=== PATIENT | female | born 1995 | race Caucasian/White ===

== ENCOUNTER 2018-02-13 23:02 | Emergency (ER) | payer SELFPAY ==
[2018-02-13 23:03] VITALS: BP 129/78; PULSE 81; RESP 14; TEMP 36.8; O2SAT 98; BMI 26.7
--- NOTE | 2018-02-13 23:21 | US_ITS ---
STUDY: ABDOMINAL ULTRASOUND - RIGHT UPPER QUADRANT REASON FOR VISIT: Female, 22 years old. Sharp stabbing right upper quadrant pain. Nausea, vomiting, diarrhea. TECHNIQUE: Ultrasound evaluation of the right upper quadrant was performed with real-time and static cruz-scale imaging. TECHNICAL QUALITY: Adequate. COMPARISON: CTA chest May 16, 2016. FINDINGS: Liver: The liver measures 14.4 cm. There is normal echogenicity of the liver. The bile ducts are within normal limits. There is hepatic color flow. The direction of portal flow is hepatopetal. There is no demonstrated mass lesion. Gallbladder: Normal distended gallbladder. The gallbladder wall measures 2 mm. There is a negative sonographic Deng's sign. There is no pericholecystic fluid. There are no gallstones. Common Bile Duct (C.B.D.): The common bile duct measures 3 mm. Pancreas: Normal size of the head, body and tail of the pancreas. There is normal echogenicity of the pancreas. There is no demonstrated pancreatic mass or cyst. Right Kidney: Normal size of the right kidney. The right kidney measures 11.2 cm. Normal renal cortex. The right cortex measures 2.2 cm. There is no demonstrated renal mass or cyst. There is no right hydronephrosis. US/Gallbladder IMPRESSION: Normal right upper quadrant ultrasound examination. Electronically Signed: Danilo Puga MD at 1:11 EDT , Service support ,
[2018-02-13 23:42] LABS: Absolute Lymphocyte Count 2.49 X10^3/ul (0.83-4.51); Absolute Neutrophil Count 6.6 X10^3/uL (2.0-7.7); Basophil# 0.01 X10^3/uL; Basophil% 0.1 % (0-1); Hematocrit 38.7 % (37-47); Hemoglobin 13.3 g/dl (12.0-15.0); Lymphocyte # 2.49 X10^3/ul (4.0); Lymphocyte % 25.8 % (19-41); Mean Corp Hgb Conc 34.4 g/gl (32-36); Mean Corpuscular Hgb 30.7 pg (27.0-32.0); Mean Corpuscular Volume 89.4 fL (81-99); Mean Platelet Vol. 10.4 fl (6.2-12.0); Monocyte# 0.42 X10^3/uL; Monocyte% 4.4 % (0-10); Neutrophil # 6.62 X10^3/uL (2.7-7.7); Neutrophil % 68.6 % (47-70); Platelet Count 212 K/mm3 (150-450); RBC Distribution Width CV 12.2 % (11.6-14.6); RBC Distribution Width SD 39.5 fl (35.1-43.9); Red Blood Count 4.33 M/mm3 (4.2-5.4); White Blood Count 9.7 K/mm3 (4.4-11.0)
[2018-02-13 23:44] LABS: POSITIVE COUNT NO; POSITIVE DIFFERENTIAL NO; POSITIVE MORPHOLOGY NO
[2018-02-13 23:55] LABS: ALB/GLOB Ratio 1.2 RATIO (0.9-2.4); AST(SGOT) 17 U/L (15-37); Alanine Aminotransfer ALT/SGPT 18 U/L (13-56); Albumin, Serum 3.9 g/dL (3.2-5.0); Alkaline Phosphatase 88 U/L (45-117); Anion Gap 10 (5-15); BUN 13 mg/dL (7-18); BUN/Creat Ratio 19.8 RATIO (10-20); Calcium,Total 8.7 mg/dL (8.5-10.1); Chloride 109 mmol/L (98-107); Creatinine, Serum 0.66 mg/dL (0.55-1.02); EST Glomerular Filtration Rate 120 mL/min (>60); Est Glom Filt Rate - Afr Amer 146 mL/min (>60); Estimated Creatinine Clearance 121.33 ml/min; Globulin 3.2 g/dL (2.2-4.2); Glucose 90 mg/dL (74-106); Lipase 64 U/L (73-393); Potassium 3.8 mmol/L (3.5-5.1); Protein, Total 7.1 g/dL (6.4-8.2); Sodium Level 142 mmol/L (136-145)
[2018-02-14 01:12] LABS: Internal QC Validated? YES +Cl - CLEAR BKGD; Pregnancy, Urine Negative Negative
--- NOTE | 2018-02-14 01:43 | ED.VISSUMM ---
- ER Visit Summary Date of Service: 02/14/18 Chief Complaint: Abdominal pain History of Present Illness: The patient is a 22 F presenting for evaluation secondary to abdominal pain. Patient states that over the course last 5 days she has been having some feelings of sweats. She states that this is a feeling of basically a subjective fever and denies any presence of chills. Patient reports that over the course last 5 hours however she had a gradual onset of continuous right upper quadrant abdominal pain that she describes as sharp. Seems to be alleviated by lying down. She states it has been associated with nausea and vomiting, she denies any diarrhea, she denies any worsening with eating food. She denies any urinary signs or symptoms. Review of systems otherwise negative. Physical Examination: Vital signs are within normal limits, patient is afebrile. General: Patient is well-nourished well-developed and in no acute distress. Head: Normocephalic, atraumatic Eyes: Pupils equal round and reactive bilaterally, extra occular motion intact bialterally ENT: Moist mucous membranes Neck: Supple, no lymphadenopathy, no JVD, no meningismus CVS: Heart regular rate and rhythm, no murmurs, rubs or gallops, radial pulses 2+ bilaterally Resp: Respirations nondistressed, lung sounds clear bilaterally Abdomen: Soft, right upper quadrant tenderness palpation with a positive Deng sign negative guarding or rebound no evidence of palpable abdominal masses, nondistended, no palpable masses, normal bowel sounds Back: Nontender Extremities: Nontender, atraumatic, active full range of motion, no peripheral edema Skin: warm, no rashes, no petechia Neuro: Alert and oriented x 4, CN 2-12 intact, no lateralizing neurological defecits Psyc: Normal affect Test Results: Right upper quadrant ultrasound negative per radiology. CBC, chemistry, liver panel, lipase, and hCG all found to be negative. Emergency Department Course and Treatment: Patient presented for evaluation secondary to abdominal pain. She did localize this in her right upper quadrant, there is at least some concern for the possibility of acute cholecystitis a workup was obtained. Patient declined analgesia or nausea medication in the emergency department. Patient's workup was negative as noted above a repeat abdominal exam at 143 showed the patient to have benign nonsurgical abdomen. I believe that she safely can be discharged. Patient potentially has an element of biliary colic, she will be given a referral to general surgery for further outpatient workup. She was given signs and symptoms which to return to the emergency department. Disposition: Discharge Impression: 1. Right upper quadrant abdominal pain This note was generated with Zazzy dictation software. It may contain incorrect words, spelling, and punctuation that were not noted in review of the chart prior to signing ED Disposition - Plan for ED Patient: Disposition: Home or Assisted Living Chief Complaint: Abd Pain Diagnosis: Right upper quadrant abdominal pain Instructions: ED Abdominal Pain Unkn Cause Prescriptions: Naproxen [Naprosyn] 500 mg PO BID PRN #20 tab Referrals: Jack Vieira MD [STAFF PHYSICIAN] -
--- NOTE | 2018-02-14 01:47 | ED.DCSUM_ITS ---
- ER Visit Summary Date of Service: 02/14/18 Chief Complaint: Abdominal pain History of Present Illness: The patient is a 22 F presenting for evaluation secondary to abdominal pain. Patient states that over the course last 5 days she has been having some feelings of sweats. She states that this is a feeling of basically a subjective fever and denies any presence of chills. Patient reports that over the course last 5 hours however she had a gradual onset of continuous right upper quadrant abdominal pain that she describes as sharp. Seems to be alleviated by lying down. She states it has been associated with nausea and vomiting, she denies any diarrhea, she denies any worsening with eating food. She denies any urinary signs or symptoms. Review of systems otherwise negative. Physical Examination: Vital signs are within normal limits, patient is afebrile. General: Patient is well-nourished well-developed and in no acute distress. Head: Normocephalic, atraumatic Eyes: Pupils equal round and reactive bilaterally, extra occular motion intact bialterally ENT: Moist mucous membranes Neck: Supple, no lymphadenopathy, no JVD, no meningismus CVS: Heart regular rate and rhythm, no murmurs, rubs or gallops, radial pulses 2 + bilaterally Resp: Respirations nondistressed, lung sounds clear bilaterally Abdomen: Soft, right upper quadrant tenderness palpation with a positive Deng sign negative guarding or rebound no evidence of palpable abdominal masses, nondistended, no palpable masses, normal bowel sounds Back: Nontender Extremities: Nontender, atraumatic, active full range of motion, no peripheral edema Skin: warm, no rashes, no petechia Neuro: Alert and oriented x 4, CN 2-12 intact, no lateralizing neurological defecits Psyc: Normal affect Test Results: Right upper quadrant ultrasound negative per radiology. CBC, chemistry, liver panel, lipase, and hCG all found to be negative. Emergency Department Course and Treatment: Patient presented for evaluation secondary to abdominal pain. She did localize this in her right upper quadrant , there is at least some concern for the possibility of acute cholecystitis a workup was obtained. Patient declined analgesia or nausea medication in the emergency department. Patient's workup was negative as noted above a repeat abdominal exam at 143 showed the patient to have benign nonsurgical abdomen. I believe that she safely can be discharged. Patient potentially has an element of biliary colic, she will be given a referral to general surgery for further outpatient workup. She was given signs and symptoms which to return to the emergency department. Disposition: Discharge Impression: 1. Right upper quadrant abdominal pain This note was generated with [employer] dictation software. It may contain incorrect words, spelling, and punctuation that were not noted in review of the chart prior to signing ED Disposition - Plan for ED Patient: Disposition: Home or Assisted Living Chief Complaint: Abd Pain Diagnosis: Right upper quadrant abdominal pain Instructions: ED Abdominal Pain Unkn Cause Prescriptions: Naproxen [Naprosyn] 500 mg PO BID PRN #20 tab Referrals: Jack Vieira MD [STAFF PHYSICIAN] -
[2018-02-14 01:53] VITALS: BP 118/54; PULSE 65; RESP 17
--- NOTE | 2018-02-14 01:54 | ED.RN ---
IV DC'ED, CATHETER INTACT, SMALL GAUZE DRESSING PLACED. DISCHARGE INSTRUCTIONS GIVEN TO AND REVIEWED WITH PATIENT, PATIENT DENIES QUESTIONS OR CONCERNS AND VOICES UNDERSTANDING OF DISCHARGE INSTRUCTIONS. PT AMBULATES OUT OF ROOM WITHOUT DIFFICULTY.
== END 2018-02-14 01:54 | disposition home or self-care (01) ==
PROVIDERS: Emergency Provider Emergency Medicine; Family Provider Student in an Organized Health Care Education/Training Program; PCP Student in an Organized Health Care Education/Training Program
DX: R10.11 Right upper quadrant pain (principal); R61 Generalized hyperhidrosis; R11.2 Nausea with vomiting, unspecified; J45.909 Unspecified asthma, uncomplicated; Z72.0 Tobacco use
CPT/HCPCS: 76705; 80053; 81025; 83690; 85025; 99283; A4216

== ENCOUNTER 2019-04-15 13:21 | Emergency (ER) | payer SELFPAY ==
[2019-04-15 13:23] VITALS: BP 137/70; PULSE 86; RESP 18; TEMP 36.3; O2SAT 96; BMI 30.4
--- NOTE | 2019-04-15 13:35 | CT_ITS ---
STUDY: CT ABDOMEN AND PELVIS WITHOUT CONTRAST REASON FOR EXAM: Female, 23 years old. Pain on the left side RADIATION DOSAGE (If Supplied By Facility): CTDIvol = ( 9.61 ) mGy, DLP = ( 506.64 ) mGycm TECHNIQUE: Transaxial images were obtained from the dome of the diaphragm to the symphysis pubis without oral contrast, and without intravenous contrast. Sagittal and coronal images were reconstructed. Individualized dose optimization techniques were used for this CT. COMPARISON: None. FINDINGS: The visualized lung bases are unremarkable. The visualized portions of the heart are within normal limits. Normal liver. Normal gallbladder and extrahepatic biliary system. Normal spleen. Normal pancreas. Normal bilateral adrenal glands. Normal right kidney. Normal left kidney. Normal visualized stomach. Normal small intestine. Normal colon. The appendix is visualized and appears normal. Normal abdominal aorta. Normal inferior vena cava. Normal retroperitoneum. Normal urinary bladder. IUD in place within the uterus. There is a small umbilical hernia containing fat. Normal osseous structures. CT/Abdomen/Pelvis without Cont IMPRESSION: Appendix is normal. IUD in place. No evidence of bowel obstruction or perienteric inflammation. No evidence of free fluid in the peritoneal space. Electronically Signed: John Paul Brooks MD at 14:55 EDT Tel [phone], Service support ,
--- NOTE | 2019-04-15 13:37 | ED.VISSUMM ---
- ER Visit Summary Date of Service: 04/15/19 Chief Complaint: [Abdominal pain] History of Present Illness: The patient is a 23 F [presents to the emergency department complaint of abdominal pain that started this morning. Patient states pain is located in her lower abdomen and radiates straight through to her back. Patient rates her pain as an 8 out of 10 describes it as sharp and stabbing. Patient states that her last menstrual period she thinks was about a week ago when she bled for about 2 days and had severe pain associated with it as well. Patient does have an IUD that she had placed about 2-1/2 years ago. Patient denies any fever. She denies any nausea or vomiting associated with it. Patient denies any diarrhea. Patient denies any blood in her stool or black tarry stool. Patient states she has had similar pains in the past but has not sought medical attention for it. Patient denies any dysuria, hematuria, urgency, or frequency.] Physical Examination: [HEENT-PERRLA, EOMI. Cranial nerves II through XII grossly intact. TMs clear. Mucous membranes moist. No adenopathy. Cardiovascular-regular rate and rhythm without murmur or ectopy Lungs-clear to auscultation, chest wall stable without crepitus or subcu emphysema Abdomen-normoactive bowel sounds, soft area patient has diffuse tenderness over the suprapubic region as well as the left lower quadrant with some guarding. There is no rebound, rigidity, cranial signs. Extremities-intact ?4, normal range of motion, normal pulses, atraumatic] Test Results: [CBC with differential obtained was normal. Chemistries unremarkable. Urinalysis was normal. hCG was negative. CT scan of the M pelvis without contrast showed a normal appendix and an IUD to be in place. Nothing else significant on exam.] Emergency Department Course and Treatment: [She was medicated with her feeding as well as Zofran and Toradol. She had good pain relief with that. Discussed with patient possibly obtaining pelvic ultrasound to evaluate further although my suspicion for torsion is very low as patient had similar pain multiple times in the past that she is had multiple visits to her [facility] for same. Patient has never been diagnosed with endometriosis or so but she states that it runs in her family.] Treatment Plan: [Patient will be advised to follow-up with her [employer] [facility] within next 3 to 5 days. Patient will be given a prescription for [place] for pain. Advised to return if worsening pain, fever, vomiting, or conditions worsen anyway.] Disposition: [Discharged home in stable condition] Impression: [Abdominal pain-etiology uncertain] This note was generated with ipadio dictation software. It may contain incorrect words, spelling, and punctuation that were not noted in review of the chart prior to signing ED Disposition - Plan for ED Patient: Referrals: Juan Diego Gaines DO [Primary Care Provider] -
[2019-04-15] MEDS: 0.9% Normal Saline 1,000 ML 125 ML IV (14:01)
[2019-04-15] MEDS: Ondansetron 4 MG/2 ML Vial IV (14:01)
[2019-04-15] MEDS: Ketorolac 30 MG/ML Syringe 15 MG IV (14:01)
[2019-04-15] MEDS: Morphine 4 MG/ML Syringe IV (14:01)
[2019-04-15 14:13] LABS: Internal QC Validated? YES +Cl - CLEAR BKGD; Pregnancy, Serum, hCG Quali. NEGATIVE Negative
[2019-04-15 14:14] LABS: Absolute Lymphocyte Count 2.16 X10^3/uL (0.83-4.51); Absolute Neutrophil Count 4.9 X10^3/uL (2.0-7.7); Basophil# 0.03 X10^3/uL; Basophil% 0.4 % (0-1); Eosinophil# 0.28 X10^3/uL; Eosinophils% 3.5 % (0-5); Hematocrit 40.6 % (37-47); Hemoglobin 13.4 g/dL (12.0-15.0); Lymphocyte # 2.16 X10^3/ul (4.0); Mean Corpuscular Hgb 29.7 pg (27.0-32.0); Mean Platelet Vol. 9.8 fl (6.2-12.0); Monocyte# 0.57 X10^3/uL; Monocyte% 7.1 % (0-10); NRBC Flagged by Analyzer 0 % (0-5); Neutrophil # 4.94 X10^3/uL (2.7-7.7); Neutrophil % 61.7 % (47-70); Platelet Count 220 K/mm3 (150-450); RBC Distribution Width CV 12.1 % (11.6-14.6); RBC Distribution Width SD 39.8 fl (35.1-43.9); Red Blood Count 4.51 M/mm3 (4.2-5.4)
[2019-04-15 14:25] LABS: Anion Gap 3 (5-15); BUN 14 mg/dL (7-18); BUN/Creat Ratio 20.4 RATIO (10-20); Calcium,Total 8.4 mg/dL (8.5-10.1); Chloride 111 mmol/L (98-107); Creatinine, Serum 0.69 mg/dL (0.55-1.02); EST Glomerular Filtration Rate 113 mL/min (>60); Est Glom Filt Rate - Afr Amer 137 mL/min (>60); Estimated Creatinine Clearance 115.08 ml/min; Glucose 93 mg/dL (74-106); Potassium 3.9 mmol/L (3.5-5.1); Sodium Level 140 mmol/L (136-145)
[2019-04-15 14:31] LABS: Bacteria 0 SEEN /hpf (None Seen); Mucous, Urine 0 SEEN /hpf (<or=2+); Red Blood Cells-Urine 0 SEEN /hpf (0-5); Squamous Epithelial Cells - UA 0 SEEN /hpf (5-10); White Blood Cells 0 SEEN /hpf (0-5)
[2019-04-15 14:42] LABS: Color, Urine Yellow (Yellow); Glucose, Dipstick Normal (Normal); Ketone-Dipstick Negative (Negative); Leukocyte Esterase-Dipstick Negative /ul (Negative); Nitrite-Dipstick Negative (Negative); Occult Blood-Urine Negative /ul (Negative); Protein-Dipstick Negative (Negative); Specific Gravity, Urine 1.015 (1.002-1.030); Urine Bilirubin Dipstick Negative (Negative); Urine Clarity Clear (Clear); Urine Urobilinogen 1 mg/dl (Normal); Urine pH 6.5 (5.0 - 8.0)
--- NOTE | 2019-04-15 15:16 | DCINST.ED_ITS ---
ED Disposition - Plan for ED Patient: Instructions: ABDOMINAL PAIN, Unknown Cause, (Female) Prescriptions: Naproxen [Naprosyn] 500 mg PO BID PRN #20 tab Prescription Printed Hydrocodone Bitart/Apap 5-325 [[place] 5MG-325MG] 1 tab PO Q4H PRN PRN 2 Days #10 tab PRN Reason: Pain Prescription Printed Referrals: Juan Diego Gaines DO [Primary Care Provider] - Dayan Reed MD [STAFF PHYSICIAN] - 3-5 Days
[2019-04-15 15:39] VITALS: BP 128/74; PULSE 82; RESP 16; O2SAT 98
== END 2019-04-15 15:41 | disposition home or self-care (01) ==
LOC: ED 13:42
PROVIDERS: Emergency Provider Emergency Medicine; Family Provider Student in an Organized Health Care Education/Training Program; PCP Student in an Organized Health Care Education/Training Program
DX: R10.32 Left lower quadrant pain (principal); Z97.5 Presence of (intrauterine) contraceptive device; Z72.0 Tobacco use
CPT/HCPCS: 74176; 80048; 81001; 84703; 85025; 96361; 96374; 96375; 99284; J7030; J2405

== ENCOUNTER 2021-04-08 07:34 | Emergency (ER) | payer MEDICAID, SELFPAY ==
[2021-04-08 07:35] VITALS: BP 136/81; PULSE 81; RESP 16; TEMP 36.7; O2SAT 100; BMI 32.3
--- NOTE | 2021-04-08 08:48 | CT_ITS ---
STUDY: CT BRAIN WITHOUT CONTRAST REASON FOR EXAM: Female, 25 years old. Head injury RADIATION DOSAGE (If Supplied By Facility): CTDIvol = ( 44.99 ) mGy, DLP = ( 762.36 ) mGycm TECHNIQUE: Transaxial CT imaging of the brain was performed without administration of intravenous contrast material. Individualized dose optimization techniques were used for this CT. COMPARISON: No relevant priors. FINDINGS: Normal soft tissue structures. Normal calvarium. Normal size ventricles and extra-axial spaces for the patient''s age. Normal white matter tracts of the cerebral hemispheres. Normal basal ganglia and thalami. Normal brainstem. Normal cerebellum. There is no intracranial hemorrhage. There are no findings of an acute ischemic infarction. Normal visualized paranasal sinuses. CT/Brain/Head without Contrast IMPRESSION: Normal unenhanced CT scan of the brain. Electronically Signed: Gibran Gonzalez MD at 9:23 EDT , Service support ,
--- NOTE | 2021-04-08 10:10 | EX.ED.VIS.HA ---
HPI History of Present Illness Chief Complaint: Headache Informant: patient Onset/Context/Timing Onset: Yesterday Timing: Continuous Location: Left frontal area Worsened by: Movement Relieved by: Nothing Associated Symptoms/Injury Associated Symptoms: Positive for Visual Changes and Photophobia; Negative for Fever, Nausea, Vomiting, Sore Throat, Sinus Pressure, Numbness, Tingling, Preceding Aura, Blurred Vision and Visual Loss Injury - [place]: Positive for Direct Trauma Narrative Narrative: Patient with headache that began yesterday. Patient states that a window fell on to her head. Patient states it hit her in the left frontal area. Patient states she has been having sharp headaches since that time. Patient states it is worse with any movement of her head. Patient states she also has been seeing spots in her vision. Patient admits to some mild photophobia. Patient denies any nausea or vomiting. Patient denies any loss of consciousness. Patient denies any paresthesias or weakness. [facility] Medical History (Updated 04/08/21 @ 10:[address] Terrance Haas DO) Asthma Sciatica Home Medications albuterol sulfate 1 puff INHALATION Q4H PRN PRN 04/15/19 [History Last Taken Unknown] loratadine 10 mg PO DAILY PRN 04/15/19 [History Last Taken Unknown] naproxen 500 mg PO BID PRN #20 tab 04/15/19 [Rx Last Taken Unknown] Allergy/AdvReac Type Severity Reaction Status Date / Time benzonatate Allergy Hives Verified 04/08/21 07:36 [From David Levine] red (food color) Allergy Hives Verified 04/15/19 13:22 no surgical history Social History Smoking Status: Current every day smoker tobacco type: cigarettes ROS ROS ED Constitutional Constitutional ED: Denies chills or fever(s) Eyes Eyes: Reports change in vision; Denies blurry vision ENT ENT ED: Denies rhinorrhea or sore throat Cardiovascular Cardiovascular: Denies chest pain or palpitations Respiratory/Chest Respiratory/Chest: Reports cough; Denies dyspnea Gastrointestinal Gastrointestinal: Denies nausea or vomiting Genitourinary Genitourinary ED: Denies dysuria or hematuria Musculoskeletal Musculoskeletal: Reports neck pain; Denies back pain Integumentary Denies abscess or rash Neurologic Neurologic: Reports headache(s); Denies weakness Allergic/Immunologic Allergic/Immunologic ED: Denies mouth swelling or urticaria EXAM Physical Exam Const Vital Signs: 04/08/21 07:35 Temperature 98.0 F Temperature Source Temporal Pulse Rate 81 Respiratory Rate 16 Blood Pressure 136/81 H Blood Pressure Mean 99 Pulse Ox 100 Oxygen Delivery Method Room Air Positive well nourished, well developed and obese General Appearance ED: well developed Nutritional Appearance: obese HEENT Reports moist mucous membranes HEENT Narrative: There is some mild tenderness over the left frontal area. There is no edema or ecchymosis. There is no bony crepitance or step-off. tenderness Eyes PERRL and EOMs intact bilaterally Neck supple and no JVD Resp normal respiratory effort and clear to auscultation bilaterally Cardio regular rate, regular rhythm and no murmurs GI normal to inspection, nondistended, normoactive bowel sounds Extremity normal to inspection General Extremety ED: Negative for edema or tenderness General Extremity: Negative for edema Neuro oriented x3, CN's II-XII intact bilaterally and no sensory deficits noted Sensorium / Orientation: awake and alert Motor Exam: strength 5/5 throughout Psych mental status grossly normal Skin no rashes or lesions noted MDM MDM MDM Narrative Medical decision making narrative: CT scan of the brain was obtained. There is no acute intracranial abnormality. Patient was advised of her findings. Patient was instructed to rest in a dark quiet room. Patient was instructed to drink plenty of fluids. Patient was instructed to take Tylenol or ibuprofen as needed for pain. Patient was instructed to follow-up with her primary care physician in 5 to 7 days. Patient understood and was agreeable with the plan. All questions were answered. Radiography Diagnostic Testing: Radiology Impression Brain CT 04/08/21 08:48 IMPRESSION: Normal unenhanced CT scan of the brain. Electronically Signed: Gibran Gonzalez MD at 9:23 EDT , Service support , Discharge Plan Triage Chief Complaint: Headache ED Provider: Terrance Haas Dx/Rx/DC Orders Clinical Impression: Closed head injury Instructions: ED Head Injury (Adult) Prescriptions: No Action albuterol sulfate 1 INHALER inhaler 1 puff inhalation Q4H PRN PRN (Reason: Wheezing) RF: 0 loratadine 10 MG capsule 10 mg PO DAILY PRN (Reason: Allergies) RF: 0 naproxen 500 MG tablet 500 mg PO BID PRN Qty: 20 RF: 0 Primary Care Provider: Juan Diego Gaines Referrals: Juan Diego Gaines DO [Primary Care Provider] - 5-7 Days Disposition Disposition: Home, Self Care
[2021-04-08 10:33] VITALS: PULSE 81; RESP 16; O2SAT 98
== END 2021-04-08 10:35 | disposition home or self-care (01) ==
PROVIDERS: Emergency Provider Emergency Medicine; PCP Student in an Organized Health Care Education/Training Program
DX: S09.90XA Unspecified injury of head, initial encounter (principal); M54.2 Cervicalgia; W20.8XXA Other cause of strike by thrown, projected or falling object, initial encounter; Y93.9 Activity, unspecified; Y92.9 Unspecified place or not applicable; Y99.9 Unspecified external cause status; J45.909 Unspecified asthma, uncomplicated; E66.9 Obesity, unspecified; F17.210 Nicotine dependence, cigarettes, uncomplicated; Z79.899 Other long term (current) drug therapy
CPT/HCPCS: 70450; 99282

== ENCOUNTER 2021-05-12 23:07 | Emergency (ER) | payer MEDICAID, SELFPAY ==
--- NOTE | 2021-05-12 00:30 | RAD_ITS ---
STUDY: X-RAY CHEST REASON FOR EXAM: Female, 25 years old. cough, sob, neg covid TECHNIQUE: Frontal and lateral views of the chest. COMPARISON: None. FINDINGS: The lungs are clear and expanded. There is no demonstrated pleural abnormality. Normal size heart. Normal mediastinum and amy. Normal visualized pulmonary arteries. Normal visualized aortic arch and descending thoracic aorta. Normal visualized thoracic spine. Normal visualized ribs, clavicles, and shoulders. There is no demonstrated abnormality of the visualized soft tissue structures of the upper abdomen. RAD/Chest PA and Lateral IMPRESSION: Normal x-ray examination of the chest. Electronically Signed: Anthony Loyd MD at 0:54 EDT Tel , Service support ,
[2021-05-12 23:08] VITALS: BP 144/86; PULSE 106; RESP 16; TEMP 36.6; O2SAT 94; BMI 32.5
[2021-05-12] MEDS: predniSONE 20 MG Tablet 40 MG PO (23:38)
[2021-05-12 23:51] VITALS: PULSE 105; RESP 16; O2SAT 98
[2021-05-12] MEDS: Albuterol 2.5 MG/3 ML VIAL.NEB. INHALATION (23:51)
[2021-05-12] MEDS: Ipratropium/Albuterol Sulfate 3 ML AMPUL.NEB INHALATION (23:51)
--- NOTE | 2021-05-13 00:03 | ED.VIS.DYS ---
HPI History of Present Illness Chief Complaint: Cough Informant: patient Onset/Context/Timing Onset: Days (2-3) Context: gradual Timing: Continuous Quality: Positive for Wheezing Current Severity: Moderate Maximum Severity: Moderate Worsened by: Exertion and Coughing Relieved by: Nothing (Tried albuterol at home) Associated Symptoms cough Chest Pain: Positive for Tightness Narrative Narrative: Patient has had upper respiratory tract infection along with her boyfriend, they both started getting sick on the same day about 6 days ago, they both had tested for Covid and both turned out negative. She states that her test had a 24-48-hour turnaround, so I suspect it was the PCR. She presents because he is starting to improve however she is having chest tightness and increase in her asthma symptoms and is feeling more miserable. She has hoarseness without stridor, headache, myalgias. No fevers. [facility] Medical History Asthma Herniated disc Sciatica Home Medications albuterol sulfate 1 puff INHALATION Q4H PRN PRN 04/15/19 [History Last Taken Unknown] loratadine 10 mg PO DAILY PRN 04/15/19 [History Last Taken Unknown] Controll 1 tab PO.IVFORM DAILY 05/12/21 [History Last Taken Unknown] albuterol sulfate 2.5 mg INHALATION Q4H PRN #25 vial 05/13/21 [Rx Last Taken Unknown] prednisone 40 mg PO DAILY #10 tablet 05/13/21 [Rx Last Taken Unknown] Allergy/AdvReac Type Severity Reaction Status Date / Time benzonatate Allergy Hives Verified 05/12/21 23:08 [From David Levine] red (food color) Allergy Hives Verified 05/12/21 23:08 Social History Smoking Status: Current every day smoker tobacco type: cigarettes ROS ROS ED Constitutional Constitutional ED: Reports body ache(s), headache(s) and malaise; Denies chills or fever(s) Eyes Eyes: Denies change in vision or diplopia ENT ENT ED: Reports hoarseness; Denies loss taste/smell, rhinorrhea or sore throat Cardiovascular Cardiovascular: Denies chest pain or palpitations Respiratory/Chest Respiratory/Chest: Reports cough, dyspnea and dyspnea on exertion Gastrointestinal Gastrointestinal: Reports diarrhea; Denies abdominal pain, nausea or vomiting Genitourinary Genitourinary ED: Denies dysuria or hematuria Musculoskeletal Musculoskeletal: Denies back pain or neck pain Integumentary Denies abscess or rash Neurologic Neurologic: Reports headache(s); Denies paresthesias or weakness Psychiatric Psychiatric: Denies anxiety or suicidal thoughts EXAM Physical Exam Const Vital Signs: 05/12/21 23:08 05/12/21 23:51 Temperature 97.8 F Temperature Source Temporal Pulse Rate 106 H 105 H Respiratory Rate 16 16 Respiratory Effort Normal Short of Breath Respiratory Pattern Normal Blood Pressure 144/86 H Blood Pressure Mean 105 Pulse Ox 94 98 Oxygen Delivery Method Room Air Room Air Positive well nourished and well developed Constitutional Narrative: well-appearing, no distress. very hoarse of voice w/o stridor or resp distress. General Appearance ED: well developed and NAD HEENT Reports moist mucous membranes normocephalic and atraumatic Eyes PERRL and EOMs intact bilaterally Neck full ROM, no lymphadenopathy, supple, no JVD and thyroid normal Resp normal respiratory effort Resp Narrative: Mild end expiratory wheezes throughout all you, equal breath sounds bilaterally. Cardio regular rate, regular rhythm and no murmurs Rate: tachycardic GI non-tender and non-distended Auscultation: normoactive bowel sounds Palpation: soft Back/Spine no CVA tenderness General Back: other FROM Extremity normal to inspection and no calf tenderness General Extremety ED: Negative for edema, pulses abnormal or tenderness General Extremity: Negative for edema or pulses abnormal Neuro oriented x3, CN's II-XII intact bilaterally and no sensory deficits noted Sensorium / Orientation: awake and alert Motor Exam: strength 5/5 throughout Skin no rashes or lesions noted and no wounds MDM MDM MDM Narrative Medical decision making narrative: 2 view chest x-ray was obtained and on my interpretation is negative for infiltrate. She was given a duo nebulizer along with another albuterol aerosol treatment, and started on prednisone. She felt much better after this, the tightness let up significantly and she was satting better, 98% on room air. 2 view x-ray monitor rotation looks good. She will be prescribed prednisone and a refill for her albuterol nebulizer as well. Supportive care advised for what is likely a non-Covid viral illness. Radiography Chest X-Ray - ED: 2 View, Read by ED Physician, No Acute Disease and No Infiltrates Discharge Plan Triage Chief Complaint: Cough ED Provider: Viral Panda Dx/Rx/DC Orders Clinical Impression: Upper respiratory tract infection, Acute asthma exacerbation Instructions: Asthma Prescriptions: New prednisone 20 MG tablet 40 mg PO DAILY Qty: 10 RF: 0 albuterol sulfate 2.5 MG/3 ML solution for nebulization 2.5 mg inhalation Q4H PRN Qty: 25 RF: 0 No Action albuterol sulfate 1 INHALER inhaler 1 puff inhalation Q4H PRN PRN (Reason: Wheezing) RF: 0 loratadine 10 MG capsule 10 mg PO DAILY PRN (Reason: Allergies) RF: 0 Controll 1 tab PO.IVFORM DAILY RF: 0 Primary Care Provider: Juan Diego Gaines Referrals: Juan Diego Gaines DO [Primary Care Provider] - 1 Week if not improving Disposition Disposition: Home, Self Care
--- NOTE | 2021-05-13 00:13 | CPS ---
x1 Albuterol given to pt. in ED as well
[2021-05-13 01:02] VITALS: BP 112/60; PULSE 100; RESP 18; O2SAT 98
== END 2021-05-13 01:05 | disposition home or self-care (01) ==
PROVIDERS: Emergency Provider Emergency Medicine; PCP Student in an Organized Health Care Education/Training Program
DX: J06.9 Acute upper respiratory infection, unspecified (principal); J45.901 Unspecified asthma with (acute) exacerbation; Z79.3 Long term (current) use of hormonal contraceptives; Z79.899 Other long term (current) drug therapy; F17.210 Nicotine dependence, cigarettes, uncomplicated
CPT/HCPCS: 71046; 94640; 99251; 99283; G0463

== ENCOUNTER 2021-06-10 21:36 | Emergency (ER) | payer MEDICAID, SELFPAY ==
[2021-06-10 21:36] VITALS: BP 149/87; PULSE 109; RESP 18; TEMP 36.4; O2SAT 97; BMI 32.1
--- NOTE | 2021-06-10 22:08 | EDS_ITS ---
HPI History of Present Illness Chief Complaint: Back Informant: patient Narrative Narrative: 25-year-old female presenting to the emergency department with back pain. Patient states that she has a long history of back pain. She sees a chiropractor 3 times a week. She states she used to get back injections but could not afford them anymore. She states that she has herniated disc and had a MRI at [facility] many years ago. She states that she had a back adjustment yesterday by her chiropractor. This morning she woke up with low back pain and had numbness of the left leg. She stayed in bed around 3:00 when someone came over and helped her up. That numbness is since resolved. She went to a parenting class with her soon-to-be ex- where she started having vaginal bleeding. She states that she had a Mirena placed about 3 weeks ago. She states that she felt very hot and sweaty that she might pass out especially when the pain got worse. She states that she feels that this is most likely muscular spasm but wanted to be evaluated because ibuprofen is no longer helping her. [facility] Medical History Asthma Herniated disc Sciatica Home Medications albuterol sulfate 1 puff INHALATION Q4H PRN PRN 04/15/19 [History Last Taken Unknown] loratadine 10 mg PO DAILY PRN 04/15/19 [History Last Taken Unknown] Controll 1 tab PO.IVFORM DAILY 05/12/21 [History Last Taken Unknown] albuterol sulfate 2.5 mg INHALATION Q4H PRN #25 vial 05/13/21 [Rx Last Taken Unknown] prednisone 40 mg PO DAILY #10 tablet 05/13/21 [Rx Last Taken Unknown] diazepam 5 mg PO Q8 PRN #15 tab 06/10/21 [Rx Last Taken Unknown] hydrocodone-acetaminophen 1 tab PO Q6H PRN PRN 3 Days #12 tablet 06/10/21 [Rx Last Taken Unknown] ketorolac 10 mg PO Q8H PRN #15 tab 06/10/21 [Rx Last Taken Unknown] prednisone 60 mg PO DAILY #15 tablet 06/10/21 [Rx Last Taken Unknown] Allergy/AdvReac Type Severity Reaction Status Date / Time benzonatate Allergy Hives Verified 09/15/21 23:08 [From David Levine] red (food color) Allergy Hives Verified 05/12/21 23:08 Social History (Updated 06/10/21 @ 22:[address] Cisco Deleon, DO) Smoking Status: Current every day smoker tobacco type: cigarettes substance use type: does not use ROS ROS ED Constitutional Constitutional ED: Denies chills or weight loss Eyes Eyes: Denies change in vision or diplopia ENT ENT ED: Denies ear pain, rhinorrhea or sore throat Cardiovascular Cardiovascular: Denies chest pain, orthopnea, palpitations or racing heartbeat Respiratory/Chest Respiratory/Chest: Denies cough, dyspnea or orthopnea Gastrointestinal Gastrointestinal: Denies abdominal pain, diarrhea, nausea or vomiting Genitourinary Genitourinary ED: Denies dysuria, hematuria or urinary frequency Musculoskeletal Musculoskeletal: Reports back pain; Denies arthralgias or myalgias Integumentary Denies abscess or rash Neurologic Neurologic: Reports paresthesias; Denies headache(s) or weakness Psychiatric Psychiatric: Denies anxiety, depression, suicidal ideation or suicidal thoughts Endocrine Endocrinology: Denies polydipsia, polyphagia or polyuria Allergic/Immunologic Allergic/Immunologic ED: Denies mouth swelling, tongue swelling or urticaria EXAM Physical Exam Const Vital Signs: 06/10/21 21:36 Temperature 97.6 F L Temperature Source Temporal Pulse Rate 109 H Respiratory Rate 18 Blood Pressure 149/87 H Blood Pressure Mean 107 Pulse Ox 97 Oxygen Delivery Method Room Air Positive well nourished, well developed and obese General Appearance ED: well developed Nutritional Appearance: obese HEENT Reports normocephalic, head/scalp atraumatic and moist mucous membranes Eyes PERRL and EOMs intact bilaterally Neck no lymphadenopathy, supple and no JVD Resp normal respiratory effort and clear to auscultation bilaterally Cardio regular rate, regular rhythm and no murmurs GI normal to inspection, nondistended, normoactive bowel sounds and non-tender Palpation: soft Back/Spine no CVA tenderness and normal ROM Back/Spine Narrative: Patient reports tenderness to palpation of the lower lumbar paraspinal musculature. There is no hyperemia. There is no tissue texture changes to suggest underlying abscess. Patient is slow to move and reports pain with any type of movement. Extremity normal to inspection General Extremety ED: Negative for edema General Extremity: Negative for edema Neuro oriented x3 and CN's II-XII intact bilaterally Neuro Narrative: There is no loss of sensation. Patellar and ankle reflexes are normal. Motor strength appears intact. Sensorium / Orientation: alert Motor Exam: strength 5/5 throughout Deep Tendon Reflexes: Rt Patellar (L4): 2+, Lt Patellar (L4): 2+, Rt Ankle (S1): 2+ and Lt Ankle (S1): 2+ Deep Tendon Reflexes Back: Rt Patellar (L4): 2+, Lt Patellar (L4): 2+, Rt Ankle (S1): 2+ and Lt Ankle (S1): 2+ Psych mental status grossly normal Mood & Affect: Negative for depressed or tearful Skin no rashes or lesions noted and no wounds MDM MDM MDM Narrative Medical decision making narrative: I do not suspect that a Mirena placement should cause any type of distal leg symptoms. Think this is musculoskeletal in nature. Patient will be given a dose of Toradol and Valium here. I can prescribe some anti-inflammatories prednisone and muscle relaxants and a few narcotic pain medications. I did recommend early follow-up with her primary care doctor Discharge Plan Triage Chief Complaint: Back ED Provider: Cisco Deleon Dx/Rx/DC Orders Clinical Impression: Acute bilateral low back pain, Left sided sciatica Instructions: ED Sciatica Prescriptions: New hydrocodone-acetaminophen [hydrocodone-acetaminophen] 1 TABLET tablet 1 tab PO Q6H PRN PRN (Reason: Pain) 3 Days Qty: 12 RF: 0 diazepam [diazepam] 5 MG tablet 5 mg PO Q8 PRN (Reason: Muscle Spasm) Qty: 15 RF: 0 prednisone 20 MG tablet 60 mg PO DAILY Qty: 15 RF: 0 ketorolac 10 mg tablet 10 mg PO Q8H PRN (Reason: pain) Qty: 15 RF: 0 No Action albuterol sulfate 1 INHALER inhaler 1 puff inhalation Q4H PRN PRN (Reason: Wheezing) RF: 0 loratadine 10 MG capsule 10 mg PO DAILY PRN (Reason: Allergies) RF: 0 Controll 1 tab PO.IVFORM DAILY RF: 0 prednisone 20 MG tablet 40 mg PO DAILY Qty: 10 RF: 0 albuterol sulfate 2.5 MG/3 ML solution for nebulization 2.5 mg inhalation Q4H PRN Qty: 25 RF: 0 Primary Care Provider: Juan Diego Gaines: Juan Diego Gaines, [Primary Care Provider] - As soon as possible Disposition Disposition: Home, Self Care
[2021-06-10] MEDS: Ketorolac 60 MG/2 ML Vial IM (22:23)
[2021-06-10] MEDS: diazePAM 5 MG Tablet PO (22:23)
[2021-06-10 22:49] VITALS: RESP 18
== END 2021-06-10 22:52 | disposition home or self-care (01) ==
PROVIDERS: Emergency Provider Emergency Medicine; PCP Student in an Organized Health Care Education/Training Program
DX: M54.42 Lumbago with sciatica, left side (principal); J45.909 Unspecified asthma, uncomplicated; E66.9 Obesity, unspecified; F17.210 Nicotine dependence, cigarettes, uncomplicated; Z79.899 Other long term (current) drug therapy; Z97.5 Presence of (intrauterine) contraceptive device
CPT/HCPCS: 96372; 99282

== ENCOUNTER 2021-11-29 21:06 | Emergency (ER) | payer OTHER, MEDICAID, SELFPAY ==
[2021-11-29 21:06] VITALS: BP 140/84; PULSE 92; RESP 16; TEMP 36.3; O2SAT 100; BMI 30.4
--- NOTE | 2021-11-29 21:48 | CT_ITS ---
EXAM: CT ABDOMEN AND PELVIS WITHOUT IV CONTRAST - CT Abdomen And Pelvis W/O Contrast Injection HISTORY: flank pain TECHNIQUE: Routine protocol CT abdomen and pelvis. IV Contrast: None.. Oral contrast: None. RADIATION DOSAGE (If Supplied By Facility): CTDIvol = ( 12.01 ) mGy, DLP = ( 621.03 ) mGycm Individualized dose optimization techniques were used for this CT. COMPARISON: CT abdomen pelvis 04/15/2019. LIMITATIONS: None. FINDINGS: LOWER CHEST: Included lung bases are clear. LIVER: Grossly unremarkable. GALLBLADDER AND BILIARY TREE: Grossly unremarkable. PANCREAS: Grossly unremarkable. SPLEEN: Grossly unremarkable. ADRENAL GLANDS: Grossly unremarkable. KIDNEYS AND URETERS: No calculi demonstrated. No hydronephrosis. PERITONEUM: No free air. No free fluid. BOWEL: No bowel obstruction. Several prominent lymph nodes in the mesentery right mid abdomen, not significantly changed compared to the prior study. APPENDIX: Visualized and unremarkable. No evidence of acute appendicitis. VESSELS: Abdominal aorta is normal caliber. A few prominent retroperitoneal lymph nodes. REPRODUCTIVE ORGANS: Approximately 2.5 cm cyst or follicle in the left ovary. The intrauterine device that was present on the prior study is not identified on the current study. URINARY BLADDER: Grossly unremarkable. ABDOMINAL WALL: Unremarkable. BONES: No acute abnormalities. IMPRESSION: No acute findings. Small 2.5 cm left ovarian cyst or follicle uncertain clinical significance. Electronically Signed: Anastasiia Field MD at 22:55 EDT , CT/Abdomen/Pelvis without Cont
--- NOTE | 2021-11-29 21:49 | EDS_ITS ---
HPI History of Present Illness Chief Complaint: Abd Pain Informant: patient Onset/Context/Timing Onset: Today Current Severity: Moderate Maximum Severity: Moderate Narrative Narrative: Patient presents secondary left lower quadrant pain with left lower back pain. She had some nausea today as well as pain. She ate some sushi yesterday at a new place and thought maybe her pain and nausea was secondary to food poisoning. She really is not vomiting or diarrhea. She reports having cloudy urine yesterday and earlier today. She denies hematuria. No known history of kidney stones. No dysuria. [facility] Medical History Asthma Herniated disc Migraine Sciatica Vertigo Home Medications albuterol sulfate 1 puff INHALATION Q4H PRN PRN 04/15/19 [History Last Taken Unknown] loratadine 10 mg PO DAILY PRN 04/15/19 [History Last Taken Unknown] Controll 1 tab PO.IVFORM DAILY 05/12/21 [History Last Taken Unknown] albuterol sulfate 2.5 mg INHALATION Q4H PRN #25 vial 05/13/21 [Rx Last Taken Unknown] prednisone 40 mg PO DAILY #10 tablet 05/13/21 [Rx Last Taken Unknown] diazepam 5 mg PO Q8 PRN #15 tab 06/10/21 [Rx Last Taken Unknown] hydrocodone-acetaminophen 1 tab PO Q6H PRN PRN 3 Days #12 tablet 06/10/21 [Rx Last Taken Unknown] ketorolac 10 mg PO Q8H PRN #15 tab 06/10/21 [Rx Last Taken Unknown] prednisone 60 mg PO DAILY #15 tablet 06/10/21 [Rx Last Taken Unknown] ketorolac 10 mg PO Q6H PRN 3 Days #10 tab 11/29/21 [Rx Last Taken Unknown] Allergy/AdvReac Type Severity Reaction Status Date / Time benzonatate Allergy Hives Verified 11/29/21 21:08 [From David Levine] red (food color) Allergy Hives Verified 11/29/21 21:08 Social History Smoking Status: Current every day smoker tobacco type: cigarettes substance use type: does not use ROS ROS ED Constitutional Constitutional ED: Denies chills or fever(s) Eyes Eyes: Denies change in vision ENT ENT ED: Denies sore throat Cardiovascular Cardiovascular: Denies chest pain Respiratory/Chest Respiratory/Chest: Denies cough or dyspnea Gastrointestinal Gastrointestinal: Reports abdominal pain and nausea; Denies diarrhea or vomiting Genitourinary Genitourinary ED: Denies dysuria or hematuria Musculoskeletal Musculoskeletal: Denies back pain or neck pain Integumentary Denies rash Neurologic Neurologic: Denies headache(s) or weakness Allergic/Immunologic Allergic/Immunologic ED: Denies urticaria EXAM Physical Exam Const Vital Signs: 11/29/21 21:06 Temperature 97.4 F L Temperature Source Temporal Pulse Rate 92 Respiratory Rate 16 Blood Pressure 140/84 H Blood Pressure Mean 102 Pulse Ox 100 Oxygen Delivery Method Room Air Positive well nourished and well developed General Appearance ED: well developed HEENT Reports moist mucous membranes Eyes PERRL and EOMs intact bilaterally Neck supple Chest Wall inspection of chest normal and palpation of chest normal Resp normal respiratory effort and clear to auscultation bilaterally Cardio regular rate and regular rhythm GI normal to inspection, nondistended, normoactive bowel sounds and non-tender Palpation: soft Back/Spine Back/Spine Narrative: Mild left CVA tenderness. Extremity normal to inspection Neuro oriented x3 Sensorium / Orientation: alert Psych mental status grossly normal Skin no rashes or lesions noted MDM MDM MDM Narrative Medical decision making narrative: Patient given Toradol and IV fluids. Lab work, urinalysis, CT flank obtained. Lab Data Attestation: I reviewed the patient's lab results. Labs: Laboratory Results - last 24 hr 11/29/21 11/29/21 11/29/21 21:20 21:35 21:35 WBC 10.4 RBC 4.85 Hgb 14.6 Hct 44.6 MCV 92.0 MCH 30.1 MCHC 32.7 RDW Std Deviation 41.7 RDW Coeff of Manuela 12.4 Plt Count 241 MPV 10.5 Immature Gran % (Auto) 0.400 Neut % (Auto) 61.6 Lymph % (Auto) 30.4 Lynn % (Auto) 4.7 Eos % (Auto) 2.7 Baso % (Auto) 0.2 Absolute Neuts (auto) 6.4 Absolute Lymphs (auto) 3.17 Nucleated RBC % 0 Sodium 139 Potassium 3.5 Chloride 107 Carbon Dioxide 28.0 Anion Gap 4 L BUN 16 Creatinine 0.75 Estim Creat Clear Calc 103.18 Est GFR (MDRD) Af Amer 122 Est GFR (MDRD) Non-Af 101 BUN/Creatinine Ratio 21.4 H Glucose 94 Calcium 8.7 Urine Color Yellow Urine Clarity Sl. Cloudy Urine pH 6.5 Ur Specific [place] 1.010 Urine Protein Negative Urine Glucose (UA) Normal Urine Ketones Negative Urine Occult Blood Negative Urine Nitrite Negative Urine Bilirubin Negative Urine Urobilinogen Normal Ur Leukocyte Esterase 100 H Urine RBC 0-5 SEEN Urine WBC 5-10 SEEN Ur Squamous Epith Cells 0-5 SEEN Amorphous Sediment 1+ URATE Urine Bacteria 0 SEEN Urine Mucus 0 SEEN Urine Test Negative Radiography Diagnostic Testing: Clinical Impression(s) from Imaging Studies Abdomen/Pelvis CT 11/29/21 21:48 IMPRESSION: No acute findings. Small 2.5 cm left ovarian cyst or follicle uncertain clinical significance. Treatment and Re-Evaluation Narrative: Lab work is unremarkable. Urinalysis reveals no acute infection. CT scan reveals a small 2.5 cm left ovarian cyst. No evidence of kidney stone. Test results discussed with the patient. She is more comfortable after Toradol. She will be written for Toradol tabs at home. She was advised not to take ibuprofen in addition to this. She will follow-up with her [employer]. Discharge Plan Triage Chief Complaint: Abd Pain ED Provider: Xiomy Peterson Dx/Rx/DC Orders Clinical Impression: Ovarian cyst Instructions: ED Ovarian Cyst Prescriptions: New ketorolac 10 mg tablet 10 mg PO Q6H PRN (Reason: pain) 3 Days Qty: 10 RF: 0 No Action albuterol sulfate 1 INHALER inhaler 1 puff inhalation Q4H PRN PRN (Reason: Wheezing) RF: 0 loratadine 10 MG capsule 10 mg PO DAILY PRN (Reason: Allergies) RF: 0 Controll 1 tab PO.IVFORM DAILY RF: 0 prednisone 20 MG tablet 40 mg PO DAILY Qty: 10 RF: 0 albuterol sulfate 2.5 MG/3 ML solution for nebulization 2.5 mg inhalation Q4H PRN Qty: 25 RF: 0 hydrocodone-acetaminophen [hydrocodone-acetaminophen] 1 TABLET tablet 1 tab PO Q6H PRN PRN (Reason: Pain) 3 Days Qty: 12 RF: 0 diazepam [diazepam] 5 MG tablet 5 mg PO Q8 PRN (Reason: Muscle Spasm) Qty: 15 RF: 0 prednisone 20 MG tablet 60 mg PO DAILY Qty: 15 RF: 0 ketorolac 10 mg tablet 10 mg PO Q8H PRN (Reason: pain) Qty: 15 RF: 0 Primary Care Provider: Juan Diego Gaines Referrals: Juan Diego Gaines DO [Primary Care Provider] - Gissel Alba DO [STAFF PHYSICIAN] - 1-2 Weeks Disposition Disposition: Home, Self Care
[2021-11-29] MEDS: 0.9% Normal Saline 1,000 ML 150 ML IV (21:57)
[2021-11-29] MEDS: Ketorolac 30 MG/ML Syringe IV (21:57)
[2021-11-29 22:08] LABS: Bacteria 0 SEEN /hpf (None Seen); Mucous, Urine 0 SEEN /hpf (<or=2+)
[2021-11-29 22:09] LABS: Absolute Lymphocyte Count 3.17 X10^3/uL (0.83-4.51); Absolute Neutrophil Count 6.4 X10^3/uL (2.0-7.7); Basophil# 0.02 X10^3/uL; Basophil% 0.2 % (0-1); Eosinophil# 0.28 X10^3/uL; Eosinophils% 2.7 % (0-5); Hematocrit 44.6 % (37-47); Hemoglobin 14.6 g/dL (12.0-15.0); Lymphocyte # 3.17 X10^3/ul (0.83-4.51); Lymphocyte % 30.4 % (19-41); Mean Corp Hgb Conc 32.7 g/dL (32-36); Mean Corpuscular Hgb 30.1 pg (27.0-32.0); Mean Platelet Vol. 10.5 fl (6.2-12.0); Monocyte# 0.49 X10^3/uL; Monocyte% 4.7 % (0-10); NRBC Flagged by Analyzer 0 % (0-5); Neutrophil # 6.44 X10^3/uL (2.7-7.7); Neutrophil % 61.6 % (47-70); Platelet Count 241 K/mm3 (150-450); RBC Distribution Width CV 12.4 % (11.6-14.6); RBC Distribution Width SD 41.7 fl (35.1-43.9); Red Blood Count 4.85 M/mm3 (4.2-5.4); White Blood Count 10.4 K/mm3 (4.4-11.0)
[2021-11-29 22:12] LABS: Color, Urine Yellow (Yellow); Glucose, Dipstick Normal (Normal); Ketone-Dipstick Negative (Negative); Leukocyte Esterase-Dipstick 100 /ul (Negative); Nitrite-Dipstick Negative (Negative); Occult Blood-Urine Negative /ul (Negative); Protein-Dipstick Negative (Negative); Urine Bilirubin Dipstick Negative (Negative); Urine Clarity Sl. Cloudy (Clear); Urine Urobilinogen Normal (Normal); Urine pH 6.5 (5.0 - 8.0)
[2021-11-29 22:15] LABS: Internal QC Validated? YES +Cl - CLEAR BKGD; Pregnancy, Urine Negative Negative
[2021-11-29 22:18] LABS: Amorphous Sediment 1+ URATE; Red Blood Cells-Urine 0-5 SEEN /hpf (0-5); Squamous Epithelial Cells - UA 0-5 SEEN /hpf (5-10); White Blood Cells 5-10 SEEN /hpf (0-5)
[2021-11-29 22:31] LABS: Anion Gap 4 (5-15); BUN 16 mg/dL (7-18); BUN/Creat Ratio 21.4 RATIO (10-20); Calcium,Total 8.7 mg/dL (8.5-10.1); Chloride 107 mmol/L (98-107); Creatinine, Serum 0.75 mg/dL (0.55-1.02); EST Glomerular Filtration Rate 101 mL/min (>60); Est Glom Filt Rate - Afr Amer 122 mL/min (>60); Estimated Creatinine Clearance 103.18 ml/min; Glucose 94 mg/dL (74-106); Potassium 3.5 mmol/L (3.5-5.1); Sodium Level 139 mmol/L (136-145)
[2021-11-29 23:31] VITALS: BP 123/65; PULSE 78; RESP 16; O2SAT 97
== END 2021-11-29 23:31 | disposition home or self-care (01) ==
PROVIDERS: Emergency Provider Emergency Medicine; PCP Student in an Organized Health Care Education/Training Program; Visit Provider Emergency Medicine
DX: N83.202 Unspecified ovarian cyst, left side (principal); R11.0 Nausea; J45.909 Unspecified asthma, uncomplicated; F17.210 Nicotine dependence, cigarettes, uncomplicated; Z79.3 Long term (current) use of hormonal contraceptives; Z79.899 Other long term (current) drug therapy
CPT/HCPCS: 74176; 80048; 81001; 81025; 85025; 96361; 96374; 99283; J7030; A4216

== ENCOUNTER 2022-08-26 15:00 | Emergency (ER) | payer MEDICAID, SELFPAY ==
[2022-08-26 15:02] VITALS: BP 120/74; PULSE 83; RESP 22; TEMP 36.1; O2SAT 100; BMI 29.1
[2022-08-26 16:18] VITALS: O2SAT 98
--- NOTE | 2022-08-26 16:40 | EKG12_ITS ---
Test Reason : Blood Pressure : / mmHG Vent. Rate : 073 BPM Atrial Rate : 073 BPM P-R Int : 136 ms QRS Dur : 076 ms QT Int : 380 ms P-R-T Axes : 077 069 041 degrees QTc Int : 418 ms Normal sinus rhythm with sinus arrhythmia Normal ECG Confirmed by JUANITA GUTIÉRREZ, BEAU ([id number]), online editor LEONILA NGUYEN ([id number]) on 08/30/2022 11:15:22 AM Referred By: MARCO A Confirmed By:BEAU GRANT MD
--- NOTE | 2022-08-26 16:41 | ED.VIS.DYS ---
HPI History of Present Illness Chief Complaint: Shortness of Breath Informant: patient Narrative Narrative: Patient presents still having dyspnea tightness and wheezing. She states she started with some coughing and wheezing on Monday. She does have a history of asthma. She has a nebulizer at home and has meds. She also has Flovent and albuterol both of which she uses on a as needed basis. She is on control. She was seen at a another local hospital on Monday morning. It sounds like they did blood work x-rays and gave her IV antibiotics, IV steroids send her home on azithromycin and steroids. I looked at her steroid prescription and it is 20 mg a day. She had follow-up at [facility] today and since she was still having wheezing and symptoms they sent her in here. She has no history of DVT or PE. No recent travel surgery or immobilization. No family history. No leg pain or swelling. [facility] Medical History Asthma Herniated disc Migraine Sciatica Vertigo Home Medications albuterol sulfate 90 mcg/actuation aerosol inhaler 1 puff inhalation Q4H PRN PRN Wheezing 04/15/19 [History Last Taken Unknown] loratadine 10 mg capsule 10 mg PO DAILY PRN Allergies 04/15/19 [History Last Taken Unknown] Controll 1 tab PO.IVFORM DAILY 05/12/21 [History Last Taken Unknown] albuterol sulfate 2.5 mg/3 mL (0.083 %) solution for nebulization 2.5 mg (3 mL) inhalation Q4H PRN #25 vials 05/13/21 [Rx Last Taken Unknown] prednisone 20 mg tablet 40 mg PO DAILY #10 TABLETS 05/13/21 [Rx Last Taken Unknown] diazepam 5 mg tablet 5 mg PO Q8 PRN Muscle Spasm #15 tabs 06/10/21 [Rx Last Taken Unknown] hydrocodone-acetaminophen 5-325mg 5mg-325mg 1 tab PO Q6H PRN PRN Pain 3 days #12 TABLETS 06/10/21 [Rx Last Taken Unknown] ketorolac 10 mg tablet 10 mg PO Q8H PRN pain #15 tabs 06/10/21 [Rx Last Taken Unknown] prednisone 20 mg tablet 60 mg PO DAILY #15 TABLETS 06/10/21 [Rx Last Taken Unknown] ketorolac 10 mg tablet 10 mg PO Q6H PRN pain 3 days #10 tabs 11/29/21 [Rx Last Taken Unknown] ipratropium bromide 0.02 % solution for inhalation 2.5 ml inhalation Q6H PRN shortness of breath or wheezing #62.5 mL 08/26/22 [Rx Last Taken Unknown] prednisone 20 mg tablet 60 mg PO DAILY #15 tabs 08/26/22 [Rx Last Taken Unknown] Allergy/AdvReac Type Severity Reaction Status Date / Time benzonatate Allergy Hives Verified 11/29/21 21:08 [From David Levine] red (food color) Allergy Hives Verified 11/29/21 21:08 Social History Smoking Status: Current every day smoker tobacco type: cigarettes substance use type: does not use ROS ROS ED Constitutional Constitutional ED: Denies chills or fever(s) ENT ENT ED: Reports rhinorrhea; Denies sore throat Cardiovascular Cardiovascular: Denies chest pain, palpitations or racing heartbeat Respiratory/Chest Respiratory/Chest: Reports cough and dyspnea Gastrointestinal Gastrointestinal: Denies nausea or vomiting Musculoskeletal Musculoskeletal: Denies arthralgias or myalgias Integumentary Denies rash Neurologic Neurologic: Denies headache(s) Endocrine Endocrinology: Denies polydipsia or polyuria Hematologic/Lymphatic Hematologic/Lymphatic: Denies easy bleeding or easy bruising Allergic/Immunologic Allergic/Immunologic ED: Denies urticaria EXAM Physical Exam Const Vital Signs: 08/26/22 15:02 08/26/22 16:18 08/26/22 17:47 Temperature 97.0 F L Temperature Source Temporal Pulse Rate 83 75 Respiratory Rate 22 H 20 H Respiratory Effort Short of Breath Blood Pressure 120/74 130/67 H Blood Pressure Mean 89 88 Pulse Ox 100 100 Oxygen Delivery Method Room Air Room Air Room Air 08/26/22 19:10 Temperature 98.0 F Temperature Source Temporal Pulse Rate 77 Respiratory Rate 20 H Respiratory Effort Blood Pressure 128/69 H Blood Pressure Mean 88 Pulse Ox 96 Oxygen Delivery Method Room Air Positive well nourished HEENT Reports moist mucous membranes Eyes General Eye ED: Yes scleral icterus Neck no lymphadenopathy and no JVD Neck Narrative: No stridor heard. Chest Wall Chest Narrative: No subcu air Resp Resp Narrative: Breathing does show extremely tight expiratory wheezes throughout. I do not hear rhonchi or rales. No pain with a deep breath. She has somewhat poor air motion. Auscultation: wheezes and diminished lung sounds; Negative for rales or rhonchi Cardio regular rate and regular rhythm Rate: Negative for tachycardic GI non-tender and non-distended Palpation: soft Back/Spine no CVA tenderness Extremity normal to inspection Neuro oriented x3 Sensorium / Orientation: alert Psych mental status grossly normal Skin no wounds MDM MDM MDM Narrative Medical decision making narrative: 2 view chest x-ray does not show any acute process. CBC is normal. Electrolytes show no marked abnormalities. COVID and influenza are negative. Patient is rechecked. She does sound better. She has wheezes still but she is moving much more air. We walked her. Her lowest saturation was about 93 or 4% she actually did reasonably well. I discussed options with the patient. At this time we would still like to try her as outpatient therapy. We will bump up the dose of steroids as she is only been taking 20 mg a day. I will write for [email or web address] for her nebulizer so she has that to use at home because she feels that it worked a lot better. If she is having worsening dyspnea wheezing or further problems she should return. If she has concerns she should certainly call 911. Lab Data Attestation: I reviewed the patient's lab results. Labs: Laboratory Results - last 24 hr 08/26/22 08/26/22 16:55 16:55 WBC 8.0 RBC 4.65 Hgb 14.0 Hct 42.5 MCV 91.4 MCH 30.1 MCHC 32.9 RDW Std Deviation 41.1 RDW Coeff of Manuela 12.3 Plt Count 211 MPV 10.0 Immature Gran % (Auto) 0.200 Neut % (Auto) 41.3 L Lymph % (Auto) 50.3 H Sumter % (Auto) 5.9 Eos % (Auto) 2.1 Baso % (Auto) 0.2 Absolute Neuts (auto) 3.3 Absolute Lymphs (auto) 4.03 Nucleated RBC % 0 Sodium 139 Potassium 3.8 Chloride 108 H Carbon Dioxide 28.0 Anion Gap 3 L BUN 15 Creatinine 0.62 Estim Creat Clear Calc 124.82 Est GFR (MDRD) Af Amer 149 Est GFR (MDRD) Non-Af 123 BUN/Creatinine Ratio 24.0 H Glucose 93 Calcium 8.7 Radiography Diagnostic Testing: Clinical Impression(s) from Imaging Studies Chest X-Ray 08/26/22 18:00 IMPRESSION: No acute cardiopulmonary disease or major interval change. Electronically Signed: Tom Velásquez DO at 18:15 EST Reading Location ID and State: [address] [place] [address] Tel [phone], Service support , Chest x-ray looked at by me and read by radiology does not show any acute process. EKG Initial EKG: Comments: EKG done for dyspnea and tightness read by me shows normal sinus rhythm with overall rate of 73. There is some mild sinus arrhythmia but no ventricular ectopy. Mild baseline variation but no ST elevation or depression. LA interval, QRS duration and QTc are normal. Discharge Plan Triage Chief Complaint: Shortness of Breath ED Provider: Kei Minaya Dx/Rx/DC Orders Clinical Impression: Acute asthma exacerbation Instructions: ED Asthma, Acute (Adult) Prescriptions: New prednisone 20 mg tablet 60 mg PO DAILY Qty: 15 0RF ipratropium bromide 0.02 % solution 2.5 ml inhalation Q6H PRN (Reason: shortness of breath or wheezing) Qty: 62.5 1RF No Action albuterol sulfate 1 INHALER inhaler 1 puff inhalation Q4H PRN PRN (Reason: Wheezing) loratadine 10 MG capsule 10 mg PO DAILY PRN (Reason: Allergies) Controll 1 tab PO.IVFORM DAILY prednisone 20 MG tablet 40 mg PO DAILY Qty: 10 0RF albuterol sulfate 2.5 MG/3 ML solution for nebulization 2.5 mg inhalation Q4H PRN Qty: 25 0RF Rx Instructions: Use q4 hours and PRN for wheezing hydrocodone-acetaminophen [hydrocodone-acetaminophen] 1 TABLET tablet 1 tab PO Q6H PRN PRN (Reason: Pain) 3 Days Qty: 12 0RF diazepam [diazepam] 5 MG tablet 5 mg PO Q8 PRN (Reason: Muscle Spasm) Qty: 15 0RF prednisone 20 MG tablet 60 mg PO DAILY Qty: 15 0RF ketorolac 10 mg tablet 10 mg PO Q8H PRN (Reason: pain) Qty: 15 0RF ketorolac 10 mg tablet 10 mg PO Q6H PRN (Reason: pain) 3 Days Qty: 10 0RF Primary Care Provider: Juan Diego Gaines Referrals: Juan Diego Gaines, [Primary Care Provider] - 1-2 Days if not improving Disposition Disposition: Home, Self Care
[2022-08-26] MEDS: MethylPREDNISolone 125 MG/2 ML Vial IV (17:00)
[2022-08-26 17:16] LABS: Absolute Lymphocyte Count 4.03 X10^3/uL (0.83-4.51); Absolute Neutrophil Count 3.3 X10^3/uL (2.0-7.7); Basophil# 0.02 X10^3/uL; Basophil% 0.2 % (0-1); Eosinophil# 0.17 X10^3/uL; Eosinophils% 2.1 % (0-5); Hematocrit 42.5 % (37-47); Lymphocyte # 4.03 X10^3/ul (0.83-4.51); Lymphocyte % 50.3 % (19-41); Mean Corp Hgb Conc 32.9 g/dL (32-36); Mean Corpuscular Hgb 30.1 pg (27.0-32.0); Mean Corpuscular Volume 91.4 fL (81-99); Monocyte# 0.47 X10^3/uL; Monocyte% 5.9 % (0-10); NRBC Flagged by Analyzer 0 % (0-5); Neutrophil % 41.3 % (47-70); Platelet Count 211 K/mm3 (150-450); RBC Distribution Width CV 12.3 % (11.6-14.6); RBC Distribution Width SD 41.1 fl (35.1-43.9); Red Blood Count 4.65 M/mm3 (4.2-5.4)
[2022-08-26] MEDS: Albuterol 2.5 MG/3 ML VIAL.NEB. INHALATION (17:19)
[2022-08-26] MEDS: Ipratropium/Albuterol Sulfate 3 ML AMPUL.NEB INHALATION ×2 (17:19→19:38)
[2022-08-26 17:28] LABS: Anion Gap 3 (5-15); BUN 15 mg/dL (7-18); Calcium,Total 8.7 mg/dL (8.5-10.1); Chloride 108 mmol/L (98-107); Creatinine, Serum 0.62 mg/dL (0.55-1.02); EST Glomerular Filtration Rate 123 mL/min (>60); Est Glom Filt Rate - Afr Amer 149 mL/min (>60); Estimated Creatinine Clearance 124.82 ml/min; Glucose 93 mg/dL (74-106); Potassium 3.8 mmol/L (3.5-5.1); Sodium Level 139 mmol/L (136-145)
[2022-08-26 17:47] VITALS: BP 130/67; PULSE 75; RESP 20; O2SAT 100
--- NOTE | 2022-08-26 18:00 | RAD_ITS ---
STUDY: X-RAY CHEST REASON FOR EXAM: Female, 26 years old. Cough and shortness of breath. TECHNIQUE: PA and lateral views of the chest. COMPARISON: May 13, 2021. FINDINGS: The lungs are clear and expanded. There is no demonstrated pleural abnormality. Normal size heart. Normal mediastinum and amy. Normal visualized pulmonary arteries. Normal visualized aortic arch and descending thoracic aorta. Normal visualized thoracic spine. Normal visualized ribs, clavicles, and shoulders. There is no demonstrated abnormality of the visualized soft tissue structures of the upper abdomen. RAD/Chest PA and Lateral IMPRESSION: No acute cardiopulmonary disease or major interval change. Electronically Signed: Tom Velásquez DO at 18:15 EST ,
[2022-08-26 18:46] VITALS: O2SAT 98
[2022-08-26] MEDS: predniSONE 20 MG Tablet 40 MG PO (19:09)
[2022-08-26 19:10] VITALS: BP 128/69; PULSE 77; RESP 20; TEMP 36.7; O2SAT 96
[2022-08-26 19:43] VITALS: PULSE 86; RESP 16
--- NOTE | 2022-08-27 10:14 | ED.RN ---
PHARMACY CALLED AND WAS UNABLE TO FILL IPRATROPIUM AND PER DR ROONEY CHANGED IT TO [facility]
== END 2022-08-26 19:57 | disposition home or self-care (01) ==
PROVIDERS: Emergency Provider Emergency Medicine; PCP Student in an Organized Health Care Education/Training Program; Visit Provider Emergency Medicine
DX: J45.901 Unspecified asthma with (acute) exacerbation (principal); F17.210 Nicotine dependence, cigarettes, uncomplicated; R06.02 Shortness of breath; Z20.822 Contact with and (suspected) exposure to COVID-19
CPT/HCPCS: 71046; 80048; 85025; 87428; 93005; 94640; 96374; 99285; A4216

== ENCOUNTER 2022-10-05 07:25 | Emergency (ER) | payer MEDICAID, SELFPAY ==
[2022-10-05 07:26] VITALS: BP 144/75; PULSE 96; RESP 17; TEMP 36.1; O2SAT 100; BMI 30.5
--- NOTE | 2022-10-05 07:44 | US_ITS ---
STUDY: FIRST TRIMESTER OBSTETRICAL ULTRASOUND REASON FOR EXAM: Female, 26 years old Pelvic pain -- LOW ABD PAIN RADIATING TO THE BACK, N/V, CHILLS, FEVER X 2 DAYS -- 9 WEEKS LMP: 08/03/2022. TECHNIQUE: Transvaginal TECHNICAL QUALITY: Adequate. PRIOR ULTRASOUND: None. FINDINGS: There is visualization of a single gestational sac in a normal intrauterine position. The mean sac diameter (MSD) measures 4.5 mm x 4.7 mm, indicating an estimated gestational age (EGA) of 9 weeks, 4 days. The gestational sac shape is within normal limits. There is a visualized yolk sac. The yolk sac measures 4.8 mm. The placenta is non-visualized. There is visualization of a live embryo. The crown-rump length (CRL) measures 2.3 cm, indicating an estimated gestational age (EGA) of 8 weeks, 5 days. There is demonstrated cardiac activity with a heart rate of 166 bpm. The estimated gestation age (EGA) by LMP is 9 weeks, 0 days. The estimated date of delivery (ANKIT) by LMP is 05/10/2023. The estimated gestation age (EGA) by US is 9 weeks, 1 days. The estimated date of delivery (ANKIT) by US is 05/09/2023. The uterus measures 12.2 cm x 7.3 cm x 6.2 cm. There is no demonstrated uterine fibroid. The cervix is closed. The right ovary measures 4 cm x 3.5 cm x 2.2 cm. A dominant follicle is seen measuring 1.7 cm x 1.8 cm x 1.4 cm. There is no visualized right adnexal mass or complex lesion. The left ovary measures 3.2 cm x 2.4 cm x 1.6 cm. There is no left ovarian cyst. There is no visualized left adnexal mass or complex lesion. There is no fluid in the cul de sac. US/Transvaginal w/Preg US IMPRESSION: Single live intrauterine gestation with a mean gestational age of 9 weeks and 1 day. Dominant follicle in the right ovary. Electronically Signed: Gibran Gonzalez MD at 10:01 EST ,
[2022-10-05 08:08] LABS: Absolute Neutrophil Count 6.5 X10^3/uL (2.0-7.7); Basophil# 0.02 X10^3/uL; Basophil% 0.2 % (0-1); Eosinophil# 0.18 X10^3/uL; Hematocrit 38.6 % (37-47); Lymphocyte % 18.9 % (19-41); Mean Corp Hgb Conc 33.7 g/dL (32-36); Mean Corpuscular Hgb 30.2 pg (27.0-32.0); Mean Corpuscular Volume 89.6 fL (81-99); Monocyte# 0.61 X10^3/uL; Monocyte% 6.8 % (0-10); NRBC Flagged by Analyzer 0 % (0-5); Neutrophil # 6.46 X10^3/uL (2.7-7.7); Neutrophil % 71.7 % (47-70); Platelet Count 212 K/mm3 (150-450); RBC Distribution Width CV 12.5 % (11.6-14.6); RBC Distribution Width SD 41.4 fl (35.1-43.9); Red Blood Count 4.31 M/mm3 (4.2-5.4)
[2022-10-05] MEDS: 0.9% Normal Saline 1,000 ML 1000 ML IV (08:22)
[2022-10-05] MEDS: Ondansetron 4 MG/2 ML Vial IV (08:22)
[2022-10-05 08:23] LABS: Anion Gap 6 (5-15); BUN 13 mg/dL (7-18); BUN/Creat Ratio 24.7 RATIO (10-20); Calcium,Total 8.6 mg/dL (8.5-10.1); Chloride 108 mmol/L (98-107); Creatinine, Serum 0.53 mg/dL (0.55-1.02); EST Glomerular Filtration Rate 149 mL/min (>60); Est Glom Filt Rate - Afr Amer 181 mL/min (>60); Estimated Creatinine Clearance 146.01 ml/min; Glucose 94 mg/dL (74-106); Potassium 3.7 mmol/L (3.5-5.1); Sodium Level 138 mmol/L (136-145)
[2022-10-05 08:56] LABS: Bacteria 0 SEEN /hpf (None Seen); Mucous, Urine 0 SEEN /hpf (<or=2+); Red Blood Cells-Urine 0 SEEN /hpf (0-5); White Blood Cells 0 SEEN /hpf (0-5)
[2022-10-05 09:01] LABS: Color, Urine Yellow (Yellow); Glucose, Dipstick Normal (Normal); Ketone-Dipstick Negative (Negative); Leukocyte Esterase-Dipstick 25 /ul (Negative); Nitrite-Dipstick Negative (Negative); Occult Blood-Urine Negative /ul (Negative); Protein-Dipstick Negative (Negative); Specific Gravity, Urine 1.015 (1.002-1.030); Urine Bilirubin Dipstick Negative (Negative); Urine Clarity Clear (Clear); Urine Urobilinogen Normal (Normal)
[2022-10-05 09:06] LABS: Squamous Epithelial Cells - UA 0-5 SEEN /hpf (5-10)
--- NOTE | 2022-10-05 09:19 | EX.ED.DYSGE1 ---
HPI History of Present Illness Chief Complaint: Abd Pain Informant: patient Onset/Context/Timing Onset: Today Context: Sudden Onset Timing: Continuous Quality: Cramping, stabbing, sharp Location: Lower abdomen and lower back Worsened by: Movement Relieved by: Nothing Narrative Narrative: Patient presents with abdominal pain, nausea, vomiting, and loose stools that began today. Patient states she went to the emergency department in [place] and was given a dose of Zofran. Patient states that no other testing was done. Patient states she called her [employer]OR [employer]S who told her to come to the emergency department for further evaluation. Patient describes her pain as cramping, stabbing, and sharp. Patient states is mainly over her lower abdomen and radiates into her low back. Patient states it is worse with movement. Patient states nothing makes it any better. Patient admits to some nausea and vomiting. Patient states she has had some loose stools but denies any watery diarrhea. Patient also admits to body aches and muscle aches. Patient also admits to a mild headache. [facility] Medical History Asthma Herniated disc Migraine Sciatica Vertigo Home Medications albuterol sulfate 90 mcg/actuation aerosol inhaler 1 puff inhalation Q4H PRN PRN Wheezing 04/15/19 [History Last Taken Unknown] loratadine 10 mg capsule 10 mg PO DAILY PRN Allergies 04/15/19 [History Last Taken Unknown] Controll 1 tab PO.IVFORM DAILY 05/12/21 [History Last Taken Unknown] albuterol sulfate 2.5 mg/3 mL (0.083 %) solution for nebulization 2.5 mg (3 mL) inhalation Q4H PRN #25 vials 05/13/21 [Rx Last Taken Unknown] prednisone 20 mg tablet 40 mg PO DAILY #10 TABLETS 05/13/21 [Rx Last Taken Unknown] diazepam 5 mg tablet 5 mg PO Q8 PRN Muscle Spasm #15 tabs 06/10/21 [Rx Last Taken Unknown] hydrocodone-acetaminophen 5-325mg 5mg-325mg 1 tab PO Q6H PRN PRN Pain 3 days #12 TABLETS 06/10/21 [Rx Last Taken Unknown] ketorolac 10 mg tablet 10 mg PO Q8H PRN pain #15 tabs 06/10/21 [Rx Last Taken Unknown] prednisone 20 mg tablet 60 mg PO DAILY #15 TABLETS 06/10/21 [Rx Last Taken Unknown] ketorolac 10 mg tablet 10 mg PO Q6H PRN pain 3 days #10 tabs 11/29/21 [Rx Last Taken Unknown] ipratropium bromide 0.02 % solution for inhalation 2.5 ml inhalation Q6H PRN shortness of breath or wheezing #62.5 mL 08/26/22 [Rx Last Taken Unknown] prednisone 20 mg tablet 60 mg PO DAILY #15 tabs 08/26/22 [Rx Last Taken Unknown] ondansetron 4 mg disintegrating tablet 4 mg PO Q8H PRN PRN Nausea #10 tabs 10/05/22 [Rx Last Taken Unknown] Allergy/AdvReac Type Severity Reaction Status Date / Time benzonatate Allergy Hives Verified 10/05/22 07:25 [From Tessalalfonso Levine] cefdinir [From Omnicef] Allergy Hives Verified 10/05/22 07:26 red (food color) Allergy Hives Verified 10/05/22 07:25 Social History Smoking Status: Current every day smoker tobacco type: cigarettes substance use type: does not use ROS ROS ED Constitutional Constitutional ED: Reports chills, fever(s) and subjective Eyes Eyes: Denies blurry vision or change in vision ENT ENT ED: Denies rhinorrhea or sore throat Cardiovascular Cardiovascular: Denies chest pain or palpitations Respiratory/Chest Respiratory/Chest: Reports cough and dyspnea Gastrointestinal Gastrointestinal: Reports diarrhea, nausea and vomiting Genitourinary Genitourinary ED: Reports urinary frequency; Denies dysuria or hematuria Musculoskeletal Musculoskeletal: Reports back pain and myalgias; Denies neck pain Integumentary Denies abscess or rash Neurologic Neurologic: Reports headache(s); Denies weakness Allergic/Immunologic Allergic/Immunologic ED: Denies mouth swelling or urticaria EXAM Physical Exam Const Vital Signs: 10/05/22 07:26 Temperature 97.0 F L Temperature Source Temporal Pulse Rate 96 Respiratory Rate 17 Blood Pressure 144/75 H Blood Pressure Mean 98 Pulse Ox 100 Oxygen Delivery Method Room Air Positive well nourished and well developed General Appearance ED: well developed HEENT Reports moist mucous membranes Neck supple and no JVD Resp normal respiratory effort and clear to auscultation bilaterally Cardio regular rate, regular rhythm and no murmurs GI normal to inspection, nondistended, normoactive bowel sounds and non-tender Palpation: soft Extremity normal to inspection General Extremety ED: Negative for edema or tenderness General Extremity: Negative for edema Neuro oriented x3, CN's II-XII intact bilaterally and no sensory deficits noted Sensorium / Orientation: alert Motor Exam: strength 5/5 throughout Psych mental status grossly normal Skin no rashes or lesions noted MDM MDM MDM Narrative Medical decision making narrative: Differential diagnosis includes ectopic , ruptured ectopic , ureterolithiasis, urinary tract infection, gastroenteritis, infection, and ovarian torsion. CBC will be obtained to assess for leukocytosis and anemia. Basic metabolic profile will be obtained to assess for electrolyte abnormality and renal function. Quantitative hCG will be obtained to assess for status. Pelvic ultrasound will be obtained to assess for ectopic , ruptured ectopic , ovarian cyst, and ovarian torsion. Urinalysis will be obtained to assess for urinary tract infection and hematuria. Blood type and Rh will be obtained to assess for type and Rh status. COVID-19 and influenza swabs will be obtained to assess for COVID-19 and influenza infection. Lab Data Attestation: I reviewed the patient's lab results. Lab results narrative: CBC was reviewed and was within normal limits. Basic metabolic profile was reviewed and was within normal limits. Quantitative hCG was reviewed and was 102,242. Urinalysis was reviewed and does not show any evidence of urinary tract infection or hematuria. Blood type and screen was a positive. COVID-19 rapid antigen was reviewed and was negative. Influenza A and influenza B antigens were reviewed and were negative. Labs: Laboratory Results - last 24 hr 10/05/22 10/05/22 10/05/22 08:00 08:00 08:00 WBC 9.0 RBC 4.31 Hgb 13.0 Hct 38.6 MCV 89.6 MCH 30.2 MCHC 33.7 RDW Std Deviation 41.4 RDW Coeff of Manuela 12.5 Plt Count 212 MPV 10.0 Immature Gran % (Auto) 0.400 Neut % (Auto) 71.7 H Lymph % (Auto) 18.9 L Moffat % (Auto) 6.8 Eos % (Auto) 2.0 Baso % (Auto) 0.2 Absolute Neuts (auto) 6.5 Absolute Lymphs (auto) 1.70 Nucleated RBC % 0 Sodium 138 Potassium 3.7 Chloride 108 H Carbon Dioxide 24.0 Anion Gap 6 BUN 13 Creatinine 0.53 L Estim Creat Clear Calc 146.01 Est GFR (MDRD) Af Amer 181 Est GFR (MDRD) Non-Af 149 BUN/Creatinine Ratio 24.7 H Glucose 94 Calcium 8.6 HCG, Quant 433659 H Urine Color Urine Clarity Urine pH Ur Specific Dickson Urine Protein Urine Glucose (UA) Urine Ketones Urine Occult Blood Urine Nitrite Urine Bilirubin Urine Urobilinogen Ur Leukocyte Esterase Urine RBC Urine WBC Ur Squamous Epith Cells Urine Bacteria Urine Mucus Blood Type 10/05/22 10/05/22 08:00 08:45 WBC RBC Hgb Hct MCV MCH MCHC RDW Std Deviation RDW Coeff of Manuela Plt Count MPV Immature Gran % (Auto) Neut % (Auto) Lymph % (Auto) Moffat % (Auto) Eos % (Auto) Baso % (Auto) Absolute Neuts (auto) Absolute Lymphs (auto) Nucleated RBC % Sodium Potassium Chloride Carbon Dioxide Anion Gap BUN Creatinine Estim Creat Clear Calc Est GFR (MDRD) Af Amer Est GFR (MDRD) Non-Af BUN/Creatinine Ratio Glucose Calcium HCG, Quant Urine Color Yellow Urine Clarity Clear Urine pH 8.0 Ur Specific Dickson 1.015 Urine Protein Negative Urine Glucose (UA) Normal Urine Ketones Negative Urine Occult Blood Negative Urine Nitrite Negative Urine Bilirubin Negative Urine Urobilinogen Normal Ur Leukocyte Esterase 25 H Urine RBC 0 SEEN Urine WBC 0 SEEN Ur Squamous Epith Cells 0-5 SEEN Urine Bacteria 0 SEEN Urine Mucus 0 SEEN Blood Type A POSITIVE Radiography Diagnostic Testing: Clinical Impression(s) from Imaging Studies Obstetrics Ultrasound 10/05/22 07:44 IMPRESSION: Single live intrauterine gestation with a mean gestational age of 9 weeks and 1 day. Dominant follicle in the right ovary. Electronically Signed: Gibran Gonzalez MD at 10:01 EST , Pelvic ultrasound was reviewed independently by myself. There is a single live intrauterine gestation with a gestational age of 9-week 1 day. heart rate was 166. Radiologist also interpreted the ultrasound and noticed a dominant follicle in the right ovary. There is no evidence of ovarian torsion. Treatment and Re-Evaluation Narrative: Patient was given IV fluids and Zofran. Patient is feeling better on reevaluation. Patient was instructed to drink plenty of fluids. Patient was given a prescription for Zofran to take as needed for nausea. Patient was instructed to follow-up with her [employer] in 5 to 7 days. Patient understood and was agreeable with the plan. All questions were answered. Discharge Plan Triage Chief Complaint: Abd Pain ED Provider: Terrance Haas Dx/Rx/DC Orders Clinical Impression: Nausea and vomiting, Instructions: ED Vomiting (Adult), ED Established ... Prescriptions: New ondansetron [ondansetron] 4 mg tablet,disintegrating 4 mg PO Q8H PRN PRN (Reason: Nausea) Qty: 10 0RF No Action albuterol sulfate 1 INHALER inhaler 1 puff inhalation Q4H PRN PRN (Reason: Wheezing) loratadine 10 MG capsule 10 mg PO DAILY PRN (Reason: Allergies) Controll 1 tab PO.IVFORM DAILY prednisone 20 MG tablet 40 mg PO DAILY Qty: 10 0RF albuterol sulfate 2.5 MG/3 ML solution for nebulization 2.5 mg inhalation Q4H PRN Qty: 25 0RF Rx Instructions: Use q4 hours and PRN for wheezing hydrocodone-acetaminophen [hydrocodone-acetaminophen] 1 TABLET tablet 1 tab PO Q6H PRN PRN (Reason: Pain) 3 Days Qty: 12 0RF diazepam [diazepam] 5 MG tablet 5 mg PO Q8 PRN (Reason: Muscle Spasm) Qty: 15 0RF prednisone 20 MG tablet 60 mg PO DAILY Qty: 15 0RF ketorolac 10 mg tablet 10 mg PO Q8H PRN (Reason: pain) Qty: 15 0RF ketorolac 10 mg tablet 10 mg PO Q6H PRN (Reason: pain) 3 Days Qty: 10 0RF prednisone 20 mg tablet 60 mg PO DAILY Qty: 15 0RF ipratropium bromide 0.02 % solution 2.5 ml inhalation Q6H PRN (Reason: shortness of breath or wheezing) Qty: 62.5 1RF Stand Alone Forms: ED Work / School Excuse Primary Care Provider: Juan Diego Gaines Referrals: Juan Diego Gaines DO [Primary Care Provider] - 3-5 Days Dayan Reed MD [Med Staff - Active Staff] - 5-7 Days Disposition Disposition: Home, Self Care
[2022-10-05 10:55] VITALS: BP 109/52; PULSE 83; O2SAT 100
== END 2022-10-05 11:00 | disposition home or self-care (01) ==
PROVIDERS: Emergency Provider Emergency Medicine; PCP Student in an Organized Health Care Education/Training Program; Visit Provider Emergency Medicine
DX: O21.9 Vomiting of pregnancy, unspecified (principal); O26.891 Other specified pregnancy related conditions, first trimester; R51.9 Headache, unspecified; R10.9 Unspecified abdominal pain; M79.10 Myalgia, unspecified site; M54.50 Low back pain, unspecified; O99.331 Smoking (tobacco) complicating pregnancy, first trimester; F17.210 Nicotine dependence, cigarettes, uncomplicated; Z20.822 Contact with and (suspected) exposure to COVID-19; Z3A.09 9 weeks gestation of pregnancy
CPT/HCPCS: 76817; 80048; 81001; 84702; 85025; 86900; 86901; 87428; 96361; 96374; 99283; J7030; J2405

== ENCOUNTER 2023-01-24 20:45 | Outpatient (CLI) | payer MEDICAID, SELFPAY ==
[2023-01-24] VITALS (7 sets, daily range): BP systolic 112; BP diastolic 56; PULSE 100–107; TEMP 36.2; O2SAT 98; BMI 35.3
[2023-01-24 21:56] LABS: Bacteria 0 SEEN /hpf (None Seen); Mucous, Urine 0 SEEN /hpf (<or=2+); Red Blood Cells-Urine 0 SEEN /hpf (0-5)
[2023-01-24 22:04] LABS: Color, Urine Yellow (Yellow); Glucose, Dipstick Normal (Normal); Ketone-Dipstick 5 mg/dl (Negative); Leukocyte Esterase-Dipstick 25 /ul (Negative); Nitrite-Dipstick Negative (Negative); Occult Blood-Urine Negative /ul (Negative); Protein-Dipstick Negative (Negative); Specific Gravity, Urine 1.025 (1.002-1.030); Urine Bilirubin Dipstick Negative (Negative); Urine Clarity Clear (Clear); Urine Urobilinogen 1 mg/dl (Normal)
[2023-01-24 22:14] LABS: Calcium Oxalate Crystals Ur 2+ /hpf (<or=2+); Squamous Epithelial Cells - UA 0-5 SEEN /hpf (5-10); White Blood Cells 0-5 SEEN /hpf (0-5)
[2023-01-24 22:23] LABS: ROM Internal Control Test YES-OK TO RESULT pt. (Internal QC); ROM Patient Test Negative (Negative); Record Kit Lot#, ROM+ K1374
[2023-01-24] MEDS: cycloBENZAPRine HCl 5 MG TABLET PO (22:38)
--- NOTE | 2023-01-28 11:00 | OB.TRI.NOTE ---
HPI - General General Date of Admission: 01/24/23 Date of Service: 01/24/23 Chief Complaint: pelvic pain PFSH PFSH Medical History Asthma Herniated disc Migraine Sciatica Vertigo Home Medications albuterol sulfate 90 mcg/actuation aerosol inhaler 1 puff inhalation Q4H PRN PRN Wheezing 04/15/19 [History Last Taken Unknown] loratadine 10 mg capsule 10 mg PO DAILY PRN Allergies 04/15/19 [History Last Taken Unknown] Controll 1 tab PO.IVFORM DAILY 05/12/21 [History Last Taken Unknown] albuterol sulfate 2.5 mg/3 mL (0.083 %) solution for nebulization 2.5 mg (3 mL) inhalation Q4H PRN #25 vials 05/13/21 [Rx Last Taken Unknown] prednisone 20 mg tablet 40 mg PO DAILY #10 TABLETS 05/13/21 [Rx Last Taken Unknown] diazepam 5 mg tablet 5 mg PO Q8 PRN Muscle Spasm #15 tabs 06/10/21 [Rx Last Taken Unknown] hydrocodone-acetaminophen 5-325mg 5mg-325mg 1 tab PO Q6H PRN PRN Pain 3 days #12 TABLETS 06/10/21 [Rx Last Taken Unknown] ketorolac 10 mg tablet 10 mg PO Q8H PRN pain #15 tabs 06/10/21 [Rx Last Taken Unknown] prednisone 20 mg tablet 60 mg PO DAILY #15 TABLETS 06/10/21 [Rx Last Taken Unknown] ketorolac 10 mg tablet 10 mg PO Q6H PRN pain 3 days #10 tabs 11/29/21 [Rx Last Taken Unknown] ipratropium bromide 0.02 % solution for inhalation 2.5 ml inhalation Q6H PRN shortness of breath or wheezing #62.5 mL 08/26/22 [Rx Last Taken Unknown] prednisone 20 mg tablet 60 mg PO DAILY #15 tabs 08/26/22 [Rx Last Taken Unknown] ondansetron 4 mg disintegrating tablet 4 mg PO Q8H PRN PRN Nausea #10 tabs 10/05/22 [Rx Last Taken Unknown] Allergy/AdvReac Type Severity Reaction Status Date / Time benzonatate Allergy Hives Verified 10/05/22 07:25 [From David Parham cefdinir [From Omnicef] Allergy Hives Verified 10/05/22 07:26 red (food color) Allergy Hives Verified 10/05/22 07:25 Social History Smoking Status: Current every day smoker tobacco type: cigarettes substance use type: does not use History Elective abortions Hx Para 0 Spontaneous abortions Hx # Term Pregnancies Ectopic pregnancies Hx # Pregnancies Multiple births # of living children NST FHR Rate Baby A Baseline: 140 Variability:: Moderate Accelerations:: 10 x 10 Decelerations:: None NST Reactive:: Appropriate for gestational age and Non-Reactive FHR Category:: Category I Uterine Activity:: quiet Assessment & Plan (1) 24 weeks gestation of : PLAN: 27-year-old 2 para 1 at 24-6/7 weeks complaining of pelvic pain and pelvic pressure. Nonstress test is appropriate for gestational age. No evidence of labor. She was discharged home after she was given a dose of Flexeril to follow-up in the office within a week or as needed.
== END 2023-01-24 22:50 | disposition home or self-care (01) ==
LOC: WPOUT 20:49 → WP 20:50
PROVIDERS: PCP Student in an Organized Health Care Education/Training Program; Referring Provider Advanced Practice Midwife; Visit Provider Advanced Practice Midwife
DX: R10.2 Pelvic and perineal pain (principal); Z33.1 Pregnant state, incidental
CPT/HCPCS: 59025; 81001; 84112; 87077; 87086; 87088; 99221; G0378

== ENCOUNTER 2023-02-27 23:33 | Outpatient (CLI) | payer MEDICAID, SELFPAY ==
[2023-02-27 23:53] VITALS: PULSE 99; O2SAT 98
[2023-02-27 23:57] VITALS: BP 130/59; PULSE 96
[2023-02-27 23:58] VITALS: TEMP 36.8
[2023-02-28] VITALS (58 sets, daily range): BP systolic 118–135; BP diastolic 56–60; PULSE 81–105; RESP 15; TEMP 36.4–36.8; O2SAT 93–100; BMI 36.1
[2023-02-28] MEDS: Lactated Ringers 500 ML 999 ML IV (01:45)
[2023-02-28 02:00] LABS: Absolute Lymphocyte Count 1.97 X10^3/uL (0.83-4.51); Basophil# 0.03 X10^3/uL; Basophil% 0.2 % (0-1); Eosinophil# 0.29 X10^3/uL; Eosinophils% 2.4 % (0-5); Hematocrit 34.1 % (37-47); Hemoglobin 11.1 g/dL (12.0-15.0); Lymphocyte # 1.97 X10^3/ul (0.83-4.51); Lymphocyte % 16.2 % (19-41); Mean Corp Hgb Conc 32.6 g/dL (32-36); Mean Corpuscular Volume 92.2 fL (81-99); Mean Platelet Vol. 10.6 fl (6.2-12.0); Monocyte# 0.78 X10^3/uL; Monocyte% 6.4 % (0-10); NRBC Flagged by Analyzer 0 % (0-5); Neutrophil # 8.99 X10^3/uL (2.7-7.7); Neutrophil % 73.9 % (47-70); Platelet Count 167 K/mm3 (150-450); RBC Distribution Width CV 12.8 % (11.6-14.6); White Blood Count 12.2 K/mm3 (4.4-11.0)
[2023-02-28] MEDS: Betamethasone/Betamethasone 30 MG/5 ML Vial 12 MG IM (02:00)
[2023-02-28 02:10] LABS: Prothrombin Time (Protime)PT. 13.3 SECONDS (11.7-14.9)
[2023-02-28 02:11] LABS: Partial Thromboplast Time 30.8 Seconds (24.1-36.2)
[2023-02-28] MEDS: LACTATED RINGERS 500 ML 999 ML IV (02:16)
[2023-02-28 02:19] LABS: Fibrinogen 473 mg/dl (203-444)
[2023-02-28 03:14] LABS: Absolute Lymphocyte Count 1.88 X10^3/uL (0.83-4.51); Absolute Neutrophil Count 8.8 X10^3/uL (2.0-7.7); Basophil# 0.02 X10^3/uL; Basophil% 0.2 % (0-1); Eosinophil# 0.24 X10^3/uL; Hematocrit 33.2 % (37-47); Hemoglobin 11.2 g/dL (12.0-15.0); Lymphocyte # 1.88 X10^3/ul (0.83-4.51); Lymphocyte % 15.9 % (19-41); Mean Corp Hgb Conc 33.7 g/dL (32-36); Mean Corpuscular Hgb 30.3 pg (27.0-32.0); Mean Corpuscular Volume 89.7 fL (81-99); Mean Platelet Vol. 10.2 fl (6.2-12.0); Monocyte# 0.74 X10^3/uL; Monocyte% 6.3 % (0-10); NRBC Flagged by Analyzer 0 % (0-5); Neutrophil # 8.84 X10^3/uL (2.7-7.7); Neutrophil % 74.8 % (47-70); Platelet Count 167 K/mm3 (150-450); RBC Distribution Width CV 12.9 % (11.6-14.6); RBC Distribution Width SD 42.2 fl (35.1-43.9); White Blood Count 11.8 K/mm3 (4.4-11.0)
--- NOTE | 2023-02-28 03:23 | PCM.PN.BLA ---
Progress Note 29 week multigravida w/ prolonged decel. BPP done, MVP 4.9 cm. Many gross FM and tone movements. No breathing noted. BPP 6/10 currently. FHTs were category one for some time. Then times of minimal variability. Appears there may have been another prolonged decel before BPP. Will continue to monitor. Repeat labs ordered. No evidence clinically at this time of PTL or abruption, uncertain of etiology of decelerations.
[2023-02-28 03:24] LABS: Prothrombin Time (Protime)PT. 12.8 SECONDS (11.7-14.9)
[2023-02-28 03:25] LABS: Fibrinogen 455 mg/dl (203-444); Partial Thromboplast Time 29.8 Seconds (24.1-36.2)
[2023-02-28 03:34] LABS: Group B Strep DNA By PCR POSITIVE (Negative); Probe Check PASS
--- NOTE | 2023-02-28 04:22 | PCM.HP.OB ---
HPI - General General Date of Admission: 02/28/23 Date of Service: 02/28/23 Chief Complaint: pain and spotting HPI Narrative PUMA BRICE, is a 27 F who presents at 29w6d with back pain, cramping, and spotting. She reports a fall down stairs around 2-3 am on 02/27/23. She denies hitting her abdomen. She fell onto her buttock. She had no symptoms after the fall and felt good FM so she did not initially call. Later in the evening she noticed spotting, mucous discharge, low back pain, menstrual like cramps, and infrequent ctx's. [facility] Medical History Asthma Herniated disc Migraine Sciatica Vertigo Home Medications albuterol sulfate 90 mcg/actuation aerosol inhaler 1 puff inhalation Q4H PRN PRN Wheezing 04/15/19 [History Last Taken Unknown] loratadine 10 mg capsule 10 mg PO DAILY PRN Allergies 04/15/19 [History Last Taken Unknown] Controll 1 tab PO.IVFORM DAILY 05/12/21 [History Last Taken Unknown] albuterol sulfate 2.5 mg/3 mL (0.083 %) solution for nebulization 2.5 mg (3 mL) inhalation Q4H PRN #25 vials 05/13/21 [Rx Last Taken Unknown] prednisone 20 mg tablet 40 mg (2 x 20 mg) PO DAILY #10 TABLETS 05/13/21 [Rx Last Taken Unknown] diazepam 5 mg tablet 5 mg PO Q8 PRN Muscle Spasm #15 tabs 06/10/21 [Rx Last Taken Unknown] hydrocodone-acetaminophen 5-325mg 5mg-325mg 1 tab PO Q6H PRN PRN Pain 3 days #12 TABLETS 06/10/21 [Rx Last Taken Unknown] ketorolac 10 mg tablet 10 mg PO Q8H PRN pain #15 tabs 06/10/21 [Rx Last Taken Unknown] prednisone 20 mg tablet 60 mg (3 x 20 mg) PO DAILY #15 TABLETS 06/10/21 [Rx Last Taken Unknown] ketorolac 10 mg tablet 10 mg PO Q6H PRN pain 3 days #10 tabs 11/29/21 [Rx Last Taken Unknown] ipratropium bromide 0.02 % solution for inhalation 2.5 ml inhalation Q6H PRN shortness of breath or wheezing #62.5 mL 08/26/22 [Rx Last Taken Unknown] prednisone 20 mg tablet 60 mg (3 x 20 mg) PO DAILY #15 tabs 08/26/22 [Rx Last Taken Unknown] ondansetron 4 mg disintegrating tablet 4 mg PO Q8H PRN PRN Nausea #10 tabs 10/05/22 [Rx Last Taken Unknown] fluticasone propionate 44 mcg/actuation HFA aerosol inhaler (Flovent HFA) 2 inh inhalation BID 02/28/23 [History Last Taken Unknown] vit no.95-ferrous fumarate 28 mg-folic acid 800 mcg tablet () 1 tab PO DAILY 02/28/23 [History Last Taken Unknown] Allergy/AdvReac Type Severity Reaction Status Date / Time benzonatate Allergy Hives Verified 02/28/23 00:02 [From Tessalon Perles] [email or web address] [From Omnicef] Allergy Hives Verified 02/28/23 00:02 red (food color) Allergy Hives Verified 02/28/23 00:02 Social History Smoking Status: Former smoker substance use type: does not use History Elective abortions Hx Para 1 Spontaneous abortions Hx # Term Pregnancies Ectopic pregnancies Hx # Pregnancies Multiple births # of living children NST FHR Rate Baby A Baseline: 145 Variability:: Minimal and Moderate Accelerations:: None Decelerations:: Prolonged (infrequent) Vital Signs Vital Signs Vital Signs: 02/27/23 23:53 02/27/23 23:53 02/27/23 23:57 Temperature Temperature Source Pulse Rate 99 Respiratory Rate Blood Pressure 130/59 H Blood Pressure Mean BP Systolic 130 BP Diastolic 59 Blood Pressure Source Blood Pressure Position Blood Pressure Location Pulse Ox 98 Oxygen Delivery Method 02/27/23 23:57 02/27/23 23:58 02/27/23 23:58 Temperature 98.3 F Temperature Source Temporal Pulse Rate 96 Respiratory Rate Blood Pressure Blood Pressure Mean BP Systolic BP Diastolic Blood Pressure Source Blood Pressure Position Blood Pressure Location Pulse Ox Oxygen Delivery Method 02/28/23 00:07 02/28/23 00:07 02/28/23 00:12 Temperature Temperature Source Pulse Rate 97 101 H Respiratory Rate Blood Pressure Blood Pressure Mean BP Systolic BP Diastolic Blood Pressure Source Blood Pressure Position Blood Pressure Location Pulse Ox 98 Oxygen Delivery Method 02/28/23 00:12 02/28/23 00:17 02/28/23 00:17 Temperature Temperature Source Pulse Rate 98 Respiratory Rate Blood Pressure Blood Pressure Mean BP Systolic BP Diastolic Blood Pressure Source Blood Pressure Position Blood Pressure Location Pulse Ox 98 98 Oxygen Delivery Method 02/28/23 00:22 02/28/23 00:22 02/28/23 00:27 Temperature Temperature Source Pulse Rate 100 96 Respiratory Rate Blood Pressure Blood Pressure Mean BP Systolic BP Diastolic Blood Pressure Source Blood Pressure Position Blood Pressure Location Pulse Ox 99 Oxygen Delivery Method 02/28/23 00:27 02/28/23 00:32 02/28/23 00:32 Temperature Temperature Source Pulse Rate 96 Respiratory Rate Blood Pressure Blood Pressure Mean BP Systolic BP Diastolic Blood Pressure Source Blood Pressure Position Blood Pressure Location Pulse Ox 98 98 Oxygen Delivery Method 02/28/23 00:37 02/28/23 00:37 02/28/23 00:42 Temperature Temperature Source Pulse Rate 96 94 Respiratory Rate Blood Pressure Blood Pressure Mean BP Systolic BP Diastolic Blood Pressure Source Blood Pressure Position Blood Pressure Location Pulse Ox 98 Oxygen Delivery Method 02/28/23 00:42 02/28/23 00:47 02/28/23 00:47 Temperature Temperature Source Pulse Rate 96 Respiratory Rate Blood Pressure Blood Pressure Mean BP Systolic BP Diastolic Blood Pressure Source Blood Pressure Position Blood Pressure Location Pulse Ox 97 97 Oxygen Delivery Method 02/28/23 01:23 02/28/23 01:23 02/28/23 01:28 Temperature Temperature Source Pulse Rate 89 87 Respiratory Rate Blood Pressure Blood Pressure Mean BP Systolic BP Diastolic Blood Pressure Source Blood Pressure Position Blood Pressure Location Pulse Ox 97 Oxygen Delivery Method 02/28/23 01:28 02/28/23 01:33 02/28/23 01:33 Temperature Temperature Source Pulse Rate 91 Respiratory Rate Blood Pressure Blood Pressure Mean BP Systolic BP Diastolic Blood Pressure Source Blood Pressure Position Blood Pressure Location Pulse Ox 98 98 Oxygen Delivery Method 02/28/23 01:38 02/28/23 01:38 02/28/23 01:43 Temperature Temperature Source Pulse Rate 92 91 Respiratory Rate Blood Pressure Blood Pressure Mean BP Systolic BP Diastolic Blood Pressure Source Blood Pressure Position Blood Pressure Location Pulse Ox 99 Oxygen Delivery Method 02/28/23 01:43 02/28/23 01:48 02/28/23 01:48 Temperature Temperature Source Pulse Rate 91 Respiratory Rate Blood Pressure Blood Pressure Mean BP Systolic BP Diastolic Blood Pressure Source Blood Pressure Position Blood Pressure Location Pulse Ox 99 100 Oxygen Delivery Method 02/28/23 01:53 02/28/23 01:53 02/28/23 01:58 Temperature Temperature Source Pulse Rate 91 88 Respiratory Rate Blood Pressure Blood Pressure Mean BP Systolic BP Diastolic Blood Pressure Source Blood Pressure Position Blood Pressure Location Pulse Ox 100 Oxygen Delivery Method 02/28/23 01:58 02/28/23 02:03 02/28/23 02:03 Temperature Temperature Source Pulse Rate 104 H Respiratory Rate Blood Pressure Blood Pressure Mean BP Systolic BP Diastolic Blood Pressure Source Blood Pressure Position Blood Pressure Location Pulse Ox 100 98 Oxygen Delivery Method 02/28/23 02:08 02/28/23 02:08 02/28/23 02:13 Temperature Temperature Source Pulse Rate 96 92 Respiratory Rate Blood Pressure Blood Pressure Mean BP Systolic BP Diastolic Blood Pressure Source Blood Pressure Position Blood Pressure Location Pulse Ox 100 Oxygen Delivery Method 02/28/23 02:13 02/28/23 02:18 02/28/23 02:18 Temperature Temperature Source Pulse Rate 97 Respiratory Rate Blood Pressure Blood Pressure Mean BP Systolic BP Diastolic Blood Pressure Source Blood Pressure Position Blood Pressure Location Pulse Ox 100 100 Oxygen Delivery Method 02/28/23 02:23 02/28/23 02:23 02/28/23 02:28 Temperature Temperature Source Pulse Rate 81 94 Respiratory Rate Blood Pressure Blood Pressure Mean BP Systolic BP Diastolic Blood Pressure Source Blood Pressure Position Blood Pressure Location Pulse Ox 100 Oxygen Delivery Method 02/28/23 02:28 02/28/23 02:33 02/28/23 02:33 Temperature Temperature Source Pulse Rate 92 Respiratory Rate Blood Pressure Blood Pressure Mean BP Systolic BP Diastolic Blood Pressure Source Blood Pressure Position Blood Pressure Location Pulse Ox 100 100 Oxygen Delivery Method 02/28/23 02:38 02/28/23 02:38 02/28/23 02:43 Temperature Temperature Source Pulse Rate 82 91 Respiratory Rate Blood Pressure Blood Pressure Mean BP Systolic BP Diastolic Blood Pressure Source Blood Pressure Position Blood Pressure Location Pulse Ox 100 Oxygen Delivery Method 02/28/23 02:43 02/28/23 02:51 02/28/23 02:51 Temperature Temperature Source Pulse Rate 95 Respiratory Rate Blood Pressure 124/56 H Blood Pressure Mean BP Systolic 124 BP Diastolic 56 Blood Pressure Source Blood Pressure Position Blood Pressure Location Pulse Ox 100 Oxygen Delivery Method 02/28/23 02:52 02/28/23 02:52 02/28/23 02:57 Temperature Temperature Source Pulse Rate 93 105 H Respiratory Rate Blood Pressure Blood Pressure Mean BP Systolic BP Diastolic Blood Pressure Source Blood Pressure Position Blood Pressure Location Pulse Ox 98 Oxygen Delivery Method 02/28/23 02:57 02/28/23 03:02 02/28/23 03:02 Temperature Temperature Source Pulse Rate 92 Respiratory Rate Blood Pressure Blood Pressure Mean BP Systolic BP Diastolic Blood Pressure Source Blood Pressure Position Blood Pressure Location Pulse Ox 100 100 Oxygen Delivery Method 02/28/23 03:07 02/28/23 03:07 02/28/23 03:12 Temperature Temperature Source Pulse Rate 87 88 Respiratory Rate Blood Pressure Blood Pressure Mean BP Systolic BP Diastolic Blood Pressure Source Blood Pressure Position Blood Pressure Location Pulse Ox 100 Oxygen Delivery Method 02/28/23 03:12 02/28/23 03:17 02/28/23 03:17 Temperature Temperature Source Pulse Rate 95 Respiratory Rate Blood Pressure Blood Pressure Mean BP Systolic BP Diastolic Blood Pressure Source Blood Pressure Position Blood Pressure Location Pulse Ox 100 100 Oxygen Delivery Method 02/28/23 03:00 Temperature 98.3 F Temperature Source Temporal Pulse Rate 95 Respiratory Rate 15 Blood Pressure 124/56 H Blood Pressure Mean 78 BP Systolic BP Diastolic Blood Pressure Source Monitor Blood Pressure Position Semi-Fowlers Blood Pressure Location Right Arm Pulse Ox 100 Oxygen Delivery Method Room Air Weight Weight: 217 lb Body Mass Index (BMI) 36.1 Physical Exam Const alert and no apparent distress General Appearance: comfortable GI soft to palpation, non-tender and non-distended Narrative: Cvx c/t/h, and no bleeding on exam Labs Labs Labs: Blood Type A POSITIVE Antibody Screen NEGATIVE Hct 33.2 % (37-47) L Hgb 11.2 g/dL (12.0-15.0) L Obstetrics US Group B Strep DNA POSITIVE (Negative) H Rhogam given: No Assessment & Plan (1) 29 weeks gestation of : PLAN: Patient presents with cramping, back pain and spotting. - Cervix c/t/h and no evidence of PTL at this time - The back and pelvic pain are not new and she has been seen in the office for this in the past. Abruption labs unremarkable. Suspect MSK pains in - FHT with occasional prolonged decelerations with periods of minimal variability. Current FHT reassuring for gestational age. Admit for observation. S/p fluid bolus. Diet NPO. BMZ x 1 given. GBS sent. BPP 04/[address] Reed. Will order growth and fluid US for today with repeat BPP. Continue with CEFM (2) Cramping affecting , antepartum: (3) Low back pain: (4) heart rate decelerations affecting management of mother: (5) Tobacco use: (6) History of herpes simplex infection:
--- NOTE | 2023-02-28 09:05 | PN.OBGYN_ITS ---
Subjective Subjective Patient is doing OK. Denies complaints at this time. Objective Data Objective Data Vital Signs: Vital Signs Temp Pulse Resp BP Pulse Ox O2 Del Method 98.0 F 87 15 118/56 L 97 Room Air 02/28/23 07:45 02/28/23 07:45 02/28/23 03:00 02/28/23 07:45 02/28/23 07:45 02/28/23 03:00 Oxygen Delivery Method Room Air Weight: 217 lb Body Mass Index (BMI) 36.1 Intake & Output: Intake and Output for Last 24 Hours 02/26/23 02/27/23 02/28/23 23:59 23:59 23:59 Intake Total 1000 / 1000 Balance 1000 / 1000 Lab / Micro Data 02/28/23 03:01 Labs: Laboratory Results - last 24 hr 02/28/23 01:45: WBC 12.2 H, RBC 3.70 L, Hgb 11.1 L, Hct 34.1 L, MCV 92.2, MCH 30.0, MCHC 32.6, RDW Std Deviation 43.0, RDW Coeff of Manuela 12.8, Plt Count 167, MPV 10.6, Immature Gran % (Auto) 0.900, Neut % (Auto) 73.9 H, Lymph % (Auto) 16.2 L, [place] % (Auto) 6.4, Eos % (Auto) 2.4, Baso % (Auto) 0.2, Absolute Neuts (auto) 9.0 H, Absolute Lymphs (auto) 1.97, Nucleated RBC % 0, PT 13.3, INR 1.0, APTT 30.8, Fibrinogen 473 H, Blood Type A POSITIVE, Antibody Screen NEGATIVE 02/28/23 01:50: Group B Strep DNA POSITIVE H, Specimen Comment Not Reportable 02/28/23 03:01: WBC 11.8 H, RBC 3.70 L, Hgb 11.2 L, Hct 33.2 L, MCV 89.7, MCH 30.3, MCHC 33.7, RDW Std Deviation 42.2, RDW Coeff of Manuela 12.9, Plt Count 167, MPV 10.2, Immature Gran % (Auto) 0.800, Neut % (Auto) 74.8 H, Lymph % (Auto) 15.9 L, [place] % (Auto) 6.3, Eos % (Auto) 2.0, Baso % (Auto) 0.2, Absolute Neuts (auto) 8.8 H, Absolute Lymphs (auto) 1.88, Nucleated RBC % 0, PT 12.8, INR 1.0, APTT 29.8, Fibrinogen 455 H Assessment & Plan (1) heart rate decelerations affecting management of mother: COMMENT: @29&5 PLAN: Plan Patient observed overnight for FHR decelerations. EFM is overall reassuring in between decelerations but patient persists in having intermittent prolonged dece lerations. Plan of care discussed with Sylvie Gavin ([facility]). Plan for transfer to [facility] for further evaluation. Plan discussed with patient & all questions answered.
== END 2023-02-28 10:00 | disposition short-term general hospital (02) ==
LOC: WPOUT 23:45 → WP 23:45
PROVIDERS: Obstetrics & Gynecology; PCP Student in an Organized Health Care Education/Training Program; Referring Provider Obstetrics & Gynecology; Visit Provider Obstetrics & Gynecology
DX: O36.8330 Maternal care for abnormalities of the fetal heart rate or rhythm, third trimester, not applicable or unspecified (principal); O99.891 Other specified diseases and conditions complicating pregnancy; Z3A.29 29 weeks gestation of pregnancy; J45.909 Unspecified asthma, uncomplicated; R25.2 Cramp and spasm; O99.513 Diseases of the respiratory system complicating pregnancy, third trimester; M54.50 Low back pain, unspecified; Z87.891 Personal history of nicotine dependence
CPT/HCPCS: 96360; 36415; 59025; 59050; 76815; 85025; 85384; 85610; 85730; 86850; 86900; 86901; 87653; 96372; J7120; J0702

== ENCOUNTER 2023-03-08 15:15 | Outpatient (CLI) | payer MEDICAID, SELFPAY ==
[2023-03-08 15:35] VITALS: BP 125/66; PULSE 95
[2023-03-08 15:45] VITALS: BP 125/66; PULSE 95; TEMP 36.7; O2SAT 98
[2023-03-08 15:57] VITALS: BMI 36.2
[2023-03-08 17:54] LABS: Hematocrit 33.1 % (37-47); Hemoglobin 10.5 g/dL (12.0-15.0); Mean Corp Hgb Conc 31.7 g/dL (32-36); Mean Corpuscular Volume 91.4 fL (81-99); Mean Platelet Vol. 10.4 fl (6.2-12.0); Platelet Count 175 K/mm3 (150-450); RBC Distribution Width CV 12.8 % (11.6-14.6); Red Blood Count 3.62 M/mm3 (4.2-5.4)
[2023-03-08 17:59] LABS: Prothrombin Time (Protime)PT. 13.6 SECONDS (11.7-14.9)
[2023-03-08 18:05] LABS: Fibrinogen 494 mg/dl (203-444)
[2023-03-08 19:28] VITALS: PULSE 94; O2SAT 98
[2023-03-08 19:33] VITALS: BP 128/58; PULSE 86; TEMP 36.6; O2SAT 98
[2023-03-08 20:54] VITALS: O2SAT 82
--- NOTE | 2023-03-08 21:21 | OB.TRI.NOTE ---
HPI - General HPI Narrative PUMA BRICE, is a 27 F at 31.0 weeks gestation who presents to triage with decreased movement and spotting after wiping today. She was recently discharged from [facility] last week after extended monitoring for decelerations. Maternal Data Information ANKIT Calculator Estimated Delivery Date Method Current WG Current Estimate 05/10/23 Manual 31w 0d PFSH PFSH Medical History Asthma Herniated disc Migraine Sciatica Vertigo Home Medications albuterol sulfate 90 mcg/actuation aerosol inhaler 1 puff inhalation Q4H PRN PRN Wheezing 04/15/19 [History Last Taken Unknown] loratadine 10 mg capsule 10 mg PO DAILY PRN Allergies 04/15/19 [History Last Taken Unknown] Controll 1 tab PO.IVFORM DAILY 05/12/21 [History Last Taken Unknown] albuterol sulfate 2.5 mg/3 mL (0.083 %) solution for nebulization 2.5 mg (3 mL) inhalation Q4H PRN #25 vials 05/13/21 [Rx Last Taken Unknown] prednisone 20 mg tablet 40 mg (2 x 20 mg) PO DAILY #10 TABLETS 05/13/21 [Rx Last Taken Unknown] diazepam 5 mg tablet 5 mg PO Q8 PRN Muscle Spasm #15 tabs 06/10/21 [Rx Last Taken Unknown] hydrocodone-acetaminophen 5-325mg 5mg-325mg 1 tab PO Q6H PRN PRN Pain 3 days #12 TABLETS 06/10/21 [Rx Last Taken Unknown] ketorolac 10 mg tablet 10 mg PO Q8H PRN pain #15 tabs 06/10/21 [Rx Last Taken Unknown] prednisone 20 mg tablet 60 mg (3 x 20 mg) PO DAILY #15 TABLETS 06/10/21 [Rx Last Taken Unknown] ketorolac 10 mg tablet 10 mg PO Q6H PRN pain 3 days #10 tabs 11/29/21 [Rx Last Taken Unknown] ipratropium bromide 0.02 % solution for inhalation 2.5 ml inhalation Q6H PRN shortness of breath or wheezing #62.5 mL 08/26/22 [Rx Last Taken Unknown] prednisone 20 mg tablet 60 mg (3 x 20 mg) PO DAILY #15 tabs 08/26/22 [Rx Last Taken Unknown] ondansetron 4 mg disintegrating tablet 4 mg PO Q8H PRN PRN Nausea #10 tabs 10/05/22 [Rx Last Taken Unknown] fluticasone propionate 44 mcg/actuation HFA aerosol inhaler (Flovent HFA) 2 inh inhalation BID 02/28/23 [History Last Taken Unknown] vit no.95-ferrous fumarate 28 mg-folic acid 800 mcg tablet () 1 tab PO DAILY 02/28/23 [History Last Taken Unknown] fluticasone propionate 50 mcg/actuation nasal spray,suspension (Allergy Relief (fluticasone)) 2 spray intranasal DAILY allergy symptoms 03/08/23 [History Last Taken Unknown] Allergy/AdvReac Type Severity Reaction Status Date / Time Cephalosporins Allergy Severe Hives Verified 03/08/23 15:50 NSAIDS (Non-Steroidal Allergy Intermediate Abd Verified 03/08/23 15:50 Anti-Inflamma cramps/diarrhea benzonatate Allergy Hives Verified 03/08/23 15:50 [From Tessalon Perles] [email or web address] [From Omnicef] Allergy Hives Verified 03/08/23 15:50 red (food color) Allergy Hives Verified 03/08/23 15:50 Social History Smoking Status: Former smoker substance use type: does not use History Elective abortions Hx Para 1 Spontaneous abortions Hx # Term Pregnancies Ectopic pregnancies Hx # Pregnancies Multiple births # of living children ROS Eyes Eyes: Denies blurry vision Cardiovascular Cardiovascular: Reports none; Denies chest pain at rest, chest pain with activity or dizziness Respiratory/Chest Respiratory/Chest: Denies cough or dyspnea Gastrointestinal Gastrointestinal: Reports none and other; Denies diarrhea or vomiting Genitourinary Genitourinary: Denies dysuria Musculoskeletal Musculoskeletal: Reports none Integumentary Integumentary: Reports none; Denies rash Neurologic Neurologic: Denies dizziness, headache(s) or other visual disturbances Psychiatric Psychiatric: Reports none Physical Exam Const alert and no apparent distress General Appearance: cooperative Orientation / Consciousness: awake Exam Limitations: no limitations HEENT normocephalic Eyes General Eye: normal appearance of both eyes Neck full ROM Chest inspection of chest normal Resp normal respiratory effort and normal air movement Effort and Inspection: symmetric chest movement Auscultation: clear to auscultation bilaterally Cardio regular rate GI soft to palpation, non-tender and non-distended Inspection: and other Back/Spine normal ROM Extremity full ROM, normal capillary refill and no calf tenderness Skin no rashes or lesions noted Neuro oriented x3 and CN's II-XII intact bilaterally Psych mental status grossly normal Assessment & Plan (1) 31 weeks gestation of : (2) Spotting affecting : (3) Decreased movement: PLAN: Plan Positive movement felt by patient Cat. 1 tracing with small deceleration upon arrival to unit- overall reassurring No vaginal bleeding No contraction seen or palpated Labs- normal Plan is for extended monitoring Clears only Dr. Sears involved in plan of care
[2023-03-09] VITALS (60 sets, daily range): BP systolic 100–132; BP diastolic 50–60; PULSE 69–93; TEMP 36.2–36.8; O2SAT 82–100
--- NOTE | 2023-03-09 11:35 | PCM.PN.BLA ---
Progress Note Patient denies any vaginal bleeding or leaking of fluid. Reports good movement now. Denies headache or visual changes. Prolonged monitoring reviewed. Abdomen soft, nontender, gravid Assessment and plan high risk multigravida at 31 weeks with prolonged decelerations. Recommend transfer back to tertiary care center. Dr. Sears reviewed the case with Dr. Mcgrath from . The triage note, her H&P from last visit and this note will act as her transport notes. Remainder of her care is in epic
== END 2023-03-09 12:00 | disposition short-term general hospital (02) ==
LOC: WPOUT 15:23 → WP 15:23
PROVIDERS: PCP Student in an Organized Health Care Education/Training Program; Referring Provider Advanced Practice Midwife; Visit Provider Advanced Practice Midwife
DX: O76 Abnormality in fetal heart rate and rhythm complicating labor and delivery (principal); O99.513 Diseases of the respiratory system complicating pregnancy, third trimester; O36.8130 Decreased fetal movements, third trimester, not applicable or unspecified; O26.853 Spotting complicating pregnancy, third trimester; Z3A.31 31 weeks gestation of pregnancy; J45.909 Unspecified asthma, uncomplicated
CPT/HCPCS: 36415; 59025; 59050; 85027; 85384; 85610; 85730; 86850; 86900; 86901

== ENCOUNTER 2023-07-30 18:08 | Emergency (ER) | payer MEDICAID, SELFPAY ==
[2023-07-30 18:10] VITALS: BP 129/82; PULSE 85; RESP 16; TEMP 37.3; O2SAT 99; BMI 35.6
--- NOTE | 2023-07-30 18:26 | EX.ED.DYSGE1 ---
HPI History of Present Illness Chief Complaint: Cold Sx Informant: patient Onset/Context/Timing Onset: Days (3 to 4 days) Narrative Narrative: Patient presents with cold symptoms for the past 3 to 4 days. 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 She states she had some congestion but no fever the past 3 or 4 days. Yesterday she developed hoarse voice and body aches. She has now had a temperature up to 102. PFSH [facility] Medical History Asthma Herniated disc Migraine Sciatica Vertigo Home Medications albuterol sulfate 90 mcg/actuation aerosol inhaler 1 puff inhalation Q4H PRN PRN Wheezing 04/15/19 [History Last Taken Unknown] loratadine 10 mg capsule 10 mg PO DAILY PRN Allergies 04/15/19 [History Last Taken Unknown] Controll 1 tab PO.IVFORM DAILY 05/12/21 [History Last Taken Unknown] albuterol sulfate 2.5 mg/3 mL (0.083 %) solution for nebulization 2.5 mg (3 mL) inhalation Q4H PRN #25 vials 05/13/21 [Rx Last Taken Unknown] prednisone 20 mg tablet 40 mg (2 x 20 mg) PO DAILY #10 TABLETS 05/13/21 [Rx Last Taken Unknown] diazepam 5 mg tablet 5 mg PO Q8 PRN Muscle Spasm #15 tabs 06/10/21 [Rx Last Taken Unknown] hydrocodone-acetaminophen 5-325mg 5mg-325mg 1 tab PO Q6H PRN PRN Pain 3 days #12 TABLETS 06/10/21 [Rx Last Taken Unknown] ketorolac 10 mg tablet 10 mg PO Q8H PRN pain #15 tabs 06/10/21 [Rx Last Taken Unknown] prednisone 20 mg tablet 60 mg (3 x 20 mg) PO DAILY #15 TABLETS 06/10/21 [Rx Last Taken Unknown] ketorolac 10 mg tablet 10 mg PO Q6H PRN pain 3 days #10 tabs 11/29/21 [Rx Last Taken Unknown] ipratropium bromide 0.02 % solution for inhalation 2.5 ml inhalation Q6H PRN shortness of breath or wheezing #62.5 mL 08/26/22 [Rx Last Taken Unknown] prednisone 20 mg tablet 60 mg (3 x 20 mg) PO DAILY #15 tabs 08/26/22 [Rx Last Taken Unknown] ondansetron 4 mg disintegrating tablet 4 mg PO Q8H PRN PRN Nausea #10 tabs 10/05/22 [Rx Last Taken Unknown] fluticasone propionate 44 mcg/actuation HFA aerosol inhaler (Flovent HFA) 2 inh inhalation BID 02/28/23 [History Last Taken Unknown] vit no.95-ferrous fumarate 28 mg-folic acid 800 mcg tablet () 1 tab PO DAILY 02/28/23 [History Last Taken Unknown] fluticasone propionate 50 mcg/actuation nasal spray,suspension (Allergy Relief (fluticasone)) 2 spray intranasal DAILY allergy symptoms 03/08/23 [History Last Taken Unknown] Allergy/AdvReac Type Severity Reaction Status Date / Time Cephalosporins Allergy Severe Hives Verified 03/08/23 15:50 NSAIDS (Non-Steroidal Allergy Intermediate Abd Verified 03/08/23 15:50 Anti-Inflamma cramps/diarrhea benzonatate Allergy Hives Verified 03/08/23 15:50 [From Tessalon Perles] [email or web address] [From Omnicef] Allergy Hives Verified 03/08/23 15:50 red (food color) Allergy Hives Verified 03/08/23 15:50 Social History Smoking Status: Former smoker substance use type: does not use ROS ROS ED Constitutional Constitutional ED: Reports fever(s); Denies chills Eyes Eyes: Denies change in vision or discharge from eye(s) ENT ENT ED: Reports sore throat and other Details: Congestion ; Denies discharge from eye(s) or rhinorrhea Cardiovascular Cardiovascular: Denies chest pain or palpitations Respiratory/Chest Respiratory/Chest: Reports cough and dyspnea Gastrointestinal Gastrointestinal: Denies abdominal pain, nausea or vomiting Genitourinary Genitourinary ED: Denies dysuria Musculoskeletal Musculoskeletal: Reports myalgias; Denies extremity pain Integumentary Denies Abrasions or rash Neurologic Neurologic: Reports weakness; Denies headache(s) Psychiatric Psychiatric: Denies anxiety or depression Allergic/Immunologic Allergic/Immunologic ED: Denies lip swelling or urticaria EXAM Physical Exam Const Vital Signs: 07/30/23 18:10 07/30/23 18:33 Temperature 99.2 F H Temperature Source Temporal Pulse Rate 85 Respiratory Rate 16 Respiratory Effort Short of Breath Blood Pressure 129/82 H Blood Pressure Mean 97 Pulse Ox 99 Oxygen Delivery Method Room Air Positive well nourished and well developed General Appearance ED: well developed HEENT Reports moist mucous membranes HEENT Narrative: Hoarse voice. Tolerating secretions well. 2-3+ tonsils bilaterally. Uvula midline. No exudate. Eyes EOMs intact bilaterally Chest Wall inspection of chest normal and palpation of chest normal Resp normal respiratory effort and clear to auscultation bilaterally Cardio regular rate and regular rhythm GI non-tender Palpation: soft Extremity normal to inspection Neuro oriented x3 and no sensory deficits noted Motor Exam: strength 5/5 throughout Skin no rashes or lesions noted MDM MDM MDM Narrative Medical decision making narrative: COVID/influenza test obtained. This returns negative. Test results discussed with the patient. I advised her she either has another virus that is acting similar to COVID, or her viral count is not high enough at this time to register positive test. I will write her off work today. She states she does not go back to work until Monday. She will continue supportive care at home. Discharge Plan Triage Chief Complaint: Cold Sx ED Provider: Xiomy Peterson Dx/Rx/DC Orders Clinical Impression: History of viral pharyngitis, Viral syndrome Instructions: ED Pharyngitis, Viral, ED Viral Syndrome (Adult) Prescriptions: No Action albuterol sulfate 1 INHALER inhaler 1 puff inhalation Q4H PRN PRN (Reason: Wheezing) loratadine 10 MG capsule 10 mg PO DAILY PRN (Reason: Allergies) Controll 1 tab PO.IVFORM DAILY Hold Instructions: Order Changed prednisone 20 MG tablet 40 mg PO DAILY Qty: 10 0RF Hold Instructions: Order Changed albuterol sulfate 2.5 MG/3 ML solution for nebulization 2.5 mg inhalation Q4H PRN Qty: 25 0RF Rx Instructions: Use q4 hours and PRN for wheezing hydrocodone-acetaminophen [hydrocodone-acetaminophen] 1 TABLET tablet 1 tab PO Q6H PRN PRN (Reason: Pain) 3 Days Qty: 12 0RF Hold Instructions: Order Changed diazepam [diazepam] 5 MG tablet 5 mg PO Q8 PRN (Reason: Muscle Spasm) Qty: 15 0RF Hold Instructions: Order Changed prednisone 20 MG tablet 60 mg PO DAILY Qty: 15 0RF Hold Instructions: Order Changed ketorolac 10 mg tablet 10 mg PO Q8H PRN (Reason: pain) Qty: 15 0RF Hold Instructions: Order Changed ketorolac 10 mg tablet 10 mg PO Q6H PRN (Reason: pain) 3 Days Qty: 10 0RF Hold Instructions: Order Changed prednisone 20 mg tablet 60 mg PO DAILY Qty: 15 0RF Hold Instructions: Order Changed ipratropium bromide 0.02 % solution 2.5 ml inhalation Q6H PRN (Reason: shortness of breath or wheezing) Qty: 62.5 1RF Hold Instructions: Order Changed ondansetron [ondansetron] 4 mg tablet,disintegrating 4 mg PO Q8H PRN PRN (Reason: Nausea) Qty: 10 0RF fluticasone propionate [Allergy Relief (fluticasone)] 50 mcg/actuation spray,suspension 2 spray intranasal DAILY Rx Instructions: administer into each nostril PNV cmb#95-ferrous fumarate-FA [] 28 mg iron- 800 mcg tablet 1 tab PO DAILY fluticasone propionate [Flovent HFA] 44 mcg/actuation HFA aerosol inhaler 2 inh inhalation BID Rx Instructions: administer with spacer Stand Alone Forms: ED Work / School Excuse Primary Care Provider: Juan Diego Gaines Referrals: Juan Diego Gaines DO [Primary Care Provider] - 1 Week if not improving Disposition Disposition: Home, Self Care
== END 2023-07-30 19:29 | disposition home or self-care (01) ==
PROVIDERS: Emergency Provider Emergency Medicine; PCP Student in an Organized Health Care Education/Training Program; Visit Provider Emergency Medicine
DX: B34.9 Viral infection, unspecified (principal); J45.909 Unspecified asthma, uncomplicated; Z11.52 Encounter for screening for COVID-19; R05.9 Cough, unspecified; R50.9 Fever, unspecified; Z79.899 Other long term (current) drug therapy; Z87.891 Personal history of nicotine dependence
CPT/HCPCS: 87428; 99282

== ENCOUNTER 2023-08-11 16:00 | Outpatient (RCR) | payer MEDICAID, SELFPAY ==
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
--- NOTE | 2023-12-11 17:35 | HP.PT.NRP ---
Patient Information Patient Information: PUMA BRICE was seen in my office for initial evaluation on 07/13/23. The following Plan of Care was established for this patient: POC Established Initial Frequency: 2x /Week Initial Duration: 4 Weeks Anticipated Interventions Patient/Client Instruction: Educate patient on: Condition and Plan of Care For the Purpose of:: To decrease pain, To increase ROM, To improve muscle performance and motor function, To improve ability to perform ADL's, To increase tolerance to activity/condition/position, To improve performance and independence with ADL's, To improve ability of physical actions for home/community/work/leisure, To improve health of tissue, To decrease soft tissue restriction and To increase flexibility/ROM Therapeutic Exercise to Include: Strength training, Body mechanics, Postural training, Flexibilty training and Dynamic Lumbar Stabilization For the Purpose of:: To decrease pain, To increase ROM, To improve muscle performance and motor function, To improve ability to perform ADL's, To increase tolerance to activity/condition/position, To improve ability of physical actions for home/community/work/leisure, To improve health of tissue, To decrease soft tissue restriction, To increase flexibility/ROM and To prevent re-injury TENS: Yes IF ES: Yes Cryotherapy (ice pack, ice massage): Yes Thermo therapy (hot pack): Yes Ultrasound (thermal/non thermal): Yes For the Purpose of:: To decrease pain, To increase ROM, To improve muscle performance and motor function, To improve ability to perform ADL's, To increase tolerance to activity/condition/position, To improve ability of physical actions for home/community/work/leisure, To improve health of tissue, To decrease soft tissue restriction, To increase flexibility/ROM and To improve tolerance to ADL's Last Seen Last Seen: This patient was last seen in our office . Pertinent comments regarding their Physical therapy will appear below: Patient seen for PT for low back pain and HEP At this point I will be discontinuing this patient from physical therapy. I would be happy to see this patient again in the future if found appropriate by the physician. Thank you! Jj Dubose, PT, Cert MDT, OCS Balance/Gait/Functional tests Balance/Special Test Scores Oswestry Low Back Score: 20
== END 2023-08-11 19:00 | disposition home or self-care (01) ==
LOC: PT 16:00
PROVIDERS: PCP Student in an Organized Health Care Education/Training Program; Referring Provider Anesthesiology; Visit Provider Anesthesiology
DX: M54.50 Low back pain, unspecified (principal)
CPT/HCPCS: 97014; 97110; 97162; G0283

== ENCOUNTER 2024-10-03 09:24 | Emergency (ER) | payer MEDICAID, SELFPAY ==
[2024-10-03 09:25] VITALS: BP 122/82; PULSE 84; RESP 16; TEMP 36.6; O2SAT 99; BMI 31.4
--- NOTE | 2024-10-03 11:05 | ED.VIS.BACK ---
HPI History of Present Illness Chief Complaint: Back Informant: patient Narrative Narrative: Patient is a 28-year-old female with history of chronic back pain, generative disc disease, 2 herniated disc and sciatica presenting with back pain, left hip pain after fall today. Patient states she slipped and fell on the ice this morning. She landed on her left hip as well as her left arm a little. She states that she just think she has a scrape and a deep bruise on her arm and does not think she broke anything. She is having increased pain of her lower back, left hip, pelvis and groin since the fall. She states that she has numbness of the left top of her pelvis rating down her leg. She has not urinated since was not have any associated incontinence. Denies any weakness of her legs. States she previously was seeing pain management but was referred to physical therapy. She could not complete physical therapy but not had a chance to go back to pain management. She was referred to a intervention specialist at [facility] but did not like his care and has not seen anyone. She has not taken anything for her symptoms today and does not normally take anything for pain even Tylenol or NSAIDs. She states Toradol makes her angry. She is complaining of nauseousness and is having a hard time getting comfortable she cannot really sit or lay down because of her pain. No other complaints or concerns reported at this time. [facility] Medical History Migraine Vertigo Herniated disc Sciatica Asthma Home Medications ?Medication ?Instructions ?Recorded ?Last Taken ?Type albuterol sulfate 90 mcg/actuation 1 puff inhalation Q4H PRN PRN 04/15/19 Unknown History aerosol inhaler Wheezing loratadine 10 mg capsule 10 mg PO DAILY PRN Allergies 04/15/19 Unknown History Controll 1 tab PO.IVFORM DAILY 05/12/21 Unknown History Held on 03/08/23. Instructions: Order Changed albuterol sulfate 2.5 mg/3 mL 2.5 mg (3 mL) inhalation Q4H PRN 05/13/21 Unknown Rx (0.083 %) solution for nebulization #25 vials prednisone 20 mg tablet 40 mg (2 x 20 mg) PO DAILY #10 05/13/21 Unknown Rx Held on 03/08/23. TABLETS Instructions: Order Changed diazepam 5 mg tablet 5 mg PO Q8 PRN Muscle Spasm #15 06/10/21 Unknown Rx Held on 03/08/23. tabs Instructions: Order Changed hydrocodone-acetaminophen 5-325mg 1 tab PO Q6H PRN PRN Pain 3 days 06/10/21 Unknown Rx 5mg-325mg #12 TABLETS Held on 03/08/23. Instructions: Order Changed ketorolac 10 mg tablet 10 mg PO Q8H PRN pain #15 tabs 06/10/21 Unknown Rx Held on 03/08/23. Instructions: Order Changed prednisone 20 mg tablet 60 mg (3 x 20 mg) PO DAILY #15 06/10/21 Unknown Rx Held on 03/08/23. TABLETS Instructions: Order Changed ketorolac 10 mg tablet 10 mg PO Q6H PRN pain 3 days #10 11/29/21 Unknown Rx Held on 03/08/23. tabs Instructions: Order Changed ipratropium bromide 0.02 % 2.5 ml inhalation Q6H PRN 08/26/22 Unknown Rx solution for inhalation shortness of breath or wheezing Held on 03/08/23. #62.5 mL Instructions: Order Changed prednisone 20 mg tablet 60 mg (3 x 20 mg) PO DAILY #15 tabs 08/26/22 Unknown Rx Held on 03/08/23. Instructions: Order Changed ondansetron 4 mg disintegrating 4 mg PO Q8H PRN PRN Nausea #10 tabs 10/05/22 Unknown Rx tablet fluticasone propionate 44 2 inh inhalation BID 02/28/23 Unknown History mcg/actuation HFA aerosol inhaler (Flovent HFA) vit no.95-ferrous 1 tab PO DAILY 02/28/23 Unknown History fumarate 28 mg-folic acid 800 mcg tablet () fluticasone propionate 50 2 spray intranasal DAILY allergy 03/08/23 Unknown History mcg/actuation nasal symptoms spray,suspension (Allergy Relief (fluticasone)) Allergy/AdvReac Type Severity Reaction Status Date / Time Cephalosporins Allergy Severe Hives Verified 10/03/24 09:24 NSAIDS (Non-Steroidal Allergy Intermediate Abd Verified 10/03/24 09:24 Anti-Inflamma cramps/diarrhea benzonatate (From Tessalon Allergy Hives Verified 10/03/24 09:24 Perles) cefdinir (From Omnicef) Allergy Hives Verified 10/03/24 09:24 red (food color) Allergy Hives Verified 10/03/24 09:24 Social History Smoking Status: Former smoker substance use type: does not use ROS ROS ED Constitutional Constitutional ED: Denies chills or fever(s) Gastrointestinal Gastrointestinal: Reports nausea; Denies vomiting Musculoskeletal Musculoskeletal: Reports back pain and other Details: Left hip pain Integumentary Reports Abrasions Neurologic Neurologic: Reports paresthesias LLE; Denies weakness Psychiatric Psychiatric: Denies anxiety or depression Hematologic/Lymphatic Hematologic/Lymphatic: Denies easy bleeding or easy bruising EXAM Physical Exam Const Vital Signs: 10/03/24 09:25 Temperature 97.8 F Temperature Source Oral Pulse Rate 84 Respiratory Rate 16 Blood Pressure 122/82 H Blood Pressure Mean 95 Pulse Ox 99 Oxygen Delivery Method Room Air Positive well nourished and well developed Constitutional Narrative: Uncomfortable appearing, Sitting on the side of the bed. General Appearance ED: well developed and NAD HEENT Reports moist mucous membranes HEENT Narrative: Normocephalic atraumatic Neck supple Neck Narrative: Normal range of motion of the neck Resp normal respiratory effort Cardio regular rate and regular rhythm Back/Spine Back/Spine Narrative: Lumbar tenderness diffusely but worse in the left paraspinal area. No step-off sign. She does have some midline tenderness as well but it is not out of proportion to the paraspinal tenderness. Lumbar Spine / Lower Back: ROM limited Extremity normal to inspection Extremity Narrative: No obvious deformity. Pelvis stable. Mild tenderness over the left greater trochanter. Increased pain with range of motion of the hip and leg. Of the left upper extremity no obvious bony deformity. No bony tenderness. Normal range of motion. Compartments of the forearm are soft. No joint effusions appreciated. Neuro oriented x3 Neuro Narrative: Sensation intact to light touch however patient does report paresthesias to the left leg and hip area. 4/5 strength with plantarflexion of the foot however patient is a lot of pain when she attempts this. 5/5 strength with dorsiflexion of the foot as well as the great toe. Sensorium / Orientation: alert Psych mental status grossly normal Psych Narrative: Anxious Skin Skin Narrative: Abrasion to the left mid forearm present. No active bleeding. MDM MDM MDM Narrative Medical decision making narrative: Patient evaluated after she slipped on the ice. She is a history of degenerative disc disease as well as sciatica to her back. Has had prior MRIs which she states showed 2 herniated disc. Patient was able to ambulate into the emergency room. Differential includes hip contusion, pelvic fracture, hip fracture, lumbar spinal fracture, sciatica and worsening of herniated disc. Patient will be given a dose of oral Tylenol and Zofran for symptom control. She states she does not like opioids or muscle relaxers and cannot take NSAIDs. Patient does have slight improvement with medication in the emergency room. X-ray of the hip as well as lumbar spine reviewed by myself as well as radiology does not show any acute process or degenerative changes. Patient given referral for spine. Will be treated conservatively at this time with Tylenol. She states she is Zofran at home and does not need prescription. Given a work note. Suspect this is a flareup of her sciatica/pain associate with the fall. She is able to ambulate and I do not think requires admission for debility or emergent MRI at this time. Will be cautioned on signs of cauda equina and given return precautions. Discharged home in stable condition. Radiography Diagnostic Testing: Clinical Impression(s) from Imaging Studies Hip/Pelvis X-Ray 10/03/24 11:35 IMPRESSION: Normal left hip x-rays. Reading Location: [facility] Lumbar Spine X-Ray 10/03/24 11:35 IMPRESSION: Normal lumbar spine x-rays. Reading Location: [facility] Discharge Plan Triage Chief Complaint: Back ED Provider: Mari Pringle Dx/Rx/DC Orders Clinical Impression: Fall due to ice or snow, Low back pain radiating to left leg Instructions: ED Back Pain (Acute or Chronic), ED Back Sprain/Strain, ED Sciatica Prescriptions: No Action albuterol sulfate 1 INHALER inhaler 1 puff inhalation Q4H PRN PRN (Reason: Wheezing) loratadine 10 MG capsule 10 mg PO DAILY PRN (Reason: Allergies) Controll 1 tab PO.IVFORM DAILY prednisone 20 MG tablet 40 mg PO DAILY Qty: 10 0RF albuterol sulfate 2.5 MG/3 ML solution for nebulization 2.5 mg inhalation Q4H PRN Qty: 25 0RF Rx Instructions: Use q4 hours and PRN for wheezing hydrocodone-acetaminophen [hydrocodone-acetaminophen] 1 TABLET tablet 1 tab PO Q6H PRN PRN (Reason: Pain) 3 Days Qty: 12 0RF diazepam [diazepam] 5 MG tablet 5 mg PO Q8 PRN (Reason: Muscle Spasm) Qty: 15 0RF prednisone 20 MG tablet 60 mg PO DAILY Qty: 15 0RF ketorolac 10 mg tablet 10 mg PO Q8H PRN (Reason: pain) Qty: 15 0RF ketorolac 10 mg tablet 10 mg PO Q6H PRN (Reason: pain) 3 Days Qty: 10 0RF prednisone 20 mg tablet 60 mg PO DAILY Qty: 15 0RF ipratropium bromide 0.02 % solution 2.5 ml inhalation Q6H PRN (Reason: shortness of breath or wheezing) Qty: 62.5 1RF ondansetron [ondansetron] 4 mg tablet,disintegrating 4 mg PO Q8H PRN PRN (Reason: Nausea) Qty: 10 0RF fluticasone propionate [Allergy Relief (fluticasone)] 50 mcg/actuation spray,suspension 2 spray intranasal DAILY Rx Instructions: administer into each nostril PNV cmb#95-ferrous fumarate-FA [] 28 mg iron- 800 mcg tablet 1 tab PO DAILY fluticasone propionate [Flovent HFA] 44 mcg/actuation HFA aerosol inhaler 2 inh inhalation BID Rx Instructions: administer with spacer Stand Alone Forms: ED Work / School Excuse Primary Care Provider: Juan Diego Gaines Referrals: Stan Cordova MD [Med Staff - Active Staff] - Juan Diego Gaines DO [Primary Care Provider] - Activity Restrictions/Additional Instructions: Your x-rays do not show any acute changes or fractures/injuries. If you have progression of your symptoms, progression of numbness/cannot feel when you wipe after using the restroom or develop incontinence please return to the emergency room. Otherwise continue take Tylenol for pain. You might find [id number] Lidoderm patches (4% extra strength) helpful as well. Print Language: Urdu Disposition Disposition: Home, Self Care
--- NOTE | 2024-10-03 11:35 | RAD_ITS ---
EXAM: XR Left Hip With Pelvis When Performed, 2 or 3 Views CLINICAL INDICATION: TECHNIQUE: Two or three views of the left hip with pelvis when performed. COMPARISON: No relevant prior studies available. FINDINGS: BONES/JOINTS: Unremarkable. No acute fracture. No dislocation. SOFT TISSUES: Unremarkable. RAD/HIP, UNI W/ Pelvis 2-3 Views IMPRESSION: Normal left hip x-rays. Reading [facility]
--- NOTE | 2024-10-03 11:35 | RAD_ITS ---
EXAM: XR Lumbosacral Spine, 4 or 5 Views CLINICAL INDICATION: TECHNIQUE: Frontal, lateral and bilateral oblique views of the lumbar spine. COMPARISON: No relevant prior studies available. FINDINGS: VERTEBRAE: Unremarkable. No acute fracture. Normal alignment. SACRUM/COCCYX: Unremarkable as visualized. No acute fracture. DISC SPACES: No acute findings. No significant narrowing. SOFT TISSUES: Unremarkable. RAD/L/S Spine Min 4 Views IMPRESSION: Normal lumbar spine x-rays. Reading [facility]
[2024-10-03] MEDS: Ondansetron ODT 4 MG Tablet PO (11:41)
[2024-10-03] MEDS: Acetaminophen 325 MG Tablet 650 MG PO (11:42)
[2024-10-03 13:18] VITALS: BP 132/65; PULSE 82; RESP 16; TEMP 36.6; O2SAT 99
== END 2024-10-03 13:20 | disposition home or self-care (01) ==
PROVIDERS: Emergency Provider Emergency Medicine; PCP Student in an Organized Health Care Education/Training Program; Visit Provider Emergency Medicine
DX: M54.42 Lumbago with sciatica, left side (principal); S50.12XA Contusion of left forearm, initial encounter; W00.0XXA Fall on same level due to ice and snow, initial encounter; G89.29 Other chronic pain; R11.0 Nausea; R10.2 Pelvic and perineal pain; J45.909 Unspecified asthma, uncomplicated; Z87.891 Personal history of nicotine dependence
CPT/HCPCS: 72110; 73502; 99283

== ENCOUNTER 2024-12-06 18:18 | Emergency (ER) | payer MEDICAID, SELFPAY ==
[2024-12-06 18:18] VITALS: BP 136/83; PULSE 101; RESP 16; TEMP 36.9; O2SAT 100; BMI 33.3
--- NOTE | 2024-12-06 18:38 | EX.ED.DYSGE1 ---
HPI History of Present Illness Chief Complaint: Flank Pain Detail of Chief Complaint: Urinary tract symptoms with low back pain Informant: patient Onset/Context/Timing Onset: Today Context: Sudden Onset Timing: Continuous and Intermittent Quality: Pressure, frequency, hematuria dysuria Location: Current Severity: Mild (With respect to the back pain.) Maximum Severity: Moderate (With respect to the dysuria) Worsened by: Nothing Relieved by: Nothing Associated Symptoms Associated Symptoms: no nausea or vomiting. No fever or chills. Exacerbation of sciatica Narrative Narrative: Patient is a 29-year-old female status post tubal ligation 2 to 3 years ago whose last normal menstrual period ended November 26 who presents with dysuria, frequency, urgency, suprapubic discomfort and low back pain bilaterally. She denies nausea or vomiting. She denies fever or chills. She denies flank pain. Prior similar symptoms: Yes Recent Illness/[facility]ospital[facility]: [facility] Medical History Migraine Vertigo Herniated disc Sciatica Asthma Home Medications ?Medication ?Instructions ?Recorded ?Last Taken ?Type albuterol sulfate 90 mcg/actuation 1 puff inhalation Q4H PRN PRN 04/15/19 Unknown History aerosol inhaler Wheezing loratadine 10 mg capsule 10 mg PO DAILY PRN Allergies 04/15/19 Unknown History Controll 1 tab PO.IVFORM DAILY 05/12/21 Unknown History Held on 03/08/23. Instructions: Order Changed albuterol sulfate 2.5 mg/3 mL 2.5 mg (3 mL) inhalation Q4H PRN 05/13/21 Unknown Rx (0.083 %) solution for nebulization #25 vials prednisone 20 mg tablet 40 mg (2 x 20 mg) PO DAILY #10 05/13/21 Unknown Rx Held on 03/08/23. TABLETS Instructions: Order Changed diazepam 5 mg tablet 5 mg PO Q8 PRN Muscle Spasm #15 06/10/21 Unknown Rx Held on 03/08/23. tabs Instructions: Order Changed hydrocodone-acetaminophen 5-325mg 1 tab PO Q6H PRN PRN Pain 3 days 06/10/21 Unknown Rx 5mg-325mg #12 TABLETS Held on 03/08/23. Instructions: Order Changed ketorolac 10 mg tablet 10 mg PO Q8H PRN pain #15 tabs 06/10/21 Unknown Rx Held on 03/08/23. Instructions: Order Changed prednisone 20 mg tablet 60 mg (3 x 20 mg) PO DAILY #15 06/10/21 Unknown Rx Held on 03/08/23. TABLETS Instructions: Order Changed ketorolac 10 mg tablet 10 mg PO Q6H PRN pain 3 days #10 11/29/21 Unknown Rx Held on 03/08/23. tabs Instructions: Order Changed ipratropium bromide 0.02 % 2.5 ml inhalation Q6H PRN 08/26/22 Unknown Rx solution for inhalation shortness of breath or wheezing Held on 03/08/23. #62.5 mL Instructions: Order Changed prednisone 20 mg tablet 60 mg (3 x 20 mg) PO DAILY #15 tabs 08/26/22 Unknown Rx Held on 03/08/23. Instructions: Order Changed ondansetron 4 mg disintegrating 4 mg PO Q8H PRN PRN Nausea #10 tabs 10/05/22 Unknown Rx tablet fluticasone propionate 44 2 inh inhalation BID 02/28/23 Unknown History mcg/actuation HFA aerosol inhaler (Flovent HFA) vit no.95-ferrous 1 tab PO DAILY 02/28/23 Unknown History fumarate 28 mg-folic acid 800 mcg tablet () fluticasone propionate 50 2 spray intranasal DAILY allergy 03/08/23 Unknown History mcg/actuation nasal symptoms spray,suspension (Allergy Relief (fluticasone)) Allergy/AdvReac Type Severity Reaction Status Date / Time Cephalosporins Allergy Severe Hives Verified 12/06/24 18:20 NSAIDS (Non-Steroidal Allergy Intermediate Abd Verified 12/06/24 18:20 Anti-Inflamma cramps/diarrhea benzonatate (From Tessalon Allergy Hives Verified 12/06/24 18:20 Perles) cefdinir (From Omnicef) Allergy Hives Verified 12/06/24 18:20 red (food color) Allergy Hives Verified 12/06/24 18:20 Social History (Updated 12/06/24 @ 18:[address] Da Durham MD) household members: children Smoking Status: Former smoker substance use type: does not use ROS ROS ED Constitutional Constitutional ED: Denies chills, fever(s), subjective or sweats Cardiovascular Cardiovascular: Denies chest pain or palpitations Respiratory/Chest Respiratory/Chest: Denies cough or dyspnea Gastrointestinal Gastrointestinal: Reports abdominal pain; Denies constipation, diarrhea, melena, nausea or vomiting Genitourinary Genitourinary ED: Reports dysuria, hematuria, LMP (females 10-50) Details: Comment: (Ended November 26. Patient states it was normal with respect to days of flow, amount of flow and color of blood. Furthermore, she is status post tubal ligation.) and urinary frequency Musculoskeletal Musculoskeletal: Reports back pain Integumentary Denies rash Neurologic Neurologic: Denies paresthesias or weakness Hematologic/Lymphatic Hematologic/Lymphatic: Reports systems reviewed and no addt'l complaints, except as documented EXAM Physical Exam Const Vital Signs: 12/06/24 18:18 Temperature 98.5 F Temperature Source Oral Pulse Rate 101 H Respiratory Rate 16 Blood Pressure 136/83 H Blood Pressure Mean 100 Pulse Ox 100 Oxygen Delivery Method Room Air Positive well nourished and well developed Constitutional Narrative: Patient appears ill. General Appearance ED: well developed HEENT Reports moist mucous membranes HEENT Narrative: Head is atraumatic normocephalic. Eyes PERRL and EOMs intact bilaterally General Eye ED: Negative for pale conjunctiva or scleral icterus Neck no lymphadenopathy, supple and no JVD Resp normal respiratory effort Cardio regular rate and regular rhythm GI non-distended and no masses; Negative for non-tender or hepatosplenomegaly GI Narrative: Pain to palpation suprapubic area. Palpation: soft and tender suprapubic Back/Spine no CVA tenderness Extremity normal to inspection General Extremety ED: Negative for edema or tenderness General Extremity: Negative for edema Neuro oriented x3 and CN's II-XII intact bilaterally Sensorium / Orientation: alert Psych mental status grossly normal Skin no rashes or lesions noted, no wounds and skin turgor normal Skin Narrative: Patient is face looks flushed. MDM MDM MDM Narrative Medical decision making narrative: Patient's history and physical is consistent with hemorrhagic cystitis. UA was obtained. Doubt this is a distal ureteral stone. Symptoms not consistent with .. Lab Data Labs: Laboratory Results - last 24 hr 12/06/24 18:36 Urine Color Straw Urine Clarity Clear Urine pH 6.5 Ur Specific Taylor 1.005 Urine Protein Negative Urine Glucose (UA) Normal Urine Ketones Negative Urine Occult Blood Negative Urine Nitrite Negative Urine Bilirubin Negative Urine Urobilinogen Normal Ur Leukocyte Esterase Negative Urine RBC 0 SEEN Urine WBC 0 SEEN Ur Squamous Epith Cells 0-5 SEEN Urine Bacteria 0 SEEN Urine Mucus 0 SEEN Radiography Diagnostic Testing: Clinical Impression(s) from Imaging Studies Abdomen/Pelvis CT 12/06/24 19:20 IMPRESSION: NORMAL NONCONTRAST CT OF THE ABDOMEN AND PELVIS. Reading Location: [facility] CT of the abdomen pelvis contrast reveals normal liver spleen gallbladder. Kidneys appear normal. There is no evidence of hydronephrosis hydroureter. There is no evidence of renal calculi. There is no evidence of ureteral calculi either. Awaiting formal read by radiologist, 1937 Treatment and Re-Evaluation :: Since the radiologist also interpreted the CT is negative patient be discharged to home. Discharge Plan Triage Chief Complaint: Flank Pain ED Provider: Da Durham Dx/Rx/DC Orders Clinical Impression: Abdominal pain of unknown etiology, Dysuria Instructions: ED Abdominal Pain Unkn Cause Fem, ED Dysuria, Uncertain Cause (Adult) Prescriptions: No Action albuterol sulfate 1 INHALER inhaler 1 puff inhalation Q4H PRN PRN (Reason: Wheezing) loratadine 10 MG capsule 10 mg PO DAILY PRN (Reason: Allergies) Controll 1 tab PO.IVFORM DAILY prednisone 20 MG tablet 40 mg PO DAILY Qty: 10 0RF albuterol sulfate 2.5 MG/3 ML solution for nebulization 2.5 mg inhalation Q4H PRN Qty: 25 0RF Rx Instructions: Use q4 hours and PRN for wheezing hydrocodone-acetaminophen [hydrocodone-acetaminophen] 1 TABLET tablet 1 tab PO Q6H PRN PRN (Reason: Pain) 3 Days Qty: 12 0RF diazepam [diazepam] 5 MG tablet 5 mg PO Q8 PRN (Reason: Muscle Spasm) Qty: 15 0RF prednisone 20 MG tablet 60 mg PO DAILY Qty: 15 0RF ketorolac 10 mg tablet 10 mg PO Q8H PRN (Reason: pain) Qty: 15 0RF ketorolac 10 mg tablet 10 mg PO Q6H PRN (Reason: pain) 3 Days Qty: 10 0RF prednisone 20 mg tablet 60 mg PO DAILY Qty: 15 0RF ipratropium bromide 0.02 % solution 2.5 ml inhalation Q6H PRN (Reason: shortness of breath or wheezing) Qty: 62.5 1RF ondansetron [ondansetron] 4 mg tablet,disintegrating 4 mg PO Q8H PRN PRN (Reason: Nausea) Qty: 10 0RF fluticasone propionate [Allergy Relief (fluticasone)] 50 mcg/actuation spray,suspension 2 spray intranasal DAILY Rx Instructions: administer into each nostril PNV cmb#95-ferrous fumarate-FA [] 28 mg iron- 800 mcg tablet 1 tab PO DAILY fluticasone propionate [Flovent HFA] 44 mcg/actuation HFA aerosol inhaler 2 inh inhalation BID Rx Instructions: administer with spacer Primary Care Provider: Juan Diego Gaines Referrals: Juan Diego Gaines DO [Primary Care Provider] - 3-5 Days if not improving Print Language: Greenlandic Disposition Disposition: Home, Self Care
[2024-12-06 18:47] LABS: Bacteria 0 SEEN /hpf (None Seen); Mucous, Urine 0 SEEN /hpf (<or=2+); Red Blood Cells-Urine 0 SEEN /hpf (0-5); White Blood Cells 0 SEEN /hpf (0-5)
[2024-12-06 18:50] LABS: Color, Urine Straw (Yellow); Glucose, Dipstick Normal (Normal); Ketone-Dipstick Negative (Negative); Leukocyte Esterase-Dipstick Negative /ul (Negative); Nitrite-Dipstick Negative (Negative); Occult Blood-Urine Negative /ul (Negative); Protein-Dipstick Negative (Negative); Specific Gravity, Urine 1.005 (1.002-1.030); Urine Bilirubin Dipstick Negative (Negative); Urine Clarity Clear (Clear); Urine Urobilinogen Normal (Normal); Urine pH 6.5 (5.0 - 8.0)
--- NOTE | 2024-12-06 19:20 | CT_ITS ---
PROCEDURE: ABDOMEN/PELVIS WITHOUT CONT 12/06/2024 REASON FOR EXAM: KIDNEY STONE, concern on the right. TECHNIQUE: Abdomen and pelvis CT without intravenous contrast. Noncontrast technique limits evaluation of the abdominal and pelvic viscera. Coronal and Sagittal reconstruction series were provided. One or more dose reduction techniques were used (e.g., Automated exposure control, adjustment of the mA and/or kV according to patient size, use of iterative reconstruction technique). PATIENT PREPARATION: Per protocol ORAL CONTRAST TYPE: None. COMPARISON: None. FINDINGS: Lung bases: The lung bases are clear. The heart is normal in size. Liver: The unopacified liver is normal in size. No biliary ductal dilation. Gallbladder: No radiopaque stones in the gallbladder. Spleen: Normal size. Pancreas: Unremarkable. Adrenals: No adrenal mass. Kidneys: No hydronephrosis or nephrolithiasis. Bladder: Moderately distended and unremarkable. Reproductive Organs: Normal uterine size and contour. Ovaries are unremarkable. Bowel: The bowel loops are normal caliber. No ascites or pneumoperitoneum. Normal appendix. Lymph nodes: No suspicious lymph node enlargement. Vasculature: The abdominal aorta and IVC contours are normal. Noncontrast technique limits evaluation. Bones: Degenerative changes of the spine. CT/Abdomen/Pelvis without Cont IMPRESSION: NORMAL NONCONTRAST CT OF THE ABDOMEN AND PELVIS. Reading Location: [id number]
[2024-12-06 19:38] LABS: Squamous Epithelial Cells - UA 0-5 SEEN /hpf (5-10)
[2024-12-06 20:18] VITALS: PULSE 73; RESP 16
[2024-12-06 20:39] VITALS: BP 136/83; PULSE 73; RESP 16; TEMP 36.9; O2SAT 100
== END 2024-12-06 20:43 | disposition home or self-care (01) ==
PROVIDERS: Emergency Provider Emergency Medicine; PCP Student in an Organized Health Care Education/Training Program; Visit Provider Emergency Medicine
DX: R10.9 Unspecified abdominal pain (principal); M54.50 Low back pain, unspecified; R30.0 Dysuria; J45.909 Unspecified asthma, uncomplicated; Z87.891 Personal history of nicotine dependence
CPT/HCPCS: 74176; 81001; 99282

== ENCOUNTER 2025-02-13 22:11 | Emergency (ER) | payer MEDICAID, SELFPAY ==
[2025-02-13 22:13] VITALS: BP 140/55; PULSE 90; RESP 16; TEMP 36.1; O2SAT 100
--- NOTE | 2025-02-13 22:19 | RAD_ITS ---
PROCEDURE: HAND MIN 3 VIEWS 02/13/2025 REASON FOR EXAM: LACERATION TO 2ND FINGER TECHNIQUE: HAND MIN 3 VIEWS COMPARISON: None FINDINGS: Normal visualized carpal bones. Normal first metacarpus. Normal second through fifth metacarpi. Normal phalanges. There is no demonstrated fracture. Normal carpal articulations. Normal carpometacarpal (CMC) articulation of the thumb. Normal metacarpophalangeal (MCP) joint of the thumb. Normal interphalangeal (IP) joint of the thumb. Normal second through fifth carpometacarpal (CMC) joints. Normal second through fifth metacarpophalangeal (MCP) joints. Normal proximal interphalangeal (PIP) and distal interphalangeal (DIP) joints of the second through fifth fingers. RAD/Hand Min 3 Views IMPRESSION: Normal x-ray examination of the hand. Reading Location: [facility]
--- NOTE | 2025-02-14 00:28 | EX.ED.DYSGE1 ---
HPI History of Present Illness Chief Complaint: Laceration Informant: patient and spouse/S.O. Narrative Narrative: Patient is a 29-year-old female with past medical history of migraine headache and asthma. She is right-hand dominant. She reports a few hours prior to arrival she was cutting food products with her brand-new knife set. She states she accidentally cut her left index finger. She reports that she cannot get the bleeding to stop and she had concerned that she may have hit the bone. Secondary to this she presents for evaluation. [facility] Medical History Migraine Vertigo Herniated disc Sciatica Asthma Home Medications ?Medication ?Instructions ?Recorded ?Last Taken ?Type albuterol sulfate 90 mcg/actuation 1 puff inhalation Q4H PRN PRN 04/15/19 Unknown History aerosol inhaler Wheezing loratadine 10 mg capsule 10 mg PO DAILY PRN Allergies 04/15/19 Unknown History Controll 1 tab PO.IVFORM DAILY 05/12/21 Unknown History Held on 03/08/23. Instructions: Order Changed albuterol sulfate 2.5 mg/3 mL 2.5 mg (3 mL) inhalation Q4H PRN 05/13/21 Unknown Rx (0.083 %) solution for nebulization #25 vials prednisone 20 mg tablet 40 mg (2 x 20 mg) PO DAILY #10 05/13/21 Unknown Rx Held on 03/08/23. TABLETS Instructions: Order Changed diazepam 5 mg tablet 5 mg PO Q8 PRN Muscle Spasm #15 06/10/21 Unknown Rx Held on 03/08/23. tabs Instructions: Order Changed hydrocodone-acetaminophen 5-325mg 1 tab PO Q6H PRN PRN Pain 3 days 06/10/21 Unknown Rx 5mg-325mg #12 TABLETS Held on 03/08/23. Instructions: Order Changed ketorolac 10 mg tablet 10 mg PO Q8H PRN pain #15 tabs 06/10/21 Unknown Rx Held on 03/08/23. Instructions: Order Changed prednisone 20 mg tablet 60 mg (3 x 20 mg) PO DAILY #15 06/10/21 Unknown Rx Held on 03/08/23. TABLETS Instructions: Order Changed ketorolac 10 mg tablet 10 mg PO Q6H PRN pain 3 days #10 11/29/21 Unknown Rx Held on 03/08/23. tabs Instructions: Order Changed ipratropium bromide 0.02 % 2.5 ml inhalation Q6H PRN 08/26/22 Unknown Rx solution for inhalation shortness of breath or wheezing Held on 03/08/23. #62.5 mL Instructions: Order Changed prednisone 20 mg tablet 60 mg (3 x 20 mg) PO DAILY #15 tabs 08/26/22 Unknown Rx Held on 03/08/23. Instructions: Order Changed ondansetron 4 mg disintegrating 4 mg PO Q8H PRN PRN Nausea #10 tabs 10/05/22 Unknown Rx tablet fluticasone propionate 44 2 inh inhalation BID 02/28/23 Unknown History mcg/actuation HFA aerosol inhaler (Flovent HFA) vit no.95-ferrous 1 tab PO DAILY 02/28/23 Unknown History fumarate 28 mg-folic acid 800 mcg tablet () fluticasone propionate 50 2 spray intranasal DAILY allergy 03/08/23 Unknown History mcg/actuation nasal symptoms spray,suspension (Allergy Relief (fluticasone)) Allergy/AdvReac Type Severity Reaction Status Date / Time Cephalosporins Allergy Severe Hives Verified 02/13/25 22:12 NSAIDS (Non-Steroidal Allergy Intermediate Abd Verified 02/13/25 22:12 Anti-Inflamma cramps/diarrhea benzonatate (From Tessalon Allergy Hives Verified 02/13/25 22:12 Perles) cefdinir (From Omnicef) Allergy Hives Verified 02/13/25 22:12 red (food color) Allergy Hives Verified 02/13/25 22:12 Social History household members: children Smoking Status: Former smoker substance use type: does not use ROS ROS ED Constitutional Constitutional ED: Denies chills or fever(s) ENT ENT ED: Denies sore throat Cardiovascular Cardiovascular: Denies chest pain Respiratory/Chest Respiratory/Chest: Denies cough or dyspnea Gastrointestinal Gastrointestinal: Denies abdominal pain, diarrhea, nausea or vomiting Musculoskeletal Musculoskeletal: Reports other Details: Positive left index finger pain Integumentary Reports other Details: Positive left index finger laceration Neurologic Neurologic: Denies headache(s), paresthesias or weakness Hematologic/Lymphatic Hematologic/Lymphatic: Denies easy bleeding or easy bruising EXAM Physical Exam Const Vital Signs: 02/13/25 22:13 02/14/25 00:33 Temperature 97 F L 97 F L Temperature Source Temporal Pulse Rate 90 72 Respiratory Rate 16 16 Blood Pressure 140/55 H 123/80 H Blood Pressure Mean 83 94 Pulse Ox 100 100 Oxygen Delivery Method Room Air Positive well nourished and well developed General Appearance ED: well developed HEENT HEENT Narrative: Normocephalic atraumatic Eyes PERRL and EOMs intact bilaterally General Eye ED: Negative for scleral icterus Neck supple Resp normal respiratory effort and clear to auscultation bilaterally Cardio regular rate and regular rhythm Extremity Extremity Narrative: Left upper extremity is neurovascularly intact; AIN/PIN are intact and normal. The patient has a linear 1 cm laceration that is dermal layer deep to the dorsal aspect of her left index finger near the PIP joint. There is no sign of bony abnormality/trauma. No sign of ligamentous or tendon damage. No nailbed involvement. No surrounding soft tissue changes to suggest infection. Remainder of the exam is normal. Neuro oriented x3, CN's II-XII intact bilaterally and no sensory deficits noted Sensorium / Orientation: alert Motor Exam: strength 5/5 throughout Psych mental status grossly normal Skin Skin Narrative: Laceration to the left index finger as documented above MDM MDM MDM Narrative Medical decision making narrative: Patient arrived to the ER with stable vitals and reported a simple laceration to the left index finger. By physical exam she does not have signs of ligamentous or tendon injury. Bleeding has been controlled spontaneously and there is no signs of arterial injury. With concern for potential open fracture as patient had concerned she may have hit the bone an x-ray was obtained. This revealed no sign of fracture or retained foreign body. Therefore the wound was closed with Dermabond as documented below and patient is otherwise safe for discharge. As the laceration occurred from a clean kitchen knife there is no need for tetanus update or prophylactic antibiotics Patient had the left index finger cleaned with chlorhexidine. Manual pressure was then applied to the wound edges and Dermabond placed over top. This held the wound together well with good approximation. Patient tolerated the procedure well without complication. History & Record Review Discussion w/independent historian: Patient and Significant other Radiography Diagnostic Testing: Clinical Impression(s) from Imaging Studies Hand X-Ray 02/13/25 22:19 IMPRESSION: Normal x-ray examination of the hand. Reading Location: [place] [id number] Left hand x-ray as interpreted by the emergency medicine physician reveals no acute fracture dislocation retained foreign body Discharge Plan Triage Chief Complaint: Laceration ED Provider: Jaswinder Ly Dx/Rx/DC Orders Clinical Impression: Laceration of left index finger, Asthma, History of migraine headaches Instructions: ED Laceration, Hand: All Closures Prescriptions: No Action albuterol sulfate 1 INHALER inhaler 1 puff inhalation Q4H PRN PRN (Reason: Wheezing) loratadine 10 MG capsule 10 mg PO DAILY PRN (Reason: Allergies) Controll 1 tab PO.IVFORM DAILY prednisone 20 MG tablet 40 mg PO DAILY Qty: 10 0RF albuterol sulfate 2.5 MG/3 ML solution for nebulization 2.5 mg inhalation Q4H PRN Qty: 25 0RF Rx Instructions: Use q4 hours and PRN for wheezing hydrocodone-acetaminophen [hydrocodone-acetaminophen] 1 TABLET tablet 1 tab PO Q6H PRN PRN (Reason: Pain) 3 Days Qty: 12 0RF diazepam [diazepam] 5 MG tablet 5 mg PO Q8 PRN (Reason: Muscle Spasm) Qty: 15 0RF prednisone 20 MG tablet 60 mg PO DAILY Qty: 15 0RF ketorolac 10 mg tablet 10 mg PO Q8H PRN (Reason: pain) Qty: 15 0RF ketorolac 10 mg tablet 10 mg PO Q6H PRN (Reason: pain) 3 Days Qty: 10 0RF prednisone 20 mg tablet 60 mg PO DAILY Qty: 15 0RF ipratropium bromide 0.02 % solution 2.5 ml inhalation Q6H PRN (Reason: shortness of breath or wheezing) Qty: 62.5 1RF ondansetron [ondansetron] 4 mg tablet,disintegrating 4 mg PO Q8H PRN PRN (Reason: Nausea) Qty: 10 0RF fluticasone propionate [Allergy Relief (fluticasone)] 50 mcg/actuation spray,suspension 2 spray intranasal DAILY Rx Instructions: administer into each nostril PNV cmb#95-ferrous fumarate-FA [] 28 mg iron- 800 mcg tablet 1 tab PO DAILY fluticasone propionate [Flovent HFA] 44 mcg/actuation HFA aerosol inhaler 2 inh inhalation BID Rx Instructions: administer with spacer Primary Care Provider: Juan Diego Gaines Referrals: Juan Diego Gaines DO [Primary Care Provider] - Print Language: Czech Disposition Disposition: Home, Self Care Discharge Date/Time: 02/14/25 00:36
[2025-02-14 00:33] VITALS: BP 123/80; PULSE 72; RESP 16; TEMP 36.1; O2SAT 100
--- OUTSIDE RECORDS SUMMARY | 2025-02-14 00:33 | XMS RPT_ITS | CCD ---
Author Organization [facility] Care Team Providers Care Inspector Clip [employer] Name Role Phone Juan Diego Gaines DO Primary Care Provider JUAN DIEGO GAINES DO Primary Care Physician JUAN DIEGO GAINES DO Primary Care Physician Juan Diego Gaines DO Primary Care Provider Juan Diego Gaines DO Primary Care Provider Juan Diego Gaines DO Primary Care Provider JUAN DIEGO GAINES Primary Care Unavailable ROHIT MIRZA Attending Unavailable ABDULAZIZ MIRZA Attending Unava ilable JUAN DIEGO GAINES Primary Care Unavailable QASIM VENEGAS Attending Unavailable JUAN DIEGO GAINES Primary Care Unavailable JUAN DIEGO GAINES Primary Care Unavailable SUNITHA MEZA Attending Unavailab le JUAN DIEGO GAINES Primary Care Unavailable BRYNN SOLIS Admitting Unavailable ALEXANDRA LAWRENCE Attending Unavailable JUAN DIEGO GAINES Primary Care Unavailable JUAN DIEGO GAINES Primary Care Unavailable JUAN DIEGO GAINES Primary Care Unavailable JUAN DIEGO GAIENS Primary Care Unavailable SABRINA SORENSEN Referring Unavailable MALSHE, DESMOND Referring Unavailable GAINESJUAN DIEGO MORENO Primary Care Unavailable GEORGETTEE, DESMOND Referring Unavailable JUAN DIEGO GAINES Primary Care Unavailable JUAN DIEGO GANIES Primary Care Unavailable DELISA OH Attending Unavailable AMALIA GAVIN Admitting Unavailable JUAN DIEGO GAINES Primary Care Unavailable VINOD BROCK Admitting Unavailable JASWINDER MCGRATH Attending Unavailable JUAN DIEGO GAINES Primary Care Unavailable Dr. Juan Diego Gaines Primary Care Provider [phone] Dr. Juan Diego Gaines Referring Provider [phone] JORGE Calzada Attending Provider Gaines DO, Juan Diego L Primary Care Provider SABRINA SORENSEN Referring Unavailable GAINES, JUAN DIEGO Misty Primary Care Unavailable GAINES DO, JUAN DIEGO Primary Care Unavailable NELL LIAO MD Attending Unavailable Shayan LEASE PURCHASE DRIVER.SUPERINTENDENT PRESSUREConcepcion Unavailable Anton LEASE PURCHASE DRIVER.SUPERINTENDENT PRESSURE, Lorrie Unavailable ZAFAR MCCULLOUGH Admitting Unavailable GAINES, JUAN DIEGO DO Referring Unavailable GAINES, JUAN DIEGO DO Consulting Unavailable ZAFAR MCCULLOUGH Attending Unavailable ZAFAR MCCULLOUGH Primary Care Unavailable PROVIDER, UNKNOWN Consulting Unavailable GAINES, JUAN DIEGO L Primary Care Unavailable GAINES, JUAN DIEGO L Primary Care Unavailable DAISY HALL Attending Unavailab le GAINES, JUAN DIEGO L Primary Care Unavailable AMALIA GALEANA Referring Unavailable GAINES, JUAN DIEGO L Primary Care Unavailable GAINES, JUAN DIEGO L Primary Care Unavailable SABRINA SORENSEN Referring Unavailable GAINES, JUAN DIEGO Misty Primary Care Unavailable SABRINA SORENSEN Attending Unavailable GAINES, JUAN DIEGO L Primary Care Unavailable GAINES, JUAN DIEGO L Primary Care Unavailable GAINES, JUAN DIEGO L Primary Care Unavailable GAINES, JUAN DIEGO L Primary Care Unavailable DAISY HALL Referring Unavailab le GAINES DO, JUAN DIEGO Primary Care Unavailable IAIN BRADLEY DO Attending Unavailable GAINES DO, JUAN DIEGO Primary Care Unavailable NELL LIAO MD Attending Unavailable Dr. Juan Diego Gaines DO Primary Care Provider [phone] Dr. Mari Pringle DO Attending Provider Dr. Mari Pringle DO Emergency Provider Dr. Da Durham MD Emergency Provider Da Durham Attending Unavailable Gaines, Juan Diego Primary Care Unavailable Gaines, Juan Diego Primary Care Unavailable Mari Pringle Attending Unavailable Allergies Allergy Classification Reported Allergen(s) Allergy Type Date of Onset Reaction(s) Facility (20 sources) benzonatate; Translations: [benzonatate] Drug Allergy 05-31-20 17 Rash [facility] Work Phone: (20 sources) Contrast media; Translations: [RED DYE] Drug Intolerance 12-11-19 11 [facility] Work Phone: (20 sources) cefdinir; Translations: [CEFDINIR] Drug Allergy 04-29-20 [facility] (9 sources) red (food color); Translations: [red (food color)] Allergy to substance 11-30-19 [facility] Comment on above: RED 40 DYE (20 sources) Non-steroidal anti-inflammatory agent; Translations: [NSAIDS (NON-STEROIDAL ANTI-INFLAMMATORY DRUG)] Propensity to adverse reactions to drug 09-15-19 GI Upset [facility] (20 sources) Cephalosporins (Antibiotic); Translations: [CEPHALOSPORINS] Drug Allergy 10-01-19 Unknown [facility] (4 sources) Cephalosporins (Antibiotic) Allergy to substance 03-08-20 [facility] Comment on above: and SOB (4 sources) Nonsteroidal Anti-inflammatory Compounds Allergy to substance 03-08-20 Abd cramps/diarrhe a [facility] Comment on above: blood is stool (1 source) nicole allergenic extract; Translations: [NICOLE] Drug Allergy 02-14-20 [facility] Repository (1 source) benzonatate Drug Allergy [facility] Repository (1 source) CEPHALOSPORIN Drug allergy (disorder) [facility] (1 source) benzonatate Drug Allergy 12-07-19 [facility] Rep[facility] (1 source) cefdinir Drug Allergy 12-07-19 [facility] (1 source) Cephalosporins (Antibiotic) Drug allergy (disorder) 12-07-19 [facility] Rep[facility] (1 source) NSAIDs Drug allergy (disorder) 12-07-19 [facility] Rep[facility] Medications Current Medications Medication Drug Class(es) Dates Sig (Normalized) Sig (Original) acetaminophen 325 mg / HYDROcodone bitartrate 5 mg oral tablet (20 sources) Opioid Agonist Start: 06-10-2021 take 1 tablet by mouth every six hours as needed for pain Hydrocodone-Aceta minophen 1 TABLET tablet Active 1 {tbl} PO EVERY 6 HOURS NEEDED as needed for Pain 12 June 10, 2021 On Hold: Order Changed Start: 06-10-2021 End: 09-15-2022 HYDROcodone-acetaminophen (N ORCO) 5-325 mg per tablet 06/10/2021 09/15/2022 Discontinued Start: 06-10-2021 take 1 tablet by yesenia th every six hours as needed Hydrocodone-Acetaminophen Active 1 TABLE T PO EVERY 6 HOURS NEEDED 12 June 10, 2021 Start: 04-15-2019 End: 04-17-2019 Hydrocodone-Acetaminophen 1 TABLET tablet Discontinued 1 {tbl} PO EVERY 4 HOURS NEEDED as needed for Pain 10 April 15, 2019 April 16, 2019 12:00am April 17, 2019 12:07am Start: 04-15-2019 End: 04-17-2019 take 1 tablet by mouth every four hours as needed Hydrocodone-Acetaminophen Discontinued 1 TABLET PO EVERY 4 HOURS NEEDED 10 April 15, 2019 April 17, 2019 12:07am acyclovir 400 mg oral tablet (20 sources) Herpesvirus Nucleoside Analog DNA Polymerase Inhibitor, Herpes Simplex Virus Nucleoside Analog DNA Polymerase Inhibitor, Herpes Zoster Virus Nucleoside Analog DNA Polymerase Inhibitor Start: 01-05-2023 End: 01-10-2023 take 1 tablet by mouth three times daily acyclovir (ZOVIRAX) 400 mg tablet Take 1 tablet by mouth three times daily for 5 days. 15 tablet 2 01/05/2023 01/10/2023 Active Start: 12-11-2020 End: 09-15-2022 take 1 tablet by mouth twice daily acyclovir (ZOVIRAX) 400 mg tablet Indications: Anogenital HSV infection Take 1 tablet by mouth twice daily. 180 tablet 12/11/2020 09/15/2022 Discontinued Comment on above: Take 1 tablet by yesenia twice daily. Take 1 tablet by yesenia th three times daily for 5 days. albuterol 0.83 mg/ml inhalation solution (20 sources) beta2-Adrenergic Agonist Start: take 2.5 mg by inhalation every four hours as needed for wheezing Albuterol Sulfate 2.5 MG/3 ML solution for nebulization Active 2.5 mg INHALATION EVERY 4 HOURS NEEDED May 13, 2021 12:00am Use q4 hours and PRN for wheezing Start: 10-22-2019 take 2 puff(s) by in halation every four hours as needed for wheezing albuterol HFA (VENTOLIN HFA) 90 mcg/actuation inhaler Indications: Mild intermittent asthma, uncomplicated Inhale 2 Puffs as instructed every 4 hours as needed for Wheezing/Shortness of Breath. 1 Inhaler 5 10/22/2019 Active Start: 04-15-2019 ALBUTEROL INHA LATION Albuterol Albuterol Inhaler Active 1 PUFF EVERY 4 HOURS NEEDED April 15, 2019 1:49pm 04-15-2019 [facility] ([id number]) 04/15/2019 Active Start: 04-15-2019 ALBUTEROL INHA LATION Albuterol Albuterol Inhaler Active 1 PUFF EVERY 4 HOURS NEEDED April 15, 2019 1:49pm 04-15-2019 [facility] ([id number]) 0 04/15/2019 Suspended Start: 04-15-2019 ALBUTEROL INHA LATION Albuterol Albuterol Inhaler Active 1 PUFF EVERY 4 HOURS NEEDED April 15, 2019 1:49pm 04-15-2019 [facility] ([id number]) 0 04/15/2019 Active Start: 04-15-2019 Albuterol Sulf ate 1 INHALER inhaler Active 1 NMA INHALATION EVERY 4 HOURS NEEDED as needed for Wheezing April 15, 2019 12:00am Start: 04-15-2019 take 1 puff(s) by in halation every four hours as needed Albuterol Sulfate Active 1 PUFF INHALATION EVERY 4 HOURS NEEDED April 15, 2019 12:00am Comment on above: Inhale 2 Puffs as in structed every 4 hours as needed for Wheezing/Shortness of Breath. Albuterol Albuterol Inhaler Active 1 PUFF EVERY 4 HOURS NEEDED April 15, 2019 1:49pm 04-15-2019 [facility] ([id number]) amoxicillin 80 mg/ml oral suspension (1 source) Penicillin-class Antibacterial Start: 023 End: take 6.3 mL by mouth twice daily amoxicillin (AMOXIL) 400 mg/5 mL suspension Indications: Strep throat Take 6.3 mL by mouth two times a day for 10 days. 126 mL 0 06/04/2023 06/14/2023 Active Comment on above: Take 6.3 mL by mouth two times a day for 10 days. azithromycin 250 mg oral tablet (1 source) Macrolide Antimicrobial Start: End: 11-16-2 024 take 2 tablets by mouth once daily, then take 1 tablet by mouth once daily azithromycin (ZITHROMAX) 250 mg tablet Indications: Respiratory infection Take 2 tablets by mouth once daily for 1 day, THEN 1 tablet once daily for 4 days. 6 tablet 07/08/2024 07/13/2024 Active Controll (8 sources) Start: Controll Active 1 {tbl} PO.IVFORM DAILY May 12, 2021 12:00am On Hold: Order Changed Start: 05-12-2021 take 1 tablet by yesenia th once daily Controll Active 1 TABLET PO.IVFORM DAILY May 12, 2021 12:00am Start: 05-12-2021 take 1 tablet by yesenia th once daily Controll Active 1 TABLET PO.IVFORM DAILY May 11, 2021 11:00pm clotrimazole 10 mg/ml topical cream (6 sources) Azole Antifungal Start: 05-31-2024 clotrimazole (LOTRIMIN) 1 % cream Indications: Rash Apply to affected area two times a day. Use until rash resolves and then for an additional week. 85 g 05/31/2024 Active cyclobenzaprine hydrochloride 10 mg oral tablet (8 sources) Muscle Relaxant Start: 04-29-2024 End: 05-06-2024 take 1 tablet by mouth twice daily as needed for muscle spasms cyclobenzaprine (FLEXERIL) 10 mg tablet Indications: Acute midline low back pain with left-sided sciatica Take 1 tablet by mouth two times a day as needed for muscle spasm. 60 tablet 05/06/2024 Active diazePAM 5 mg oral tablet (20 sources) Benzodiazepine Start: 06-10-2021 End: 09-15-2022 take 1 tablet by mouth every eight hours as needed for muscle spasms Diazepam 5 MG tablet Active 5 mg PO EVERY 8 HOURS as needed for Muscle Spasm June 10, 2021 10:13pm On Hold: Order Changed Comment on above: Take by mouth. dicyclomine hydrochloride 20 mg oral tablet (20 sources) Anticholinergic Start: 03-14-2022 End: 04-13-2022 take 1 tablet by mouth every six hours as needed dicyclomine (BENTYL) 20 mg tablet Take 1 tablet by mouth four times daily as needed. 28 tablet 0 03/14/2022 04/13/2022 Active Start: 12-22-2021 End: 03-22-2022 take 5 mL by mouth at bedtime dicyclomine (BENTYL) 10 mg/5 mL oral liquid Take 5 mL by mouth before meals and at bedtime. 1800 mL 0 12/22/2021 03/14/2022 Discontinued Start: 12-14-2021 End: 12-21-2021 dicyclomine 10 mg oral capsu le Dose : 10 mg = 1 cap(s), Oral, QID, # 28 cap(s), 0 Refill(s) Start Date: 12/14/21 Stop Date: 12/21/21 Status: Ordered End: 12-22-2021 take 10 mg by mouth at bedtime dicyclomine (BENTYL) 10 mg/5 mL oral liquid Take 10 mg by mouth before meals and at bedtime. 0 12/22/2021 Discontinued Comment on above: Take 10 mg by mouth before meals and at bedtime. Take 5 mL by mouth b efore meals and at bedtime. Take 1 tablet by yesenia four times daily as needed. docusate sodium 100 mg oral capsule (2 sources) Start: 04-01-20 End: 05-01-20 take 2 capsules by mouth every twelve hours as needed docusate sodium (COLACE) 100 mg capsule Take 2 capsules by mouth twice daily as needed for constipation. 30 capsule 0 04/01/2023 05/01/2023 Active Comment on above: Take 2 capsules by out twice daily as needed for constipation. doxycycline monohydrate 100 mg oral tablet (3 sources) Tetracycline-class Drug Start: 04-27-20 End: 05-02-20 take 1 tablet by mouth twice daily doxycycline monohydrate 100 mg tablet Take 1 tablet by mouth twice daily for 5 days. 10 tablet 0 04/27/2022 05/02/2022 Active Comment on above: Take 1 tablet by yesenia twice daily for 5 days. enteric contrast (will be provided with radiology test) (2 sources) Start: 01-14-20 End: 01-15-20 enteric contrast (will be provided with radiology test) For CT ABD/PEL W IVCON Routine order Administer, As Directed One Time Only, via Oral, Rectal, both Oral and Rectal, Enteric Tube, Stoma or Indwelling Catheter, Enteric Contrast as designated per enteric contrast guidelines 1 Each 0 01/13/2022 01/14/2022 Active Comment on above: For CT ABD/PEL W IVC ON Routine order Administer, As Directed One Time Only, via Oral, Rectal, both Oral and Rectal, Enteric Tube, Stoma or Indwelling Catheter, Enteric Contrast as designated per enteric contrast guidelines fluticasone propionate 0.05 mg/actuat metered dose nasal spray (20 sources) Corticosteroid Start: 03-08-20 take 50 ug nasal route once daily Fluticasone Propionate (Allergy Relief (Fluticasone)) 50 mcg/actuation spray,suspension Active 2 NMA INTRANASAL DAILY March 08, 2023 12:00am administer into each nostril Start: 03-08-2023 take 1 spray(s) nasa l route once daily Fluticasone Propionate (Allergy Relief (Fluticasone)) 50 mcg/actuation spray,suspension Active 2 SPRAY INTRANASAL DAILY March 08, 2023 12:00am administer into each nostril Start: 01-11-2023 take 2 spray(s) by m out once daily fluticasone (FLONASE) 50 mcg/actuation nasal spray Indications: Viral syndrome Use 2 Sprays in each nostril once daily. Rinse mouth after use. 1 Each 01/11/2023 Active Start: 10-22-2019 End: 02-01-2023 take 1 puff(s) by inhalation twice daily fluticasone (FLOVENT) 110 mcg/actuation inhaler Indications: Mild intermittent asthma, uncomplicated Inhale 1 Puff as instructed twice daily. 3 Inhaler 3 10/22/2019 01/02/2023 Discontinued Start: 02-27-2013 End: 09-15-2022 fluticasone (FLONASE) 50 mcg/actuation nasal spray Use 1 [place] in the nose. 0 02/27/2013 09/15/2022 Discontinued fluticasone prop ionate (FLOVENT INHALATION) Inhale as instructed. Active fluticasone prop ionate (FLOVENT INHALATION) Inhale as instructed. 0 Active fluticasone prop ionate (FLOVENT INHALATION) Inhale as instructed. 0 Suspended Comment on above: Inhale 1 Puff as ins tructed twice daily. Use 1 [place] in the n ose. Use 2 Sprays in each nostril once daily. Rinse mouth after use. Inhale as instructed . Fluticasone Propionate (Flovent Hfa) 44 mcg/actuation HFA aerosol inhaler (5 sources) Start: 02-28-2023 Fluticasone Propionate (Flovent Hfa) 44 mcg/actuation HFA aerosol inhaler Active 2 NMA INHALATION TWICE A DAY February 28, 2023 12:00am administer with spacer Start: 02-28-2023 Fluticasone Pr opionate (Flovent Hfa) 44 mcg/actuation HFA aerosol inhaler Active 2 INH INHALATION TWICE A DAY February 27, 2023 11:00pm administer with spacer Start: 02-28-2023 Fluticasone Pr opionate (Flovent Hfa) 44 mcg/actuation HFA aerosol inhaler Active 2 INH INHALATION TWICE A DAY February 28, 2023 12:00am administer with spacer ipratropium bromide 0.2 mg/ml inhalation solution (8 sources) Anticholinergic Start: 08-26-2022 take 1 mL by inhalation every six hours as needed for wheezing Ipratropium [place] 0.02 % solution Active 2.5 mL INHALATION EVERY 6 HOURS as needed for shortness of breath or wheezing 62.5 August 26, 2022 1:00am On Hold: Order Changed iv contrast (will be provided with radiology test) (2 sources) Start: 01-13-2022 End: 01-14-2022 iv contrast (will be provided with radiology test) CT ABD/PEL -Inject, intravenously, once for 1 dose.No IV access, insert saline lock prior to the beginning of sedation, infusion, injection of imaging exam. Discontinue saline lock post exam. If Pt. has a central line or IVAD, may access for administration according to line specific nursing protocol. Once exam is complete flush line and de-access according to line specific nursing protocol in the CT contrast administration guidelines link. 1 Each 0 01/13/2022 01/14/2022 Active Comment on above: CT ABD/PEL -Inject, intravenously, once for 1 dose.No IV access, insert saline lock prior to the beginning of sedation, infusion, injection of imaging exam. Discontinue saline lock post exam. If Pt. has a central line or IVAD, may access for administration according to line specific nursing protocol. Once exam is complete flush line and de-access according to line specific nursing protocol in the CT contrast administration guidelines link. loratadine 10 mg oral capsule (20 sources) Start: 04-15-2019 take 1 capsule by mouth once daily as needed Loratadine 10 MG capsule Active 10 mg PO DAILY as needed for Allergies April 15, 2019 12:00am Start: 07-04-2017 take 1 tablet by yesenia th once daily as needed loratadine (CLARITIN) 10 mg tablet Take 1 tablet by mouth once daily as needed. FOR ALLERGY SYMPTOMS 30 tablet 07/04/2017 Active Comment on above: Take 1 tablet by yesenia th once daily as needed. FOR ALLERGY SYMPTOMS nitrofurantoin, macrocrystals 25 mg / nitrofurantoin, monohydrate 75 mg oral capsule (1 source) Nitrofuran Antibacterial Start: End: take 1 capsule by mouth twice daily nitrofurantoin monohydrate and macrocrystal (MACROBID) 100 mg capsule Take 1 capsule by mouth twice daily for 5 days. 10 capsule 0 12/16/2021 12/21/2021 Active Comment on above: Take 1 capsule by mo [facility] twice daily for 5 days. omeprazole 20 mg delayed release oral capsule (20 sources) Proton Pump Inhibitor Start: End: take 1 capsule by mouth once daily omeprazole (PRILOSEC) 20 mg capsule Take 1 capsule by mouth once daily. 30 capsule 2 01/13/2022 Active Comment on above: Take 1 capsule by mo [facility] once daily. ondansetron 4 mg disintegrating oral tablet (8 sources) Serotonin-3 Receptor Antagonist Start: take 1 tablet by mouth every eight hours as needed for nausea Ondansetron 4 mg tablet,disintegrating Active 4 mg PO EVERY 8 HOURS NEEDED as needed for Nausea October 05, 2022 1:00am Start: 05-22-2022 End: 05-22-2022 ondansetron orally disintegr ating 4 mg tab(s) (ZOFRAN ODT) oseltamivir 75 mg oral capsule (1 source) Neuraminidase Inhibitor Start: 08-01-2022 End: 08-06-2022 take 1 capsule by mouth twice daily oseltamivir (TAMIFLU) 75 mg capsule Indications: Flu-like symptoms Take 1 capsule by mouth twice daily for 5 days. 10 capsule 0 08/01/2022 08/06/2022 Active Comment on above: Take 1 capsule by [facility] twice daily for 5 days. Pnv Cmb#95-Ferrous Fumarate-Fa () 28 mg iron- 800 mcg tablet (5 sources) Start: 02-28-2023 Pnv Cmb#95-Ferrous Fumarate-Fa () 28 mg iron- 800 mcg tablet Active 1 {tbl} PO DAILY February 28, 2023 12:00am Start: 02-28-2023 take 1 tablet by yesenia once daily Pnv Cmb#95-Ferrous Fumarate-Fa () 28 mg iron- 800 mcg tablet Active 1 TABLET PO DAILY February 27, 2023 11:00pm Start: 02-28-2023 take 1 tablet by yesenia once daily Pnv Cmb#95-Ferrous Fumarate-Fa () 28 mg iron- 800 mcg tablet Active 1 TABLET PO DAILY February 28, 2023 12:00am PNV no.95/ferrous fum/folic ac ( ORAL) (20 sources) PNV no.95/ferrou s fum/folic ac ( ORAL) Take by mouth. Active PNV no.95/ferrou s fum/folic ac ( ORAL) Take by mouth. 0 Suspended PNV no.95/ferrou s fum/folic ac ( ORAL) Take by mouth. 0 Active Comment on above: Take by mouth. polyethylene glycol 3350 24965 mg powder for oral solution (2 sources) Osmotic Laxative Start: 02-09-2022 End: 02-09-2022 polyethylene glycol 3350 (MIRALAX) 17 gram/dose powder Take 238 g by mouth one time only for 1 dose. Take as directed for colonoscopy procedure 238 g 0 02/09/2022 02/09/2022 Active Comment on above: Take 238 g by mouth one time only for 1 dose. Take as directed for colonoscopy procedure predniSONE 20 mg oral tablet (20 sources) Start: 04-29-2024 predniSONE 10 mg oral tablet 3, PO, BID, 6 po 1st dose then 3 po q12, # 33 tab(s), 0 Refill(s) Start Date: 04/29/24 Status: Ordered Start: 06-10-2021 take 3 tablets by [facility] once daily Prednisone 20 mg tablet Active 60 mg PO DAILY August 26, 2022 1:00am On Hold: Order Changed Start: 06-10-2021 take 60 mg by mouth once daily Prednisone Active 60 MG PO DAILY August 26, 2022 1:00am Start: 05-13-2021 End: 09-15-2022 predniSONE (DELTASONE) 20 mg tablet Take by mouth. 05/13/2021 09/15/2022 Discontinued Start: 05-13-2021 End: 07-13-2024 take 2 tablets by mouth once daily predniSONE (DELTASONE) 20 mg tablet Indications: Respiratory infection Take 2 tablets by mouth once daily for 5 days. 10 tablet 07/08/2024 07/13/2024 Active Start: 05-13-2021 take 40 mg by mouth once daily Prednisone Active 40 MG PO DAILY May 13, 2021 12:00am Comment on above: Take by mouth. promethazine hydrochloride 25 mg oral tablet (20 sources) Phenothiazine Start: 12-14-2021 End: 10-27-2022 promethazine 25 mg oral tablet Dose : 25 mg = 1 tab(s), Oral, q4h, # 20 tab(s), 0 Refill(s) Start Date: 12/14/21 Status: Ordered Comment on above: Take 25 mg by mouth every 6 hours as needed. traMADol hydrochloride 50 mg oral tablet (20 sources) Opioid Agonist Start: 12-14-2021 End: 09-15-2022 traMADol 50 mg oral tablet Dose : 50 mg = 1 tab(s), Oral, q8h, X 3 day(s), # 9 tab(s), 0 Refill(s), 12/17/21 18:13:00 EDT, Abdominal pain, 84.1 Start Date: 12/14/21 Stop Date: 12/17/21 Status: Ordered Comment on above: Take 50 mg by mouth every 8 hours as needed for pain. Completed/Discontinued Medications Medication Drug Class(es) Dates Sig (Normalized) Sig (Original) acetaminophen 500 mg oral tablet (3 sources) Start: 04-01-2023 End: 05-16-2023 take 2 tablets by mouth every six hours as needed acetaminophen (TYLENOL EXTRA STRENGTH) 500 mg tablet Take 2 tablets by mouth every 6 hours as needed for pain. 120 tablet 0 04/01/2023 05/16/2023 Discontinued Comment on above: Take 2 tablets by mo [facility] every 6 hours as needed for pain. brompheniramine maleate 0.4 mg/ml / dextromethorphan hydrobromide 2 mg/ml / pseudoephedrine hydrochloride 6 mg/ml oral solution (20 sources) alpha-Adrenergic Agonist, Uncompetitive Y-eadhmm-E-asparta te Receptor Antagonist, Sigma-1 Agonist Start: 08-02-2021 End: 09-15-2022 take 10 mL by mouth three times daily as needed Brompheniramine-Ps eudoeph-DM (BROMFED DM) 2-30-10 mg/5 mL syrup Indications: Viral syndrome Take 10 mL by mouth three times daily as needed. 240 mL 0 08/02/2021 09/15/2022 Discontinued Comment on above: Take 10 mL by mouth three times daily as needed. Ethinyl Estradiol / Levonorgestrel (20 sources) Progestin, Estrogen, Progestin-containi ng Intrauterine Device Start: 11-30-2021 End: 09-15-2022 take 1 tablet by mouth once daily Levonorgestrel-Eth inyl Estrad (AVIANE) 0.1mg - 20mcg per tablet Take 1 tablet by mouth once daily. 28 tablet 14 11/30/2021 09/15/2022 Discontinued Start: 11-30-2021 take 1 tablet by [place] once daily Levonorgestrel-Ethinyl Estrad (AVIANE) 0.1mg - 20mcg per tablet Take 1 tablet by mouth once daily. 28 tablet 14 11/30/2021 Active Comment on above: Take 1 tablet by yesenia once daily. ibuprofen 600 mg oral tablet (20 sources) Nonsteroidal Anti-inflammatory Drug Start: 08-02-20 End: 09-15-19 23 take 1 tablet by mouth every six hours as needed for pain ibuprofen (MOTRIN) 600 mg tablet Indications: Viral syndrome Take 1 tablet by mouth every 6 hours as needed for pain. 30 tablet 1 08/02/2021 09/15/2022 Discontinued Comment on above: Take 1 tablet by yesenia every 6 hours as needed for pain. 2 ml ketorolac tromethamine 30 mg/ml injection (20 sources) Nonsteroidal Anti-inflammatory Drug, Cyclooxygenase Inhibitor Start: 05-22-20 End: 05-22-20 keTORolac 60 mg injection (TORADOL) Start: 06-10-2021 End: 05-22-2022 take 1 tablet by mouth every six hours as needed for pain Ketorolac 10 mg tablet Active 10 mg PO EVERY 6 HOURS as needed for pain 05 30November 29, 2021 12:00am On Hold: Order Changed Start: 06-10-2021 take 1 tablet by yesenia th every eight hours as needed for pain Ketorolac 10 mg tablet Active 10 mg PO Q8H as needed for pain June 10, 2021 12:00am On Hold: Order Changed Comment on above: EVERY 6 HOURS L. acidophilus-L. rhamnosus 15 billion cell cap (20 sources) Start: 09-15-2021 End: 09-15-2022 take 1 capsule by mouth once daily L. acidophilus-L. rhamnosus 15 billion cell cap Indications: Acute vaginitis Take 1 capsule by mouth once daily. [facility] WOMEN. If on antibiotic, take at least 1-2 hours before or after antibiotic. KEEP REFRIGERATED 30 capsule 11 09/15/2021 09/15/2022 Discontinued Start: 09-15-2021 take 1 capsule by mo uth once daily L. acidophilus-L. rhamnosus 15 billion cell cap Indications: Acute vaginitis Take 1 capsule by mouth once daily. [facility] [employer]OMEN. If on antibiotic, take at least 1-2 hours before or after antibiotic. KEEP REFRIGERATED 30 capsule 11 09/15/2021 Active Comment on above: Take 1 capsule by mo uth once daily. [facility] WOMEN. If on antibiotic, take at least 1-2 hours before or after antibiotic. KEEP REFRIGERATED levonorgestrel 0.652462 mg/hr intrauterine system (2 sources) Progestin, Progestin-containing Intrauterine Device Start: 021 End: 028 levonorgestrel (MIRENA) 20 mcg/24 hours (7 yrs) 52 mg IUD Indications: Encounter for IUD insertion 1 Each by INTRAUTERINE route as directed. 1 Each 05/27/2021 11/30/2021 Discontinued Comment on above: 1 Each by INTRAUTERI NE route as directed. nortriptyline 10 mg oral capsule (16 sources) Tricyclic Antidepressant Start: End: take 1 capsule by mouth once daily at bedtime nortriptyline (PAMELOR) 10 mg capsule Indications: Nausea and vomiting, unspecified vomiting type Take 1 capsule by mouth daily at bedtime. 30 capsule 2 08/26/2022 10/27/2022 Discontinued (Other) Comment on above: Take 1 capsule by mo uth daily at bedtime. oxyCODONE hydrochloride 5 mg oral tablet (3 sources) Opioid Agonist Start: End: take 1 tablet by mouth every six hours as needed for pain oxyCODONE IR (ROXICODONE) 5 mg immediate release tablet Indications: Postoperative state Take 1 tablet by mouth every 6 hours as needed for pain. 8 tablet 0 04/01/2023 05/16/2023 Discontinued Comment on above: Take 1 tablet by yesenia th every 6 hours as needed for pain. simethicone 80 mg chewable tablet (3 sources) Start: End: take 1 tablet by mouth every six hours as needed simethicone, chewable (MYLICON) 80 mg chewable tablet Take 1 tablet by mouth every 6 hours as needed. 30 tablet 0 04/01/2023 05/16/2023 Discontinued Comment on above: Take 1 tablet by yesenia th every 6 hours as needed. sulfamethoxazole 800 mg / trimethoprim 160 mg oral tablet (1 source) Dihydrofolate Reductase Inhibitor Antibacterial, Sulfonamide Antimicrobial Start: End: take 1 tablet by mouth twice daily sulfamethoxazole-tri methoprim (BACTRIM DS) 800-160 mg per tablet Indications: Pelvic pain Take 1 tablet by mouth twice daily for 7 days. 14 tablet 0 04/29/2022 04/29/2022 Discontinued Comment on above: Take 1 tablet by yesenia th twice daily for 7 days. Problems Active Problems Problem Classification Problem Date Documented Da te Episodic/Chronic Abdominal pain (20 sources) Pain in pelvis; Translations: [Pelvic and perineal pain] Onset: 2 Episodic Administrative/social admission (1 source) Encounter for pre-employment examination; Translations: [Health examination of defined subpopulations] 07-13-2023 Episodic Asthma (17 sources) Exacerbation of asthma; Translations: [Unspecified asthma with (acute) exacerbation] 05-21-2021 Chronic Chronic obstructive pulmonary disease and bronchiectasis (1 source) Bronchitis; Translations: [Bronchitis, not specified as acute or chronic] Episodic Conditions associated with dizziness or vertigo (1 source) Dizziness and giddiness; Translations: [Dizziness and giddiness] Onset: 2 Episodic E Codes: Fall (1 source) Unspecified fall due to ice and snow, initial encounter; Translations: [Fall due to slipping on ice or snow] 10-11-2024 Episodic Genitourinary symptoms and ill-defined conditions (4 sources) Urinary incontinence; Translations: [Unspecified urinary incontinence] Onset: 4 05-06-2024 Chronic Genitourinary symptoms and ill-defined conditions (2 sources) Increased frequency of urination; Translations: [Frequency of micturition] 01-04-2024 Episodic Headache; including migraine (1 source) Migraine; Translations: [Migraine, unspecified, not intractable, without status migrainosus] Chronic Menstrual disorders (2 sources) Oligomenorrhea; Translations: [Oligomenorrhea, unspecified] Onset: 4 01-04-2024 Chronic Nausea and vomiting (11 sources) Nausea and vomiting; Translations: [Nausea with vomiting, unspecified] Episodic Nonspecific chest pain (1 source) Chest pain; Translations: [Chest pain, unspecified] Onset: 2 Episodic Open wounds of extremities (1 source) Avulsion of toenail; Translations: [Unspecified open wound of unspecified toe(s) with damage to nail, initial encounter] 02-26-2024 Episodic Other complications of (1 source) Pain in female pelvis; Translations: [Other specified related conditions, unspecified trimester] Episodic Other complications of (1 source) Backache; Translations: [Back pain in ] Episodic Other complications of (5 sources) Reduced movement; Translations: [Decreased movements, second trimester, not applicable or unspecified] Episodic Other complications of (5 sources) bradycardia affecting management of mother; Translations: [Maternal care for abnormalities of the heart rate or rhythm, unspecified trimester, not applicable or unspecified] 02-28-2023 Episodic Comment on above: @29&5 Other complications of (5 sources) Uterine contractions problem; Translations: [Other specified related conditions, unspecified trimester] 02-28-2023 Episodic Other complications of (2 sources) Other specified related conditions, unspecified trimester; Translations: [Other specified complications of , antepartum condition or complication] 02-28-2023 Episodic Other complications of (2 sources) heart deceleration; Translations: [Maternal care for abnormalities of the heart rate or rhythm, unspecified trimester, not applicable or unspecified] 03-07-2023 Episodic Other complications of (4 sources) Spotting per vagina in ; Translations: [Spotting complicating , unspecified trimester] 03-08-2023 Episodic Other complications of (1 source) Decreased movements, unspecified trimester, not applicable or unspecified; Translations: [Decreased movements, affecting management of mother, unspecified as to episode of care] 03-09-2023 Episodic Other complications of (1 source) Spotting complicating , unspecified trimester; Translations: [Spotting complicating , unspecified as to episode of care or not applicable] 03-09-2023 Episodic Other connective tissue disease (2 sources) Pain in right hand; Translations: [Pain in right hand] Onset: Episodic Other gastrointestinal disorders (2 sources) Altered bowel function; Translations: [Other specified symptoms and signs involving the digestive system and abdomen] Episodic Other infections; including parasitic (8 sources) H/O: viral illness; Translations: [Personal history of other infectious and parasitic diseases] 02-28-2023 Episodic Other infections; including parasitic (2 sources) Personal history of other infectious and parasitic diseases; Translations: [Personal history of other infectious and parasitic diseases] 02-28-2023 Episodic Other injuries and conditions due to external causes (1 source) Allergic reaction; Translations: [Allergy, unspecified, subsequent encounter] Episodic Other injuries and conditions due to external causes (8 sources) Closed injury of head; Translations: [Unspecified injury of head, initial encounter] 04-08-2021 Episodic Other injuries and conditions due to external causes (2 sources) Injury of left foot; Translations: [Unspecified injury of left foot, initial encounter] 02-26-2024 Episodic Other lower respiratory disease (1 source) Respiratory tract infection; Translations: [Other specified respiratory disorders] 07-08-2024 Episodic Other nutritional; endocrine; and metabolic disorders (1 source) Weight loss; Translations: [Abnormal weight loss] Episodic Other and delivery including normal (20 sources) care status; Translations: [Encounter for supervision of normal , unspecified, first trimester] Onset: 6 Resolved: 3 Episodic Other screening for suspected conditions (not mental disorders or infectious disease) (6 sources) Patient encounter status; Translations: [Encounter for screening for malignant neoplasm of cervix] Episodic Other skin disorders (1 source) Eruption; Translations: [Rash and other nonspecific skin eruption] 05-31-2024 Episodic Other upper respiratory infections (13 sources) Pharyngitis; Translations: [Acute pharyngitis, unspecified] Episodic Ovarian cyst (8 sources) Cyst of ovary; Translations: [Unspecified ovarian cyst, unspecified side] 12-07-2021 Episodic Phlebitis; thrombophlebitis and thromboembolism (2 sources) Phlebitis and thrombophlebitis of other sites; Translations: [Phlebitis and thrombophlebitis of other sites] Onset: 3 Episodic Pneumonia (except that caused by tuberculosis or sexually transmitted disease) (1 source) Bacterial pneumonia; Translations: [Unspecified bacterial pneumonia] Episodic Residual codes; unclassified (1 source) Influenza-like symptoms; Translations: [Other general symptoms and signs] Episodic Residual codes; unclassified (2 sources) Gestation period, 8 weeks; Translations: [8 weeks gestation of ] Episodic Residual codes; unclassified (1 source) Gestation period, 12 weeks; Translations: [12 weeks gestation of ] Episodic Residual codes; unclassified (1 source) Gestation period, 16 weeks; Translations: [16 weeks gestation of ] Episodic Residual codes; unclassified (2 sources) Gestation period, 20 weeks; Translations: [20 weeks gestation of ] Episodic Residual codes; unclassified (1 source) Gestation period, 25 weeks; Translations: [25 weeks gestation of ] Episodic Residual codes; unclassified (1 source) Gestation period, 27 weeks; Translations: [27 weeks gestation of ] Episodic Residual codes; unclassified (5 sources) Gestation period, 24 weeks; Translations: [24 weeks gestation of ] 01-28-2023 Episodic Residual codes; unclassified (5 sources) Gestation period, 29 weeks; Translations: [29 weeks gestation of ] 02-28-2023 Episodic Residual codes; unclassified (20 sources) Tobacco use and exposure - finding; Translations: [Tobacco use] Onset: 3 02-28-2023 Episodic Residual codes; unclassified (2 sources) 24 weeks gestation of ; Translations: [ state, incidental] 01-24-2023 Episodic Residual codes; unclassified (2 sources) 29 weeks gestation of ; Translations: [ state, incidental] 02-28-2023 Episodic Residual codes; unclassified (2 sources) Tobacco use; Translations: [Tobacco use disorder] 02-28-2023 Episodic Residual codes; unclassified (5 sources) Gestation period, 30 weeks; Translations: [30 weeks gestation of ] Onset: Episodic Residual codes; unclassified (10 sources) Gestation period, 31 weeks; Translations: [31 weeks gestation of ] Onset: 3 03-08-2023 Episodic Residual codes; unclassified (1 source) 31 weeks gestation of ; Translations: [ state, incidental] 03-09-2023 Episodic Residual codes; unclassified (1 source) Other specified postprocedural states; Translations: [Postoperative state] Onset: Episodic Residual codes; unclassified (1 source) Other specified health status; Translations: [1 minute score 8] Onset: 3 Episodic Spondylosis; intervertebral disc disorders; other back problems (20 sources) Prolapsed lumbar intervertebral disc; Translations: [Other intervertebral disc displacement, lumbar region] Onset: 3 02-28-2023 Chronic Spondylosis; intervertebral disc disorders; other back problems (20 sources) Sciatica; Translations: [Sciatica, left side] Onset: 4 06-18-2021 Episodic Substance-related disorders (16 sources) Tobacco user; Translations: [Nicotine dependence, unspecified, uncomplicated] Onset: 3 Chronic Unclassified (1 source) Low back pain, unspecified; Translations: [Low back pain, unspecified] Onset: 4 Urinary tract infections (1 source) Recurrent urinary tract infection; Translations: [Urinary tract infection, site not specified] Episodic Viral infection (20 sources) Anogenital herpesviral infection; Translations: [Anogenital herpesviral infection, unspecified] Onset: 6 08-23-2021 Chronic Viral infection (7 sources) Viral disease; Translations: [Viral infection, unspecified] Onset: 3 Episodic Viral infection (2 sources) COVID-19; Translations: [COVID-19] Onset: 3 Past or Other Problems Problem Classification Problem Date Documented Date Episodic/Chronic Bacterial infection; unspecified site (20 sources) History of methicillin resistant Staphylococcus aureus infection; Translations: [Personal history of Methicillin resistant Staphylococcus aureus infection] Onset: 06-07-2016 Resolved: 08-08-2016 02-28-2023 Episodic Contraceptive and procreative management (20 sources) Sterilization requested; Translations: [Encounter for sterilization] Onset: 02-16-2023 Resolved: 04-01-2023 02-28-2023 Episodic Hemorrhage during ; abruptio placenta; placenta previa (20 sources) Low lying placenta; Translations: [Low lying placenta NOS or without hemorrhage, unspecified trimester] Onset: 12-26-2022 Resolved: 05-16-2023 Episodic Other complications of ; puerperium affecting management of mother (13 sources) Delivery finding; Translations: [Complication of labor and delivery, unspecified] Onset: 02-28-2023 Resolved: 03-06-2023 02-28-2023 Episodic Other complications of ; puerperium affecting management of mother (1 source) Complication of labor and delivery, unspecified; Translations: [Indication for care or intervention related to labor and delivery] Onset: 02-28-2023 Episodic Other complications of (3 sources) Maternal care for abnormalities of the heart rate or rhythm, unspecified trimester, not applicable or unspecified; Translations: [Abnormality in heart rate or rhythm, unspecified as to episode of care or not applicable] Onset: 03-09-2023 02-28-2023 Episodic Other complications of (20 sources) distress affecting management of mother; Translations: [Maternal care for abnormalities of the heart rate or rhythm, unspecified trimester, not applicable or unspecified] Onset: 02-28-2023 Resolved: 03-31-2023 3 Episodic Other complications of (20 sources) Asthma in ; Translations: [Diseases of the respiratory system complicating , third trimester] Onset: 02-28-2023 Resolved: 05-16-2023 02-28-2023 Episodic Other complications of (20 sources) Traumatic injury during ; Translations: [Injury, poisoning and certain other consequences of external causes complicating , third trimester] Onset: 02-28-2023 Resolved: 03-31-2023 03-01-2023 Episodic Other complications of (2 sources) Other specified related conditions, first trimester; Translations: [Other specified related conditions, first trimester] Onset: 10-05-2022 Episodic Other complications of (11 sources) heart disorder; Translations: [Maternal care for abnormalities of the heart rate or rhythm, third trimester, not applicable or unspecified] Onset: 08-08-2023 08-08-2023 Episodic Other complications of (1 source) Abnormal findings on screening of mother; Translations: [Other abnormal findings on screening of mother] 03-24-2023 Episodic Other injuries and conditions due to external causes (1 source) Unspecified injury of left foot, initial encounter; Translations: [Foot injury, left, initial encounter] Onset: 02-26-2024 Episodic Residual codes; unclassified (20 sources) Family history of cystic fibrosis; Translations: [Family history of other endocrine, nutritional and metabolic diseases] Onset: 09-15-2022 Episodic Residual codes; unclassified (20 sources) FH: Muscular dystrophy; Translations: [Family history of epilepsy and other diseases of the nervous system] Onset: 11-19-2015 Episodic Residual codes; unclassified (20 sources) Rubella status not known ; Translations: [Other specified health status] Onset: 10-04-2022 Resolved: 05-16-2023 10-04-2022 Episodic Residual codes; unclassified (19 sources) Gestation period, 33 weeks; Translations: [33 weeks gestation of ] Onset: 02-28-2023 Resolved: 03-30-2023 03-24-2023 Episodic Screening and history of mental health and substance abuse codes (12 sources) H/O: depression; Translations: [Personal history of other mental and behavioral disorders] Onset: 11-19-2015 Resolved: 08-08-2016 08-23-2021 Episodic Unclassified (1 source) Low back pain, unspecified; Translations: [Low back pain, unspecified] Onset: 04-29-2024 Results Test Name Value Interpretation Reference Range Facility Abdomen/Pelvis without Conto n 12-06-2024 Abdomen/Pelvis without Cont [facility] [address] [place] [address] Abdomen/Pelvis without Cont MR#: [id number] Acct: [id number] Name: ADAMARIS BRICE DECEMBER Rep #: [id number] : 1995 F 29 From: Ruthy Kahn nd, MD PCP: Dr. Juan Diego Gaines, Status: REG ER Study: Abdomen/Pelvis without Cont Date of Exam: 11/26 09/21 Exam# [id number] Ordering Dr: Da Durham MD PROCEDURE: ABDOMEN/PELVIS WITHOUT CONT 12/06/2024 REASON FOR EXAM: KIDNEY STONE, concern on the right. TECHNIQUE: Abdomen and pelvis CT without intravenous contrast. Noncontrast technique limits evaluation of the abdominal and pelvic viscera. Coronal and Sagittal reconstruction series were provided. One or more dose reduction techniques were used (e.g., Automated exposure control, adjustment of the mA and/or kV according to patient size, use of iterative reconstruction technique). PATIENT PREPARATION: Per protocol ORAL CONTRAST TYPE: None. COMPARISON: None. FINDINGS: Lung bases: The lung bases are clear. The heart is normal in size. Liver: The unopacified liver is normal in size. No biliary ductal dilation. Gallbladder: No radiopaque stones in the gallbladder. Spleen: Normal size. Pancreas: Unremarkable. Adrenals: No adrenal mass. Kidneys: No hydronephrosis or nephrolithiasis. Bladder: Moderately distended and unremarkable. Reproductive Organs: Normal uterine size and contour. Ovaries are unremarkable. Bowel: The bowel loops are normal caliber. No ascites or pneumoperitoneum. Normal appendix. Lymph nodes: No suspicious lymph node enlargement. Vasculature: The abdominal aorta and IVC contours are normal. Noncontrast technique limits evaluation. Bones: Degenerative changes of the spine. CT/Abdomen/Pelvis without Cont IMPRESSION: NORMAL NONCONTRAST CT OF THE ABDOMEN AND PELVIS. Reading Location: [facility] CC: Dr. Juan Diego Gaines DO; Dr. Da Durham MD Soft Sugar Cutter: Signed Normal [facility] Bilirubin Test strip Ql (U)O rdered By: Da Durham on 12-06-2024 Bilirubin Ql (U) Negative Negative [facility] Emergency Department Summary on 12-06-2024 Emergency Department Summary [facility] Records Department [address] [place] [address] Emergency Department Summary 12/06/24 MR#: [id number] Acct: [id number] Name: ADAMARIS BRICE Rep #: [id number] : 1995 29 From: Da Durham MD PCP: Dr. Juan Diego Gaines DO Status:REG ER Location: ED HPI History of Present Illness Chief Complaint: Flank Pain Detail of Chief Complaint: Urinary tract symptoms with low back pain Informant: patient Onset/Context/Timing Onset: Today Context: Sudden Onset Timing: Continuous and Intermittent Quality: Pressure, frequency, hematuria dysuria Location: Current Severity: Mild (With respect to the back pain.) Maximum Severity: Moderate (With respect to the dysuria) Worsened by: Nothing Relieved by: Nothing Associated Symptoms Associated Symptoms: no nausea or vomiting. No fever or chills. Exacerbation of sciatica Narrative Narrative: Patient is a 29-year-old female status post tubal ligation 2 to 3 years ago whose last normal menstrual period ended November 26 who presents with dysuria, frequency, urgency, suprapubic discomfort and low back pain bilaterally. She denies nausea or vomiting. She denies fever or chills. She denies flank pain. Prior similar symptoms: Yes Recent Illness/Hospitalization: No PFSH PFSH Medical History Migraine Vertigo Herniated disc Sciatica Asthma Home Medications ???Medication ???Instructions ???Recorded ???Last Taken ???Type albuterol sulfate 90 mcg/actuation 1 puff inhalation Q4H PRN PRN Unknown History aerosol inhaler Wheezing loratadine 10 mg capsule 10 mg PO DAILY PRN Allergies 04/15 Unknown History Controll 1 tab PO.IVFORM DAILY 05/12/21 Unk nown History Held on 03/08/23. Instructions: Order Changed albuterol sulfate 2.5 mg/3 mL 2.5 mg (3 mL) inhalation Q4H PRN 0 05/13/21 Unknown Rx (0.083 %) solution for nebulization #25 vials prednisone 20 mg tablet 40 mg (2 x 20 mg) PO DAILY #10 Unknown Rx Held on 03/08/23. TABLETS Instructions: Order Changed diazepam 5 mg tablet 5 mg PO Q8 PRN Muscle Spasm #15 Unknown Rx Held on 03/08/23. tabs Instructions: Order Changed hydrocodone-acetaminophen 5-325mg 1 tab PO Q6H PRN PRN Pain 3 days 06/10/21 Unknown Rx 5mg-325mg #12 TABLETS Held on 03/08/23. Instructions: Order Changed ketorolac 10 mg tablet 10 mg PO Q8H PRN pain #15 tabs Unknown Rx Held on 03/08/23. Instructions: Order Changed prednisone 20 mg tablet 60 mg (3 x 20 mg) PO DAILY #15 Unknown Rx Held on 03/08/23. TABLETS Instructions: Order Changed ketorolac 10 mg tablet 10 mg PO Q6H PRN pain 3 days #10 0 11/29/21 Unknown Rx Held on 03/08/23. tabs Instructions: Order Changed ipratropium bromide 0.02 % 2.5 ml inhalation Q6H PRN 08/26/22 Unknown Rx solution for inhalation shortness of breath or wheezing Held on 03/08/23. #62.5 mL Instructions: Order Changed prednisone 20 mg tablet 60 mg (3 x 20 mg) PO DAILY #15 tab s 08/26/22 Unknown Rx Held on 03/08/23. Instructions: Order Changed ondansetron 4 mg disintegrating 4 mg PO Q8H PRN PRN Nausea #10 tab s 10/05/22 Unknown Rx tablet fluticasone propionate 44 2 inh inhalation BID 02/28/23 Unkn own History mcg/actuation HFA aerosol inhaler (Flovent HFA) vit no.95-ferrous 1 tab PO DAILY 02/28/23 Unknown Hi story fumarate 28 mg-folic acid 800 mcg tablet () fluticasone propionate 50 2 spray intranasal DAILY allergy 0 03/08/23 Unknown History mcg/actuation nasal symptoms spray,suspension (Allergy Relief (fluticasone)) Allergy/AdvReac Type Severity Reaction Status Date / Time Cephalosporins Allergy Severe Hives Verified 12/06/24 18:20 NSAIDS (Non-Steroidal Allergy Intermediate Abd Verified 12/06/24 18:20 Anti-Inflamma cramps/diarrhea benzonatate (From Tessalon Allergy Hives Verified 12/06/24 18:20 Perles) cefdinir (From Omnicef) Allergy Hives Verified 12/06/24 18:20 red (food color) Allergy Hives Verified 12/06/24 18:20 Social History (Updated 12/06/24 @ 18:[address] Da Durham MD) household members: children Smoking Status: Former smoker substance use type: does not use ROS ROS ED Constitutional Constitutional ED: Denies chills, fever(s), subjective or sweats Cardiovascular Cardiovascular: Denies chest pain or palpitations Respiratory/Chest Respiratory/Chest: Denies cough or dyspnea Gastrointestinal Gastrointestinal: Reports abdominal pain; Denies constipation, diarrhea, melena, nausea or vomiting Genitourinary Genitourinary ED: Reports dysuria, hematuria, LMP (females 10-50) Details: Comment: (Ended November 26. Patient states it was normal with respect to days of flow, amou (more content not included)... Normal [facility] Epithelial cells.squamous LM Ql (Urine sed)Ordered By: Da Durham on 12-06-2024 Epithelial cells.squamous LM.HPF (Urine sed) [#/Area] 0 /[HPF] 5-10 [facility] Glucose Ql (U)Ordered By: Dimitrios Durham on 12-06-2024 Urine Glucose (UA) Normal mg/dl Normal [facility] Ketones Test strip Ql (U)Ord ered By: Da Durham on 12-06-2024 Ketones Ql (U) Negative Negative [facility] Microscopic analysis of urin e for red blood cells (RBC)Ordered By: Da Durham on 12-06-2024 Urine RBC 0 SEEN /hpf 0-5 [facility] Mucus LM Ql (Urine sed)Order ed By: Da Durham on 12-06-2024 Mucus Ql (Urine sed) 0 SEEN /hpf [facility] [facility] Nitrite Test strip Ql (U)Ord ered By: Da Durham on 12-06-2024 Nitrite Ql (U) Negative Negative [facility] Protein Test strip Ql (U)Ord ered By: Da Durham on 12-06-2024 Protein Ql (U) Negative Negative [facility] Urinalysis, Completeon 12-06 EPI,SQUAMOUS 0-5 SEEN Normal 5-10 [facility] Comment on above: Order Comment: CLEAN CATCH Performed By: #### L 400.0001 #### [facility] [address] [place], [address] BACTERIA 0 SEEN Normal None Seen [facility] Comment on above: Order Comment: CLEAN CATCH Performed By: #### L [id number] #### [facility] [address] [place],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 Narrative Narrative: Patient is a 28-year-old female with history of chronic back pain, generative disc disease, 2 herniated disc and sciatica presenting with back pain, left hip pain after fall today. Patient states she slipped and fell on the ice this morning. She landed on her left hip as well as her left arm a little. She states that she just think she has a scrape and a deep bruise on her arm and does not think she broke anything. She is having increased pain of her lower back, left hip, pelvis and groin since the fall. She states that she has numbness of the left top of her pelvis rating down her leg. She has not urinated since was not have any associated incontinence. Denies any weakness of her legs. States she previously was seeing pain management but was referred to physical therapy. She could not complete physical therapy but not had a chance to go back to pain management. She was referred to a endocrinology specialist at [facility] but did not like his care and has not seen anyone. She has not taken anything for her symptoms today and does not normally take anything for pain even Tylenol or NSAIDs. She states Toradol makes her angry. She is complaining of nauseousness and is having a hard time getting comfortable she cannot really sit or lay down because of her pain. No other complaints or concerns reported at this time. [facility] Medical History Migraine Vertigo Herniated disc Sciatica Asthma Home Medications ???Medication ???Instructions ???Recorded ???Last Taken ???Type albuterol sulfate 90 mcg/actuation 1 puff inhalation Q4H PRN PRN Unknown History aerosol inhaler Wheezing loratadine 10 mg capsule 10 mg PO DAILY PRN Allergies 04/15 Unknown History Controll 1 tab PO.IVFORM DAILY 05/12/21 Unk nown History Held on 03/08/23. Instructions: Order Changed albuterol sulfate 2.5 mg/3 mL 2.5 mg (3 mL) inhalation Q4H PRN 0 05/13/21 Unknown Rx (0.083 %) solution for nebulization #25 vials prednisone 20 mg tablet 40 mg (2 x 20 mg) PO DAILY #10 Unknown Rx Held on 03/08/23. TABLETS Instructions: Order Changed diazepam 5 mg tablet 5 mg PO Q8 PRN Muscle Spasm #15 Unknown Rx Held on 03/08/23. tabs Instructions: Order Changed hydrocodone-acetaminophen 5-325mg 1 tab PO Q6H PRN PRN Pain 3 days 06/10/21 Unknown Rx 5mg-325mg #12 TABLETS Held on 03/08/23. Instructions: Order Changed ketorolac 10 mg tablet 10 mg PO Q8H PRN pain #15 tabs Unknown Rx Held on 03/08/23. Instructions: Order Changed prednisone 20 mg tablet 60 mg (3 x 20 mg) PO DAILY #15 Unknown Rx Held on 03/08/23. TABLETS Instructions: Order Changed ketorolac 10 mg tablet 10 mg PO Q6H PRN pain 3 days #10 0 11/29/21 Unknown Rx Held on 03/08/23. tabs Instructions: Order Changed ipratropium bromide 0.02 % 2.5 ml inhalation Q6H PRN 08/26/22 Unknown Rx solution for inhalation shortness of breath or wheezing Held on 03/08/23. #62.5 mL Instructions: Order Changed prednisone 20 mg tablet 60 mg (3 x 20 mg) PO DAILY #15 tab s 08/26/22 Unknown Rx Held on 03/08/23. Instructions: Order Changed ondansetron 4 mg disintegrating 4 mg PO Q8H PRN PRN Nausea #10 tab s 10/05/22 Unknown Rx tablet fluticasone propionate 44 2 inh inhalation BID 02/28/23 Unkn own History mcg/actuation HFA aerosol inhaler (Flovent HFA) vit no.95-ferrous 1 tab PO DAILY 02/28/23 Unknown Hi story fumarate 28 mg-folic acid 800 mcg tablet () fluticasone propionate 50 2 spray intranasal DAILY allergy 0 03/08/23 Unknown History mcg/actuation nasal symptoms spray,suspension (Allergy Relief (fluticasone)) Allergy/AdvReac Type Severity Reaction Status Date / Time Cephalosporins Allergy Severe Hives Verified 10/03/24 09:24 NSAIDS (Non-Steroidal Allergy Intermediate Abd Verified 10/03/24 09:24 Anti-Inflamma cramps/diarrhea benzonatate (From Tessalon Allergy Hives Verified 10/03/24 09:24 Perles) cefdinir (From Omnicef) Allergy Hives Verified 10/03/24 09:24 red (food color) Allergy Hives Verified 10/03/24 09:24 Social History Smoking Status: Former smoker substance use type: does not use ROS ROS ED Constitutional Constitutional ED: Denies chills or fever(s) Gastrointestinal Yousuf (more content not included)... Normal [facility] HIP, UNI W/ Pelvis 2-3 Views on 10-03-2024 HIP, UNI W/ Pelvis 2-3 Views [facility] Imaging Services [address] [place] [address] HIP, UNI W/ Pelvis 2-3 Views MR#: [id number] Acct: [id number] Name: ADAMARIS BRICE Rep #: [id number] : 1995 F 28 From: Qasim Borrego MD PCP: Dr. Juan Diego Gaines DO Status: REG ER Study: HIP, UNI W/ Pelvis 2-3 Views Date of Exam: 02/19 Exam# [id number] Ordering Dr: Mari Pringle DO EXAM: XR Left Hip With Pelvis When Performed, 2 or 3 Views CLINICAL INDICATION: TECHNIQUE: Two or three views of the left hip with pelvis when performed. COMPARISON: No relevant prior studies available. FINDINGS: BONES/JOINTS: Unremarkable. No acute fracture. No dislocation. SOFT TISSUES: Unremarkable. RAD/HIP, UNI W/ Pelvis 2-3 Views IMPRESSION: Normal left hip x-rays. Reading [facility] CC: Dr. Mari Pringle DO; Dr. Juan Diego Gaines DO Soft Sugar Cutter: Signed Normal [facility] L/S Spine Min 4 Viewson L/S Spine Min 4 Views [facility] Imaging Services [address] [place] [phone] ([phone]) L/S Spine Min 4 Views MR#: [id number] Acct: [id number] Name: ADAMARIS BRICE Rep #: [id number] : 1995 F 28 From: Qasim Borrego MD PCP: Dr. Juan Diego Gaines DO Status: REG ER Study: L/S Spine Min 4 Views Date of Exam: 10/03/24 Exam# [id number] Ordering Dr: Mari Pringle DO EXAM: XR Lumbosacral Spine, 4 or 5 Views CLINICAL INDICATION: TECHNIQUE: Frontal, lateral and bilateral oblique views of the lumbar spine. COMPARISON: No relevant prior studies available. FINDINGS: VERTEBRAE: Unremarkable. No acute fracture. Normal alignment. SACRUM/COCCYX: Unremarkable as visualized. No acute fracture. DISC SPACES: No acute findings. No significant narrowing. SOFT TISSUES: Unremarkable. RAD/L/S Spine Min 4 Views IMPRESSION: Normal lumbar spine x-rays. Reading Location: [facility] CC: Dr. Mari Pringle DO; Dr. Juan Diego Gaines DO Soft Sugar Cutter: Signed Normal [facility] CNOVon 09-16-2024 CNOV Office Visit (WSTR ) ADAMARIS BRICE ([id number]) 1995 F Date Time Provider Department 09/16/24 11:30 AM AGUSTIN RODRÍGUEZ [facility] During your visit today, we recorded the following information about you: Temperature Pulse Respiration Blood pressure 98.6 degrees 75/minute 20/minute 100/70 Weight 89.6 kg Agustin Rodríguez APRN.SUPERINTENDENT PRESSURE 09/16/2024 12:02 PM Signed This note was created using NoteWriter. Subjective Adamaris Brice is a 28 year old female. HPI For the last four days pt has had a headache, congestion, cough, sore throat, and runny nose. Pt's son has strep throat. Review of Systems As above Objective BP 100/70 Pulse 75 Temp 37 ?C (98.6 ?F) Resp 20 Wt 89.6 kg (197 lb 7.8 oz) LMP 05/06/2024 (Exact Date) SpO2 98% BMI 32.86 kg/m? Physical Exam Vitals and nursing note reviewed. Constitutional: General: She is not in acute distress. Appearance: Normal appearance. She is not ill-appearing. HENT: Head: Normocephalic. Right Ear: Tympanic membrane normal. Left Ear: Tympanic membrane normal. Mouth/Throat: Mouth: Mucous membranes are moist. Pharynx: No oropharyngeal exudate or posterior oropharyngeal erythema. Eyes: Conjunctiva/sclera: Conjunctivae normal. Cardiovascular: Rate and Rhythm: Normal rate and regular rhythm. Pulmonary: Effort: Pulmonary effort is normal. Breath sounds: Normal breath sounds. Musculoskeletal: General: Normal range of motion. Cervical back: Normal range of motion. Skin: General: Skin is warm and dry. Neurological: General: No focal deficit present. Mental Status: She is alert. Psychiatric: Mood and Affect: Mood normal. Behavior: Behavior normal. Assessment and Plan ASSESSMENT/PLAN: 1. Sore throat - ICD9: 462, ICD10: J02.9 - suspect viral - Rapid Strep negative in the office today - Discussed supportive care treatment with fluids, rest and analgesia. - The patient may also use OTC cough and cold meds as needed and warm salt water gargles, throat lozenges and/or OTC throat spray as needed. - Contagious dz precautions discussed - The patient should follow up in one week if symptoms persist or worsen -Discussed viral testing which patient declines - STREP A MOLECULAR (POC) Agustin Rodríguez APRN.CNP Allergies As of Date: 09/16/2024 Noted Allergy Reaction CEPHALOSPORINS 10/01/2022 16 - Unknown NSAIDS (NON-STEROIDAL ANTI-INFLAM*09/15/2022 8 - GI Upset Comments: GI Upset OMNICEF (CEFDINIR) 04/29/2022 4 - Hives RED DYE 12/10/2010 4 - Hives TESSALON (BENZONATATE) 05/31/2017 2 - Rash Date Reviewed: 09/16/2024 Reviewed by: Agustin Rodríguez APRN.SUPERINTENDENT PRESSURE - Fully Assessed Reason for Visit: Cough [28] Cmt: Runny nose, BURGOS, SERA ear pain, sore throat x 3 days Primary Visit Diagnosis:Sore throat [J02.9] Order(s):STREP A MOLECULAR (POC) [[id number]] Order #: [id number] #:[id number] Prescriptions as of 09/16/2024 - clotrimazole (LOTRIMIN) 1 % cream Apply to affected area two times a day. Use until rash resolves and then for an additional week. - cyclobenzaprine (FLEXERIL) 10 mg tablet Take 1 tablet by mouth two times a day as needed for muscle spasm. - fluticasone propionate (FLOVENT INHALATION) Inhale as instructed. - fluticasone (FLONASE) 50 mcg/actuation nasal spray Use 2 Sprays in each nostril once daily. Rinse mouth after use. - PNV no.95/ferrous fum/folic ac ( ORAL) Take by mouth. - dicyclomine (BENTYL) 10 mg capsule Take 10 mg by mouth before meals and at bedtime. - ALBUTEROL INHALATION Albuterol Albuterol Inhaler Active 1 PUFF EVERY 4 HOURS NEEDED April 15, 2019 1:49pm 04-15-2019 [facility] ([id number]) - omeprazole (PRILOSEC) 20 mg capsule Take 1 capsule by mouth once daily. - albuterol HFA (VENTOLIN HFA) 90 mcg/actuation inhaler Inhale 2 Puffs as instructed every 4 hours as needed for Wheezing/Shortness of Breath. - loratadine (CLARITIN) 10 mg tablet Take 1 tablet by mouth once daily as needed. FOR ALLERGY SYMPTOMS Problem List As Of Date 09/16/2024 Noted Resolved Herpes simplex infection of genitourinary syste*11/19/2015 , supervision of first [Z34.00] 11/19/2015 08/08/2016 FH: muscular dystrophy [Z82.0] 11/19/2015 History of depression [Z86.59] 11/19/2015 08/08/2016 Positive GBS test [B95.1] 06/07/2016 08/08/2016 Well adult exam [Z00.00] 07/09/2016 08/08/2016 FH: cystic fibrosis [Z83.49] 09/15/2022 Hx of tobacco use, presenting hazards to health*09/15/2022 Rubella immune status not known [Z78.9] 10/04/2022 05/16/2023 Low lying placenta nos or without hemorrhage, s*12/26/2022 05/16/2023 Request for sterilization [Z30.2] 02/16/2023 04/01/2023 Indication for care or intervention related to *02/28/2023 03/06/2023 Non-reassuring heart rate or rhythm affec*02/28/2023 03/31/2023 33 weeks gestation of [Z3A.33] 02/28/2023 03/30/20 (more content not included)... Normal [facility] STREP A MOLECULAR (POC)on Procedural Control Valid [facility] Strep A (POCT) Negative Negative [facility] CNOVon 07-08-2024 CNOV Office Visit (UCWSTR ) ADAMARIS BRICE ([id number]) 1995 F Date Time Provider Department 07/08/24 1:00 PM DIAMOND SORENSEN [facility] During your visit today, we recorded the following information about you: Temperature Pulse Respiration Blood pressure 97.6 degrees 106/minute 18/minute 122/82 Weight 90.6 kg Diamond Sorensen APRN.CNP 07/08/2024 1:06 PM Signed CC: Patient presents with: Chest Congestion: head congestion, cough, sob, fatigue, fever x 3 days HPI: Adamaris Brice is a 28 year old female who presents to the office with complaint of chest congestion, head congestion, cough, nonproductive, and fever for a few days. Symptoms are worsening Associated symptoms includes wheezing and dyspnea. Denies nausea, vomiting , and diarrhea. Treatments tried include nothing so far. with no relief of symptoms. Sick contacts: unknown. History of asthma, frequent episodes of bronchitis, chronic bronchitis, bronchiectasis or COPD: No Smoker: No Seasonal/environmental allergies: No The ROS is otherwise negative. The patient's pmh, medications, allergies, and past visits are reviewed. PHYSICAL EXAM: BP 122/82 Pulse 106 Temp 36.4 ?C (97.6 ?F) Resp 18 Wt 90.6 kg (199 lb 11.8 oz) LMP 05/06/2024 (Exact Date) SpO2 97% BMI 33.24 kg/m? General appearance: alert, cooperative, pleasant, in no acute distress Head: Normocephalic Eyes: EOM's intact, conjunctiva pink and moist, no icterus, sclera white, non-injected Ears: Right ear: External ear/canal- Normal, TM - clear with good landmarks. Left ear: External ear/canal- Normal, TM - clear with good landmarks Oropharynx:moist without lesions, No erythema, exudates or tonsillar hypertrophy. Heart: Negative. RRR without obvious murmur, gallop, or rubs. No ectopy. Lungs: wheezing diffusely PAST MEDICAL HISTORY Diagnosis Date Asthma Environmental allergies fracture growth plate left ankle Herpes genitalis Mental disorder Placental abruption in third trimester 03/24/2023 Ulcerative colitis (HCC) Possible Ulcerative Colitis per patient Vertigo 11/2020 PAST SURGICAL HISTORY Procedure Laterality Date SECTION HX INSERT INTRAUTERINE DEVICE 05/27/2021 LIGATE FALLOPIAN TUBE Bilateral at time of ALLERGIES Cephalosporins, Nsaids (Non-Steroidal Anti-Inflammatory Drug), Omnicef [Cefdinir], Red Dye, and Tessalon [Benzonatate] MEDICATIONS clotrimazole (LOTRIMIN) 1 % cream Apply to affected area two times a day. Use until rash resolves and then for an additional week. cyclobenzaprine (FLEXERIL) 10 mg tablet Take 1 tablet by mouth two times a day as needed for muscle spasm. fluticasone propionate (FLOVENT INHALATION) Inhale as instructed. fluticasone (FLONASE) 50 mcg/actuation nasal spray Use 2 Sprays in each nostril once daily. Rinse mouth after use. PNV no.95/ferrous fum/folic ac ( ORAL) Take by mouth. omeprazole (PRILOSEC) 20 mg capsule Take 1 capsule by mouth once daily. albuterol HFA (VENTOLIN HFA) 90 mcg/actuation inhaler Inhale 2 Puffs as instructed every 4 hours as needed for Wheezing/Shortness of Breath. loratadine (CLARITIN) 10 mg tablet Take 1 tablet by mouth once daily as needed. FOR ALLERGY SYMPTOMS azithromycin (ZITHROMAX) 250 mg tablet Take 2 tablets by mouth once daily for 1 day, THEN 1 tablet once daily for 4 days. predniSONE (DELTASONE) 20 mg tablet Take 2 tablets by mouth once daily for 5 days. dicyclomine (BENTYL) 10 mg capsule Take 10 mg by mouth before meals and at bedtime. (Patient not taking: Reported on 01/04/2024) ALBUTEROL INHALATION Albuterol Albuterol Inhaler Active 1 PUFF EVERY 4 HOURS NEEDED April 15, 2019 1:49pm 04-15-2019 [facility] ([id number]) (Patient not taking: Reported on 02/26/2024) FAMILY HISTORY Problem Relation Age of Onset Heart Mother Asthma Mother Arthritis Mother Hypertension Mother Stroke Mother Heart Father Stroke Father Seizures Father Psychiatry Father bipolar Seizures Brother Stroke Brother 12 Breast Cancer Maternal Grandmother PGGM ,MGaunt Diabetes Maternal Grandmother Colon Polyps Maternal Grandmother Diabetes Maternal Grandfather Heart Maternal Grandfather Diabetes Paternal Grandmother Diabetes Paternal Grandfather Emphysema Paternal Grandfather Heart Paternal Grandfather Colon Cancer Maternal Aunt Arthritis Maternal Uncle Social History Tobacco Use Smoking status: Former Current packs/day: 0.25 Types: Cigarettes Smokeless tobacco: Never Tobacco comments: Not currently, early on in Vaping Use Vaping status: Never Used Substance Use Topics Alcohol use: Not Currently Comment: not while Drug use: No ASSESSMENT/PLAN: 1. Respiratory infection - ICD9: 519.8, ICD10: J98.8 - AZITHROMYCIN 250 MG TABLET - PREDNISONE 20 MG TABLET Prescription instruct (more content not included)... [facility] (FAMP[facility]) BRICE,ADAMARIS Garcia ([id number]) 1995 F Date Time Provider Department 06/10/24 DAISY HALL During your visit today, we recorded the following information about you: Dione Shoemaker LPN 06/10/2024 10:15 AM Signed ----- Message from Daisy Hall MD sent at 06/10/2024 10:11 AM EDT ----- MRI of the lower back shows bulging disc at L4-5 with mild canal narrowing. She was scheduled for OV with Dr. Blanco Berger ortho spine on 06/04 to discuss treatment for known bulging disc and chronic pain. F/u with their office for recommendations. Normal study otherwise. Dione Shoemaker LPN 06/10/2024 1:14 PM Signed Patient telephoned and notified of results and recommendations. Voices understanding. Dione Shoemaker LPN Allergies As of Date: 06/10/2024 Noted Allergy Reaction CEPHALOSPORINS 10/01/2022 16 - Unknown NSAIDS (NON-STEROIDAL ANTI-INFLAM*09/15/2022 8 - GI Upset Comments: GI Upset OMNICEF (CEFDINIR) 04/29/2022 4 - Hives RED DYE 12/10/2010 4 - Hives TESSALON (BENZONATATE) 05/31/2017 2 - Rash Date Reviewed: 05/31/2024 Reviewed by: Mery Russell MA - Fully Assessed Reason for Visit: Results [95] Prescriptions as of 06/10/2024 - clotrimazole (LOTRIMIN) 1 % cream Apply to affected area two times a day. Use until rash resolves and then for an additional week. - cyclobenzaprine (FLEXERIL) 10 mg tablet Take 1 tablet by mouth two times a day as needed for muscle spasm. - fluticasone propionate (FLOVENT INHALATION) Inhale as instructed. - fluticasone (FLONASE) 50 mcg/actuation nasal spray Use 2 Sprays in each nostril once daily. Rinse mouth after use. - PNV no.95/ferrous fum/folic ac ( ORAL) Take by mouth. - dicyclomine (BENTYL) 10 mg capsule Take 10 mg by mouth before meals and at bedtime. - ALBUTEROL INHALATION Albuterol Albuterol Inhaler Active 1 PUFF EVERY 4 HOURS NEEDED April 15, 2019 1:49pm 04-15-2019 [facility] ([id number]) - omeprazole (PRILOSEC) 20 mg capsule Take 1 capsule by mouth once daily. - albuterol HFA (VENTOLIN HFA) 90 mcg/actuation inhaler Inhale 2 Puffs as instructed every 4 hours as needed for Wheezing/Shortness of Breath. - loratadine (CLARITIN) 10 mg tablet Take 1 tablet by mouth once daily as needed. FOR ALLERGY SYMPTOMS Problem List As Of Date 06/10/2024 Noted Resolved Herpes simplex infection of genitourinary syste*11/19/2015 , supervision of first [Z34.00] 11/19/2015 08/08/2016 FH: muscular dystrophy [Z82.0] 11/19/2015 History of depression [Z86.59] 11/19/2015 08/08/2016 Positive GBS test [B95.1] 06/07/2016 08/08/2016 Well adult exam [Z00.00] 07/09/2016 08/08/2016 FH: cystic fibrosis [Z83.49] 09/15/2022 Hx of tobacco use, presenting hazards to health*09/15/2022 Rubella immune status not known [Z78.9] 10/04/2022 05/16/2023 Low lying placenta nos or without hemorrhage, s*12/26/2022 05/16/2023 Request for sterilization [Z30.2] 02/16/2023 04/01/2023 Indication for care or intervention related to *02/28/2023 03/06/2023 Non-reassuring heart rate or rhythm affec*02/28/2023 03/31/2023 33 weeks gestation of [Z3A.33] 02/28/2023 03/30/2023 Asthma affecting in third trimester [*02/28/2023 05/16/2023 Lumbar herniated disc [M51.26] 02/28/2023 Hx MRSA infection [Z86.14] 02/28/2023 Traumatic injury during in third trim*02/28/2023 03/31/2023 Vaginal bleeding during [O46.90] 03/01/2023 03/27/2023 Placental abruption in third trimester [O45.93] 03/24/2023 03/31/2023 state [Z39.2] 03/30/2023 04/01/2023 Maternal care for abnormalities of the he*08/08/2023 Encounter Status:Closed by DIONE SHOEMAKER on 06/10/24 Normal [facility] MR Lumbar spine WO contrasto n 06-04-2024 IMPRESSION: Degenerative changes most severe at L4-L5 as itemized above. Anatomic Lumbar Variant: None. L4-5 is considered the level of the iliac crest and assume there are 5 lumbar-type vertebrae. Soft Sugar Cutter: PSCB Transcribe Date/Time: Jun 04 2024 3:31P Dictated by : MOISE TRUONG MD This examination was interpreted and the report reviewed and electronically signed by: MOISE TRUONG MD on Jun 04 2024 3:34PM [facility] DIVISION OF RADIOLOGY * * *Final Report* * * DATE OF EXAM: Jun 04 2024 3:24PM [facility] 0303 - MRI LUMBAR SPINE WO IVCON / PROCEDURE REASON: multiple diagnoses * * * * Physician Interpretation * * * * EXAMINATION: MRI LUMBAR SPINE WO IVCON CLINICAL HISTORY: Acute midline low back pain with left-sided sciatica Urinary incontinence, unspecified type TECHNIQUE: Routine lumbosacral spine MR protocol without gadolinium. MQ: [id number] COMPARISON: None. RESULT: Counting reference: Lumbosacral junction. For the purposes of this report, L4-5 is considered the level of the iliac crest and assume there are 5 lumbar-type vertebrae. Anatomic variant: None. Localizer images: Noncontributory. Alignment: Alignment is anatomic. Bone marrow signal/fracture: No evidence of pathologic marrow infiltration. No evidence of prior fracture. Scattered Schmorl's nodes with minimal loss of height along inferior endplate at T11. Posterior elements are intact. Conus: The conus is within normal limits of signal intensity and morphology. Paraspinal soft tissues: Paraspinal soft tissues are within normal limits. L1-L2: There is no significant neural foraminal or central canal stenosis. L2-L3: There is no significant central canal or neural foraminal stenosis. L3-L4: There is no significant central canal or neural foraminal stenosis. L4-L5: Bulging disc with a central disc protrusion results in mild canal stenosis. Neural foramen are patent. L5-S1: There is no significant central canal or neural foraminal stenosis. Sacrum and iliac wings: The visualized sacrum and iliac wings are within normal limits. DIVISION OF RADIOLOGY Provider, [facility] - 06/04/2024 * * *Final Report* * * DATE OF EXAM: Jun 04 2024 3:24PM [facility] 0303 - MRI LUMBAR SPINE WO IVCON / PROCEDURE REASON: multiple diagnoses * * * * Physician Interpretation * * * * EXAMINATION: MRI LUMBAR SPINE WO IVCON CLINICAL HISTORY: Acute midline low back pain with left-sided sciatica Urinary incontinence, unspecified type TECHNIQUE: Routine lumbosacral spine MR protocol without gadolinium. MQ: [id number] COMPARISON: None. RESULT: Counting reference: Lumbosacral junction. For the purposes of this report, L4-5 is considered the level of the iliac crest and assume there are 5 lumbar-type vertebrae. Anatomic variant: None. Localizer images: Noncontributory. Alignment: Alignment is anatomic. Bone marrow signal/fracture: No evidence of pathologic marrow infiltration. No evidence of prior fracture. Scattered Schmorl's nodes with minimal loss of height along inferior endplate at T11. Posterior elements are intact. Conus: The conus is within normal limits of signal intensity and morphology. Paraspinal soft tissues: Paraspinal soft tissues are within normal limits. L1-L2: There is no significant neural foraminal or central canal stenosis. L2-L3: There is no significant central canal or neural foraminal stenosis. L3-L4: There is no significant central canal or neural foraminal stenosis. L4-L5: Bulging disc with a central disc protrusion results in mild canal stenosis. Neural foramen are patent. L5-S1: There is no significant central canal or neural foraminal stenosis. Sacrum and iliac wings: The visualized sacrum and iliac wings are within normal limits. IMPRESSION IMPRESSION: Degenerative changes most severe at L4-L5 as itemized above. Anatomic Lumbar Variant: None. L4-5 is considered the level of the iliac crest and assume there are 5 lumbar-type vertebrae. Soft Sugar Cutter: JOSE MARIA Transcribe Date/Time: Jun 04 2024 3:31P Dictated by : MOISE TRUONG MD This examination was interpreted and the report reviewed and electronically signed by: MOISE TRUONG MD on Jun 04 2024 3:34PM EST [facility] Radiology Study observation (narrative) [facility] MR Lumbar spine WO contrastO rdered By: [facility] Provider on 06-04-2024 [facility] MRI LUMBAR SPINE WO IVCONon 06-04-2024 MRI LUMBAR SPINE WO IVCON * * *Final Report* * * DATE OF EXAM: Jun 04 2024 3:24PM [id number] - MRI LUMBAR SPINE WO IVCON / PROCEDURE REASON: multiple diagnoses * * * * Physician Interpretation * * * * EXAMINATION: MRI LUMBAR SPINE WO IVCON CLINICAL HISTORY: Acute midline low back pain with left-sided sciatica Urinary incontinence, unspecified type TECHNIQUE: Routine lumbosacral spine MR protocol without gadolinium. MQ: [id number] COMPARISON: None. RESULT: Counting reference: Lumbosacral junction. For the purposes of this report, L4-5 is considered the level of the iliac crest and assume there are 5 lumbar-type vertebrae. Anatomic variant: None. Localizer images: Noncontributory. Alignment: Alignment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 presents for problem visit. HPI: Patient reports left sided pelvic pain. It started about 1 month ago. She denies that anything makes the pain better other than Tylenol. Patient denies pain triggers. Also she reports no menses since September. She is and did have menses for a few months prior. Denies vaginitis or STD concerns. 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 History Comments: Sexual Activity: Yes; Male Contraception: No contraception data on record PAST MEDICAL HISTORY Diagnosis Date - Asthma - Environmental allergies - fracture growth plate left ankle - Herpes genitalis - Mental disorder - Placental abruption in third trimester 03/24/2023 - Ulcerative colitis (HCC) Possible Ulcerative Colitis per patient - Vertigo 11/2020 PAST SURGICAL HISTORY Procedure Laterality Date - SECTION HX - INSERT INTRAUTERINE DEVICE 05/27/2021 - LIGATE FALLOPIAN TUBE Bilateral at time of FAMILY HISTORY Problem Relation Age of Onset - Heart Mother - Asthma Mother - Arthritis Mother - Hypertension Mother - Stroke Mother - Heart Father - Stroke Father - Seizures Father - Psychiatry Father bipolar - Seizures Brother - Stroke Brother 12 - Breast Cancer Maternal Grandmother PGGM ,MGaunt - Diabetes Maternal Grandmother - Colon Polyps Maternal Grandmother - Diabetes Maternal Grandfather - Heart Maternal Grandfather - Diabetes Paternal Grandmother - Diabetes Paternal Grandfather - Emphysema Paternal Grandfather - Heart Paternal Grandfather - Colon Cancer Maternal Aunt - Arthritis Maternal Uncle Social History Tobacco Use - Smoking status: Former Packs/day: .25 Types: Cigarettes - Smokeless tobacco: Never - Tobacco comments: Not currently, early on in Vaping Use - Vaping Use: Never used Substance Use Topics - Alcohol use: Not Currently Comment: not while - Drug use: No Current Outpatient Medications Medication Sig - fluticasone propionate (FLOVENT INHALATION) Inhale as instructed. - fluticasone (FLONASE) 50 mcg/actuation nasal spray Use 2 Sprays in each nostril once daily. Rinse mouth after use. - PNV no.95/ferrous fum/folic ac ( ORAL) Take by mouth. - ALBUTEROL INHALATION Albuterol Albuterol Inhaler Active 1 PUFF EVERY 4 HOURS NEEDED April 15, 2019 1:49pm 04-15-2019 [facility] ([id number]) - albuterol HFA (VENTOLIN HFA) 90 mcg/actuation inhaler Inhale 2 Puffs as instructed every 4 hours as needed for Wheezing/Shortness of Breath. - loratadine (CLARITIN) 10 mg tablet Take 1 tablet by mouth once daily as needed. FOR ALLERGY SYMPTOMS - dicyclomine (BENTYL) 10 mg capsule Take 10 mg by mouth before meals and at bedtime. (Patient not taking: Reported on 01/04/2024) - omeprazole (PRILOSEC) 20 mg capsule Take 1 capsule by mouth once daily. No current facility-administered medications for this visit. Allergies As of Date: 01/04/2024 Allergen Noted Reaction CEPHALOSPORINS 10/01/2022 Unknown NSAIDS (NON-STEROIDAL ANTI-INFLAM*09/15/2022 GI Upset OMNICEF [CEFDINIR] 04/29/2022 Hives RED DYE 12/10/2010 Hives TESSALON [BENZONATATE] 05/31/2017 Rash Fully Assessed 01/04/2024 REVIEW OF SYSTEMS Abdomen: No bloating, early satiety, indigestion, or increased flatulence. No abdominal pain, nausea, vomiting, diarrhea, or constipation. Bladder: No dysuria, gross hematuria, urinary urgency, or incontinence; positive urinary frequency Allergies and current medication updated:Yes EXAM: BP 118/72 Wt 211 lb (95.7kg) LMP 09/29/2023 GENERAL: pleasant, female in no apparent distress PELVIC: external genitalia normal, normal Bartholin's glands, urethra, [place]'s glands, no vulvar lesions, no cervical lesions, good vaginal support, physiologic discharge present, normal appearing perineal body and perianal region BIMANUAL: exam limited by patient's tenderness on exam ASSESSMENT AND PLAN: 28yo female with pelvic pain, urinary frequency AND oligomenorrhea UA AND urine hcg negative Oligomenorrhea likely from but will check labs Pelvic US ordered Medical Decision Making: Problems: Moderate: New problem with uncertain prognosis Data: Unique test(s) ordered: 3+ Risk: Low: Low risk from testing/treatment Medical Decision Making Level: 4 - Modera (more content not included)... Normal [facility] No Panel Informationon 01-03 Interpretation and review of laboratory results Normal [facility], [address] , [place], [address] [facility] POINT OF CARE PROLACTINon 01-04-2024 Prolactin [Mass/Vol] 10.9 ng/mL 4.5 - 2 6.8 ng/mL [facility] Comment on above: Prolactin test is pe rformed using the [employer] Electrochemiluminescence Immunoassay method. Results obtained with different methods or kits cannot be used interchangeably. Prolactin SerPl-mCncon 01-03 Prolactin [Mass/Vol] 10.9 ng/mL Normal 4.5-26.8 [facility] Comment on above: Order Comment: Speci men Type: BLOOD SPECIMENOrdering Facility: [facility] Address: [address] [place] [address] Result Comment: Prol actin test is performed using the [employer] Electrochemiluminescence Immunoassay method. Results obtained with different methods or kits cannot be used interchangeably. Performed By: #### 2 842-3, 3016-3 ####[facility] [id number] [place] [address] [place] THYROID STIMULATING HORMONEo n 01-04-2024 TSH Qn 1.760 m[IU]/L [facility] Comment on above: If the patient is pr egnant, TSH reference range varies by gestational period: First Trimester (weeks 9-12): 0.180-2.990 mIU/L Second Trimester: 0.110-3.980 mIU/L Third Trimester: 0.480-4.710 mIU/L Leroy Jay et al. A Practical Approach for the Verifications and Determination of Site- and Trimester-Specific Reference Intervals for Thyroid Function tests in . Thyroid, 2019:29:3:412-420. Martínez Ohara, et al. 2017 Guidelines of the Citizen [place] Thyroid Association for the Diagnosis and Management of Thyroid Disease during and the . Thyroid, 2017:27:3:315-389. TSH SerPl-aCncon 01-04-2024 TSH Qn 1.760 m[IU]/L Normal 0.270-4.20 0 [facility] Comment on above: Order Comment: Speci men Type: BLOOD SPECIMENOrdering Facility: [facility] Address: [address] [place] [address] Result Comment: If t he patient is , TSH reference range varies by gestational period: First Trimester (weeks 9-12): 0.180-2.990 mIU/L Second Trimester: 0.110-3.980 mIU/L Third Trimester: 0.480-4.710 mIU/L Leroy Jay et al. A Practical Approach for the Verifications and Determination of Site- and Trimester-Specific Reference Intervals for Thyroid Function tests in . Thyroid, 2019:29:3:412-420. Martínez Ohara, et al. 2017 Guidelines of the Citizen [place] Thyroid Association for the Diagnosis and Management of Thyroid Disease during and the . Thyroid, 2017:27:3:315-389. Performed By: #### 2 842-3, 3016-3 ####[facility] [id number] [place] [address] [place] UA DIP, URINE (POC)on 2023 BILIRUBIN UA (POCT) Negative Negative [facility] CLARITY UA (POCT) Clear [facility] COLOR UA (POCT) Yellow [facility] GLUCOSE UA (POCT) Negative Negative mg/dL [facility] Hemoglobin Ql (U) Negative Negative [facility] Interpretation and review of laboratory results Abnormal [facility] KETONE UA (POCT) Negative Negative mg/dL [facility] LEUKOCYTES UA (POCT) Small Abnormal Negative [facility] NITRITE UA (POCT) Negative Negative [facility] PH UA (POCT) 6.5 4.5 - 8.0 [facility] Protein Ql (U) Negative Negative mg/dL [facility] SPECIFIC GRAVITY UA (POCT) 1.025 1.005 - 1.030 [facility] UROBILINOGEN UA (POCT) 0.2 Normal E.U./dL [facility] UA DIP,URINE HCG (POC)on Beta HCG ( test) Ql (U) Negative Negative [facility] Comment on above: Location:[facility], [address] , [place], [address] Dietary Director (POCT) Internal QC OK [facility] Influenza virus A and B and SARS-CoV-2 (COVID-19) Ag panel - Upper respiratory specimOrdered By: Xiomy Peterson on 07-30-2023 SARS-CoV-2 (COVID-19) RNA MERLINE+probe Ql (Resp) [facility] Qualitative QuantiFERON-TB g old in tube testOrdered By: Zack Andujar on 07-13-2023 M. tuberculosis tuberculin stim IFN-g Ql (Bld) 0.01 IU/mL . [facility] Thin prep Papanicolaou smear with manual screeningOrdered By: Zack Andujar on 07-13-2023 Thin prep Papanicolaou smear with manual screening Comment . [facility] Comment on above: QuantiFERON-TB Gold Plus is a qualitative indirect test forM tuberculosis infection (including disease) and isintended for use in conjunction with risk assessment,radiography, and other medical and diagnostic evaluations.The QuantiFERON-TB Gold Plus result is determined bysubtracting the Nil value from either TB antigen (Ag)value. The Mitogen tube serves as a control for the test. Thin prep Papanicolaou smear with manual screening 0.01 IU/mL . [facility] Thin prep Papanicolaou smear with manual screening > 10.00 IU/mL . [facility] Thin prep Papanicolaou smear with manual screening Negative Negative [facility] Comment on above: No response to M tub erculosis antigens detected.Infection with M tuberculosis is unlikely, but high riskindividuals should be considered for additional testing(ATS/IDSA/CDC Clinical Practice Guidelines, 2017). Thereference range is an Antigen minus Nil result of <0.35IU/mL.The specimen received for QuantiFERON testing was incubatedby the ordering institution. Specific procedures outlinedin our Directory of Services and in the package insert forthe QuantiFERON Gold (In Tube) test must be followed toenable for proper stimulation of cells for the productionof interferon gamma. Chemiluminescence immunoassaymethodologyPerformed at: [facility] [id number] Director: Acosta Moeller PhD, Phone: [phone] STREP A MOLECULAR (POC)on Procedural Control Valid [facility] Strep A (POCT) Positive Abnormal Negative [facility] CNDSon 04-01-2023 CNDS HNO ID: [id number] Author: Jovana Robertson DO Service: Obstetrics Author Type: Physician Type: Discharge Summary Filed: 04/01/2023 12:15 PM Note Text: DISCHARGE SUMMARY OBSTETRICS PATIENT NAME: Adamaris Brice ADMISSION DATE: 03/24/2023 DISCHARGE DATE: 04/01/2023 Attending Physician: Alexandra Lawrence MD Code Status: Not on file Treatment Team: Attending Provider: Alexandra Lawrence MD Attending: Alexandra Lawrence MD Reason for Hospitalization: Intrauterine . Principal Problem (Resolved): state (POA: Yes) Active Problems: Herpes simplex infection of genitourinary system (POA: Yes) Asthma affecting in third trimester (POA: Yes) Lumbar herniated disc (POA: Yes) Hx MRSA infection (POA: Yes) Resolved Problems: Request for sterilization (POA: Yes) Non-reassuring heart rate or rhythm affecting management of mother (POA: Yes) 33 weeks gestation of (POA: Yes) Traumatic injury during in third trimester (POA: Yes) Vaginal bleeding during (POA: Yes) Placental abruption in third trimester (POA: Yes) PROCEDURES/SURGERY DURING HOSPITALIZATION: Delivery Summary: Tona Brice [[id number]] Delivery Information: Delivery Date: 03/29/23 Delivery type: , Low Transverse Delivering Clinician: Xiomy Mcdermott MD [place]: Gender: Female Weight (grams): 2490 g One Minute : 8 Five Minute : 8 Procedures (if applicable) Recent Surgical Summary Unscheduled Procedures Date Procedure/Visit Type Providers Loc / Dept Not Scheduled SECTION Xiomy Mcdermott (Primary)[facility] OB Hospital Course: 27 year old female who is Postoperative Day #3 from delivery as noted above. Pt's peripartum course was uncomplicated. Consulting Teams During Hospitalization: None Patient Condition @ Discharge: Good Discharge Disposition: Home/Self Care Specific Concerns for Follow-up Post Discharge: Routine Care Information Provided to Patient: Activity When You Leave the Hospital Gradually increase your activity level until back to normal at approximately 6 weeks post- (Walking and stairs as tolerated) May use stairs No baths for 6 weeks to allow the cervix to close (this includes swimming pools and hot tubs) No driving for 2 weeks No driving until you stop taking narcotic medicine and you are able to respond to adverse traffic conditions: Until you are not too sore to stop or turn quickly No lifting greater than 15 pounds for six weeks No walking restrictions Shower daily, towel or blow dry incision (low heat setting) Six Weeks Pelvic Rest - This means no sex, tampons, douching or any items in your vagina Diet Instructions Resume a regular diet with emphasis on healthy and iron rich foods. Nursing moms need 500 EXTRA calories a day to support breast milk production. Wound/Surgical Site Care Check your incision for signs of infection: redness, swelling, drainage Do not apply any lotions or powders near any incision Do not cover incision with any bandage Keep your incision clean and dry Steri-strips may fall off in the shower. If they have not fallen off on their own after 7 days from surgery, they should be removed. You are being sent home with steri-strips on your incision. You may shower. Pat incision dry and keep clean. You may spot bleed for up to six week post- Discharge Medications: Medication List START taking these medications docusate sodium 100 mg capsule Commonly known as: COLACE Take 2 capsules by mouth twice daily as needed for constipation. simethicone, chewable 80 mg chewable tablet Commonly known as: MYLICON Take 1 tablet by mouth every 6 hours as needed. CONTINUE taking these medications albuterol HFA 90 mcg/actuation inhaler Commonly known as: VENTOLIN HFA Inhale 2 Puffs as instructed every 4 hours as needed for Wheezing/Shortness of Breath. ALBUTEROL INHALATION dicyclomine 10 mg capsule Commonly known as: BENTYL * FLOVENT INHALATION * fluticasone 50 mcg/actuation nasal spray Commonly known as: FLONASE Use 2 Sprays in each nostril once daily. Rinse mouth after use. loratadine 10 mg tablet Commonly known as: CLARITIN Take 1 tablet by mouth once daily as needed. FOR ALLERGY SYMPTOMS omeprazole 20 mg capsule Commonly known as: PriLOSEC Take 1 capsule by mouth once daily. ORAL * This list has 2 medication(s) that are the same as other medications prescribed for you. Read the directions carefully, and ask your doctor or other care provider to review them with you. Where to Get Your Medications These medications were sent to [facility] - [place] [address] - [address] [facility] - [phone] [id number] [address] [facility] [address] docusate sodium 100 mg capsule simethicone, chewable 80 mg celso (more content not included)... [facility] NURSING PROGon 04-01-2023 NURSING PROG HNO ID: [id number] Author: Meena Egan RN Service: Nursing Author Type: Registered Nurse Type: Nursing Progress Note Filed: 04/01/2023 6:18 PM Note Text: Patient given discharge instructions and bonding program reviewed and contract signed. Patient moved to [facility]. Discharge instructions given. Patient states will go to [facility] then leave hospital to go home to collect some belongings then return to hospital. Sign out book reviewed with patient [facility] NUTRITIONon 03-31-2023 NUTRITION HNO ID: [id number] Author: Maria A Zuniga DTR Service: Nutrition Therapy Author Type: Physical Therapy Assistant Type: Nutrition Filed: 03/31/2023 1:25 PM Note Text: NUTRITION THERAPY INTERNET MARKETING ANALYST NOTE SERVICE DATE: 03/31/2023 SERVICE TIME: 1038 Visit Type: Length of Stay Unable to see patient at the time of visit, showering. Discussed patient with Registered Nurse. RN (Registered Nurse) reports a good appetite, with nausea today in the morning. Plan of Care: Follow-Up: [facility] Reassessment Nursing Admission Assessment Malnutrition Score: 0 Nutrition Intake: Diet Orders (From admission, onward) Start Ordered 03/29/23 1430 DIET REGULAR START NOW 03/29/23 1427 Average intake over: Unable to determine Appetite: Good GI Symptoms: Nausea;Gaseous Anthropometrics: Body mass index is 36.44 kg/m?. Weight Change: Decreased Food Preferences: consumes outside foods MNT Billing: $ Routine Care : 1-15 minutes SIGNATURE: Maria A Zuniga DTR PATIENT NAME: Adamaris Brice DATE: March 31, 2023 TIME: 1:20 PM Normal [facility] ANES POSTPROC EVALon 023 ANES POSTPROC EVAL HNO ID: [id number] Author: Juan Martinez APRN.CRNA Service: Anesthesiology Author Type: Nurse Buying Agent Type: Anesthesia Postprocedure Evaluation Filed: 03/30/2023 7:08 AM Note Text: POST ANESTHESIA EVALUATION NOTE : 1995 Procedure Summary Date: 03/29/23 Room / Location: Anesthesia Start: 0840 Anesthesia Stop: 1034 Procedure: LABOR ANALGESIA Diagnosis: Scheduled Providers: Responsible Provider: Juan Martinez APRN.TRAINING ADMINISTRATOR Anesthesia Type: spinal ASA Status: 3 - Emergent Anesthesia Type: spinal Last Vitals Vitals Value Taken Time BP 118/55 03/30/23 0445 Temp 36.7 ?C (98.1 ?F) 03/30/23 0445 Pulse 70 03/30/23 0445 Resp 19 03/30/23 0445 SpO2 98 % 03/30/23 0445 Brice, Girl Adamaris Garcia [[id number]] Baby Delivery: 03/29/2023 0929 Post Anesthesia Patient Status Patient Evaluation: bedside. Anticipated Disposition: inpatient floor planned admission. Neurological Status: aware and responsive. Pulmonary Status: breathing comfortably on room air Airway Control: returned to baseline unsupported. Cardiovascular Status: stable. Pain Management: clinically adequate Postoperative Hydration: acceptable. Intraoperative Events: no significant anesthesia events Post Operative Nausea/Vomiting Status: no significant post operative nausea or vomiting Recommendation: continue current plan of care. SIGNATURE: Juan Martinez APRN.TRAINING ADMINISTRATOR PATIENT NAME: Adamaris Brice DATE: March 30, 2023 TIME: 7:08 AM CSN: [id number] Normal [facility] CBC panel Auto (Bld)on 03-30 Erythrocyte distribution width (RBC) [Ratio] 13.3 % Normal 11.5-15.0 [facility] Comment on above: Order Comment: Speci men Type: TISSUE SPECIMEN [facility] Address: [address] [place], [place] [id number] Performed By: #### S #### [facility] CLIA [id number] [address] Hematocrit (Bld) [Volume fraction] 33.6 % Low 36.0-46.0 [facility] Comment on above: Order Comment: Speci men Type: TISSUE SPECIMEN [facility] Address: [address] [place] [address] Performed By: #### S #### [facility] CLIA [id number] [address] Hemoglobin (Bld) [Mass/Vol] 10.7 g/dL Low 11.5-15.5 [facility] Comment on above: Order Comment: Speci men Type: TISSUE SPECIMEN [facility] Address: [address] [place] [address] Performed By: #### S #### [facility] CLIA [id number] [address] MCH (RBC) [Entitic mass] 28.4 pg Normal 26.0-34.0 [facility] Comment on above: Order Comment: Speci men Type: TISSUE SPECIMEN [facility] Address: [address] [place] [address] Performed By: #### S #### [facility] CLIA [id number] [address] [place] [address] OF [facility] MCHC (RBC) [Mass/Vol] 31.8 g/dL Normal 30.5-36.0 [facility] Comment on above: Order Comment: Speci men Type: TISSUE SPECIMEN [facility] Address: [address] [place] [address] Performed By: #### S #### [facility] CLIA [id number] [address] [place] [address] MCV (RBC) [Entitic vol] 89.1 fL Normal 80.0-100.0 [facility] Comment on above: Order Comment: Speci men Type: TISSUE SPECIMEN [facility] Address: [address] [place] [address] Performed By: #### S #### [facility] CLIA [id number] [address] [place] Nucleated RBC (Bld) [#/Vol] 10*3/uL Normal <0.01 [facility] Comment on above: Order Comment: Speci men Type: TISSUE SPECIMEN [facility] Address: [address] [place] [address] Performed By: #### S #### [facility] CLIA [id number] [address] [place] Platelet mean volume (Bld) [Entitic vol] 10.4 fL Normal 9.0-12.7 [facility] Comment on above: Order Comment: Speci men Type: TISSUE SPECIMEN [facility] Address: [address] [place] [address] Performed By: #### S #### [facility] CLIA [id number] [address] [place] Platelets (Bld) [#/Vol] 175 10*3/uL Normal 150-400 [facility] Comment on above: Order Comment: Speci men Type: TISSUE SPECIMEN Ordering Facility: [facility] Address: [address] [place] [address] Performed By: #### S #### [facility] CLIA [id number] [address] [place] RBC (Bld) [#/Vol] 3.77 10*6/uL Low 3.90-5.20 [facility] Comment on above: Order Comment: Speci men Type: TISSUE SPECIMEN Ordering Facility: [facility] Address: [address] [place] [address] Performed By: #### S #### [facility] CLIA [id number] [address] OF [place] WBC (Bld) [#/Vol] 13.53 10*3/uL High 3.70-11.00 [facility] Comment on above: Order Comment: Speci men Type: TISSUE SPECIMEN Ordering Facility: [facility] Address: [facility] [place] [address] Performed By: #### S #### [facility] [id number] [address] [place], [place] [id number] [place] ANES PRE-OPon 03-29-2023 ANES PRE-OP HNO ID: [id number] Author: Jai Rueda APRN.TRAINING ADMINISTRATOR Service: Anesthesiology Author Type: Nurse Buying Agent Type: Anesthesia Preprocedure Evaluation Filed: 03/29/2023 7:24 AM Note Text: OB ANESTHESIA PRE-PROCEDURE ASSESSMENT PATIENT NAME: Adamaris Brice : 1995 [facility] ANES SOLUTIONS SPECIALIST: Previous OB anesthetic: Epidural No OB anesthesia considerations No prior risk factors reported No current obstetric problems/important considerations GERD: Denies GERD Relevant Problems NEURO-PSYCH (+) Hx MRSA infection PULMONARY (+) Asthma affecting in third trimester (+) Hx MRSA infection I - PHYSICAL EVALUATION AIRWAY Patient intubated: No. Tracheostomy tube not present Mallampati: II. TM distance: >3 FB. Neck ROM: full ROM without neurological symptoms. Mouth opening: adequate. Short neck: no. Thick neck: no DENTAL Dental findings: teeth intact. Additional exam findings: no II - ANESTHESIA PLAN ASA Score: 3; emergent. Anesthetic Plan: spinal The patient is not a current smoker. NPO Status: adequate Beta Nicholas Monitoring Plan Monitoring plan: standard ASA. Post Procedure Analgesic Plan Postoperative analgesic plan: multimodal analgesia. Informed Consent Anesthetic risks, benefits, alternatives, personnel and consent discussed: yes. Patient / Responsible Alliance Party agrees to proceed: yes Patient / Surrogate agrees to blood products: Yes Potential Anesthesia issues that may suggest increased risk of complications or contraindication to planned procedure: none. EPIC CHART REVIEW: ACTIVE PROBLEM LIST Herpes Simplex Infection of Genitourinary System Fh: Muscular Dystrophy Fh: Cystic Fibrosis Hx of Tobacco Use, Presenting Hazards to Health Rubella Immune Status Not Known Low Lying Placenta NOS Or Without Hemorrhage, Second Trimester Request for Sterilization Non-Reassuring Heart Rate Or Rhythm Affecting Management of Mother 33 Weeks Gestation of Asthma Affecting in Third Trimester Lumbar Herniated Disc Hx Mrsa Infection Traumatic Injury During in Third Trimester Placental Abruption in Third Trimester PAST MEDICAL HISTORY Diagnosis Date - Asthma - Environmental allergies - fracture growth plate left ankle - Herpes genitalis - Mental disorder - Placental abruption in third trimester 03/24/2023 - Ulcerative colitis (HCC) Possible Ulcerative Colitis per patient - Vertigo 11/2020 PAST SURGICAL HISTORY Procedure Laterality Date - INSERT INTRAUTERINE DEVICE 05/27/2021 FAMILY HISTORY Problem Relation Age of Onset - Heart Mother - Asthma Mother - Arthritis Mother - Hypertension Mother - Stroke Mother - Heart Father - Stroke Father - Seizures Father - Psychiatry Father bipolar - Seizures Brother - Stroke Brother 12 - Breast Cancer Maternal Grandmother PGGM ,MGaunt - Diabetes Maternal Grandmother - Colon Polyps Maternal Grandmother - Diabetes Maternal Grandfather - Heart Maternal Grandfather - Diabetes Paternal Grandmother - Diabetes Paternal Grandfather - Emphysema Paternal Grandfather - Heart Paternal Grandfather - Colon Cancer Maternal Aunt - Arthritis Maternal Uncle Social History Tobacco Use - Smoking status: Former Packs/day: 0.25 Types: Cigarettes - Smokeless tobacco: Never - Tobacco comments: Not currently, early on in Vaping Use - Vaping Use: Never used Substance Use Topics - Alcohol use: Not Currently Comment: not while - Drug use: No fluticasone propionate (FLOVENT INHALATION), Inhale as instructed., Disp: , Rfl: , Unknown fluticasone (FLONASE) 50 mcg/actuation nasal spray, Use 2 Sprays in each nostril once daily. Rinse mouth after use., Disp: 1 Each, Rfl: 0, Unknown PNV no.95/ferrous fum/folic ac ( ORAL), Take by mouth., Disp: , Rfl: dicyclomine (BENTYL) 10 mg capsule, Take 10 mg by mouth before meals and at bedtime., Disp: , Rfl: , Unknown ALBUTEROL INHALATION, Albuterol Albuterol Inhaler Active 1 PUFF EVERY 4 HOURS NEEDED April 15, 2019 1:49pm 04-15-2019 [facility] ([id number]), Disp: , Rfl: , Unknown omeprazole (PRILOSEC) 20 mg capsule, Take 1 capsule by mouth once daily., Disp: 30 capsule, Rfl: 2 albuterol HFA (VENTOLIN HFA) 90 mcg/actuation inhaler, Inhale 2 Puffs as instructed every 4 hours as needed for Wheezing/Shortness of Breath., Disp: 1 Inhaler, Rfl: 5 loratadine (CLARITIN) 10 mg tablet, Take 1 tablet by mouth once daily as needed. FOR ALLERGY SYMPTOMS, Disp: 30 tablet, Rfl: 0, Unknown Inpatient medications reviewed in EPIC I have interviewed and examined the patient. I have reviewed the medical record and/or the pre-anesthesia evaluation, pertinent labs, and test results. This contains updated information obtained within 48 hours of Surgery/Procedure. SIGNATURE: Jai Rueda APRN.TRAINING ADMINISTRATOR PATIENT NAME: Adamaris Garcia (more content not included)... [facility] OPERATIVE NOon 03-29-2023 OPERATIVE NO HNO ID: [id number] Author: Christina Hernandez MD Service: Obstetrics Author Type: Resident Type: Operative Report Filed: 03/29/2023 11:10 AM Note Text: Attestation signed by Xiomy Mcdermott MD at 05/09/2023 11:14 AM On 03/29/23, I was present for the entire delivery procedure, directly supervised and was assisted by the resident. I agree with the resident documentation of the delivery note and have discussed its contents with the resident. OB OPERATIVE/PROCEDURE REPORT LOG ID: [id number] Surgery/Procedure Date: 03/29/2023 Incision/Procedure Start Time: 9:18 AM Incision Close/Procedure End Time: 10:32 AM Surgeon(s)/Proceduralist(s) and Pig Farmer(s): Surgeon(s) and Role: * Xiomy Mcdermott MD - Primary * Bokinskie, Christina, MD - Resident - Assisting No Additional Staff Informed Consent: Informed Consent obtained and on the chart Procedure: Section Gestational Age at Delivery: 34w0d Reason for Delivery Today: PRIMARY Reason for Delivery : Suspicious Testing Additional Clinical Indicator(s) for delivery: N/A Delivery type: , Low Transverse Intrapartum Complications: None Delivery between 24 - 34 weeks?: Yes Has the patient completed their course of steroids?: Full Course Indications for : Other (see delivery note), Persistent Category 2 Tracing Persistent Category 2 Tracing Indications: Prolonged deceleration > 2 minute but less than 10 minutes Additional Pre-Op Details (if applicable): Adamaris is a 27yo G2, now P2, s/p primary LTCS at 34wk 0d for category II tracing in the setting of chronic placental abruption following a fall. This was also complicated by asthma, HSV with Valtrex suppression, history of MRSA infection, lumbar herniated disc. Postop Diagnosis: Same as pre-op diagnosis Procedures and Anesthesia: Procedure(s) and Anesthesia Type: * SECTION - Epidural Information for the patient's : Brice, Tona Garcia [[id number]] Type: , Low Transverse Operative Findings: Weight: Sex: female One Minute : 8 Five Minute : 8 Cord Complications: None Additional Findings: Normal uterus, Normal tubes, and Normal ovaries TECHNIQUE: The patient was taken to the operating room where spinal anesthesia was administered and found to be adequate. She was placed in supine position with a left tilt. SCD's were placed. Schwarz catheter was placed under sterile conditions. She was prepped and draped in the usual sterile fashion for abdominal surgery. Pfannensteil incision was made with the scalpel. Incision was taken down to the fascia sharply, and the fascia was incised in the midline. Incision was extended laterally with the Bovie. Rectus muscles were dissected off the fascia bluntly and with the bovie and divided in the midline. Peritoneum was entered bluntly and incision was extended superiorly and inferiorly. The bladder blade was then introduced. Hysterotomy was performed in a low transverse fashion with the scalpel. The incision was extended manually in a superolateral fashion. Infant was delivered from a from a cephalic position atraumatically. Cord was clamped and cut, and infant was handed off to awaiting staff. Cord blood was collected, arterial and venous blood gases were collected from the umbilical cord. Placenta then delivered spontaneously with fundal massage and manually. The uterus was then exteriorized and cleared of clots and debris. The bladder blade was reintroduced. The uterus was closed in One Layer with a running locked stitch of 0 Monocryl. Excellent hemostasis was obtained. The patient's right fallopian tube was grasped with a jayme. A noemy clamp was used to clamp blood vessels in the mesosalpinx. Bovie cautery was used to separate fallopian tube from mesosalpinx to level of cornua. One strand of 0-Gut was used to suture ligate one section of the mesosalpinx. One strand of 0-Gut was used to suture ligate the proximal end of the fallopian tube at the level of the cornua. The left fallopian tube was removed in a similar fashion. Excellent hemostasis was noted. Uterus was returned to the abdomen. Inspection of the pelvis noted the above findings. The fascia was closed with looped 0 PDS in a running fashion. The subcutaneous tissue was irrigated and made hemostatic with bovie cautery. The subcutaneous tissue was closed with interrupted stitches of 4-0 Vicryl. The skin was closed with 4-0 Monocryl in a running fashion. A digital sweep of the vaginal canal was performed by Christina Hernandez MD and it was ascertained that no instruments or other foreign bodies are retained within the cavity. Sponge, lap, and needle counts were correct times two and the camacho (more content not included)... Normal [facility] SURGICAL PATHOLOGYon 023 CASE REPORT Normal [facility] Comment on above: Order Comment: Speci men Type: TISSUE SPECIMEN Ordering Facility: [facility] Address: [address] [place] [phone] Result Comment: Surg [facility] Pathology Report Case: [id number] Authorizing Provider: Xiomy Mcdermott MD Collected: 03/29/2023 09:56 AM Ordering Location: [place] [address] L&D Received: 03/30/2023 07:22 AM Pathologist: Rosmery Mccall MD Specimens: A) - FALLOPIAN TUBE RESECTION LEFT B) - FALLOPIAN TUBE RESECTION RIGHT Performed By: #### S #### [facility] CLIA [id number] [address] FINAL DIAGNOSIS Normal [facility] Comment on above: Order Comment: Speci men Type: TISSUE SPECIMEN Ordering Facility: [facility] Address: [address] [place] [address] Result Comment: A. L eft fallopian tube, resection: -- Fallopian tube with no significant histopathologic abnormalities. B. Right fallopian tube, resection: -- Fallopian tube with no significant histopathologic abnormalities. Performed By: #### S #### [facility] CLIA [id number] [address] [place] [address] FINAL PERFORMING LAB Normal [facility] Comment on above: Order Comment: Speci men Type: TISSUE SPECIMEN Ordering Facility: [facility] Address: [address] [place] [address] Result Comment: Diag nostic interpretation performed at [facility], [address] [place] [address] CLIA# [id number] Vmware Engineer: Terrance Lake M.D. Performed By: #### S #### [facility] CLIA [id number] [address] GROSS DESCRIPTION Normal [facility] Comment on above: Order Comment: Speci men Type: TISSUE SPECIMEN Ordering Facility: [facility] Address: [address] [place] [address] Result Comment: A. F ALLOPIAN TUBE RESECTION LEFT A. Received in formalin labeled fallopian tube resection left is a segment of fallopian tube measuring 7.5 cm in length. It has a normal villous appearing fimbriated end. The specimen is sectioned. Tissue is submitted as follows: A1 truck sales representative sections of fallopian tube A2 fimbriated end totally submitted B. FALLOPIAN TUBE RESECTION RIGHT B. Received in formalin labeled fallopian tube resection right is a segment of fallopian tube measuring 8.6 cm in length. It has a normal villous appearing fimbriated end. The specimen is sectioned. Tissue is submitted as follows: B1 truck sales representative sections of fallopian tube B2 fimbriated end totally submitted Gross examination performed at [facility], [address] [place] [address] KVB March 30, 2023 10:09 AM Performed By: #### S #### [facility] CLIA [id number] [address] [place] BIOPHYSICAL PROFILE US WHIon 03-28-2023 [facility] CBC panel Auto (Bld)on 03-27 Erythrocyte distribution width (RBC) [Ratio] 13.3 % Normal 11.5-15.0 [facility] Comment on above: Order Comment: Speci men Type: TISSUE SPECIMEN Ordering Facility: [facility] Address: [address] [place] [address] Performed By: #### S #### [facility] CLIA [id number] [address] Hematocrit (Bld) [Volume fraction] 31.7 % Low 36.0-46.0 [facility] Comment on above: Order Comment: Speci men Type: TISSUE SPECIMEN Ordering Facility: [facility] Address: [address] [place] [address] Performed By: #### S #### [facility] CLIA [id number] [address] [facility] Hemoglobin (Bld) [Mass/Vol] 10.3 g/dL Low 11.5-15.5 [facility] Comment on above: Order Comment: Speci men Type: TISSUE SPECIMEN Ordering Facility: [facility] Address: [address] [place] [address] Performed By: #### S #### [facility] CLIA [id number] [address] MCH (RBC) [Entitic mass] 28.9 pg Normal 26.0-34.0 [facility] Comment on above: Order Comment: Speci men Type: TISSUE SPECIMEN Ordering Facility: [facility] Address: [address] [place] [address] Performed By: #### S #### [facility] CLIA [id number] [address] MCHC (RBC) [Mass/Vol] 32.5 g/dL Normal 30.5-36.0 [facility] Comment on above: Order Comment: Speci men Type: TISSUE SPECIMEN Ordering Facility: [facility] Address: [address] [place] [address] Performed By: #### S #### [facility] CLIA [id number] [address] [place] MCV (RBC) [Entitic vol] 89.0 fL Normal 80.0-100.0 [facility] Comment on above: Order Comment: Speci men Type: TISSUE SPECIMEN Ordering Facility: [facility] Address: [address] [place] [address] Performed By: #### S #### [facility] CLIA [id number] [address] Nucleated RBC (Bld) [#/Vol] 10*3/uL Normal <0.01 [facility] Comment on above: Order Comment: Speci men Type: TISSUE SPECIMEN Ordering Facility: [facility] Address: [address] [place] [address] Performed By: #### S #### [facility] CLIA [id number] [address] [facility] Platelet mean volume (Bld) [Entitic vol] 9.9 fL Normal 9.0-12.7 [facility] Comment on above: Order Comment: Speci men Type: TISSUE SPECIMEN Ordering Facility: [facility] Address: [address] [place] [address] Performed By: #### S #### [facility] CLIA [id number] [address] [place] Platelets (Bld) [#/Vol] 163 10*3/uL Normal 150-400 [facility] Comment on above: Order Comment: Speci men Type: TISSUE SPECIMEN Ordering Facility: [facility] Address: [address] [place] [address] Performed By: #### S #### [facility] CLIA [id number] [address] OF [facility] RBC (Bld) [#/Vol] 3.56 10*6/uL Low 3.90-5.20 [facility] Comment on above: Order Comment: Speci men Type: TISSUE SPECIMEN Ordering Facility: [facility] Address: [address] [place] [address] Performed By: #### S #### [facility] CLIA [id number] [address] WBC (Bld) [#/Vol] 9.55 10*3/uL Normal 3.70-11.00 [facility] Comment on above: Order Comment: Speci men Type: TISSUE SPECIMEN Ordering Facility: [facility] Address: [address] [place] [address] Performed By: #### S #### [facility] CLIA [id number] [address] CONSULTon 03-27-2023 CONSULT HNO ID: [id number] Author: Jai Rois MD Service: Neonatology Author Type: Physician Type: Consults Filed: 03/27/2023 9:17 AM Note Text: NEONATOLOGY CONSULT SERVICE DATE: 03/27/2023 Admission Date: 03/24/2023 SERVICE TIME: 9:14 AM Date of : 1995 Age: [age] year old Sex: female Primary Care Physician: Juan Diego Gaines DO Consulting Service Delivery Management Consultant: Jai Rios MD Subjective Consultation for this evaluation was requested by Dr. Brock. Reason for consultation: non-reassuring status in settings of chronic placental abruption Recommendations will be communicated back to the requesting physician by way of shared medical record or letter. Objective MATERNAL HISTORY: Mother is a 26 year old female, , who is at 33w5d with an ANKIT of 05/10/2023, by Ultrasound dating method. LMP: Patient's last menstrual period was 07/20/2022. Maternal Hospital Problems: ACTIVE PROBLEM LIST Herpes Simplex Infection of Genitourinary System Fh: Muscular Dystrophy Fh: Cystic Fibrosis Hx of Tobacco Use, Presenting Hazards to Health Rubella Immune Status Not Known Low Lying Placenta NOS Or Without Hemorrhage, Second Trimester Request for Sterilization Non-Reassuring Heart Rate Or Rhythm Affecting Management of Mother 33 Weeks Gestation of Asthma Affecting in Third Trimester Lumbar Herniated Disc Hx Mrsa Infection Traumatic Injury During in Third Trimester Placental Abruption in Third Trimester Maternal Meds: No current facility-administered medications on file prior to encounter. Current Outpatient Medications on File Prior to Encounter Medication Sig fluticasone (FLONASE) 50 mcg/actuation nasal spray Use 2 Sprays in each nostril once daily. Rinse mouth after use. PNV no.95/ferrous fum/folic ac ( ORAL) Take by mouth. dicyclomine (BENTYL) 10 mg capsule Take 10 mg by mouth before meals and at bedtime. ALBUTEROL INHALATION Albuterol Albuterol Inhaler Active 1 PUFF EVERY 4 HOURS NEEDED April 15, 2019 1:49pm 04-15-2019 [facility] ([id number]) omeprazole (PRILOSEC) 20 mg capsule Take 1 capsule by mouth once daily. albuterol HFA (VENTOLIN HFA) 90 mcg/actuation inhaler Inhale 2 Puffs as instructed every 4 hours as needed for Wheezing/Shortness of Breath. loratadine (CLARITIN) 10 mg tablet Take 1 tablet by mouth once daily as needed. FOR ALLERGY SYMPTOMS Current Facility-Administered Medications Medication Dose Route Frequency albuterol HFA 90 mcg/actuation 2 Puff (PROVENTIL HFA, VENTOLIN HFA) 2 Puff INHALATION q 4 H PRN acetaminophen 1,000 mg tab(s) (TYLENOL) 1,000 mg ORAL Pre-Op PRN sodium citrate-citric acid 500-334 mg/5 mL 30 mL oral liquid (BICITRA) 30 mL ORAL Pre-Op PRN metoclopramide HCl 10 mg injection (REGLAN) 10 mg INTRAVENOUS Pre-Op PRN tranexamic acid (CYKLOKAPRON) in NaCl 0.7% 1,000 mg 100 mL 1,000 mg INTRAVENOUS Pre-Op PRN NaCl 0.9% iv flush bag 20 mL INTRAVENOUS PRN calcium carbonate 1,000 mg chewable tab(s) (TUMS) 1,000 mg ORAL BID PRN vitamin with folic acid 1 mg 1 tablet 1 tablet ORAL DAILY acetaminophen 650 mg tab(s) (TYLENOL) 650 mg ORAL q 6 H PRN clindamycin iv piggyback 900 mg in D5W 50 mL (CLEOCIN) 900 mg INTRAVENOUS Pre-Op PRN azithromycin 500 mg in D5W 250 mL Vial-Bag (ZITHROMAX) 500 mg INTRAVENOUS Pre-Op PRN gentamicin 380 mg in D5W 100 mL 380 mg INTRAVENOUS Pre-Op PRN valACYclovir 500 mg tab(s) (VALTREX) 500 mg ORAL BID diphenhydrAMINE 25 mg injection (BENADRYL) 25 mg INTRAVENOUS q 6 H PRN famotidine 20 mg injection (PEPCID) 20 mg INTRAVENOUS BID mometasone 220 mcg/ actuation (14) 1 Puff inhaler (ASMANEX) 1 Puff INHALATION BID complications: Placental abruption (chronic) The following was discussed with mother GENERAL: Neonatology presence and role at delivery: Yes Possible need for resuscitation: Yes DNR status: Discussed with patient/family No Need for admission to NICU: Yes Offered tour of NICU: No Discharge criteria: Yes Survival odds/morbidity AND mortality: Yes RESPIRATORY Risk of RDS/breathing problems: Yes Possible need for respiratory support: Yes FEN Mother?s Preference: Breast: Yes. Benefits of breast milk: Yes Bottle: No Need for supplemental nutrition and/or IVFs: Yes ACCESS Possible need for UAC/UVC/PICC: No Verbal consent obtained: [facility]. Name if [employer], if known: Unknown, please contact patient's primary care physician Possible need for transfer to outside hospital: Yes Possible need for subspecialty evaluation: No Additional discussion: N/A Impression/Recommendations Assessment: 33 5/7 week EGA with chronic abruption Plan: NICU to be present at delivery Physician [id number] total time, including discussion: 30 minutes, more than 50 % of time devoted to coordination of care and/or counseling. SIGNATURE: Jai Rios MD PATIENT NAME: Adamaris Garcia Yuniel DATE: (more content not included)... Normal [facility] Fibrinogen PPP-mCncon 2022 Fibrinogen Coag (PPP) [Mass/Vol] 382 mg/dL Normal 200-400 [facility] Comment on above: Order Comment: Speci men Type: BLOOD SPECIMEN Ordering Facility[facility] Address: [address] [place] [phone] Performed By: #### 5 [id number] #### [facility] CLIA [id number] [address] OBSTETRIC ULTRASOUND WHIon 0 03-27-2023 [facility] TYPE + SCREEN PRENATALon ABO A Normal [facility] Comment on above: Order Comment: Speci men Type: BLOOD SPECIMEN Ordering Facility: [facility] Address: [address] [place] [address] Performed By: #### T SPN #### [facility] CLIA [id number] [address] HISTORICAL AB SCR STATUS Negative Normal [facility] Comment on above: Order Comment: Speci men Type: BLOOD SPECIMEN Ordering Facility: [facility] Address: [address] [place] [address] Performed By: #### T SPN #### [facility] CLIA [id number] [address] [place] Rh Nom (Bld) Positive Normal [facility] Comment on above: Order Comment: Speci men Type: BLOOD SPECIMEN Ordering Facility[facility] Address: [address] [place] [address] Performed By: #### T SPN #### [facility] CLIA [id number] [address] TYPE AND SCREEN EXPIRATION 03/30/2023 23:59 Normal [facility] Comment on above: Order Comment: Speci men Type: BLOOD SPECIMEN Ordering Facility[facility] Address: [address] [place] [address] Performed By: #### T SPN #### [facility] CLIA [id number] [address] [place] BIOPHYSICAL PROFILE US WHIon 03-24-2023 [facility] CBC W Auto Differential pane l (Bld)on 03-24-2023 Basophils (Bld) [#/Vol] 10*3/uL Normal <0.11 [facility] Comment on above: Order Comment: Speci men Type: TISSUE SPECIMEN Ordering Facility: [facility] Address: [address] [place] [address] Performed By: #### S #### [facility] CLIA [id number] [address] Basophils/100 WBC (Bld) 0.2 % Normal [facility] Comment on above: Order Comment: Speci men Type: TISSUE SPECIMEN Ordering Facility[facility] Address: [address] [place] [address] Performed By: #### S #### [facility] CLIA [id number] [address] Differential cell count method Nom (Bld) Auto Normal [facility] Comment on above: Order Comment: Speci men Type: TISSUE SPECIMEN Ordering Facility: [facility] Address: [address] [place] [address] Performed By: #### S #### [facility] CLIA [id number] [address] [place] [address] [place] Eosinophils (Bld) [#/Vol] 0.19 10*3/uL Normal <0.46 [facility] Comment on above: Order Comment: Speci men Type: TISSUE SPECIMEN Ordering Facility: [facility] Address: [address] [place] [address] Performed By: #### S #### [facility] CLIA [id number] [address] Eosinophils/100 WBC (Bld) 1.6 % Normal [facility] Comment on above: Order Comment: Speci men Type: TISSUE SPECIMEN Ordering Facility: [facility] Address: [address] [place] [address] Performed By: #### S #### [facility] CLIA [id number] [address] [place] Erythrocyte distribution width (RBC) [Ratio] 13.1 % Normal 11.5-15.0 [facility] Comment on above: Order Comment: Speci men Type: TISSUE SPECIMEN Ordering Facility: [facility] Address: [address] [address] Performed By: #### S #### [facility] CLIA [id number] [address] Hematocrit (Bld) [Volume fraction] 35.0 % Low 36.0-46.0 [facility] Comment on above: Order Comment: Speci men Type: TISSUE SPECIMEN Ordering Facility: [facility] Address: [address] [place] [address] Performed By: #### S #### [facility] CLIA [id number] [address] Hemoglobin (Bld) [Mass/Vol] 11.6 g/dL Normal 11.5-15.5 [facility] Comment on above: Order Comment: Speci men Type: TISSUE SPECIMEN Ordering Facility: [facility] Address: [address] [place] [address] Performed By: #### S #### [facility] CLIA [id number] [address] [place] Immature granulocytes (Bld) [#/Vol] 0.13 10*3/uL High <0.10 [facility] Comment on above: Order Comment: Speci men Type: TISSUE SPECIMEN Ordering Facility: [facility] Address: [address] [place] [address] Performed By: #### S #### [facility] CLIA [id number] [address] [place] Immature granulocytes/100 WBC (Bld) 1.1 % Normal [facility] Comment on above: Order Comment: Speci men Type: TISSUE SPECIMEN Ordering Facility: [facility] Address: [address] [place] [address] Performed By: #### S #### [facility] CLIA [id number] [address] [place] Lymphocytes (Bld) [#/Vol] 1.54 10*3/uL Normal 1.00-4.00 [facility] Comment on above: Order Comment: Speci men Type: TISSUE SPECIMEN Ordering Facility: [facility] Address: [address] [place] [address] Performed By: #### S #### [facility] CLIA [id number] [address] Lymphocytes/100 WBC (Bld) 13.2 % Normal [facility] Comment on above: Order Comment: Speci men Type: TISSUE SPECIMEN Ordering Facility: [facility] Address: [address] [place] [address] Performed By: #### S #### [facility] CLIA [id number] [address] [place] [address] MCH (RBC) [Entitic mass] 29.0 pg Normal 26.0-34.0 [facility] Comment on above: Order Comment: Speci men Type: TISSUE SPECIMEN Ordering Facility: [facility] Address: [address] [place] [address] Performed By: #### S #### [facility] CLIA [id number] [address] [place] [address] STATES OF [facility] MCHC (RBC) [Mass/Vol] 33.1 g/dL Normal 30.5-36.0 [facility] Comment on above: Order Comment: Speci men Type: TISSUE SPECIMEN Ordering Facility: [facility] Address: [address] [place] [address] Performed By: #### S #### [facility] CLIA [id number] [address] [place] [address] MCV (RBC) [Entitic vol] 87.5 fL Normal 80.0-100.0 [facility] Comment on above: Order Comment: Speci men Type: TISSUE SPECIMEN Ordering Facility: [facility] Address: [address] [place] [address] Performed By: #### S #### [facility] CLIA [id number] [address] [place] [address] Monocytes (Bld) [#/Vol] 0.72 10*3/uL Normal <0.87 [facility] Comment on above: Order Comment: Speci men Type: TISSUE SPECIMEN Ordering Facility: [facility] Address: [address] [place] [address] Performed By: #### S #### [facility] CLIA [id number] [address] [place] Monocytes/100 WBC (Bld) 6.2 % Normal [facility] Comment on above: Order Comment: Speci men Type: TISSUE SPECIMEN Ordering Facility: [facility] Address: [address] [place] [address] Performed By: #### S #### [facility] CLIA [id number] [address] [place] Neutrophils (Bld) [#/Vol] 9.07 10*3/uL High 1.45-7.50 [facility] Comment on above: Order Comment: Speci men Type: TISSUE SPECIMEN Ordering Facility: [facility] Address: [address] [place] [address] Performed By: #### S #### [facility] CLIA [id number] [address] Neutrophils/100 WBC (Bld) 77.7 % Normal [facility] Comment on above: Order Comment: Speci men Type: TISSUE SPECIMEN Ordering Facility: [facility] Address: [address] [place] [address] Performed By: #### S #### [facility] CLIA [id number] [address] [place] Nucleated RBC (Bld) [#/Vol] 10*3/uL Normal <0.01 [facility] Comment on above: Order Comment: Speci men Type: TISSUE SPECIMEN Ordering Facility: [facility] Address: [address] [place] [address] Performed By: #### S #### [facility] CLIA [id number] [address] [place] Nucleated RBC/100 WBC (Bld) [Ratio] 0.0 /100 WBC Normal [facility] Comment on above: Order Comment: Speci men Type: TISSUE SPECIMEN Ordering Facility: [facility] Address: [address] [place] [address] Performed By: #### S #### [facility] CLIA [id number] [address] Platelet mean volume (Bld) [Entitic vol] 10.7 fL Normal 9.0-12.7 [facility] Comment on above: Order Comment: Speci men Type: TISSUE SPECIMEN Ordering Facility: [facility] Address: [address] [place] [address] Performed By: #### S #### [facility] CLIA [id number] [address] Platelets (Bld) [#/Vol] 194 10*3/uL Normal 150-400 [facility] Comment on above: Order Comment: Speci men Type: TISSUE SPECIMEN Ordering Facility: [facility] Address: [address] [place] [address] Performed By: #### S #### [facility] CLIA [id number] [address] RBC (Bld) [#/Vol] 4.00 10*6/uL Normal 3.90-5.20 [facility] Comment on above: Order Comment: Speci men Type: TISSUE SPECIMEN Ordering Facility: [facility] Address: [address] [place] [address] Performed By: #### S #### [facility] CLIA [id number] [address] WBC (Bld) [#/Vol] 11.67 10*3/uL High 3.70-11.00 [facility] Comment on above: Order Comment: Speci men Type: TISSUE SPECIMEN Ordering Facility: [facility] Address: [address] [place] [address] Performed By: #### S #### [facility] CLIA [id number] [address] Fibrinogen PPP-mCncon 2022 Fibrinogen Coag (PPP) [Mass/Vol] 488 mg/dL High 200-400 [facility] Comment on above: Order Comment: Speci men Type: TISSUE SPECIMEN Ordering Facility: [facility] Address: [place] [address] Performed By: #### S #### [facility] CLIA [id number] [address] HISTORY PHYSICALon HISTORY PHYSICAL HNO ID: [id number] Author: Gissel Painting MD Service: Obstetrics Author Type: Resident Type: HANDP Filed: 03/24/2023 3:58 PM Note Text: Attestation signed by Brynn Solis MD at 03/24/2023 6:52 PM MFM Attending Note I have reviewed the progress note obtained and documented by the resident and I personally participated in the schroeder components. I have discussed the case and management of the patient's care. I agree with the resident's findings and plan of care as documented below. Briefly,this is a 27y.o. @ 33w2d whose has been complicated by what is suspected to be a chronic abruption following a fall in early February who presents for admission secondary to decelerations on her NST which has been an intermittent finding since her fall. BPP was 8/10 (-2 NST) with normal fluid. She has no obstetrical complaints at this time. Plan for rescue course corticosteroids and prolonged EFM overnight to better assess status. Discussed that timing of delivery and whether or not she will be hospitalized until delivery is to be determined at this time. She verbalized understanding. Brynn Solis MD OBSTETRICS - MATERNAL MEDICINE HISTORY AND PHYSICAL SERVICE DATE: March 24, 2023 SERVICE TIME: 3:24 PM Subjective Patient's stated reason for arrival: CHIEF COMPLAINT: Non-reassuring heart rate tracing HISTORY OF THE PRESENT ILLNESS: The patient is a 27 year old female, , who is at 33w2d with an ANKIT of 05/10/2023, by Ultrasound dating method. Patient is referred here in the setting of a non-reassuring heart rate tracing. Good movement. Denies vaginal bleeding., C/O of occasional contractions., Denies leaking of fluid. She reports she was undergoing routine testing in the setting of suspected chronic placental abruption. She has previously admitted to [facility] for Cat II Tracing 02/28 - 03/06 and 03/09-03/11. This was in the setting of a ground level fall (tripping over her cat and falling down 4 stairs, hitting her bottom). Her monitoring has previously demonstrated intermittent late and spontaneous decelerations, lasting 1-4 minutes with resolution, occurring every 2-6 hours. She received multiple prior BPPs 04/04 to evaluate wellbeing in the setting of her monitoring. She was discharged with instruction for twice weekly testing for suspected chronic placental abruption, with likely etiology of decelerations of placental insufficiency in the setting of this. During her routine NST today, monitoring demonstrated a nonreactive NST, variable decelerations, and a two minute prolonged deceleration from baseline 150 to 115 bpm per report. She then underwent a BPP 04/06 today (-2 for nonreactive NST). It was recommended she present to [facility] for admission. Today, she feels well. She continues to have intermittent vaginal spotting, this has been her recent baseline. Describes intermittent, nonpainful cramping/contractions. Otherwise denies abnormal vaginal discharge, urinary symptoms, denies headache, visual changes, RUQ pain, chest pain, shortness of breath, worsening edema. Denies tobacco, alcohol, drug use. Denies h/o HIV, Hepatitis B/C, MRSA, genital herpetic lesions or prodromal symptoms. POST DELIVERY CONTRACEPTION: Discussed post-delivery contraception options. Patient received information about post-delivery contraception options. Patient desires permanent sterilization. HISTORY REVIEW PAST MEDICAL HISTORY Diagnosis Date Asthma Environmental allergies fracture growth plate left ankle Herpes genitalis Mental disorder Placental abruption in third trimester 03/24/2023 Ulcerative colitis (HCC) Possible Ulcerative Colitis per patient Vertigo 11/2020 PAST SURGICAL HISTORY Procedure Laterality Date INSERT INTRAUTERINE DEVICE 05/27/2021 FAMILY HISTORY Problem Relation Age of Onset Heart Mother Asthma Mother Arthritis Mother Hypertension Mother Stroke Mother Heart Father Stroke Father Seizures Father Psychiatry Father bipolar Seizures Brother Stroke Brother 12 Breast Cancer Maternal Grandmother PGGM ,MGaunt Diabetes Maternal Grandmother Colon Polyps Maternal Grandmother Diabetes Maternal Grandfather Heart Maternal Grandfather Diabetes Paternal Grandmother Diabetes Paternal Grandfather Emphysema Paternal Grandfather Heart Paternal Grandfather Colon Cancer Maternal Aunt Arthritis Maternal Uncle Social History Tobacco Use Smoking status: Former Packs/day: 0.25 Types: Cigarettes Smokeless tobacco: Never Tobacco comments: Not currently, early on in Vaping Use Vaping Use: Never used Substance Use Topics Alcohol use: Not Currently Comment: not while (more content not included)... Normal [facility] TYPE + SCREEN PRENATALon ABO A Normal [facility] Comment on above: Order Comment: Speci men Type: BLOOD SPECIMEN Ordering Facility: [facility] Address: [address] [place] [address] Performed By: #### T SPN #### [facility] CLIA [id number] [address] [place] [address] STATES OF [facility] HISTORICAL AB SCR STATUS Negative [facility] Comment on above: Order Comment: Speci men Type: BLOOD SPECIMEN Ordering Facility: [facility] Address: [address] [place] [address] Performed By: #### T SPN #### [facility] CLIA [id number] [address] [place] [address] [place] Rh Nom (Bld) Positive Normal [facility] Comment on above: Order Comment: Speci men Type: BLOOD SPECIMEN Ordering Facility: [facility] Address: [address] [place] [address] Performed By: #### T SPN #### [facility] CLIA [id number] [address] TYPE AND SCREEN EXPIRATION 03/27/2023 23:59 Normal [facility] Comment on above: Order Comment: Speci men Type: BLOOD SPECIMEN Ordering Facility: [facility] Address: [address] [place] [id number] Performed By: #### T SPN #### [facility] CLIA [id number] [address] [id number] [facility] URINE OB DIP B/Oon 3 Glucose Ql (U) Negative Neg mg/dL [facility] Protein.monoclonal (U) [Mass/Vol] Negative Neg mg/dL [facility] BIOPHYSICAL PROFILE US WHIon 03-14-2023 [facility] URINE OB DIP B/Oon 3 Glucose Ql (U) Negative Neg mg/dL [facility] Protein.monoclonal (U) [Mass/Vol] Negative Neg mg/dL [facility] CNDSon 03-11-2023 [facility] HNO ID: [id number] Author: Gissel Painting MD Service: Obstetrics Author Type: Resident Type: Discharge Summary Filed: 03/11/2023 11:58 AM Note Text: Attestation signed by Jaswinder Mcgrath MD at 03/11/2023 12:20 PM MFM Attending Addendum: Please see EMR for comprehensive details of management and counseling. Jaswinder Mcgrath MD DISCHARGE SUMMARY OBSTETRICS PATIENT NAME: Adamaris Brice ADMISSION DATE: 03/09/2023 DISCHARGE DATE: 03/11/2023 Attending Physician: Jaswinder Mcgrath MD Code Status: Not on file Treatment Team: Attending Provider: Jaswinder Mcgrath MD Maternal Obstetric Provider: Sabrina Sorensen Reason for Hospitalization: Intrauterine . Principal Problem: Non-reassuring heart rate or rhythm affecting management of mother (POA: Yes) Active Problems: Herpes simplex infection of genitourinary system (POA: Yes) Hx of tobacco use, presenting hazards to health (POA: Yes) Request for sterilization (POA: Yes) 31 weeks gestation of (POA: Yes) Asthma affecting in third trimester (POA: Yes) Lumbar herniated disc (POA: Yes) Hx MRSA infection (POA: Yes) Traumatic injury during in third trimester (POA: Yes) Vaginal bleeding during (POA: Yes) Resolved Problems: * No resolved hospital problems. * PROCEDURES/SURGERY DURING HOSPITALIZATION (if applicable) Hospital Course: 27 year old with a GA of 31w3d admitted for 27 year old female, , who presented at 31w1d as a transfer from [facility]. She was recently admitted to [facility] from 02/28-03/06 in the setting of a Category II tracing following a fall (tripping down three stairs over her cat, landed on bottom without direct abdominal trauma) .She was found to have a Category II tracing given intermittent spontaneous prolonged (1-6 minute decelerations), that was otherwise Category I and reactive initially. She was ruled out for arrhythmia on ultrasound. She had stable placental abruption labs with stable hemoglobin, platelet, and fibrinogen. She received a full betamethasone course for lung maturity. She had a growth ultrasound that demonstrated appropriate interval growth, EFW 29% 3 lb 3oz at 30w0d. She was continued on CEFM where her tracing was noted to have resolution of prolonged decelerations, but intermittent minimal variability. She had daily BPP 8/8 and reassuring testing on one hour of monitoring over the weekend. Her cervix remained unchanged at 0cm. She was discharged home with plans for twice weekly testing. The patient was presumed to have a stable placental abruption at that time. However, she presented to [facility] for decreased movement, vaginal spotting with wiping, and cramping on 03/08. She was noted to have a Category II tracing given decelerations and was admitted to observation overnight. She continued to have intermittent cramping but movement returned to her baseline. Given the Cat II tracing, she was transferred to [facility] on 03/09. She had 24 hours of reassuring continuous monitoring and a BPP 8/8. She was observed for an additional day. She continued to deny vaginal bleeding, abdominal pain, regular contractions, or decreased movement. She will be discharged home with plans for twice weekly testing. Return precautions were reviewed with patient. . Consulting Teams During Hospitalization: None Patient Condition @ Discharge: Good Discharge Disposition: Home/Self Care Information Provided to Patient: Diet Instructions Resume your pre-hospital diet Specific Concerns for Follow-up Post Discharge: Routine care and Presumed Placental Abruption Delivery Plan/Recommendations: 39 weeks or sooner as indicated pending /maternal status Discharge Medications: Medication List CONTINUE taking these medications albuterol HFA 90 mcg/actuation inhaler Commonly known as: VENTOLIN HFA Inhale 2 Puffs as instructed every 4 hours as needed for Wheezing/Shortness of Breath. ALBUTEROL INHALATION dicyclomine 10 mg capsule Commonly known as: BENTYL fluticasone 50 mcg/actuation nasal spray Commonly known as: FLONASE Use 2 Sprays in each nostril once daily. Rinse mouth after use. loratadine 10 mg tablet Commonly known as: CLARITIN Take 1 tablet by mouth once daily as needed. FOR ALLERGY SYMPTOMS omeprazole 20 mg capsule Commonly known as: PriLOSEC Take 1 capsule by mouth once daily. ORAL ALLERGIES Allergen Reactions Cephalosporins Unknown Nsaids (Non-Steroid* GI Upset GI Upset Omnicef [Cefdinir] Hives Red Dye Hives Tessalon [Benzonata* Rash Future Appointments: Follow Up Appointments Follow-Up Appointment Appointments for Next 60 Days Date Time Pr (more content not included)... Normal [facility] BIOPHYSICAL PROFILE US WHIon 03-10-2023 [facility] CBC W Auto Differential pane l (Bld)on 03-09-2023 Basophils (Bld) [#/Vol] 10*3/uL Normal <0.11 [facility] Comment on above: Order Comment: Speci men Type: BLOOD SPECIMEN Ordering Facility: [facility] Address: [address] [address] Performed By: #### 5 7021-8 #### [facility] CLIA [id number] [address] Basophils/100 WBC (Bld) 0.2 % Normal [facility] Comment on above: Order Comment: Speci men Type: BLOOD SPECIMEN Ordering Facility: [facility] Address: [address] [address] Performed By: #### 5 7021-8 #### [facility] CLIA [id number] [address] Differential cell count method Nom (Bld) Auto Normal [facility] Comment on above: Order Comment: Speci men Type: BLOOD SPECIMEN Ordering Facility: [facility] Address: [address] [address] Performed By: #### 5 7021-8 #### [facility] CLIA [id number] [address] [place] Eosinophils (Bld) [#/Vol] 0.07 10*3/uL Normal <0.46 [facility] Comment on above: Order Comment: Speci men Type: BLOOD SPECIMEN Ordering Facility: [facility] Address: [address] [place] [address] Performed By: #### 5 7021-8 #### [facility] CLIA [id number] [address] Eosinophils/100 WBC (Bld) 0.6 % Normal [facility] Comment on above: Order Comment: Speci men Type: BLOOD SPECIMEN Ordering Facility: [facility] Address: [address] [place] [address] Performed By: #### 5 7021-8 #### [facility] CLIA [id number] [address] [place] Erythrocyte distribution width (RBC) [Ratio] 12.9 % Normal 11.5-15.0 [facility] Comment on above: Order Comment: Speci men Type: BLOOD SPECIMEN Ordering Facility: [facility] Address: [address] [address] Performed By: #### 5 7021-8 #### [facility] CLIA [id number] [address] Hematocrit (Bld) [Volume fraction] 34.8 % Low 36.0-46.0 [facility] Comment on above: Order Comment: Speci men Type: BLOOD SPECIMEN Ordering Facility: [facility] Address: [address] [place] [address] Performed By: #### 5 7021-8 #### [facility] CLIA [id number] [address] [place] Hemoglobin (Bld) [Mass/Vol] 11.4 g/dL Low 11.5-15.5 [facility] Comment on above: Order Comment: Speci men Type: BLOOD SPECIMEN Ordering Facility: [facility] Address: [address] [place] [address] Performed By: #### 5 7021-8 #### [facility] CLIA [id number] [address] Immature granulocytes (Bld) [#/Vol] 0.11 10*3/uL High <0.10 [facility] Comment on above: Order Comment: Speci men Type: BLOOD SPECIMEN Ordering Facility: [facility] Address: [address] [place] [address] Performed By: #### 5 7021-8 #### [facility] CLIA [id number] [address] Immature granulocytes/100 WBC (Bld) 1.0 % Normal [facility] Comment on above: Order Comment: Speci men Type: BLOOD SPECIMEN Ordering Facility: [facility] Address: [address] [place] [address] Performed By: #### 5 7021-8 #### [facility] CLIA [id number] [address] Lymphocytes (Bld) [#/Vol] 1.82 10*3/uL Normal 1.00-4.00 [facility] Comment on above: Order Comment: Speci men Type: BLOOD SPECIMEN Ordering Facility: [facility] Address: [address] [address] Performed By: #### 5 7021-8 #### [facility] CLIA [id number] [address] Lymphocytes/100 WBC (Bld) 16.1 % Normal [facility] Comment on above: Order Comment: Speci men Type: BLOOD SPECIMEN Ordering Facility: [facility] Address: [address] [place] [address] Performed By: #### 5 7021-8 #### [facility] CLIA [id number] [address] MCH (RBC) [Entitic mass] 29.0 pg Normal 26.0-34.0 [facility] Comment on above: Order Comment: Speci men Type: BLOOD SPECIMEN Ordering Facility: [facility] Address: [address] [place] [address] Performed By: #### 5 7021-8 #### [facility] CLIA [id number] [address] MCHC (RBC) [Mass/Vol] 32.8 g/dL Normal 30.5-36.0 [facility] Comment on above: Order Comment: Speci men Type: BLOOD SPECIMEN Ordering Facility: [facility] Address: [address] [address] Performed By: #### 5 7021-8 #### [facility] CLIA [id number] [address] MCV (RBC) [Entitic vol] 88.5 fL Normal 80.0-100.0 [facility] Comment on above: Order Comment: Speci men Type: BLOOD SPECIMEN Ordering Facility: [facility] Address: [address] [place] [address] Performed By: #### 5 7021-8 #### [facility] CLIA [id number] [address] [place] Monocytes (Bld) [#/Vol] 0.68 10*3/uL Normal <0.87 [facility] Comment on above: Order Comment: Speci men Type: BLOOD SPECIMEN Ordering Facility: [facility] Address: [address] [place] [address] Performed By: #### 5 7021-8 #### [facility] CLIA [id number] [address] [place] Monocytes/100 WBC (Bld) 6.0 % Normal [facility] Comment on above: Order Comment: Speci men Type: BLOOD SPECIMEN Ordering Facility: [facility] Address: [address] [place] [address] Performed By: #### 5 7021-8 #### [facility] CLIA [id number] [address] [place] Neutrophils (Bld) [#/Vol] 8.59 10*3/uL High 1.45-7.50 [facility] Comment on above: Order Comment: Speci men Type: BLOOD SPECIMEN Ordering Facility: [facility] Address: [address] [place] [address] Performed By: #### 5 7021-8 #### [facility] CLIA [id number] [address] Neutrophils/100 WBC (Bld) 76.1 % Normal [facility] Comment on above: Order Comment: Speci men Type: BLOOD SPECIMEN Ordering Facility: [facility] Address: [address] [place] [address] Performed By: #### 5 7021-8 #### [facility] CLIA [id number] [address] [place] Nucleated RBC (Bld) [#/Vol] 10*3/uL Normal <0.01 [facility] Comment on above: Order Comment: Speci men Type: BLOOD SPECIMEN Ordering Facility: [facility] Address: [address] [address] Performed By: #### 5 7021-8 #### [facility] CLIA [id number] [address] Nucleated RBC/100 WBC (Bld) [Ratio] 0.0 /100 WBC Normal [facility] Comment on above: Order Comment: Speci men Type: BLOOD SPECIMEN Ordering Facility: [facility] Address: [address] [address] Performed By: #### 5 7021-8 #### [facility] CLIA [id number] [address] [place] Platelet mean volume (Bld) [Entitic vol] 10.4 fL Normal 9.0-12.7 [facility] Comment on above: Order Comment: Speci men Type: BLOOD SPECIMEN Ordering Facility: [facility] Address: [address] [place] [address] Performed By: #### 5 7021-8 #### [facility] CLIA [id number] [address] [place] Platelets (Bld) [#/Vol] 185 10*3/uL Normal 150-400 [facility] Comment on above: Order Comment: Speci men Type: BLOOD SPECIMEN Ordering Facility[facility] Address: [address] [place] [address] Performed By: #### 5 7021-8 #### [facility] CLIA [id number] [address] [place] RBC (Bld) [#/Vol] 3.93 10*6/uL Normal 3.90-5.20 [facility] Comment on above: Order Comment: Speci men Type: BLOOD SPECIMEN Ordering Facility: [facility] Address: [address] [place] [address] Performed By: #### 5 7021-8 #### [facility] CLIA [id number] [address] [place] WBC (Bld) [#/Vol] 11.29 10*3/uL High 3.70-11.00 [facility] Comment on above: Order Comment: Speci men Type: BLOOD SPECIMEN Ordering Facility: [facility] Address: [place] [address] Performed By: #### 5 7021-8 #### [facility] CLIA [id number] [address] [phone] [place] HISTORY PHYSICALon HISTORY PHYSICAL HNO ID: [id number] Author: Gissel Painting MD Service: Obstetrics Author Type: Resident Type: HANDP Filed: 03/09/2023 3:09 PM Note Text: Attestation signed by Vinod Brock DO at 03/09/2023 9:51 PM MFM Attending Note I saw and evaluated the patient. I agree with the resident's findings and plan of care as documented below. 27 y/o at 31w1d transported from [place] for further evaluation and management of decreased FM, vaginal bleeding and cat II FHT. Adamaris was previously admitted to [facility] from 02/28-03/06 s/p fall, VB, and decelerations. Reports vaginal spotting and decreased FM since yesterday and was observed overnight in [place]. Denies any recent abdominal trauma or other obsetric complaints. Reports FM since arrival to [facility]. FHT Cat I since arrival. We discussed her clinical presentation and history are concerning for placenta abruption, however given absence of active VB and Cat I FHT, expectant management is advised at this time. She received BMZ x2 02/28- 03/01. Indications for delivery were reviewed. Plan for CEFM at least overnight. Consider US tomorrow. NICU consult complete last admission. All of her questions were answered. Vinod Brock DO, MPH 03/09/2023 MATERNAL MEDICINE HISTORY AND PHYSICAL SERVICE DATE: March 09, 2023 SERVICE TIME: 1:20 PM Subjective Patient's stated reason for arrival: CHIEF COMPLAINT: Transfer from outside hospital for Monitoring HISTORY OF THE PRESENT ILLNESS: The patient is a 27 year old female, , who is at 31w1d with an ANKIT of 05/10/2023, by Ultrasound dating method. Patient is here as a transfer from [facility]. She was recently admitted to [facility] from 02/28-03/06 in the setting of a Category II tracing following a fall (tripping down three stairs over her cat, landed on bottom without direct abdominal trauma) .She was found to have a Category II tracing given intermittent spontaneous prolonged (1-6 minute decelerations), that was otherwise Category I and reactive initially. She was ruled out for arrhythmia on ultrasound. She had stable placental abruption labs with stable hemoglobin, platelet, and fibrinogen. She received a full betamethasone course for lung maturity. She had a growth ultrasound that demonstrated appropriate interval growth, EFW 29% 3 lb 3oz at 30w0d. She was continued on CEFM where her tracing was noted to have resolution of prolonged decelerations, but intermittent minimal variability. She had daily BPP /8 and reassuring testing on one hour of monitoring over the weekend. Her cervix remained unchanged at 0cm. She was discharged home with plans for twice weekly testing given presumed diagnosis of stable placental abruption. She presented to [place] for decreased movement on 03/08 (yesterday). She stated since she had been discharged, she continued to have mild vaginap spotting and some bloody show with wiping at ~6AM 03/08. She then noted decreased movements that day, prompting presentation. She was noted to have a Category II tracing given decelerations and was admitted to observation overnight. She continued to have intermittent cramping but movement returned to approximately her baseline. She otherwise denies heavy vaginal bleeding, leaking fluid, abdominal trauma. . POST DELIVERY CONTRACEPTION: Discussed post-delivery contraception options. Patient received information about post-delivery contraception options. Patient desires permanent sterilization. HISTORY REVIEW PAST MEDICAL HISTORY Diagnosis Date Asthma Environmental allergies fracture growth plate left ankle Herpes genitalis Mental disorder Ulcerative colitis (HCC) Possible Ulcerative Colitis per patient Vertigo 11/2020 PAST SURGICAL HISTORY Procedure Laterality Date INSERT INTRAUTERINE DEVICE 05/27/2021 FAMILY HISTORY Problem Relation Age of Onset Heart Mother Asthma Mother Arthritis Mother Hypertension Mother Stroke Mother Heart Father Stroke Father Seizures Father Psychiatry Father bipolar Seizures Brother Stroke Brother 12 Breast Cancer Maternal Grandmother PGGM ,MGaunt Diabetes Maternal Grandmother Colon Polyps Maternal Grandmother Diabetes Maternal Grandfather Heart Maternal Grandfather Diabetes Paternal Grandmother Diabetes Paternal Grandfather Emphysema Paternal Grandfather Heart Paternal Grandfather Colon Cancer Maternal Aunt Arthritis Maternal Uncle Social History Tobacco Use Smoking status: Former Packs/day: 0.25 Types: Cigarettes Smokeless tobacco: Never Tobacco comments: Not currently, early on in Vaping Use Vaping Use: Never used Substance Use Topics Alcohol use: Not Currently Comment: not while (more content not included)... Normal [facility] TYPE + SCREEN PRENATALon ABO A Normal [facility] Comment on above: Order Comment: Speci men Type: BLOOD SPECIMEN Ordering Facility[facility] Address: [address] [place] [address] Performed By: #### T SPN #### [facility] CLIA [id number] 1 [place] [address] [place] HISTORICAL AB SCR STATUS Negative [facility] Comment on above: Order Comment: Speci men Type: BLOOD SPECIMEN Ordering Facility: [facility] Address: [address] [place] [address] Performed By: #### T SPN #### [facility] CLIA [id number] 1 [place] [address] [place] Rh Nom (Bld) Positive Normal [facility] Comment on above: Order Comment: Speci men Type: BLOOD SPECIMEN Ordering Facility: [facility] Address: [address] [place] [address] Performed By: #### T SPN #### [facility] CLIA [id number] [address] [phone] [facility] [place] TYPE AND SCREEN EXPIRATION 03/12/2023 23:59 Normal [facility] Comment on above: Order Comment: Speci men Type: BLOOD SPECIMEN Ordering Facility: [facility] Address: [place] [address] Performed By: #### T SPN #### [facility] CLIA [id number] [address] [phone] [place] Basophil percentageOrdered B y: Shayla Partida on 03-08-2023 WBC (Bld) [#/Vol] 13.0 10*3/uL 4.4-11.0 [facility] Blood erythrocytes count (nu mber/volume)Ordered By: Shayla Partida on 03-08-2023 RBC (Bld) [#/Vol] 3.62 10*6/uL 4.2-5.4 [facility] Blood hemoglobin measurement (mass/volume)Ordered By: Shayla Partida on 03-08-2023 Hemoglobin (Bld) [Mass/Vol] 10.5 g/dL 12.0-15.0 [facility] Blood platelet mean volumeOr dered By: Shayla Partida on 03-08-2023 Platelet mean volume (Bld) [Entitic vol] 10.4 fL 6.2-12.0 [facility] Determination of erythrocyte mean corpuscular volume (MCV)Ordered By: Shayla Partida on 03-08-2023 MCV (RBC) [Entitic vol] 91.4 fL 81-99 [facility] Hematocrit Auto (Bld) [Volum e fraction]Ordered By: Shayla Partida on 03-08-2023 Hematocrit (Bld) [Volume fraction] 33.1 % 37-47 [facility] INR in Blood by Coagulation assayOrdered By: Shayla Partida on 03-08-2023 INR Coag (Bld) [Relative time] 1.0 {INR} [facility] - CoagulationOrde red By: Shayla Partida on 03-08-2023 aPTT Coag (Bld) [Time] 29.0 s 24.1-36.2 [facility] PT Coag (PPP) [Time] 13.6 s 11.7-14.9 [facility] - Hematology and Cell countsOrdered By: Shayla Partida on 03-08-2023 Erythrocyte distribution width (RBC) [Entitic vol] 42.0 fL 35.1-43.9 [facility] Erythrocyte distribution width (RBC) [Ratio] 12.8 % 11.6-14.6 [facility] MCH (RBC) [Entitic mass] 29.0 pg 27.0-32.0 [facility] MCHC Auto (RBC) [Mass/Vol]Or dered By: Shayla Partida on 03-08-2023 MCHC (RBC) [Mass/Vol] 31.7 g/dL 32-36 [facility] No Panel InformationOrdered By: Shayla Partida on 03-08-2023 Fibrinogen 494 mg/dl 203-444 [facility] Platelets bldOrdered By: Martha Partida on 03-08-2023 Platelets (Bld) [#/Vol] 175 10*3/uL 150-450 [facility] CNCOon 03-06-2023 CNCO Letter Text Normal [facility] CNDSon 03-06-2023 CNDS HNO ID: [id number] Author: Gissel Painting MD Service: Obstetrics Author Type: Resident Type: Discharge Summary Filed: 03/07/2023 6:31 AM Note Text: Attestation signed by Vinod Brock DO at 03/07/2023 9:38 PM MFM Attending Note I saw and evaluated the patient. I agree with the resident's findings and plan of care as documented below. TIME OF CARE: Discharge Management: I personally spent greater than 30 minutes involved in the discharge management of this patient. Vinod Brock DO, MPH 03/07/2023 9:37 PM DISCHARGE SUMMARY OBSTETRICS PATIENT NAME: Adamaris Brice ADMISSION DATE: 02/28/2023 DISCHARGE DATE: 03/06/2023 Attending Physician: No att. providers found Code Status: Not on file Treatment Team: Attending: Amalia Gavin MD Maternal Obstetric Provider: Sabrina Sorensen Reason for Hospitalization: Intrauterine . 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 * PROCEDURES/SURGERY DURING HOSPITALIZATION (if applicable) Hospital Course: 27 year old with a GA of 30w6d admitted for 27yo who was admitted at 29w6d (02/28/23) for a Category II tracing in the setting of a fall. She was found to have a Category II tracing given intermittent spontaneous prolonged (1-6 minute decelerations), that was otherwise Category I and reactive initially. There was initial concern for arrhythmia (eventually believed less likely given gradual onset of decelerations) versus placental abruption. She had stable placental abruption labs with stable hemoglobin, platelet, and fibrinogen. She received a full betamethasone course for lung maturity. She had a growth ultrasound that demonstrated appropriate interval growth, EFW 29% 3 lb 3oz at 30w0d. She was continued on CEFM where her tracing was noted to have resolution of prolonged decelerations, but intermittent minimal variability. She had daily BPP 04/04 and reassuring testing on one hour of monitoring over the weekend. She had one additional BPP on 03/06 that remained /. Her cervix remained unchanged at 0cm. She continued to have rare vaginal spotting with wiping and rare contractions. She was discharged home with plans for twice weekly testing given presumed diagnosis of stable placental abruption. . Consulting Teams During Hospitalization: None Patient Condition @ Discharge: Good Discharge Disposition: Home/Self Care Information Provided to Patient: Diet Instructions Resume your pre-hospital diet Specific Concerns for Follow-up Post Discharge: Routine care Delivery Plan/Recommendations: Term Vaginal Delivery Discharge Medications: Medication List CONTINUE taking these medications albuterol HFA 90 mcg/actuation inhaler Commonly known as: VENTOLIN HFA Inhale 2 Puffs as instructed every 4 hours as needed for Wheezing/Shortness of Breath. ALBUTEROL INHALATION dicyclomine 10 mg capsule Commonly known as: BENTYL fluticasone 50 mcg/actuation nasal spray Commonly known as: FLONASE Use 2 Sprays in each nostril once daily. Rinse mouth after use. loratadine 10 mg tablet Commonly known as: CLARITIN Take 1 tablet by mouth once daily as needed. FOR ALLERGY SYMPTOMS omeprazole 20 mg capsule Commonly known as: PriLOSEC Take 1 capsule by mouth once daily. ORAL ALLERGIES Allergen Reactions Cephalosporins Unknown Nsaids (Non-Steroid* GI Upset GI Upset Omnicef [Cefdinir] Hives Red Dye Hives Tessalon [Benzonata* Rash Future Appointments: Follow Up Appointments Follow-Up Appointment Appointments for Next 60 Days Date Time Provider Location Dept Phone 03/02/2023 10:30 AM [facility] [employer] [facility] [phone] 03/02/2023 11:20 AM SABRINA SORENSEN [phone] 03/28/2023 7:45 AM AMALIA BREEN [phone] With: Provider When: In: Patient/Parents to call for appointment?: Yes Plan of care discussed with: Provider, RN, Patient. SIGNATURE: Gissel Painting MD DATE: March 06, 2023 TIME: 3:17 PM Normal [facility] NURSING PROGon 03-06-2023 NURSING PROG HNO ID: [id number] Author: Jessica Vann RN Service: Nursing Author Type: Registered Nurse Type: Nursing Progress Note Filed: 03/06/2023 5:31 PM Note Text: FHR tracing broken, this RN at bedside to adjust efm. Audible hiccups louder than fhr despite this RN attempt to adjust monitor to maintain continuous tracing. Dr. Chavez aware. Will continue to monitor. Normal [facility] CBC panel Auto (Bld)on 03-04 Erythrocyte distribution width (RBC) [Ratio] 13.0 % Normal 11.5-15.0 [facility] Comment on above: Order Comment: Speci men Type: BLOOD SPECIMEN Order[facility] Facility[facility] Address: [address] [place] [address] Performed By: #### 5 8410-2 #### [facility] CLIA [id number] [address] Hematocrit (Bld) [Volume fraction] 33.9 % Low 36.0-46.0 [facility] Comment on above: Order Comment: Speci men Type: BLOOD SPECIMEN Ordering Facility[facility] Address: [address] [place] [address] Performed By: #### 5 8410-2 #### [facility] CLIA [id number] [address] [place] Hemoglobin (Bld) [Mass/Vol] 11.0 g/dL Low 11.5-15.5 [facility] Comment on above: Order Comment: Speci men Type: BLOOD SPECIMEN Ordering Facility[facility] Address: [address] [place] [address] Performed By: #### 5 8410-2 #### [facility] CLIA [id number] [address] [place] MCH (RBC) [Entitic mass] 29.3 pg Normal 26.0-34.0 [facility] Comment on above: Order Comment: Speci men Type: BLOOD SPECIMEN Order[facility] Facility[facility] Address: [address] [place] [address] Performed By: #### 5 8410-2 #### [facility] CLIA [id number] [address] MCHC (RBC) [Mass/Vol] 32.4 g/dL Normal 30.5-36.0 [facility] Comment on above: Order Comment: Speci men Type: BLOOD SPECIMEN Ordering Facility: [facility] Address: [address] [address] Performed By: #### 5 8410-2 #### [facility] CLIA [id number] [address] MCV (RBC) [Entitic vol] 90.2 fL Normal 80.0-100.0 [facility] Comment on above: Order Comment: Speci men Type: BLOOD SPECIMEN Ordering Facility: [facility] Address: [address] [place] [address] Performed By: #### 5 8410-2 #### [facility] CLIA [id number] [address] Nucleated RBC (Bld) [#/Vol] 10*3/uL Normal <0.01 [facility] Comment on above: Order Comment: Speci men Type: BLOOD SPECIMEN Order[facility] Facility[facility] Address: [address] [place] [address] Performed By: #### 5 8410-2 #### [facility] CLIA [id number] [address] Platelet mean volume (Bld) [Entitic vol] 10.3 fL Normal 9.0-12.7 [facility] Comment on above: Order Comment: Speci men Type: BLOOD SPECIMEN Order[facility] Facility[facility] Address: [address] [address] Performed By: #### 5 8410-2 #### [facility] CLIA [id number] [address] Platelets (Bld) [#/Vol] 169 10*3/uL Normal 150-400 [facility] Comment on above: Order Comment: Speci men Type: BLOOD SPECIMEN Ordering Facility: [facility] Address: [address] [place] [address] Performed By: #### 5 8410-2 #### [facility] CLIA [id number] [address] [place] RBC (Bld) [#/Vol] 3.76 10*6/uL Low 3.90-5.20 [facility] Comment on above: Order Comment: Speci men Type: BLOOD SPECIMEN Order[facility] Facility[facility] Address: [address] [place] [address] Performed By: #### 5 8410-2 #### [facility] CLIA [id number] [address] OF [facility] WBC (Bld) [#/Vol] 12.34 10*3/uL High 3.70-11.00 [facility] Comment on above: Order Comment: Speci men Type: BLOOD SPECIMEN Order[facility] Address: [address] [place] [address] Performed By: #### 5 8410-2 #### [facility] CLIA [id number] [address] Fibrinogen PPP-mCncon 2022 Fibrinogen Coag (PPP) [Mass/Vol] 427 mg/dL High 200-400 [facility] Comment on above: Order Comment: Speci men Type: BLOOD SPECIMEN Order[facility] Address: [address] [place] [address] Performed By: #### 3 255-7 #### [facility] CLIA [id number] [address] TYPE + SCREEN PRENATALon ABO A Normal [facility] Comment on above: Order Comment: Speci men Type: BLOOD SPECIMEN Order[facility] Facility[facility] Address: [address] [place] [address] Performed By: #### T SPN #### [facility] CLIA [id number] [address] HISTORICAL AB SCR STATUS Negative Normal [facility] Comment on above: Order Comment: Speci men Type: BLOOD SPECIMEN Order[facility] Facility[facility] Address: [address] [address] Performed By: #### T SPN #### [facility] CLIA [id number] [address] Rh Nom (Bld) Positive Normal [facility] Comment on above: Order Comment: Speci men Type: BLOOD SPECIMEN Order[facility] Facility[facility] Address: [address] [place] [address] Performed By: #### T SPN #### [facility] CLIA [id number] [address] TYPE AND SCREEN EXPIRATION 03/07/2023 23:59 Normal [facility] Comment on above: Order Comment: Speci men Type: BLOOD SPECIMEN Order[facility] Facility[facility] Address: [address] [place] [address] Performed By: #### T SPN #### [facility] CLIA [id number] [address] OBSTETRIC ULTRASOUND WHIon 0 03-02-2023 [facility] CBC W Auto Differential pane l (Bld)on 03-01-2023 Basophils (Bld) [#/Vol] 10*3/uL Normal <0.11 [facility] Comment on above: Order Comment: Speci men Type: TISSUE SPECIMEN Order[facility] Facility[facility] Address: [address] [place] [address] Performed By: #### S #### [facility] CLIA [id number] [address] Basophils/100 WBC (Bld) 0.1 % Normal [facility] Comment on above: Order Comment: Speci men Type: TISSUE SPECIMEN Ordering Facility[facility] Address: [address] [place] [address] Performed By: #### S #### [facility] CLIA [id number] [address] Differential cell count method Nom (Bld) Auto Normal [facility] Comment on above: Order Comment: Speci men Type: TISSUE SPECIMEN Order[facility] Address: [address] [place] [address] Performed By: #### S #### [facility] CLIA [id number] [address] [place] Eosinophils (Bld) [#/Vol] 10*3/uL Normal <0.46 [facility] Comment on above: Order Comment: Speci men Type: TISSUE SPECIMEN Order[facility] Facility[facility] Address: [address] [place] [address] Performed By: #### S #### [facility] CLIA [id number] [address] Eosinophils/100 WBC (Bld) 0.0 % Normal [facility] Comment on above: Order Comment: Speci men Type: TISSUE SPECIMEN Ordering Facility[facility] Address: [address] [place] [address] Performed By: #### S #### [facility] CLIA [id number] [address] Erythrocyte distribution width (RBC) [Ratio] 13.0 % Normal 11.5-15.0 [facility] Comment on above: Order Comment: Speci men Type: TISSUE SPECIMEN Ordering Facility[facility] Address: [address] [place] [address] Performed By: #### S #### [facility] CLIA [id number] [address] [place] Hematocrit (Bld) [Volume fraction] 34.9 % Low 36.0-46.0 [facility] Comment on above: Order Comment: Speci men Type: TISSUE SPECIMEN Ordering Facility[facility] Address: [address] [place] [address] Performed By: #### S #### [facility] CLIA [id number] [address] [place] Hemoglobin (Bld) [Mass/Vol] 11.3 g/dL Low 11.5-15.5 [facility] Comment on above: Order Comment: Speci men Type: TISSUE SPECIMEN Ordering Facility[facility] Address: [address] [place] [address] Performed By: #### S #### [facility] CLIA [id number] [address] [place] Immature granulocytes (Bld) [#/Vol] 0.14 10*3/uL High <0.10 [facility] Comment on above: Order Comment: Speci men Type: TISSUE SPECIMEN Ordering Facility[facility] Address: [address] [place] [address] Performed By: #### S #### [facility] CLIA [id number] [address] Immature granulocytes/100 WBC (Bld) 1.0 % Normal [facility] Comment on above: Order Comment: Speci men Type: TISSUE SPECIMEN Ordering Facility: [facility] Address: [address] [place] [address] Performed By: #### S #### [facility] CLIA [id number] [address] [place] Lymphocytes (Bld) [#/Vol] 0.98 10*3/uL Low 1.00-4.00 [facility] Comment on above: Order Comment: Speci men Type: TISSUE SPECIMEN Ordering Facility: [facility] Address: [address] [place] [address] Performed By: #### S #### [facility] CLIA [id number] [address] Lymphocytes/100 WBC (Bld) 7.0 % Normal [facility] Comment on above: Order Comment: Speci men Type: TISSUE SPECIMEN Ordering Facility: [facility] Address: [address] [place] [address] Performed By: #### S #### [facility] CLIA [id number] 1 [place] [address] [place] MCH (RBC) [Entitic mass] 29.0 pg Normal 26.0-34.0 [facility] Comment on above: Order Comment: Speci men Type: TISSUE SPECIMEN Ordering Facility: [facility] Address: [address] [place] [address] Performed By: #### S #### [facility] CLIA [id number] [address] MCHC (RBC) [Mass/Vol] 32.4 g/dL Normal 30.5-36.0 [facility] Comment on above: Order Comment: Speci men Type: TISSUE SPECIMEN Ordering Facility: [facility] Address: [address] [place] [address] Performed By: #### S #### [facility] CLIA [id number] [address] MCV (RBC) [Entitic vol] 89.5 fL Normal 80.0-100.0 [facility] Comment on above: Order Comment: Speci men Type: TISSUE SPECIMEN Ordering Facility: [facility] Address: [address] [place] [address] Performed By: #### S #### [facility] CLIA [id number] [address] Monocytes (Bld) [#/Vol] 0.43 10*3/uL Normal <0.87 [facility] Comment on above: Order Comment: Speci men Type: TISSUE SPECIMEN Ordering Facility: [facility] Address: [address] [place] [address] Performed By: #### S #### [facility] CLIA [id number] [address] Monocytes/100 WBC (Bld) 3.1 % Normal [facility] Comment on above: Order Comment: Speci men Type: TISSUE SPECIMEN Ordering Facility: [facility] Address: [address] [place] [address] Performed By: #### S #### [facility] CLIA [id number] [address] [place] [address] [place] Neutrophils (Bld) [#/Vol] 12.37 10*3/uL High 1.45-7.50 [facility] Comment on above: Order Comment: Speci men Type: TISSUE SPECIMEN Ordering Facility: [facility] Address: [address] [place] [address] Performed By: #### S #### [facility] CLIA [id number] [address] Neutrophils/100 WBC (Bld) 88.8 % Normal [facility] Comment on above: Order Comment: Speci men Type: TISSUE SPECIMEN Ordering Facility: [facility] Address: [address] [place] [address] Performed By: #### S #### [facility] CLIA [id number] [address] [place] Nucleated RBC (Bld) [#/Vol] 10*3/uL Normal <0.01 [facility] Comment on above: Order Comment: Speci men Type: TISSUE SPECIMEN Ordering Facility: [facility] Address: [address] [place] [address] Performed By: #### S #### [facility] CLIA [id number] [address] Nucleated RBC/100 WBC (Bld) [Ratio] 0.0 /100 WBC Normal [facility] Comment on above: Order Comment: Speci men Type: TISSUE SPECIMEN Ordering Facility: [facility] Address: [address] [place] [address] Performed By: #### S #### [facility] CLIA [id number] [address] [place] Platelet mean volume (Bld) [Entitic vol] 10.4 fL Normal 9.0-12.7 [facility] Comment on above: Order Comment: Speci men Type: TISSUE SPECIMEN Ordering Facility: [facility] Address: [address] [place] [address] Performed By: #### S #### [facility] CLIA [id number] [address] Platelets (Bld) [#/Vol] 176 10*3/uL Normal 150-400 [facility] Comment on above: Order Comment: Speci men Type: TISSUE SPECIMEN Ordering Facility: [facility] Address: [address] [place] [address] Performed By: #### S #### [facility] CLIA [id number] [address] RBC (Bld) [#/Vol] 3.90 10*6/uL Normal 3.90-5.20 [facility] Comment on above: Order Comment: Speci men Type: TISSUE SPECIMEN Ordering Facility: [facility] Address: [address] [place] [address] Performed By: #### S #### [facility] CLIA [id number] [address] WBC (Bld) [#/Vol] 13.94 10*3/uL High 3.70-11.00 [facility] Comment on above: Order Comment: Speci men Type: TISSUE SPECIMEN Ordering Facility: [facility] Address: [address] [place] [address] Performed By: #### S #### [facility] CLIA [id number] [address] CBC panel Auto (Bld)on 03-01 Erythrocyte distribution width (RBC) [Ratio] 12.9 % Normal 11.5-15.0 [facility] Comment on above: Order Comment: Speci men Type: TISSUE SPECIMEN Ordering Facility: [facility] Address: [address] [place] [address] Performed By: #### S #### [facility] CLIA [id number] [address] Hematocrit (Bld) [Volume fraction] 35.9 % Low 36.0-46.0 [facility] Comment on above: Order Comment: Speci men Type: TISSUE SPECIMEN Ordering Facility: [facility] Address: [address] [place], [place] [id number] Performed By: #### S #### [facility] CLIA [id number] [address] Hemoglobin (Bld) [Mass/Vol] 11.9 g/dL Normal 11.5-15.5 [facility] Comment on above: Order Comment: Speci men Type: TISSUE SPECIMEN Ordering Facility: [facility] Address: [address] [place] [address] Performed By: #### S #### [facility] CLIA [id number] [address] MCH (RBC) [Entitic mass] 29.5 pg Normal 26.0-34.0 [facility] Comment on above: Order Comment: Speci men Type: TISSUE SPECIMEN Ordering Facility: [facility] Address: [address] [address] Performed By: #### S #### [facility] CLIA [id number] [address] [place] [address] MCHC (RBC) [Mass/Vol] 33.1 g/dL Normal 30.5-36.0 [facility] Comment on above: Order Comment: Speci men Type: TISSUE SPECIMEN Ordering Facility: [facility] Address: [address] [place] [address] Performed By: #### S #### [facility] CLIA [id number] [address] [place] [address] MCV (RBC) [Entitic vol] 89.1 fL Normal 80.0-100.0 [facility] Comment on above: Order Comment: Speci men Type: TISSUE SPECIMEN Ordering Facility: [facility] Address: [address] [place] [address] Performed By: #### S #### [facility] CLIA [id number] [address] [place] [address] Nucleated RBC (Bld) [#/Vol] 10*3/uL Normal <0.01 [facility] Comment on above: Order Comment: Speci men Type: TISSUE SPECIMEN Ordering Facility: [facility] Address: [address] [address] Performed By: #### S #### [facility] CLIA [id number] [address] Platelet mean volume (Bld) [Entitic vol] 10.3 fL Normal 9.0-12.7 [facility] Comment on above: Order Comment: Speci men Type: TISSUE SPECIMEN Ordering Facility: [facility] Address: [address] [place] [address] Performed By: #### S #### [facility] CLIA [id number] [address] Platelets (Bld) [#/Vol] 184 10*3/uL Normal 150-400 [facility] Comment on above: Order Comment: Speci men Type: TISSUE SPECIMEN Ordering Facility: [facility] Address: [address] [place] [address] Performed By: #### S #### [facility] CLIA [id number] [address] [place] RBC (Bld) [#/Vol] 4.03 10*6/uL Normal 3.90-5.20 [facility] Comment on above: Order Comment: Speci men Type: TISSUE SPECIMEN Ordering Facility: [facility] Address: [address] [place] [address] Performed By: #### S #### [facility] CLIA [id number] [address] [place] WBC (Bld) [#/Vol] 13.33 10*3/uL High 3.70-11.00 [facility] Comment on above: Order Comment: Speci men Type: TISSUE SPECIMEN Ordering Facility: [facility] Address: [address] [place] [address] Performed By: #### S #### [facility] CLIA [id number] [address] CONSULTon 03-01-2023 CONSULT HNO ID: [id number] Author: Kacey Lara MD Service: Neonatology Author Type: Physician Type: Consults Filed: 03/01/2023 3:13 PM Note Text: NEONATOLOGY CONSULT SERVICE DATE: 03/01/2023 Admission Date: 02/28/2023 SERVICE TIME: 1445 Date of : 1995 Age: [age] year old Sex: female Primary Care Physician: Juan Diego Gaines DO Consulting Service Delivery Management Consultant: Kacey Lara MD Subjective Consultation for this evaluation was requested by Dr. Dietrich. Reason for consultation: 30wks, cat 2 tracing Recommendations will be communicated back to the requesting physician by way of shared medical record or letter. Objective MATERNAL HISTORY: Mother is a 26 year old female, , who is at 30w0d with an ANKIT of 05/10/2023, by Ultrasound dating method. LMP: Patient's last menstrual period was 07/20/2022. Maternal Hospital Problems: ACTIVE PROBLEM LIST Herpes Simplex Infection of Genitourinary System Fh: Muscular Dystrophy Fh: Cystic Fibrosis Hx of Tobacco Use, Presenting Hazards to Health Rubella Immune Status Not Known Low Lying Placenta NOS Or Without Hemorrhage, Second Trimester Request for Sterilization Indication for Care Or Intervention Related to Labor and Delivery Non-Reassuring Heart Rate Or Rhythm Affecting Management of Mother 30 Weeks Gestation of Asthma Affecting in Third Trimester Lumbar Herniated Disc Hx Mrsa Infection Traumatic Injury During in Third Trimester Vaginal Bleeding During Maternal Meds: No current facility-administered medications on file prior to encounter. Current Outpatient Medications on File Prior to Encounter Medication Sig fluticasone (FLONASE) 50 mcg/actuation nasal spray Use 2 Sprays in each nostril once daily. Rinse mouth after use. PNV no.95/ferrous fum/folic ac ( ORAL) Take by mouth. dicyclomine (BENTYL) 10 mg capsule Take 10 mg by mouth before meals and at bedtime. ALBUTEROL INHALATION Albuterol Albuterol Inhaler Active 1 PUFF EVERY 4 HOURS NEEDED April 15, 2019 1:49pm 04-15-2019 [facility] ([id number]) omeprazole (PRILOSEC) 20 mg capsule Take 1 capsule by mouth once daily. albuterol HFA (VENTOLIN HFA) 90 mcg/actuation inhaler Inhale 2 Puffs as instructed every 4 hours as needed for Wheezing/Shortness of Breath. loratadine (CLARITIN) 10 mg tablet Take 1 tablet by mouth once daily as needed. FOR ALLERGY SYMPTOMS Current Facility-Administered Medications Medication Dose Route Frequency acetaminophen 1,000 mg tab(s) (TYLENOL) 1,000 mg ORAL Pre-Op PRN sodium citrate-citric acid 500-334 mg/5 mL 30 mL oral liquid (BICITRA) 30 mL ORAL Pre-Op PRN metoclopramide HCl 10 mg injection (REGLAN) 10 mg INTRAVENOUS Pre-Op PRN tranexamic acid (CYKLOKAPRON) in NaCl 0.7% 1,000 mg 100 mL 1,000 mg INTRAVENOUS Pre-Op PRN NaCl 0.9% iv flush bag 20 mL INTRAVENOUS PRN vitamin with folic acid 1 mg 1 tablet 1 tablet ORAL DAILY azithromycin 500 mg in D5W 250 mL Vial-Bag (ZITHROMAX) 500 mg INTRAVENOUS Pre-Op PRN gentamicin 500 mg in D5W 100 mL 500 mg INTRAVENOUS Pre-Op PRN mometasone 220 mcg/ actuation (14) 1 Puff inhaler (ASMANEX) 1 Puff INHALATION BID metroNIDAZOLE iv piggyback 500 mg in NaCl (iso-osmotic) 100 mL (FLAGYL) 500 mg INTRAVENOUS Pre-Op Once complications: fall, vaginal bleeding, cat 2 tracing/decels The following was discussed with mother and father GENERAL: Neonatology presence and role at delivery: Yes Possible need for resuscitation: Yes DNR status: Discussed with patient/family Yes Need for admission to NICU: Yes Offered tour of NICU: N/A Discharge criteria: Yes, all PO intake, good weight gain, temp stability in open crib, free of apnea of prematurity events Survival odds/morbidity AND mortality: Yes RESPIRATORY Risk of RDS/breathing problems: Yes Possible need for respiratory support: Yes--reviewed supplemental oxygen, CPAP, intubation/surfactant CARDIOVASCULAR Discussed Hypotension, potential medical treatment: Yes Other (e.g. congenital heart disease): Yes NEUROLOGIC Risk of IVH/Neuro developmental delays: Yes Discussed need for evaluation by [employer] for ROP: Yes Discussed risk for hearing deficit: Yes FEN Mother?s Preference: Breast: Yes. Benefits of breast milk: Yes--mom plans to pump and provide BrM if premature delivery, she BrF with her prior child Bottle: N/A Need for supplemental nutrition and/or IVFs: Yes INFECTION Risk factors for infection- congenital and nosocomial: Yes Need to start antibiotics: Yes HEME Possible need for blood transfusion: No. Verbal consent obtained: N/A ACCESS Possible need for UAC/UVC/PICC: Yes. Verbal consent obtained: Yes MISC. Name if [employer], if known: Unknown, please contact patient's primary care physician Possible need for transfer to outside hospital: Yes Possible need for subspecialty evaluation: Yes Additio (more content not included)... Normal [facility] Fibrinogen PPP-mCncon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 35.1-43.9 [facility] Erythrocyte distribution width (RBC) [Ratio] 12.3 % 11.6-14.6 [facility] Immature granulocytes/100 WBC (Bld) 0.200 % 0.0-0.9 [facility] Comment on above: IG% - Immature Granu locytes (promyelocytes, myelocytes and metamyelocytes) > 1% indicates that a LEFT SHIFT is Present. MCH (RBC) [Entitic mass] 30.1 pg 27.0-32.0 [facility] Nucleated RBC/100 WBC (Bld) [Ratio] 0 % 0-5 [facility] MCHC Auto (RBC) [Mass/Vol]Or dered By: Dr. Minaya on 08-26-2022 MCHC (RBC) [Mass/Vol] 32.9 g/dL 32-36 [facility] No Panel InformationOrdered By: Dr. Minaya on 08-26-2022 Estimated Creatinine Clearance Calc 124.82 ml/min [facility] Estimated GFR (MDRD) Amer 149 mL/min >60 [facility] Comment on above: GFR Calc Estimated GFR (MDRD) Non-Af Amer 123 mL/min >60 [facility] Comment on above: Non- GFR Calc Platelets bldOrdered By: Dr. Minaya on 08-26-2022 Platelets (Bld) [#/Vol] 211 10*3/uL 150-450 [facility] Serum or plasma calcium lisbeth urement (mass/volume)Ordered By: Dr. Minaya on 08-26-2022 Calcium [Mass/Vol] 8.7 mg/dL 8.5-10.[address] [facility] Serum or plasma creatinine m easurement (mass/volume)Ordered By: Dr. Minaya on 08-26-2022 Creatinine [Mass/Vol] 0.62 mg/dL 0.55-1.02 [facility] Comment on above: The validity of the calculated GFR & GFRAA in patients over 70 years has not been determined. Clinical correlation is essential. Serum or plasma urea nitroge n measurement (mass/volume)Ordered By: Dr. Minaya on 08-26-2022 Urea nitrogen [Mass/Vol] 15 mg/dL 7-18 [facility] Thin prep Papanicolaou smear with manual screeningOrdered By: Dr. Minaya on 08-26-2022 Thin prep Papanicolaou smear with manual screening 3 - [facility] UA DIP, URINE (POC)on 2021 BILIRUBIN UA (POCT) Negative Negative [facility] CLARITY UA (POCT) Clear [facility] COLOR UA (POCT) Yellow [facility] GLUCOSE UA (POCT) Negative Negative mg/dL [facility] HEMOGLOBIN/BLOOD UA (POCT) Negative Negative [facility] KETONE UA (POCT) Negative Negative mg/dL [facility] LEUKOCYTES UA (POCT) Negative Negative [facility] NITRITE UA (POCT) Negative Negative [facility] PH UA (POCT) 6.0 4.5 - 8.0 [facility] Protein Ql (U) Negative Negative mg/dL [facility] SPECIFIC GRAVITY UA (POCT) 1.025 1.005 - 1.030 [facility] UROBILINOGEN UA (POCT) 0.2 E.U./dL Normal E.U./dL [facility] CT ABD/PEL W IVCONon 022 [facility] NM GASTRIC EMPTYING SOLIDon 02-14-2022 NM GASTRIC EMPTYING SOLID * * *Final Report* * * DATE OF EXAM: Feb 14 2022 12:15PM [facility] 0017 - NM GASTRIC EMPTYING SOLID / PROCEDURE REASON: * * * * Physician Interpretation * * * * RESULT: SOLID MEAL GASTRIC EMPTYING STUDY: CLINICAL HISTORY: Abdominal pain, early satiety To assess for abnormal gastric emptying of a solid meal. TECHNIQUE: 1.2 mCi Tc-99m sulfur colloid was given orally in a meal consisting of 4 oz Egg Beaters, 2 pieces toast, Jelly and 8 oz water, consumed over 5 to 10 minutes. 1-minute posterior and anterior spot images of the stomach region at times 0, 1, 2, and 4 hours RESULT: Solid study demonstrates 78% retention at 1hr, 30% retention at 2hr, and 0% retention at 4hr (normal emptying is 37-90% retention at 1hr, 30-60% retention at 2hr, and 0-10% retention at 4hr). There is no evidence of accelerated emptying of gastric contents, with 78% retention at 1hr (rapid emptying is <30% retention at 1hr). IMPRESSION: EVIDENCE OF NORMAL RATE OF GASTRIC EMPTYING OF SOLID MEAL. Transcribed Using Voice Recognition Transcribe Date/Time: Feb 14 2022 12:24P Dictated by: МАРИЯ KEATING MD This examination was interpreted and the report reviewed and electronically signed by: МАРИЯ KEATING MD on Feb 14 2022 12:25PM EST [id number] Normal [facility] COLONOSCOPY DIAGNOSTICon [facility] EGD DIAGNOSTICon 02-11-2022 [facility] MSCon 12-20-2021 [facility] REPORT Normal [facility] DATE OF SERVICE: HISTORY OF PRESENT ILLNESS: Patient is a 26-year-old female presenting to [facility] today for complaint of sore throat, swollen lymph nodes, and left ear pain, has had some congestion, and a temperature up to 102. Not really having a cough. No nausea, vomiting. PAST MEDICAL HISTORY: Asthma, headaches. ALLERGIES: RED DYE 40, TESSALON PERLES. MEDICATIONS: 1. Dicyclomine. 2. Acyclovir. 3. Albuterol. 4. Claritin. 5. Flovent. 6. control. PHYSICAL EXAMINATION: Blood pressure 125/70. Pulse 85. Respiration rate 16. Temp 99.1. Pulse oximetry 97%. General: Well appearing, non-toxic, in no apparent distress. Cardiovascular: Regular rate and rhythm, no murmurs. Respiratory: Lung sounds clear to auscultation bilaterally. No respiratory distress. HEENT: Bilateral TMs slightly bulging, clear middle ear fluid, non-injected, [facility] PATIENT NAME: ADAMARIS BRICE [address] [place] MEDICAL REC #: [id number] [place] [address] [facility]YSICIAN non-erythematous. Nasal mucosa erythema, edema, clear rhinorrhea. Posterior oropharynx postnasal drip, 2+ to 3+ tonsillar hypertrophy bilaterally, moderately erythematous, mild amount of exudate present. Bilateral anterior cervical lymphadenopathy noted. CLINICAL IMPRESSION: 1. Acute tonsillitis. 2. Lymphadenopathy. PLAN: Discussed [id number] cold and sinus medications, Tylenol, ibuprofen, increased oral hydration. Given a prescription for amoxicillin, take until complete. Agreeable with plan. No other questions or concerns. Anthony Buenrostro CNP /[id number] [facility] File#: [id number] END OF DOCUMENT / CHANGE LOG FOLLOWS [facility] PATIENT NAME: ADAMARIS BRICE Cam [address] MEDICAL REC #: [id number] [place] [address] [facility]IC[facility] Last Edited By [employer]. Signed By Anthony Buenrostro SUPERINTENDENT PRESSURE #MOYCO Anthony Buenrostro CNP #MOYCO on 12/22/2021 08:19 ET on 12/22/2021 08:19 ET Revision Number - 2 Verified/Reviewed by [id number]/22/[id number] [facility] PATIENT NAME: ADAMARIS BRICE [address] MEDICAL REC #: [id number] [place] [address] [facility]IC[facility] Normal [facility] LABORATORYOrdered By: Samina Nelson on 12-14-2021 Albumin BCP dye [Mass/Vol] 3.5 G/dL Invalid Interpretation Code 3.5 - 5.0 G/dL AO ADM SS Albumin/Globulin [Mass ratio] 1.0 {ratio} Invalid Interpretation Code 1.1 - 2.5 ratio AO ADM SS ALP [Catalytic activity/Vol] 84 U/L Invalid Interpretation Code 40 - 135 U/L AO ADM SS ALT With P-5'-P [Catalytic activity/Vol] 31 U/L Invalid Interpretation Code 14 - 59 U/L AO ADM SS Appearance (U) Clear (12/14/21 4:49 PM) Invalid Interpretation Code Clear AO Auto Urine SS AST With P-5'-P [Catalytic activity/Vol] 21 U/L Invalid Interpretation Code 10 - 40 U/L AO ADM SS Bilirubin [Mass/Vol] 0.3 mg/dL Invalid Interpretation Code 0.2 - 1.0 mg/dL AO ADM SS Bilirubin Ql (U) Negative (12/14/21 4:49 PM) Invalid Interpretation Code Negative AO Auto Urine SS Calcium [Mass/Vol] 8.8 mg/dL Invalid Interpretation Code 8.4 - 10.2 mg/dL AO ADM SS Chloride [Moles/Vol] 103 mmol/L Invalid Interpretation Code 98 - 107 mmol/L AO ADM SS CO2 [Moles/Vol] 25 mmol/L Invalid Interpretation Code 22 - 29 mmol/L AO ADM SS Color (U) Yellow (12/14/21 4:49 PM) Invalid Interpretation Code AO Auto Urine SS Creatinine [Mass/Vol] 0.61 mg/dL Invalid Interpretation Code 0.55 - 1.02 mg/dL AO ADM SS Electrolyte Balance 11.0 mEq/L Invalid Interpretation Code 4.0 - 15.0 mEq/L AO ADM SS Globulin 3.6 G/dL Invalid Interpretation Code AO ADM SS Glucose [Mass/Vol] 101 mg/dL Invalid Interpretation Code 70 - 105 mg/dL AO ADM SS Glucose Test strip (U) [Mass/Vol] Negative Invalid Interpretation Code Negativemg /dL AO Auto Urine SS HCG ( test) Ql Negative (12/14/21 4:49 PM) Invalid Interpretation Code AO Manual Urine SS Hemoglobin Auto test strip (U) [Mass/Vol] Negative (12/14/21 4:49 PM) Invalid Interpretation Code Negative AO Auto Urine SS Ketones Ql (U) Negative Invalid Interpretation Code Negativemg /dL AO Auto Urine SS Lipase [Catalytic activity/Vol] 78 U/L Invalid Interpretation Code 73 - 393 U/L AO ADM SS Potassium [Moles/Vol] 4.1 mmol/L Invalid Interpretation Code 3.5 - 5.1 mmol/L AO ADM SS test (u) int Not detected Invalid Interpretation Code AO Manual Urine SS Protein [Mass/Vol] 7.1 G/dL Invalid Interpretation Code 6.4 - 8.2 G/dL AO ADM SS Sodium [Moles/Vol] 139 mmol/L Invalid Interpretation Code 136 - 145 mmol/L AO ADM SS UA Leuk Est Trace *ABN* (12/14/21 4:49 PM) Invalid Interpretation Code Negative AO Auto Urine SS UA Nitrite Negative (12/14/21 4:49 PM) Invalid Interpretation Code Negative AO Auto Urine SS UA pH 8.5 *ABN* (12/14/21 4:49 PM) Invalid Interpretation Code 5.0 - 8.0 AO Auto Urine SS UA Protein Negative Invalid Interpretation Code Negativemg /dL AO Auto Urine SS UA Spec Grav 1.020 (12/14/21 4:49 PM) Invalid Interpretation Code 1.015-1.02 5 AO Auto Urine SS UA Specimen Type Void (12/14/21 4:49 PM) Invalid Interpretation Code AO Auto Urine SS UA Urobilinogen 0.2 E.U./dL Invalid Interpretation Code 0.2-1.0E.U ./dL AO Auto Urine SS Urea nitrogen [Mass/Vol] 13 mg/dL Invalid Interpretation Code 7 - 18 mg/dL AO ADM SS Urea nitrogen/Creatinine [Mass ratio] 21 ratio Invalid Interpretation Code 7 - 27 ratio AO ADM SS LABORATORYOrdered By: Samina Del Toro on 12-14-2021 Basophil, Absolute 0.00 103/mcL Invalid Interpretation Code 0.00 - 0.19 10^3/mcL AO Auto Heme SS Basophils/100 WBC (Bld) 0.2 % Invalid Interpretation Code 0.0 - 2.5 % AO Auto Heme SS Eosinophil, Absolute 0.20 103/mcL Invalid Interpretation Code 0.00 - 0.40 10^3/mcL AO Auto Heme SS Eosinophils/100 WBC (Bld) 2.5 % Invalid Interpretation Code 0.0 - 7.0 % AO Auto Heme SS Erythrocyte distribution width (RBC) [Ratio] 12.8 % Invalid Interpretation Code 11.5 - 14.5 % AO Auto Heme SS Hematocrit (Bld) [Volume fraction] 40.9 % Invalid Interpretation Code 37.0 - 47.0 % AO Auto Heme SS Hemoglobin (Bld) [Mass/Vol] 13.8 G/dL Invalid Interpretation Code 12.0 - 16.0 G/dL AO Auto Heme SS Lymphocyte, Absolute 2.10 103/mcL Invalid Interpretation Code 0.77 - 3.85 10^3/mcL AO Auto Heme SS Lymphocytes/100 WBC (Bld) 24.8 % Invalid Interpretation Code 10.0 - 50.0 % AO Auto Heme SS MCH (RBC) [Entitic mass] 29.5 pg Invalid Interpretation Code 27.0 - 31.2 pg AO Auto Heme SS MCHC (RBC) [Mass/Vol] 33.6 G/dL Invalid Interpretation Code 33.0 - 37.0 G/dL AO Auto Heme SS MCV (RBC) [Entitic vol] 87.8 fL Invalid Interpretation Code 80.0 - 94.0 fL AO Auto Heme SS Monocyte, Absolute 0.60 103/mcL Invalid Interpretation Code 0.15 - 1.00 10^3/mcL AO Auto Heme SS Monocytes/100 WBC (Bld) 6.8 % Invalid Interpretation Code 1.7 - 13.0 % AO Auto Heme SS Neutrophil, Absolute 5.50 103/mcL Invalid Interpretation Code 2.85 - 6.16 10^3/mcL AO Auto Heme SS Neutrophils/100 WBC (Bld) 65.7 % Invalid Interpretation Code 37.0 - 80.0 % AO Auto Heme SS Platelet mean volume (Bld) [Entitic vol] 8.4 fL Invalid Interpretation Code 7.4 - 10.4 fL AO Auto Heme SS Platelets (Bld) [#/Vol] 257 103/mcL Invalid Interpretation Code 130 - 400 10^3/mcL AO Auto Heme SS RBC (Bld) [#/Vol] 4.66 106/mcL Invalid Interpretation Code 4.20 - 5.40 10^6/mcL AO Auto Heme SS UA RBC None Seen /HPF Invalid Interpretation Code None Seen/HPF AO Auto Urine SS UA Squam Epithelial 10-15 /HPF Invalid Interpretation Code None Seen/HPF AO Auto Urine SS WBC (Bld) [#/Vol] 8.40 103/mcL Invalid Interpretation Code 4.60 - 10.80 10^3/mcL AO Auto Heme SS WBC LM.HPF (Urine sed) [#/Area] 0-5 /HPF Invalid Interpretation Code None Seen/HPF AO Auto Urine SS LABORATORYOrdered By: SYSTEM SYSTEM on 12-14-2021 GFR 145 ml/min/1.73sqm Invalid Interpretation Code AO Chemistry S GFR Non- 120 ml/min/1.73sqm Invalid Interpretation Code AO Chemistry S STREP A MOLECULAR (POC)on Procedural Control Valid [facility] Strep A (POCT) Negative Negative [facility] UA DIP, URINE (POC)on 2021 BILIRUBIN UA (POCT) Negative Negative [facility] CLARITY [facility] (POCT) [facility] COLOR UA (POCT) Yellow [facility] GLUCOSE UA (POCT) Negative Negative mg/dL [facility] HEMOGLOBIN/BLOOD UA (POCT) Negative Negative [facility] KETONE UA (POCT) Negative Negative mg/dL [facility] LEUKOCYTES UA (POCT) Negative Negative [facility] NITRITE UA (POCT) Negative Negative [facility] PH UA (POCT) 7.5 4.5 - 8.0 [facility] Protein Ql (U) Negative Negative mg/dL [facility] SPECIFIC GRAVITY UA (POCT) 1.015 1.005 - 1.030 [facility] UROBILINOGEN UA (POCT) 0.2 E.U./dL Normal E.U./dL [facility] LABORATORYOrdered By: Heather Hawk on 11-17-2021 Basophil, Absolute 0.00 103/mcL Invalid Interpretation Code 0.00 - 0.19 10^3/mcL AO Auto Heme SS Basophils/100 WBC (Bld) 0.2 % Invalid Interpretation Code 0.0 - 2.5 % AO Auto Heme SS Eosinophil, Absolute 0.20 103/mcL Invalid Interpretation Code 0.00 - 0.40 10^3/mcL AO Auto Heme SS Eosinophils/100 WBC (Bld) 2.3 % Invalid Interpretation Code 0.0 - 7.0 % AO Auto Heme SS Erythrocyte distribution width (RBC) [Ratio] 13.0 % Invalid Interpretation Code 11.5 - 14.5 % AO Auto Heme SS Hematocrit (Bld) [Volume fraction] 43.2 % Invalid Interpretation Code 37.0 - 47.0 % AO Auto Heme SS Hemoglobin (Bld) [Mass/Vol] 14.2 G/dL Invalid Interpretation Code 12.0 - 16.0 G/dL AO Auto Heme SS Lymphocyte, Absolute 2.20 103/mcL Invalid Interpretation Code 0.77 - 3.85 10^3/mcL AO Auto Heme SS Lymphocytes/100 WBC (Bld) 26.5 % Invalid Interpretation Code 10.0 - 50.0 % AO Auto Heme SS MCH (RBC) [Entitic mass] 29.2 pg Invalid Interpretation Code 27.0 - 31.2 pg AO Auto Heme SS MCHC (RBC) [Mass/Vol] 33.0 G/dL Invalid Interpretation Code 33.0 - 37.0 G/dL AO Auto Heme SS MCV (RBC) [Entitic vol] 88.5 fL Invalid Interpretation Code 80.0 - 94.0 fL AO Auto Heme SS Monocyte, Absolute 0.50 103/mcL Invalid Interpretation Code 0.15 - 1.00 10^3/mcL AO Auto Heme SS Monocytes/100 WBC (Bld) 6.1 % Invalid Interpretation Code 1.7 - 13.0 % AO Auto Heme SS Neutrophil, Absolute 5.30 103/mcL Invalid Interpretation Code 2.85 - 6.16 10^3/mcL AO Auto Heme SS Neutrophils/100 WBC (Bld) 64.9 % Invalid Interpretation Code 37.0 - 80.0 % AO Auto Heme SS Platelet mean volume (Bld) [Entitic vol] 8.5 fL Invalid Interpretation Code 7.4 - 10.4 fL AO Auto Heme SS Platelets (Bld) [#/Vol] 240 103/mcL Invalid Interpretation Code 130 - 400 10^3/mcL AO Auto Heme SS RBC (Bld) [#/Vol] 4.88 106/mcL Invalid Interpretation Code 4.20 - 5.40 10^6/mcL AO Auto Heme SS WBC (Bld) [#/Vol] 8.20 103/mcL Invalid Interpretation Code 4.60 - 10.80 10^3/mcL AO Auto Heme SS LABORATORYOrdered By: Jose Roberto Smiley on 11-17-2021 Calcium [Mass/Vol] 8.9 mg/dL Invalid Interpretation Code 8.4 - 10.2 mg/dL AO ADM SS Chloride [Moles/Vol] 106 mmol/L Invalid Interpretation Code 98 - 107 mmol/L AO ADM SS CO2 [Moles/Vol] 27 mmol/L Invalid Interpretation Code 22 - 29 mmol/L AO ADM SS Creatinine [Mass/Vol] 0.71 mg/dL Invalid Interpretation Code 0.55 - 1.02 mg/dL AO ADM SS Electrolyte Balance 10.0 mEq/L Invalid Interpretation Code 4.0 - 15.0 mEq/L AO ADM SS Fibrin D-dimer DDU (PPP) [Mass/Vol] ng/mL D-DU Invalid Interpretation Code 0 - 230 ng/mL D-DU AO Coag SS Glucose [Mass/Vol] 87 mg/dL Invalid Interpretation Code 70 - 105 mg/dL AO ADM SS Potassium [Moles/Vol] 4.2 mmol/L Invalid Interpretation Code 3.5 - 5.1 mmol/L AO ADM SS Sodium [Moles/Vol] 143 mmol/L Invalid Interpretation Code 136 - 145 mmol/L AO ADM SS Troponin I.cardiac DL <= 0.01 ng/mL [Mass/Vol] ng/L Invalid Interpretation Code 0.0 - 51.4 ng/L AO ADM SS Urea nitrogen [Mass/Vol] 16 mg/dL Invalid Interpretation Code 7 - 18 mg/dL AO ADM SS Urea nitrogen/Creatinine [Mass ratio] 23 ratio Invalid Interpretation Code 7 - 27 ratio AO ADM SS LABORATORYOrdered By: SYSTEM SYSTEM on 11-17-2021 GFR 123 ml/min/1.73sqm Invalid Interpretation Code AO Chemistry S GFR Non- 101 ml/min/1.73sqm Invalid Interpretation Code AO Chemistry S ROUTINE COVIDon 10-21-2021 SARS-CoV-2 (COVID-19) RNA MERLINE+probe Ql (Unsp spec) Negative Normal NEGATIVE [facility] Comment on above: Order Comment: Campu s: MAS Result Comment: Nega tive results do not preclude SARS-CoV-2 infection and should not be used as the sole basis for patient management decisions. Negative results must be combined with clinical observations, patient history, and epidemiological information. This test has been authorized by the FDA under the Emergency Use Authorization (EUA) for use by authorized laboratories. This test was performed by PCR. Performed By: #### L [id number] #### [facility] [address]# [phone] [facility] [place] [facility] REPORT Normal [facility] DATE OF SERVICE: HISTORY OF PRESENT ILLNESS: A 25-year-old female presents today with vomiting, headache, chills. Symptoms started all of a sudden yesterday at 2 in the morning. The patient states she feels absolutely miserable. She has not had any COVID vaccine and she has never had COVID. 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 ALLERGIES: RED DYE NUMBER 40 and TESSALON PERLES. PHYSICAL EXAMINATION: Weight 195.2, blood pressure 128/76, pulse 83, respiratory rate 20, temperature 98, pulse oximetry 100% on room air. This is a 25-year-old female. HEENT: Membranes are inflamed. Pharynx is inflamed. Neck is supple. Heart: Regular rate and rhythm. Lungs are essentially clear to auscultation in anterior posterior you bilaterally. Abdomen: Soft, positive bowel sounds, hyperactive, normal pitch, nondistended, nontender. No organomegaly. No rebound or guarding. Extremities and neurologic were grossly intact. IMPRESSION: Gastric illness. Rule out COVID-19. PLAN: The patient was placed on Zofran 8 mg 1 three times a day as needed for nausea, dispensed 9. Bentyl 20 mg 1 three times a day, dispensed 9. [facility] PATIENT NAME: ADAMARIS BRICE [address] [facility] [address] [place] MEDICAL REC #: [id number] [place] [address] [facility] PHYSICIAN Rest, fluids, finish all medicines, off work until tests are resulted. Off work until Monday, October 24, 2021. We did do a COVID test and that will be forwarded to the lab. Rosanna Quinones DO /[id number] SSI File#: [id number] END OF DOCUMENT / CHANGE LOG FOLLOWS Last Edited By Elec. Signed By Rosanna Quinones Lisa D DO #[email or web address] on 10/29/2021 08:53 ET on 10/29/2021 08:53 ET Revision Number - 2 Verified/Reviewed by 10/29/[address] [facility] PATIENT NAME: ADAMARIS BRICE [address] [place] MEDICAL REC #: [id number] [place] [address] [facility] PHYSICIAN Normal [facility] Randi XR Lumbar spine 3 Viewson IMPRESSION: Scoliotic curvature and mild degenerative change. No acute process. Soft Sugar Cutter: PSCB Transcribe Date/Time: Jun 11 2021 4:02P Dictated by : MENA SUAREZ MD This examination was interpreted and the report reviewed and electronically signed by: MENA SUAREZ MD on Jun 11 2021 4:03PM [facility] DIVISION OF RADIOLOGY * * *Final Report* * * DATE OF EXAM: Jun 11 2021 3:36PM WOX 5228 - XR LUMBAR 3V AP/LAT/L5-S1 / PROCEDURE REASON: DDD (degenerative disc disease), lumbar * * * * Physician Interpretation * * * * EXAMINATION: XR LUMBAR 3V AP/LAT/L5-S1 HISTORY: Chronic lower back pain increasing over the last 2 days without injury. Radiates down the left leg. DDD (degenerative disc disease), lumbar. TECHNIQUE: XR LUMBAR 3V AP/LAT/L5-S1 Laterality: NOT APPLICABLE Number of different views (projections): 3 M: XB_1 COMPARISON: There are no prior relevant examinations available for comparison within the [facility]. RESULT: Counting reference: Lumbosacral junction. For the purposes of this report, L5-S1 is considered the last lumbar-type disc space and L4-5 is considered the level of the iliac crest. 3 Views of the lumbosacral spine with AP, lateral and cone-down radiographs demonstrate scoliotic curvature and multilevel degenerative change with intervertebral disc space narrowing at L4-5 and L5-S1 levels. There is mild hypertrophic facet change at the lower 2 levels. There are no compression fractures and alignment is well maintained. The soft tissues are unremarkable. DIVISION OF RADIOLOGY Provider, Germaine Escalante - 06/11/2021 * * *Final Report* * * DATE OF EXAM: Jun 11 2021 3:36PM WOX 5228 - XR LUMBAR 3V AP/LAT/L5-S1 / PROCEDURE REASON: DDD (degenerative disc disease), lumbar * * * * Physician Interpretation * * * * EXAMINATION: XR LUMBAR 3V AP/LAT/L5-S1 HISTORY: Chronic lower back pain increasing over the last 2 days without injury. Radiates down the left leg. DDD (degenerative disc disease), lumbar. TECHNIQUE: XR LUMBAR 3V AP/LAT/L5-S1 Laterality: NOT APPLICABLE Number of different views (projections): 3 M: XB_1 COMPARISON: There are no prior relevant examinations available for comparison within the [facility]. RESULT: Counting reference: Lumbosacral junction. For the purposes of this report, L5-S1 is considered the last lumbar-type disc space and L4-5 is considered the level of the iliac crest. 3 Views of the lumbosacral spine with AP, lateral and cone-down radiographs demonstrate scoliotic curvature and multilevel degenerative change with intervertebral disc space narrowing at L4-5 and L5-S1 levels. There is mild hypertrophic facet change at the lower 2 levels. There are no compression fractures and alignment is well maintained. The soft tissues are unremarkable. IMPRESSION IMPRESSION: Scoliotic curvature and mild degenerative change. No acute process. Soft Sugar Cutter: PSCB Transcribe Date/Time: Jun 11 2021 4:02P Dictated by : MENA SUAREZ MD This examination was interpreted and the report reviewed and electronically signed by: MENA SUAREZ MD on Jun 11 2021 4:03PM EST [facility] Radiology Study observation (narrative) [facility] XR Lumbar spine 3 ViewsOrder ed By: [facility] Provider on 06-11-2021 [facility] Influenza virus A and B and SARS-CoV-2 (COVID-19) Ag panel - Upper respiratory specim SARS-CoV-2 (COVID-19) RNA MERLINE+probe Ql (Resp) [facility] Work Phone: Vital Signs Date Time Vital Sign Value Performing Clinician Osmanyi chacho 12-06-2024 20:39-0400 Body temperature 98.5 [degF] Dr. Juan Diego Gaines DO Work Phone: [facility] 12-06-2024 20:39-0400 Diastolic blood pressure 83 mm[Hg] Dr. Juan Diego Gaines DO Work Phone: [facility] 12-06-2024 20:39-0400 Heart rate 73 /min Dr. Juan Diego Gaines DO Work Phone: [facility] 12-06-2024 20:39-0400 Respiratory rate 16 /min Dr. Juan Diego Gaines DO Work Phone: 1(070)[phone] [place] [address] 12-06-2024 20:39-0400 SaO2% (BldA) [Mass fraction] 100 % Dr. Juan Diego Gaines DO Work Phone: [facility] 12-06-2024 20:39-0400 Systolic blood pressure 136 mm[Hg] Dr. Juan Diego Gaines DO Work Phone: [phone])[phone] [place] [address] 12-06-2024 18:18-0400 Body height 165.[address] Juan Diego Gaines DO Work Phone: [phone])[phone] [place] [address] 12-06-2024 18:18-0400 Body mass index (BMI) [Ratio] 33.3 kg/m2 Dr. Juan Diego Gaines DO Work Phone: [phone])[phone] [place] [address] 12-06-2024 18:18-0400 Body weight 90.[address] Juan Diego Gaines DO Work Phone: [facility] 11-06-2024 12:36-0400 Body mass index (BMI) [Ratio] 32.72 kg/m2 Diamond Sorensen APRN.SUPERINTENDENT PRESSURE Work Phone: [facility] 11-06-2024 12:36-0400 Body temperature 98.71 [degF] Diamond Sorensen APRN.SUPERINTENDENT PRESSURE Work Phone: [facility] 11-06-2024 12:36-0400 Body weight 89.2 kg Diamond Sorensen APRN.SUPERINTENDENT PRESSURE Work Phone: [facility] 11-06-2024 12:36-0400 Diastolic blood pressure 64 mm[Hg] Diamnod Sorensen APRN.SUPERINTENDENT PRESSURE Work Phone: [facility] 11-06-2024 12:36-0400 Heart rate 96 /min Diamond Sorensen APRN.SUPERINTENDENT PRESSURE Work Phone: [facility] 11-06-2024 12:36-0400 Respiratory rate 18 /min Diamond Sorensen APRN.SUPERINTENDENT PRESSURE Work Phone: [facility] 11-06-2024 12:36-0400 SaO2% (BldA) [Mass fraction] 97 % Diamond Sorensen APRN.SUPERINTENDENT PRESSURE Work Phone: [facility] 11-06-2024 12:36-0400 Systolic blood pressure 112 mm[Hg] Diamond Sorensen APRN.SUPERINTENDENT PRESSURE Work Phone: [facility] 10-03-2024 13:18-0500 Body temperature 97.9 [degF] Dr. Juan Diego Gaines DO Work Phone: [facility] 10-03-2024 13:18-0500 Diastolic blood pressure 65 mm[Hg] Dr. Juan Diego Ganies DO Work Phone: [facility] 10-03-2024 13:18-0500 Heart rate 82 /min Dr. Juan Diego Gaines DO Work Phone: [facility] 10-03-2024 13:18-0500 Respiratory rate 16 /min Dr. Juan Diego Gaines DO Work Phone: [facility] 10-03-2024 13:18-0500 SaO2% (BldA) [Mass fraction] 99 % Dr. Juan Diego Gaines DO Work Phone: [facility] 10-03-2024 13:18-0500 Systolic blood pressure 132 mm[Hg] Dr. Juan Diego Gaines DO Work Phone: [facility] 10-03-2024 09:25-0500 Body mass index (BMI) [Ratio] 31.4 kg/m2 Dr. Juan Diego Gaines DO Work Phone: [facility] 10-03-2024 09:25-0500 Body weight 85.[address] Juan Diego Gaines DO Work Phone: [facility] 09-16-2024 11:41-0500 Body mass index (BMI) [Ratio] 32.86 kg/m2 Agustin Moomaw LEASE PURCHASE DRIVER.SUPERINTENDENT PRESSURE Work Phone: [facility] 09-16-2024 11:41-0500 Body temperature 98.6 [degF] Agustin Moomaw LEASE PURCHASE DRIVER.SUPERINTENDENT PRESSURE Work Phone: [facility] 09-16-2024 11:41-0500 Body weight 89.58 kg Agustin Moomaw LEASE PURCHASE DRIVER.SUPERINTENDENT PRESSURE Work Phone: [facility] 09-16-2024 11:41-0500 Diastolic blood pressure 70 mm[Hg] Agustin Moomaw LEASE PURCHASE DRIVER.SUPERINTENDENT PRESSURE Work Phone: [facility] 09-16-2024 11:41-0500 Heart rate 75 /min Agustin Moomaw LEASE PURCHASE DRIVER.SUPERINTENDENT PRESSURE Work Phone: [facility] 09-16-2024 11:41-0500 Respiratory rate 20 /min Agustin Moomaw LEASE PURCHASE DRIVER.SUPERINTENDENT PRESSURE Work Phone: [facility] 09-16-2024 11:41-0500 SaO2% (BldA) [Mass fraction] 98 % Agustin Moomaw LEASE PURCHASE DRIVER.SUPERINTENDENT PRESSURE Work Phone: [facility] 09-16-2024 11:41-0500 Systolic blood pressure 100 mm[Hg] Agustin Moomaw LEASE PURCHASE DRIVER.SUPERINTENDENT PRESSURE Work Phone: [facility] 07-08-2024 12:35-0500 Body mass index (BMI) [Ratio] 33.24 kg/m2 Diamond Sorensen LEASE PURCHASE DRIVER.SUPERINTENDENT PRESSURE Work Phone: [facility] 07-08-2024 12:35-0500 Body temperature 97.59 [degF] Diamond Sorensen LEASE PURCHASE DRIVER.SUPERINTENDENT PRESSURE Work Phone: [facility] 07-08-2024 12:35-0500 Body weight 90.6 kg Diamond Sorensen LEASE PURCHASE DRIVER.SUPERINTENDENT PRESSURE Work Phone: [facility] 07-08-2024 12:35-0500 Diastolic blood pressure 82 mm[Hg] Diamond Sorensen LEASE PURCHASE DRIVER.SUPERINTENDENT PRESSURE Work Phone: [facility] 07-08-2024 12:35-0500 Heart rate 106 /min Diamond Sorensen LEASE PURCHASE DRIVER.SUPERINTENDENT PRESSURE Work Phone: [facility] 07-08-2024 12:35-0500 Respiratory rate 18 /min Diamond Sorensen LEASE PURCHASE DRIVER.SUPERINTENDENT PRESSURE Work Phone: [facility] 07-08-2024 12:35-0500 SaO2% (BldA) [Mass fraction] 97 % Diamond Sorensen LEASE PURCHASE DRIVER.SUPERINTENDENT PRESSURE Work Phone: [facility] 07-08-2024 12:35-0500 Systolic blood pressure 122 mm[Hg] Diamond Sorensen LEASE PURCHASE DRIVER.SUPERINTENDENT PRESSURE Work Phone: [facility] 05-31-2024 13:35-0400 Body mass index (BMI) [Ratio] 33.82 kg/m2 Amaris Praisler-Wood LEASE PURCHASE DRIVER.SUPERINTENDENT PRESSURE Work Phone: [facility] 05-31-2024 13:35-0400 Body temperature 98.8 [degF] Amaris Praisler-Wood LEASE PURCHASE DRIVER.SUPERINTENDENT PRESSURE Work Phone: [facility] 05-31-2024 13:35-0400 Body weight 92.2 kg Amaris Praisler-Wood LEASE PURCHASE DRIVER.SUPERINTENDENT PRESSURE Work Phone: [facility] 05-31-2024 13:35-0400 Diastolic blood pressure 63 mm[Hg] Amaris Praisler-Wood LEASE PURCHASE DRIVER.SUPERINTENDENT PRESSURE Work Phone: [facility] 05-31-2024 13:35-0400 Heart rate 100 /min Amaris Praisler-Wood LEASE PURCHASE DRIVER.SUPERINTENDENT PRESSURE Work Phone: [facility] 05-31-2024 13:35-0400 Respiratory rate 18 /min Amaris Praisler-Wood LEASE PURCHASE DRIVER.SUPERINTENDENT PRESSURE Work Phone: [facility] 05-31-2024 13:35-0400 SaO2% (BldA) [Mass fraction] 97 % Amaris Praisler-Wood LEASE PURCHASE DRIVER.SUPERINTENDENT PRESSURE Work Phone: [facility] 05-31-2024 13:35-0400 Systolic blood pressure 122 mm[Hg] Amaris Dai APRN.CNP Work Phone: [facility] 05-06-2024 12:35-0400 Diastolic blood pressure 70 mm[Hg] Daisy Hall MD Work Phone: [facility] 05-06-2024 12:35-0400 Heart rate 94 /min Daisy Hall MD Work Phone: [facility] 05-06-2024 12:35-0400 Respiratory rate 16 /min Daisy Hall MD Work Phone: [facility] 05-06-2024 12:35-0400 SaO2% (BldA) [Mass fraction] 99 % Daisy Hall MD Work Phone: [facility] 05-06-2024 12:35-0400 Systolic blood pressure 128 mm[Hg] Daisy Hall MD Work Phone: [facility] 04-29-2024 12:06-0400 Body height 165.1 cm NELL LIAO MD [facility] 04-29-2024 12:06-0400 Body temperature 97.34 [degF] NELL LIAO MD [facility] 04-29-2024 12:06-0400 Body weight 86.4 kg NELL LIAO MD [facility] 04-29-2024 12:06-0400 Diastolic Blood Pressure Non-Invasive 83 mm[Hg] NELL LIAO MD [facility] 04-29-2024 12:06-0400 Heart rate 83 /min NELL LIAO MD [facility] 04-29-2024 12:06-0400 Respiratory rate 18 /min NELL LIAO MD [facility] 04-29-2024 12:06-0400 Systolic Blood Pressure Non-Invasive 131 mm[Hg] NELL LIAO MD [facility] 02-26-2024 18:00-0400 Body mass index (BMI) [Ratio] 35 kg/m2 Amalia Athy PA-C Work Phone: [facility] 02-26-2024 18:00-0400 Body temperature 98.49 [degF] Amalia Athy PA-C Work Phone: [facility] 02-26-2024 18:00-0400 Body weight 95.4 kg Amalia Athy PA-C Work Phone: [facility] 02-26-2024 18:00-0400 Diastolic blood pressure 72 mm[Hg] Amalia Athy PA-C Work Phone: [facility] 02-26-2024 18:00-0400 Heart rate 110 /min Amalia Athy PA-C Work Phone: [facility] 02-26-2024 18:00-0400 Respiratory rate 20 /min Amalia Athy PA-C Work Phone: [facility] 02-26-2024 18:00-0400 SaO2% (BldA) [Mass fraction] 99 % Amalia Athy PA-C Work Phone: [facility] 02-26-2024 18:00-0400 Systolic blood pressure 144 mm[Hg] Amalia Athy PA-C Work Phone: [facility] 01-04-2024 15:36-0400 Body mass index (BMI) [Ratio] 35.11 kg/m2 Sabrina Sorensen MD Work Phone: [facility] 01-04-2024 15:36-0400 Body weight 95.71 kg Sabrina Sorensen MD Work Phone: [facility] 01-04-2024 15:36-0400 Diastolic blood pressure 72 mm[Hg] Sabrina Sorensen MD Work Phone: [facility] 01-04-2024 15:36-0400 Systolic blood pressure 118 mm[Hg] Sabrina Sorensen MD Work Phone: [facility] 07-30-2023 18:10-0500 Body height 165.[address] Juan Diego Gaines Work Phone: [facility] 07-30-2023 18:10-0500 Body mass index (BMI) [Ratio] 35.6 kg/m2 Dr. Juan Diego Gaines Work Phone: [facility] 07-30-2023 18:10-0500 Body temperature 99.2 [degF] Dr. Juan Diego Gaines Work Phone: [facility] 07-30-2023 18:10-0500 Body weight 97.[address] Juan Diego Gaines Work Phone: [phone] [place] [address] 07-30-2023 18:10-0500 Diastolic blood pressure 82 mm[Hg] Dr. Juan Diego Gaines Work Phone: [facility] 07-30-2023 18:10-0500 Heart rate 85 /min Dr. Juan Diego Gaines Work Phone: [facility] 07-30-2023 18:10-0500 Respiratory rate 16 /min Dr. Juan Diego Gaines Work Phone: [facility] 07-30-2023 18:10-0500 SaO2% (BldA) [Mass fraction] 99 % Dr. Juan Diego Gaines Work Phone: [facility] 07-30-2023 18:10-0500 Systolic blood pressure 129 mm[Hg] Dr. Juan Diego Gaines Work Phone: [facility] 06-04-2023 13:52-0400 Body temperature 97.9 [degF] Diamond Sorensen APRN.SUPERINTENDENT PRESSURE Work Phone: [facility] 06-04-2023 13:52-0400 Body weight 97.8 kg Diamond Sorensen APRN.SUPERINTENDENT PRESSURE Work Phone: [facility] 06-04-2023 13:52-0400 Diastolic blood pressure 62 mm[Hg] Diamond Sorensen APRN.SUPERINTENDENT PRESSURE Work Phone: [facility] 06-04-2023 13:52-0400 Heart rate 110 /min Diamond Sorensen APRN.SUPERINTENDENT PRESSURE Work Phone: [facility] 06-04-2023 13:52-0400 Respiratory rate 21 /min Diamond Sorensen APRN.SUPERINTENDENT PRESSURE Work Phone: [facility] 06-04-2023 13:52-0400 SaO2% (BldA) [Mass fraction] 98 % Diamond Sorensen APRN.SUPERINTENDENT PRESSURE Work Phone: [facility] 06-04-2023 13:52-0400 Systolic blood pressure 110 mm[Hg] Diamond Sorensen LEASE PURCHASE DRIVER.SUPERINTENDENT PRESSURE Work Phone: [facility] 05-16-2023 16:21-0400 Body weight 97.43 kg Sabrina Sorensen MD Work Phone: [facility] 05-16-2023 16:21-0400 Diastolic blood pressure 78 mm[Hg] Sabrina Sorensen MD Work Phone: [facility] 05-16-2023 16:21-0400 Systolic blood pressure 120 mm[Hg] Sabrina Sorensen MD Work Phone: [facility] 04-20-2023 14:31-0400 Body weight 94.89 kg Gissel Alba MD Work Phone: [facility] 04-20-2023 14:31-0400 Diastolic blood pressure 60 mm[Hg] Gissel Alba MD Work Phone: [facility] 04-20-2023 14:31-0400 Systolic blood pressure 106 mm[Hg] Gissel Alba MD Work Phone: [facility] 03-24-2023 09:25-0400 Body weight 100.7 kg Nst Wstr Work Phone: [facility] 03-24-2023 09:25-0400 Diastolic blood pressure 72 mm[Hg] Nst Wstr Work Phone: [facility] 03-24-2023 09:25-0400 Systolic blood pressure 111 mm[Hg] Nst Wstr Work Phone: [facility] 03-14-2023 14:30-0400 Body weight 98.88 kg Sabrina Sorensen MD Work Phone: [facility] 03-14-2023 14:30-0400 Diastolic blood pressure 58 mm[Hg] Sabrina Sorensen MD Work Phone: [facility] 03-14-2023 14:30-0400 Systolic blood pressure 112 mm[Hg] Sabrina Sorensen MD Work Phone: [facility] 03-14-2023 14:05-0400 Body height 165.1 cm Noreen Reynolds MD Work Phone: [facility] 03-14-2023 14:05-0400 Body weight 98.88 kg Noreen Reynolds MD Work Phone: [facility] 03-09-2023 12:00-0400 Diastolic blood pressure 60 mm[Hg] [facility] 03-09-2023 12:00-0400 Heart rate 87 /min [facility] 03-09-2023 12:00-0400 Systolic blood pressure 132 mm[Hg] [facility] 03-09-2023 07:26-0400 Body temperature 98.2 [degF] [facility] 03-09-2023 07:26-0400 SaO2% (BldA) [Mass fraction] 100 % [facility] 03-08-2023 15:57-0400 Body height 165.1 cm [facility] 03-08-2023 15:57-0400 Body mass index (BMI) [Ratio] 36.2 kg/m2 [facility] 03-08-2023 15:57-0400 Body weight 98.8 kg [facility] 02-28-2023 07:45-0400 Body temperature 98 [degF] [facility] 02-28-2023 07:45-0400 Diastolic blood pressure 56 mm[Hg] [facility] 02-28-2023 07:45-0400 Heart rate 87 /min [facility] 02-28-2023 07:45-0400 SaO2% (BldA) [Mass fraction] 97 % [facility] 02-28-2023 07:45-0400 Systolic blood pressure 118 mm[Hg] [facility] 02-28-2023 03:00-0400 Respiratory rate 15 /min [facility] 02-28-2023 00:05-0400 Body height 165.1 cm [facility] 02-28-2023 00:05-0400 Body mass index (BMI) [Ratio] 36.1 kg/m2 [facility] 02-28-2023 00:05-0400 Body weight 98.42 kg [facility] 02-08-2023 10:23-0400 Body weight 96.62 kg Christy Maria MD Work Phone: [facility] 02-08-2023 10:23-0400 Diastolic blood pressure 64 mm[Hg] Christy Maria MD Work Phone: [facility] 02-08-2023 10:23-0400 Systolic blood pressure 128 mm[Hg] Christy Maria MD Work Phone: [facility] 01-26-2023 11:29-0400 Body weight 95.39 kg Gissel Alba MD Work Phone: [facility] 01-26-2023 11:29-0400 Diastolic blood pressure 70 mm[Hg] Gissel Alba MD Work Phone: [facility] 01-26-2023 11:29-0400 Systolic blood pressure 128 mm[Hg] Gissel Alba MD Work Phone: [facility] 01-24-2023 21:29-0400 Heart rate 107 /min [facility] 01-24-2023 21:29-0400 SaO2% (BldA) [Mass fraction] 98 % [facility] 01-24-2023 21:15-0400 Body height 165.1 cm [facility] 01-24-2023 21:15-0400 Body mass index (BMI) [Ratio] 35.3 kg/m2 [facility] 01-24-2023 21:15-0400 Body weight 96.25 kg [facility] 01-24-2023 21:10-0400 Diastolic blood pressure 56 mm[Hg] [facility] 01-24-2023 21:10-0400 Systolic blood pressure 112 mm[Hg] [facility] 01-24-2023 21:09-0400 Body temperature 97.1 [degF] [facility] 01-02-2023 17:08-0400 Body temperature 98.29 [degF] Diamond Sorensen APRN.SUPERINTENDENT PRESSURE Work Phone: [facility] 01-02-2023 17:08-0400 Body weight 92.72 kg Diamond Sorensen APRN.SUPERINTENDENT PRESSURE Work Phone: [facility] 01-02-2023 17:08-0400 Diastolic blood pressure 54 mm[Hg] Diamond Sorensen APRN.SUPERINTENDENT PRESSURE Work Phone: [facility] 01-02-2023 17:08-0400 Heart rate 94 /min Diamond Sorensen APRN.SUPERINTENDENT PRESSURE Work Phone: [facility] 01-02-2023 17:08-0400 Respiratory rate 21 /min Diamond Sorensen APRN.SUPERINTENDENT PRESSURE Work Phone: [facility] 01-02-2023 17:08-0400 SaO2% (BldA) [Mass fraction] 100 % Diamond Sorensen APRN.SUPERINTENDENT PRESSURE Work Phone: [facility] 01-02-2023 17:08-0400 Systolic blood pressure 122 mm[Hg] Daimond Sorensen APRN.SUPERINTENDENT PRESSURE Work Phone: [facility] 12-22-2022 14:28-0400 Body weight 91.63 kg Shayla Partida APRN.CNM Work Phone: [facility] 12-22-2022 14:28-0400 Diastolic blood pressure 72 mm[Hg] Shayla Partida APRN.CNM Work Phone: [facility] 12-22-2022 14:28-0400 Systolic blood pressure 120 mm[Hg] Shayla Partida LEASE PURCHASE DRIVER.CNM Work Phone: [facility] 11-24-2022 09:07-0400 Body weight 87.73 kg Sabrina Sorensen MD Work Phone: [facility] 11-24-2022 09:07-0400 Diastolic blood pressure 54 mm[Hg] Sabrina Sorensen MD Work Phone: [facility] 11-24-2022 09:07-0400 Systolic blood pressure 104 mm[Hg] Sabrina Sorensen MD Work Phone: [facility] 10-27-2022 10:20-0500 Body weight 83.01 kg Dayan Reed MD Work Phone: [facility] 10-27-2022 10:20-0500 Diastolic blood pressure 66 mm[Hg] Dayan Reed MD Work Phone: [facility] 10-27-2022 10:20-0500 Systolic blood pressure 118 mm[Hg] Dayan Reed MD Work Phone: [facility] 10-05-2022 10:55-0500 Diastolic blood pressure 52 mm[Hg] [facility] 10-05-2022 10:55-0500 Heart rate 83 /min [facility] 10-05-2022 10:55-0500 SaO2% (BldA) [Mass fraction] 100 % [facility] 10-05-2022 10:55-0500 Systolic blood pressure 109 mm[Hg] [facility] 10-05-2022 07:26-0500 Body height 165.1 cm [facility] 10-05-2022 07:26-0500 Body mass index (BMI) [Ratio] 30.5 kg/m2 [facility] 10-05-2022 07:26-0500 Body temperature 97 [degF] [facility] 10-05-2022 07:26-0500 Body weight 83.23 kg [facility] 10-05-2022 07:26-0500 Respiratory rate 17 /min [facility] 10-01-2022 14:46-0500 Body temperature 98.6 [degF] Blanco Pendlebury LEASE PURCHASE DRIVER.SUPERINTENDENT PRESSURE Work Phone: [facility] 10-01-2022 14:46-0500 Body weight 82.1 kg [facility] LEASE PURCHASE DRIVER.SUPERINTENDENT PRESSURE Work Phone: [facility] 10-01-2022 14:46-0500 Diastolic blood pressure 84 mm[Hg] Blanco Pendlebury LEASE PURCHASE DRIVER.SUPERINTENDENT PRESSURE Work Phone: [facility] 10-01-2022 14:46-0500 Heart rate 90 /min Blanco Pendlebury LEASE PURCHASE DRIVER.SUPERINTENDENT PRESSURE Work Phone: [facility] 10-01-2022 14:46-0500 Respiratory rate 18 /min [facility] LEASE PURCHASE DRIVER.SUPERINTENDENT PRESSURE Work Phone: [facility] 10-01-2022 14:46-0500 SaO2% (BldA) [Mass fraction] 100 % Blanco [facility] LEASE PURCHASE DRIVER.SUPERINTENDENT PRESSURE Work Phone: [facility] 10-01-2022 14:46-0500 Systolic blood pressure 132 mm[Hg] [facility] LEASE PURCHASE DRIVER.SUPERINTENDENT PRESSURE Work Phone: [facility] 09-15-2022 10:35-0500 Body height 165.5 cm Sabrina Sorensen MD Work Phone: [facility] 09-15-2022 10:35-0500 Body weight 80.11 kg Sabrina Sorensen MD Work Phone: [facility] 09-15-2022 10:35-0500 Diastolic blood pressure 72 mm[Hg] Sabrina Sorensen MD Work Phone: [facility] 09-15-2022 10:35-0500 Systolic blood pressure 118 mm[Hg] Sabrina Sorensen MD Work Phone: [facility] 08-26-2022 19:43-0500 Heart rate 86 /min [facility] 08-26-2022 19:43-0500 Respiratory rate 16 /min [facility] 08-26-2022 19:10-0500 Body temperature 98 [degF] [facility] 08-26-2022 19:10-0500 Diastolic blood pressure 69 mm[Hg] [facility] 08-26-2022 19:10-0500 SaO2% (BldA) [Mass fraction] 96 % [facility] 08-26-2022 19:10-0500 Systolic blood pressure 128 mm[Hg] [facility] 08-26-2022 15:02-0500 Body height 165.1 cm [facility] Work Phone: 08-26-2022 15:02-0500 Body mass index (BMI) [Ratio] 29.1 kg/m2 [facility] 08-26-2022 15:02-0500 Body weight 79.37 kg [facility] 08-26-2022 14:16-0500 Body weight 79.38 kg Isis Bailey APRN.SUPERINTENDENT PRESSURE Work Phone: [facility] 08-26-2022 14:16-0500 Diastolic blood pressure 78 mm[Hg] Isis Bailey APRN.SUPERINTENDENT PRESSURE Work Phone: [facility] 08-26-2022 14:16-0500 Heart rate 78 /min Isis Bailey APRN.SUPERINTENDENT PRESSURE Work Phone: [facility] 08-26-2022 14:16-0500 Respiratory rate 20 /min Isis Bailey APRN.SUPERINTENDENT PRESSURE Work Phone: [facility] 08-26-2022 14:16-0500 SaO2% (BldA) [Mass fraction] 98 % Isis Bailey APRN.SUPERINTENDENT PRESSURE Work Phone: [facility] 08-26-2022 14:16-0500 Systolic blood pressure 126 mm[Hg] Isis Bailey LEASE PURCHASE DRIVER.SUPERINTENDENT PRESSURE Work Phone: [facility] 08-01-2022 12:39-0500 Body temperature 98.2 [degF] Amaris Dai LEASE PURCHASE DRIVER.SUPERINTENDENT PRESSURE Work Phone: [facility] 08-01-2022 12:39-0500 Body weight 78.47 kg Amaris Dai LEASE PURCHASE DRIVER.SUPERINTENDENT PRESSURE Work Phone: [facility] 08-01-2022 12:39-0500 Diastolic blood pressure 62 mm[Hg] Amaris Praisler-Wood LEASE PURCHASE DRIVER.SUPERINTENDENT PRESSURE Work Phone: [facility] 08-01-2022 12:39-0500 Heart rate 96 /min Amaris Praisler-Wood LEASE PURCHASE DRIVER.SUPERINTENDENT PRESSURE Work Phone: [facility] 08-01-2022 12:39-0500 Respiratory rate 16 /min Amaris Praisler-Wood LEASE PURCHASE DRIVER.SUPERINTENDENT PRESSURE Work Phone: [facility] 08-01-2022 12:39-0500 SaO2% (BldA) [Mass fraction] 98 % Amaris Praisler-Wood LEASE PURCHASE DRIVER.SUPERINTENDENT PRESSURE Work Phone: [facility] 08-01-2022 12:39-0500 Systolic blood pressure 106 mm[Hg] Amaris Praisler-Wood LEASE PURCHASE DRIVER.SUPERINTENDENT PRESSURE Work Phone: [facility] 05-22-2022 13:35-0400 Body temperature 98.6 [degF] Andrea Todd LEASE PURCHASE DRIVER.SUPERINTENDENT PRESSURE Work Phone: [facility] 05-22-2022 13:35-0400 Body weight 80.74 kg Andrea Todd LEASE PURCHASE DRIVER.SUPERINTENDENT PRESSURE Work Phone: [facility] 05-22-2022 13:35-0400 Diastolic blood pressure 82 mm[Hg] Andrea Todd LEASE PURCHASE DRIVER.SUPERINTENDENT PRESSURE Work Phone: [facility] 05-22-2022 13:35-0400 Heart rate 105 /min Andrea Todd LEASE PURCHASE DRIVER.SUPERINTENDENT PRESSURE Work Phone: [facility] 05-22-2022 13:35-0400 Respiratory rate 21 /min Andrea Todd LEASE PURCHASE DRIVER.SUPERINTENDENT PRESSURE Work Phone: [facility] 05-22-2022 13:35-0400 SaO2% (BldA) [Mass fraction] 98 % Andrea Todd LEASE PURCHASE DRIVER.SUPERINTENDENT PRESSURE Work Phone: [facility] 05-22-2022 13:35-0400 Systolic blood pressure 120 mm[Hg] Andrea Brooks LEASE PURCHASE DRIVER.SUPERINTENDENT PRESSURE Work Phone: [facility] 04-29-2022 09:26-0400 Body weight 80.74 kg Concepcion Yoder LEASE PURCHASE DRIVER.SUPERINTENDENT PRESSURE Work Phone: [facility] 04-29-2022 09:26-0400 Diastolic blood pressure 62 mm[Hg] Concepcion Brightck LEASE PURCHASE DRIVER.SUPERINTENDENT PRESSURE Work Phone: [facility] 04-29-2022 09:26-0400 Heart rate 68 /min Concepcion Kailack LEASE PURCHASE DRIVER.SUPERINTENDENT PRESSURE Work Phone: [facility] 04-29-2022 09:26-0400 Respiratory rate 14 /min Concepcion Yoder LEASE PURCHASE DRIVER.SUPERINTENDENT PRESSURE Work Phone: [facility] 04-29-2022 09:26-0400 Systolic blood pressure 118 mm[Hg] Concepcion Yoder LEASE PURCHASE DRIVER.SUPERINTENDENT PRESSURE Work Phone: [facility] 02-11-2022 15:33-0400 Diastolic blood pressure 74 mm[Hg] Ivory Quiroz MD Work Phone: [facility] 02-11-2022 15:33-0400 Heart rate 78 /min Ivory Quiroz MD Work Phone: [facility] 02-11-2022 15:33-0400 Respiratory rate 17 /min Ivory Quiroz MD Work Phone: [facility] 02-11-2022 15:33-0400 SaO2% (BldA) [Mass fraction] 99 % Ivory Quiroz MD Work Phone: [facility] 02-11-2022 15:33-0400 Systolic blood pressure 122 mm[Hg] Ivory Quiroz MD Work Phone: [facility] 02-11-2022 14:28-0400 Body height 165.1 cm Ivory Quiroz MD Work Phone: [facility] 02-11-2022 14:28-0400 Body temperature 97.9 [degF] Ivory Quiroz MD Work Phone: [facility] 02-11-2022 14:28-0400 Body weight 83.46 kg Ivory Quiroz MD Work Phone: [facility] 01-13-2022 10:06-0400 Body height 165.1 cm Christie Alvarado SUPERINTENDENT PRESSURE Work Phone: [facility] 01-13-2022 10:06-0400 Body weight 85.46 kg Christie Alvarado SUPERINTENDENT PRESSURE Work Phone: [facility] 01-13-2022 10:06-0400 Diastolic blood pressure 83 mm[Hg] Christie Alvarado SUPERINTENDENT PRESSURE Work Phone: [facility] 01-13-2022 10:06-0400 Heart rate 97 /min Christie Alvarado SUPERINTENDENT PRESSURE Work Phone: [facility] 01-13-2022 10:06-0400 Systolic blood pressure 129 mm[Hg] Christie Alvarado SUPERINTENDENT PRESSURE Work Phone: [facility] 12-15-2021 14:53-0400 Body temperature 99.39 [degF] Concepcion Zurawick LEASE PURCHASE DRIVER.SUPERINTENDENT PRESSURE Work Phone: [facility] 12-15-2021 14:53-0400 Body weight 90.17 kg Concepcion Zurcandiceck LEASE PURCHASE DRIVER.SUPERINTENDENT PRESSURE Work Phone: [facility] 12-15-2021 14:53-0400 Diastolic blood pressure 64 mm[Hg] Concepcion Zurawick LEASE PURCHASE DRIVER.SUPERINTENDENT PRESSURE Work Phone: [facility] 12-15-2021 14:53-0400 Heart rate 84 /min Concepcion Zurawick LEASE PURCHASE DRIVER.SUPERINTENDENT PRESSURE Work Phone: [facility] 12-15-2021 14:53-0400 SaO2% (BldA) [Mass fraction] 99 % Concepcion Zurawick LEASE PURCHASE DRIVER.SUPERINTENDENT PRESSURE Work Phone: [facility] 12-15-2021 14:53-0400 Systolic blood pressure 120 mm[Hg] Concepcion Zurawick LEASE PURCHASE DRIVER.SUPERINTENDENT PRESSURE Work Phone: [facility] 12-14-2021 18:27-0400 Diastolic blood pressure 78 mm[Hg] DR KEYSHA ANDREA MD [facility] 12-14-2021 18:27-0400 Heart rate 89 /min DR KEYSHA ANDREA MD [facility] 12-14-2021 18:27-0400 Respiratory rate 20 /min DR KEYSHA ANDREA MD [facility] 12-14-2021 18:27-0400 Systolic blood pressure 120 mm[Hg] DR KEYSHA ANDREA MD [facility] 12-14-2021 16:38-0400 Body height 165.[address] KEYSHA ANDREA MD [facility] 12-14-2021 16:38-0400 Body temperature 98.78 [degF] DR KEYSHA ANDREA MD [facility] 12-14-2021 16:38-0400 Body weight 84.[address] KEYSHA ANDREA MD [facility] 12-14-2021 16:38-0400 Diastolic blood pressure 80 mm[Hg] DR KEYSHA ANDREA MD [facility] 12-14-2021 16:38-0400 Heart rate 110 /min DR KEYSHA ANDREA MD [facility] 12-14-2021 16:38-0400 Respiratory rate 24 /min DR KEYSHA ANDREA MD [facility] 12-14-2021 16:38-0400 Systolic blood pressure 118 mm[Hg] DR KEYSHA ANDREA MD [facility] 12-13-2021 13:07-0400 Body temperature 98.4 [degF] Blanco Pendlebury LEASE PURCHASE DRIVER.SUPERINTENDENT PRESSURE Work Phone: [facility] 12-13-2021 13:07-0400 Body weight 88 kg [facility] LEASE PURCHASE DRIVER.SUPERINTENDENT PRESSURE Work Phone: [facility] 12-13-2021 13:07-0400 Diastolic blood pressure 68 mm[Hg] Blanco Pendlebury LEASE PURCHASE DRIVER.SUPERINTENDENT PRESSURE Work Phone: [facility] 12-13-2021 13:07-0400 Heart rate 93 /min Blanco Pendlebury LEASE PURCHASE DRIVER.SUPERINTENDENT PRESSURE Work Phone: [facility] 12-13-2021 13:07-0400 Respiratory rate 20 /min [facility] LEASE PURCHASE DRIVER.SUPERINTENDENT PRESSURE Work Phone: [facility] 12-13-2021 13:07-0400 SaO2% (BldA) [Mass fraction] 99 % Blanco Pendlebury LEASE PURCHASE DRIVER.SUPERINTENDENT PRESSURE Work Phone: [facility] 12-13-2021 13:07-0400 Systolic blood pressure 102 mm[Hg] Blanco Pendlebury LEASE PURCHASE DRIVER.SUPERINTENDENT PRESSURE Work Phone: [facility] 11-17-2021 18:59-0400 Diastolic blood pressure 64 mm[Hg] JOSE ALFREDO GARRIDO MD [facility] 11-17-2021 18:59-0400 Heart rate 69 /min JOSE ALFREDO GARRIDO MD [facility] 11-17-2021 18:59-0400 Respiratory rate 16 /min JOSE ALFREDO GARRIDO MD [facility] 11-17-2021 18:59-0400 Systolic blood pressure 120 mm[Hg] JOSE ALFREDO GARRIDO MD [facility] 11-17-2021 16:37-0400 Body height 165.1 cm JOSE ALFREDO GARRIDO MD [facility] 11-17-2021 16:37-0400 Body temperature 98.42 [degF] JOSE ALFREDO GARRIDO MD [facility] 11-17-2021 16:37-0400 Body weight 84.1 kg JOSE ALFREDO GARRIDO MD [facility] 11-17-2021 16:37-0400 Diastolic blood pressure 79 mm[Hg] JOSE ALFREDO GARRIDO MD [facility] 11-17-2021 16:37-0400 Heart rate 104 /min JOSE ALFREDO GARRIDO MD [facility] 11-17-2021 16:37-0400 Respiratory rate 16 /min JOSE ALFREDO GARRIDO MD [facility] 11-17-2021 16:37-0400 Systolic blood pressure 111 mm[Hg] JOSE ALFREDO GARRIDO MD [facility] Encounters Encounter Date Encounter Type Care Provider Facility Start: 12-06-2024 End: 12-06-2024 Emergency department patient visit Dr. Juan Diego Gaines DO Work Phone: -Emergency Department Work Phone: Start: 11-06-2024 End: 11-06-2024 Emergency department patient visit JUAN DIEGO GAINES DO Facility:[facility] Start: 11-06-2024 End: 11-06-2024 ambulatory [facility] Facility:[facility] Start: 11-06-2024 End: 11-06-2024 Patient encounter procedure Diamond Sorensen APRN.SUPERINTENDENT PRESSURE Work Phone: [facility] Comment on above: Functional urinary i ncontinence (Primary Dx); Acute midline low back pain with bilateral sciatica Start: 11-05-2024 End: 11-05-2024 Emergency department patient visit ZAFAR [facility] Start: 10-03-2024 End: 10-03-2024 Emergency department patient visit Dr. Mari Pringle DO -Emergency Department Work Phone: Start: 09-16-2024 End: 09-16-2024 ambulatory [facility] Facility:[facility] Start: 09-16-2024 End: 09-16-2024 Patient encounter procedure Agustin Rodríguez APRN.SUPERINTENDENT PRESSURE Work Phone: [facility] Comment on above: Sore throat (Primary Dx) Start: 07-08-2024 End: 07-08-2024 ambulatory [facility] Facility:[facility] Start: 07-08-2024 End: 07-08-2024 Patient encounter procedure Diamond Sorensen APRN.SUPERINTENDENT PRESSURE Work Phone: [facility] Comment on above: Respiratory infectio n (Primary Dx) Start: 06-10-2024 End: 06-10-2024 Telephone encounter Daisy Hall MD Work Phone: [facility] Comment on above: Results Start: 06-04-2024 End: 06-04-2024 [facility] Start: 06-04-2024 End: 06-04-2024 Subsequent hospital visit by physician [facility] (I-Stat/1.5t) Work Phone: Radiology Comment on above: Acute midline low ba ck pain with left-sided sciatica [M54.42] Start: 05-31-2024 End: 05-31-2024 ambulatory [facility] Facility:[facility] Start: 05-31-2024 End: 05-31-2024 Patient encounter procedure Amaris Dai APRN.CNP Work Phone: [facility] Comment on above: Rash (Primary Dx) Start: 05-06-2024 End: 05-06-2024 ambulatory [facility] Facility:[facility] Start: 05-06-2024 End: 05-06-2024 Patient encounter procedure Daisy Hall MD Work Phone: [facility] Comment on above: Acute midline low ba ck pain with left-sided sciatica (Primary Dx); Urinary incontinence, unspecified type Start: 04-29-2024 End: 04-29-2024 Emergency department patient visit JUAN DIEGO GAINES Facility:[facility] Start: 02-26-2024 End: 02-26-2024 Subsequent hospital visit by physician [facility] Work Phone: Radiology Comment on above: Foot injury, left, i nitial encounter [S99.922A] Start: 02-26-2024 End: 02-26-[facility] Start: 02-26-2024 End: 02-26-2024 Patient encounter procedure Amalia Galeana PA-C Work Phone: [facility] Comment on above: Foot injury, left, i nitial encounter (Primary Dx); Toenail avulsion, initial encounter Start: 01-05-2024 ambulatory SABRINA SORENSEN Facility:[facility] Start: 01-05-2024 End: 01-05-2024 Subsequent hospital visit by physician [facility] Work Phone: Radiology Start: 01-04-2024 End: 01-04-2024 ambulatory JUAN DIEGO GAINES Facility:[facility] Start: 01-04-2024 End: 01-04-2024 Patient encounter procedure Sabrina Sorensen MD Work Phone: OB/Gynecology Comment on above: Pelvic pain in femal e (Primary Dx); Urinary frequency; Oligomenorrhea, unspecified type Start: 07-30-2023 End: 07-30-2023 Emergency department patient visit Dr. Juan Diego Gaines Work Phone: [facility]-Emergency Department Work Phone: Start: 07-27-2023 Telephone encounter Christy Maria MD Work Phone: OB/Gynecology Comment on above: Nipple Pain Start: 07-26-[address] Nadir Gaines Work Phone: [facility]-Physical Therapy Work Phone: Start: 07-13-[address] Juan Diego Gaines Work Phone: [facility] Start: 07-13-2023 End: 07-13-[address] Juan Diego Gaines Work Phone: [facility] Work Phone: Start: 06-04-2023 End: 06-04-2023 Patient encounter procedure Diamond Sorensen APRN.CNP Work Phone: [place] [facility] Comment on above: Sore throat (Primary Dx); Strep throat Start: 05-16-2023 End: 05-16-2023 Patient encounter procedure Sabrina Sorensen MD Work Phone: OB/Gynecology Comment on above: care and examination (Primary Dx) Start: 04-22-2023 End: 04-22-2023 Emergency department patient visit JUAN DIEGO GAINES [facility] Start: 04-21-2023 ambulatory Noemy Benites RN NURS E POWER AND RECOVERY SUPERVISOR Comment on above: IV Removal Start: 04-20-2023 End: 04-20-2023 Patient encounter procedure Gissel Alba MD Work Phone: OB/Gynecology Comment on above: state (Pr imary Dx) Start: 03-28-2023 End: 03-28-2023 ambulatory JUAN DIEGO GAINES Facility:[facility] Start: 03-28-2023 End: 03-28-2023 Patient encounter procedure Us Rm1 [employer] Mail Driver Ag Mfm Work Phone: [facility] Maternal Medicine Comment on above: Placental abruption in third trimester (Primary Dx); Maternal care for decelerations during ; Non-reassuring heart rate or rhythm affecting management of mother; 33 weeks gestation of Start: 03-27-2023 End: 03-27-2023 ambulatory JUAN DIEGO GAINES Facility:[facility] Start: 03-27-2023 End: 03-27-2023 Patient encounter procedure Us Rm3 [employer] Ag Mfm Work Phone: [facility] Maternal Medicine Comment on above: Placental abruption in third trimester (Primary Dx); 33 weeks gestation of Start: 03-24-2023 End: 04-01-2023 Evaluation and management of inpatient JUAN DIEGO GAINES Facility:[facility] Start: 03-24-2023 End: 03-24-2023 Patient encounter procedure [employer] [facility] Work Phone: OB/Gynecology Comment on above: Non-reactive NST (no n-stress test) (Primary Dx); 33 weeks gestation of Start: 03-24-2023 End: 03-24-2023 Patient encounter procedure Shayla Partida APRN.CNM Work Phone: OB/Gynecology Comment on above: 33 weeks gestation o f (Primary Dx); Non-reassuring heart rate or rhythm affecting management of mother Start: 03-14-2023 End: 03-14-2023 Patient encounter procedure Sabrina Sorensen MD Work Phone: OB/Gynecology Comment on above: 31 weeks gestation o f (Primary Dx); Encounter for supervision of other normal in third trimester; Non-reassuring heart rate or rhythm affecting management of mother Traumatic injury dur ing in third trimester (Primary Dx); Vaginal bleeding during ; 31 weeks gestation of Start: 03-10-2023 End: 03-10-2023 ambulatory JUAN DIEGO L GAINES Facility[facility] Start: 03-10-2023 End: 03-10-2023 Patient encounter procedure Us Rm3 [employer] Ag Mfm Work Phone: [facility] Maternal Medicine Comment on above: Vaginal bleeding dur ing (Primary Dx); 31 weeks gestation of Start: 03-09-2023 End: 03-11-2023 Evaluation and management of inpatient VINOD BROKC Facility:[facility] Start: 03-08-2023 End: 03-09-2023 ambulatory [facility] Work Phone: Start: 03-08-2023 End: 03-09-2023 Patient encounter procedure [facility] Work Phone: Start: 03-07-2023 Telephone encounter Sabrina lake MD Work Phone: OB/Gynecology Comment on above: Orders Start: 03-06-2023 End: 03-06-2023 ambulatory DESMOND MALSHE Facility:[facility] Start: 03-03-2023 End: 03-03-2023 ambulatory DESMOND MALSHE [facility] Start: 03-02-2023 End: 03-02-2023 ambulatory JUAN DIEGO L GAINES Facility:[facility] Start: 03-02-2023 End: 03-02-2023 Patient encounter procedure Us Rm1 [employer] Ag Mfm Work Phone: [facility] Maternal Medicine Comment on above: 30 weeks gestation o f (Primary Dx) Start: 03-01-2023 End: 03-01-2023 ambulatory JUAN DIEGO L GAINES Facility[facility] Start: 03-01-2023 End: 03-01-2023 Patient encounter procedure Us Rm1 [employer] Ag Mfm Work Phone: [facility] Maternal Medicine Comment on above: Placental abruption in third trimester (Primary Dx); 30 weeks gestation of Start: 02-28-2023 Evaluation and management of inpatient DELISA [place] Facility:[facility] Start: 02-27-2023 End: 02-28-2023 ambulatory [facility] Work Phone: Start: 02-27-2023 End: 02-28-2023 Patient encounter procedure [facility] Work Phone: Start: 02-08-2023 End: 02-08-2023 Patient encounter procedure Christy Maria MD Work Phone: OB/Gynecology Comment on above: Back pain in pregnan cy (Primary Dx); Decreased movements in second trimester, single or unspecified fetus; 27 weeks gestation of Start: 01-26-2023 End: 01-26-2023 Patient encounter procedure Gissel Alba MD Work Phone: OB/Gynecology Comment on above: 25 weeks gestation o f (Primary Dx); Low lying placenta nos or without hemorrhage, second trimester; Bilateral low back pain with sciatica, sciatica laterality unspecified, unspecified chronicity; Pelvic pressure in Start: 01-24-2023 End: 01-24-2023 ambulatory [facility] Work Phone: Start: 01-24-2023 End: 01-24-2023 Patient encounter procedure [facility] Out[facility] Start: 01-09-2023 End: 01-09-2023 Emergency department patient visit JUAN DIEGO Misty [facility] Start: 01-05-2023 ambulatory Sabrina Martin Work Phone: OB/Gynecology Comment on above: Medication request Start: 01-02-2023 End: 01-02-2023 Patient encounter procedure Diamond Sorensen APRN.CNP Work Phone: [facility] Comment on above: Strep throat (Primar y Dx); Mild intermittent asthma, uncomplicated Start: 12-22-2022 End: 12-22-2022 Patient encounter procedure [employer] [facility] Work Phone: OB/Gynecology Comment on above: Encounter for anatomic survey (Primary Dx); care in first trimester; 20 weeks gestation of ; Low-lying placenta 20 weeks gestation o f (Primary Dx) Start: 11-24-2022 End: 11-24-2022 Patient encounter procedure Sabrina Sorensen MD Work Phone: OB/Gynecology Comment on above: Encounter for superv ision of other normal in second trimester (Primary Dx); 16 weeks gestation of Start: 11-07-2022 Telephone encounter Juan Diego ocampo DO Work Phone: [facility] [place] Comment on above: Patient Update Start: 11-03-2022 Telephone encounter Sabrina lake MD Work Phone: OB/Gynecology Comment on above: Breast Pump Order Start: 10-27-2022 End: 10-27-2022 Patient encounter procedure Dayan Reed MD Work Phone: OB/Gynecology Comment on above: care in fir st trimester (Primary Dx); 12 weeks gestation of ; Encounter for screening of mother Start: 10-05-2022 End: 10-05-2022 Emergency department patient visit [facility] Start: 10-01-2022 End: 10-01-2022 Office outpatient visit 15 minutes Blanco Almaguer APRN.CNP Work Phone: [facility] Comment on above: Viral illness (Prima ry Dx) Start: 09-29-2022 End: 09-29-2022 Patient encounter procedure Noreen Reynolds MD Work Phone: Maternal Medicine Comment on above: 8 weeks gestation of Start: 09-28-2022 Telephone encounter Sabrina lake MD Work Phone: OB/Gynecology Comment on above: Orders Start: 09-16-2022 Telephone encounter Dione Stewart Rn) Jacki [facility]IX Obstetrics/Gynecology Comment on above: Resident Care Manager - O ther (PRAF) Start: 09-15-2022 End: 09-15-2022 Patient encounter procedure Sabrina Sorensen MD Work Phone: OB/Gynecology Comment on above: Encounter for screen ing for malignant neoplasm of cervix (Primary Dx); care in first trimester; Herpes simplex infection of genitourinary system; FH: cystic fibrosis; Tobacco use disorder; FH: muscular dystrophy Start: 08-29-2022 End: 08-29-2022 Emergency department patient visit ABDULAZIZ PANTOJA [facility] Start: 08-29-2022 Telephone encounter Juan Diego ocampo DO Work Phone: [facility] [place] Comment on above: Cough; Asthma Start: 08-26-2022 End: 08-26-2022 Emergency department patient visit [facility] Start: 08-26-2022 ambulatory Shira Sarah RN [facility] Start: 08-26-2022 Follow-up encounter Shira Barahona N NURSE POWER AND RECOVERY SUPERVISOR Comment on above: Referral Information (ED follow up visit) Start: 08-26-2022 End: 08-26-2022 Patient encounter procedure Isis Bailey APRN.SUPERINTENDENT PRESSURE Work Phone: [facility] [place] Comment on above: Bacterial pneumonia (Primary Dx); Nausea and vomiting, unspecified vomiting type Start: 08-01-2022 End: 08-01-2022 Patient encounter procedure Amaris Dai APRN.SUPERINTENDENT PRESSURE Work Phone: [facility] Comment on above: Flu-like symptoms (P rimary Dx) Start: 05-22-2022 End: 05-22-2022 Patient encounter procedure Andrea Brooks APRN.SUPERINTENDENT PRESSURE Work Phone: [facility] Comment on above: Unspecified migraine (Primary Dx) Start: 04-29-2022 End: 04-29-2022 Patient encounter procedure Concepcion Yoder APRN.SUPERINTENDENT PRESSURE Work Phone: [facility] [place] Comment on above: Recurrent UTI (urina ry tract infection) (Primary Dx); Pelvic pain; Bronchitis; Allergic reaction, subsequent encounter Start: 04-28-2022 Telephone encounter Juan Diego ocampo DO Work Phone: [facility] [place] Comment on above: Patient Question Start: 04-27-2022 Telephone encounter Juan Diego ocampo DO Work Phone: [facility] [place] Comment on above: Patient Update Start: 03-14-2022 Orders Only Christie barron SUPERINTENDENT PRESSURE Work Phone: Gastroenterology Start: 02-24-2022 End: 02-24-2022 Subsequent hospital visit by physician [facility] Comment on above: Generalized abdomina l pain [R10.84] Start: 02-14-2022 End: 02-14-2022 Subsequent hospital visit by physician [facility] 3 Nuclear Medicine Start: 02-11-2022 End: 02-11-2022 Subsequent hospital visit by physician Ivory Quiroz MD Work Phone: Ambulatory Surgery Comment on above: Nausea and vomiting, unspecified vomiting type [R11.2] Start: 02-09-2022 ambulatory Christie barron SUPERINTENDENT PRESSURE Work Phone: Gastroenterology Comment on above: Question for prescri ption Start: 02-09-2022 Telephone encounter Ivory Quiroz MD Work Phone: Ambulatory Surgery Comment on above: Endo pre call Start: 01-13-2022 ambulatory Christie barron SUPERINTENDENT PRESSURE Work Phone: Gastroenterology Comment on above: Medication Start: 01-13-2022 End: 01-13-2022 Patient encounter procedure Christie Alvarado SUPERINTENDENT PRESSURE Work Phone: Gastroenterology Comment on above: Change in bowel func tion (Primary Dx); LLQ abdominal pain; Nausea and vomiting, unspecified vomiting type; Generalized abdominal pain; Weight loss Start: 01-12-2022 Telephone encounter Christie Alvarado SUPERINTENDENT PRESSURE Work Phone: Gastroenterology Comment on above: Prescreening Start: 01-06-2022 Telephone encounter Juan Diego ocampo DO Work Phone: Family Medicine [place] Comment on above: Short Term Disabilit y Forms Start: 12-22-2021 Refill Juan Diego Guamankirill lashae DO Work Phone: Family Medicine [place] Comment on above: Refill Request Start: 12-21-2021 Telephone encounter Concepcion bloom APRN.SUPERINTENDENT PRESSURE Work Phone: Family [facility] [place] Comment on above: Forms Start: 12-17-2021 Telephone encounter Concepcion musaick LEASE PURCHASE DRIVER.SUPERINTENDENT PRESSURE Work Phone: [facility] [place] Comment on above: Results Start: 12-15-2021 End: 12-15-2021 Patient encounter procedure Concepcion Brightjaylin LEASE PURCHASE DRIVER.SUPERINTENDENT PRESSURE Work Phone: Family Medicine [place] Comment on above: LLQ abdominal pain ( Primary Dx); Pelvic pain; Nausea and vomiting, unspecified vomiting type; Flank pain Start: 12-14-2021 End: 12-14-2021 Emergency department patient visit DR KEYSHA ANDREA [facility] Start: 12-14-2021 Telephone encounter Diamond Sorensen APRN.SUPERINTENDENT PRESSURE Work Phone: [facility] Comment on above: Results Start: 12-13-2021 End: 12-13-2021 Patient encounter procedure Blanco Almaguer LEASE PURCHASE DRIVER.SUPERINTENDENT PRESSURE Work Phone: [facility] Comment on above: Pharyngitis, unspeci fied etiology (Primary Dx); Viral illness; Pelvic pain; Left lower quadrant abdominal pain Start: 11-17-2021 End: 11-17-2021 Emergency department patient visit JOSE ALFREDO GARRIDO MD [facility] Start: 10-20-2021 End: 10-20-2021 Subsequent hospital visit by physician Rosanna Quinones Work Phone: [facility] Comment on above: VOMITING,HEADACHE,CH ILLS Start: 06-11-2021 End: 06-11-2021 Subsequent hospital visit by physician [facility] [place] Work Phone: Radiology Comment on above: DDD (degenerative di sc disease), lumbar [M51.36] Start: 02-25-2021 Telephone encounter Briseida krueger LEASE PURCHASE DRIVER.SUPERINTENDENT PRESSURE Work Phone: Family Medicine [place] Comment on above: Forms (Unemployment paperwork) Start: 07-09-2016 End: 08-08-2016 Patient encounter status Sabrina Sorensen MD Work Phone: [facility] Procedures Date Procedure Procedure Detail Performing Clinician Start: 12-06-2024 CT of abdomen and pelvis without contrast Dr. Juan Diego Gaines DO Work Phone: Start: 10-03-2024 Plain x-ray of pelvis and lower extremity Dr. Juan Diego Gaines DO Work Phone: Start: 10-03-2024 X-ray of lumbosacral spine Dr. Juan Diego russo DO Work Phone: Start: 09-16-2024 STREP A MOLECULAR (POC) Amaris otero APRN.SUPERINTENDENT PRESSURE Work Phone: Start: 06-04-2024 Mri spinal canal lumbar w/o contrast material Daisy Hall MD Work Phone: Start: 02-26-2024 Radex foot complete minimum 3 views Amalia Galeana PA-C Work Phone: Start: 01-04-2024 UA DIP,URINE HCG (POC) Sabrina Sorensen MD Work Phone: Start: 01-04-2024 Urnls dip stick/tablet rgnt auto w/o microscopy Sabrina Sorensen MD Work Phone: Start: 07-30-2023 SARS-CoV-2 & FLU Antigen (Rapid) Dr. Isidro Gaines Work Phone: Start: 06-04-2023 STREP A MOLECULAR (POC) Diamond Sorensen APRN.SUPERINTENDENT PRESSURE Work Phone: Start: 03-28-2023 biophysical profile non-stress testing Freya Aguillon DO Work Phone: Start: 03-27-2023 Us preg uterus after 1st trimest 08/28 gestation Gissel Painting MD Work Phone: Start: 03-27-2023 Antibody screen JUAN DIEGO GAINES Comment on above: Order Comment: Specimen Type: BLOOD SPEC IMEN Ordering Facility: [facility] Address: [address] [place] [id number] Performed By: #### T SPN #### [facility] CLIA [id number] [address] Start: 03-24-2023 Antibody screen JUAN DIEGO GAINES Comment on above: Order Comment: Specimen Type: BLOOD SPEC IMEN Ordering Facility: [facility] Address: [address] [place] [address] Performed By: #### T SPN #### [facility] CLIA [id number] [address] Start: 03-24-2023 biophysical profile non-stress testing Sabrina Sorensen MD Work Phone: Start: 03-24-2023 URINE OB DIP B/O Shayla Partida APRN.CNM Work Phone: Start: 03-14-2023 URINE OB DIP B/O Sabrina Sorensen MD Work Phone: Start: 03-14-2023 biophysical profile non-stress testing Sabrina Sorensen MD Work Phone: Start: 03-10-2023 biophysical profile non-stress testing Sabrina Sorensen MD Work Phone: Start: 03-09-2023 Antibody screen JUAN DIEGO GAINES Comment on above: Order Comment: Specimen Type: BLOOD SPEC IMEN Ordering Facility: [facility] Address: [address] [place] [address] Performed By: #### T SPN #### [facility] CLIA [id number] [address] Start: 03-04-2023 Antibody screen JUAN DIEGO GAINES Comment on above: Order Comment: Specimen Type: BLOOD SPEC IMEN Ordering Facility: [facility] Address: [address] [place] [address] Performed By: #### T SPN #### [facility] CLIA [id number] [address] Start: 03-02-2023 Us preg uterus after 1st trimest 08/28 gestation Gissel Painting MD Work Phone: Start: 03-01-2023 Us preg uterus after 1st trimest 08/28 gestation Gissel Painting MD Work Phone: Start: 02-28-2023 Antibody screen JUAN DIEGO GAINES Comment on above: Order Comment: Specimen Type: BLOOD SPEC IMEN Ordering Facility: [facility] Address: [address] [place], [place] [id number] Performed By: #### T SPN #### [facility] CLIA [id number] 1 [place] [address] [facility] Start: 02-08-2023 Urnls dip stick/tablet rgnt auto w/o microscopy Christy Maria MD Work Phone: Start: 01-26-2023 URINE OB DIP B/O Gissel Alba MD Work Phone: Start: 01-24-2023 Urine culture Start: 01-02-2023 STREP A MOLECULAR (POC) Diamond Sorensen LEASE PURCHASE DRIVER.SUPERINTENDENT PRESSURE Work Phone: Start: 12-22-2022 URINE OB DIP B/O Shayla Partida LEASE PURCHASE DRIVERMerlynCNM Work Phone: Start: 12-22-2022 Us preg uterus after 1st trimest 08/28 gestation Dayan Reed MD Work Phone: Start: 11-24-2022 URINE OB DIP B/O Sabrina Sorensen MD Work Phone: Start: 10-27-2022 URINE OB DIP B/O Dayan Reed MD Work Phone: Start: 10-05-2022 Transvaginal obstetric ultrasonography Start: 09-29-2022 Us preg uterus after 1st trimest 08/28 gestation Christy Maria MD Work Phone: Start: 08-26-2022 Plain chest X-ray Start: 04-29-2022 Urnls dip stick/tablet rgnt auto w/o microscopy Concepcion Yoder LEASE PURCHASE DRIVER.SUPERINTENDENT PRESSURE Work Phone: Start: 02-24-2022 Ct abdomen & pelvis w/contrast material Christie Alvarado SUPERINTENDENT PRESSURE Work Phone: Start: 02-14-2022 Gastric emptying imaging study Christie Alvarado SUPERINTENDENT PRESSURE Work Phone: Start: 02-11-2022 Esophagogastroduodenoscopy transoral diagnostic Christie Alvarado SUPERINTENDENT PRESSURE Work Phone: Start: 02-11-2022 Colonoscopy flx dx w/collj spec when pfrmd Christie Alvarado SUPERINTENDENT PRESSURE Work Phone: Start: 12-15-2021 Adult depression screening assessment Concepcion Yoder LEASE PURCHASE DRIVER.SUPERINTENDENT PRESSURE Work Phone: Start: 12-13-2021 Urnls dip stick/tablet rgnt auto w/o microscopy Blanco Almaguer LEASE PURCHASE DRIVER.SUPERINTENDENT PRESSURE Work Phone: Start: 12-13-2021 STREP A MOLECULAR (POC) Blanco callaway LEASE PURCHASE DRIVER.SUPERINTENDENT PRESSURE Work Phone: Start: 06-11-2021 Radex spine lumbosacral 2/3 views Sanjuana Mederos MD Work Phone: Start: 07-08-2016 Adult depression screening assessment Rosanna Quinones Work Phone: SARS-CoV-2 & FLU Antigen (Rapid) SARS-CoV-2 & FLU Antigen (Rapid) SARS-CoV-2 & FLU Antigen (Rapid) Plan of Treatment Date Care Activity Detail Author Start: 02-16-2033 Urine microalbumin profile [facility] Start: 04-06-2026 Urine microalbumin profile DTAP,TDAP,TD (2 - Td or Tdap) [facility] Start: 09-15-2025 PAP TESTING PAP TESTING [facility] Start: 09-15-2025 Screening for malignant neoplasm of cervix [facility] Start: 12-06-2024 [facility] Start: 10-03-2024 [facility] Start: 06-04-2024 End: 06-04-2024 Patient encounter procedure 06/04/2024 3:00 PM EDT Appointment Radiology [address] [place] [address] Acute midline low back pain with left-sided sciatica [M54.42] Radiology Comment on above: Acute midline low back pain with left-si ded sciatica [M54.42] Start: 04-28-2024 Covid-19 Vaccine ( season) Covid-19 Vaccine () [facility] Start: 04-28-2024 Covid-19 Vaccine () Covid-19 Vaccine () [facility] Start: 04-28-2024 Influenza vaccination [facility] Start: 01-05-2024 End: 01-05-2024 Patient encounter procedure 01/05/2024 4:30 PM EDT Appointment Radiology [address] [place] [address] US FEMALE PELVIS TRANSABD LTD Radiology Comment on above: US FEMALE PELVIS TRANSABD LTD Start: 08-28-2023 Behavioral Health Screening Behavioral Health Screening [facility] Start: 08-26-2023 ANNUAL PCP TEAM CHRONIC DISEASE VISIT ANNUAL PCP TEAM CHRONIC DISEASE VISIT [facility] Start: 07-30-2023 End: 07-30-2023 [facility] Start: 07-30-2023 [facility] Start: 04-28-2023 Covid-19 Vaccine ( season) Covid-19 Vaccine ( season) [facility] Start: 04-28-2023 Influenza vaccination [facility] Start: 03-09-2023 Patient discharge [facility] Start: 03-08-2023 Catheterization of vein [facility] Start: 03-08-2023 Nonstress test [facility] Start: 03-08-2023 Obstetric monitoring [facility] Start: 03-08-2023 Vital signs measurements [facility] Start: 03-08-2023 [facility] Start: 02-28-2023 External monitor surveillance [facility] Start: 02-28-2023 Ultrasonography for biophysical profile without non-stress testing Biophysical Prof W/O Non Stres [facility] Start: 02-28-2023 Ultrasound scan for growth OB Limited With Biometrics [facility] Start: 02-28-2023 End: 02-28-2023 [facility] Start: 02-28-2023 Patient discharge [facility] Start: 02-27-2023 Nonstress test [facility] Start: 02-27-2023 Obstetric monitoring [facility] Start: 02-27-2023 Vital signs measurements [facility] Start: 02-27-2023 [facility] Start: 02-27-2023 Iv infusion hydration initial 31 min-1 hour HYDRATION IV INFUSION INIT [facility] Start: 01-24-2023 End: 01-24-2023 [facility] Start: 01-24-2023 Nonstress test [facility] Start: 01-24-2023 Obstetric monitoring [facility] Start: 01-24-2023 Vital signs measurements [facility] Start: 01-24-2023 Patient discharge [facility] Start: 12-22-2022 End: 12-23-2023 OBSTETRIC ULTRASOUND WHI OBSTETRIC ULTRASOUND [facility] Anc Imaging Routine 20 weeks gestation of Expected: 12/22/2022, Expires: 12/23/2023 [facility] Work Phone: Comment on above: Expected: 12/22/2022, Expires: Start: 12-15-2022 Adult depression screening assessment DEPRESSION SCREENING [facility] Start: 12-15-2022 ONE PNEUMOVAX PRIOR TO AGE 65 ONE PNEUMOVAX PRIOR TO AGE 65 [facility] Comment on above: Postponed from 11/29/2015 (Declined at t his time) Start: 12-15-2022 PNEUMOCOCCAL (1 - PCV) PNEUMOCOCCAL (1 - PCV) [facility] Comment on above: Postponed from 2002 (Declined at t his time) Start: 11-24-2022 End: 01-24-2023 ALPHA FETOPRO MATERNAL [facility] Work Phone: Comment on above: Expected: 11/24/2022, Expires: 3 Start: 10-27-2022 End: 12-27-2022 Chromosome 21 trisomy [Presence] in Blood or Tissue by Cytogenetics [facility] Work Phone: Comment on above: Expected: 10/27/2022, Expires: 3 Start: 10-27-2022 End: 10-28-2023 OBSTETRIC ULTRASOUND [facility]I OBSTETRIC ULTRASOUND [facility] Anc Imaging Routine care in first trimester 12 weeks gestation of Expected: 10/27/2022, Expires: 10/28/2023 [facility] Work Phone: Comment on above: Expected: 10/27/2022, Expires: 4 Start: 10-01-2022 End: 10-15-2022 Influenza virus A and B RNA and SARS-CoV-2 (COVID-19) N gene panel - Respiratory specimen by MERLINE with probe detection COVID WITH FLUA+B, ROUTINE Microbiology Routine Viral illness Expected: 10/01/2022, Expires: 10/15/2022 [facility] Work Phone: Comment on above: Expected: 10/01/2022, Expires: 3 Start: 09-28-2022 End: 09-28-2023 OBSTETRIC ULTRASOUND WHI OBSTETRIC ULTRASOUND [facility] Anc Imaging Routine 8 weeks gestation of Expected: 09/28/2022, Expires: 09/28/2023 [facility] Work Phone: Comment on above: Expected: 09/28/2022, Expires: 4 Start: 09-15-2022 End: 11-15-2022 CBC panel - Blood by Automated count CBC Lab Routine care in first trimester Expected: 09/15/2022, Expires: 11/15/2022 [facility] Work Phone: Comment on above: Expected: 09/15/2022, Expires: 3 Start: 09-15-2022 End: 11-15-2022 Hepatitis B virus surface Ag [Presence] in Serum HEP B SURF AG SCRN Lab Routine care in first trimester Expected: 09/15/2022, Expires: 11/15/2022 [facility] Work Phone: Comment on above: Expected: 09/15/2022, Expires: 3 Start: 09-15-2022 End: 11-15-2022 Hepatitis C virus Ab [Presence] in Serum HEP C AB IA W/CONF SCRN Lab Routine care in first trimester Expected: 09/15/2022, Expires: 11/15/2022 [facility] Work Phone: Comment on above: Expected: 09/15/2022, Expires: 3 Start: 09-15-2022 End: 11-15-2022 HIV 1+2 Ab [Presence] in Serum or Plasma by Immunoassay HIV 1 2 COMBO(AG/AB),WITH REFLEX TO DIFFERENTIATION Lab Routine care in first trimester Expected: 09/15/2022, Expires: 11/15/2022 [facility] Work Phone: Comment on above: Expected: 09/15/2022, Expires: 3 Start: 09-15-2022 End: 11-15-2022 RUBELLA IGG AB RUBELLA IGG AB Lab Routine care in first trimester Expected: 09/15/2022, Expires: 11/15/2022 [facility] Work Phone: Comment on above: Expected: 09/15/2022, Expires: 3 Start: 09-15-2022 End: 11-15-2022 SYPHILIS TOTAL W/REFLEX SYPHILIS TOTAL W/REFLEX Lab Routine care in first trimester Expected: 09/15/2022, Expires: 11/15/2022 [facility] Work Phone: Comment on above: Expected: 09/15/2022, Expires: 3 Start: 09-15-2022 End: 11-15-2022 TYPE + SCREEN TYPE + SCREEN Blood Bank Routine care in first trimester Expected: 09/15/2022, Expires: 11/15/2022 [facility] Work Phone: Comment on above: Expected: 09/15/2022, Expires: 3 Start: 08-28-2022 DEPRESSION ASSESSMENT DEPRESSION ASSESSMENT [facility] Start: 08-01-2022 End: 08-15-2022 Influenza virus A and B RNA and SARS-CoV-2 (COVID-19) N gene panel - Respiratory specimen by MERLINE with probe detection COVID WITH FLUA+B, ROUTINE Microbiology Routine Flu-like symptoms Expected: 08/01/2022, Expires: 08/15/2022 [facility] Work Phone: Comment on above: Expected: 08/01/2022, Expires: 2 Start: 04-28-2022 Influenza vaccination [facility] Start: 04-18-2022 PAP TESTING PAP TESTING [facility] Start: 12-15-2021 End: 02-14-2022 Bacteria identified in Urine by Culture [facility] Work Phone: Comment on above: Expected: 12/15/2021, Expires: 2 Start: 12-15-2021 End: 02-14-2022 Choriogonadotropin ( test) [Presence] in Urine [facility] Work Phone: Comment on above: Expected: 12/15/2021, Expires: 2 Start: 12-15-2021 End: 02-14-2022 Urinalysis complete panel - Urine [facility] Work Phone: Comment on above: Expected: 12/15/2021, Expires: 2 Start: 08-28-2021 DEPRESSION ASSESSMENT DEPRESSION ASSESSMENT [facility] Start: 04-28-2021 Influenza vaccination INFLUENZA (#1) [facility] Start: 07-08-2017 Adult depression screening assessment DEPRESSION SCREENING [facility] Start: 11-29-2015 ONE PNEUMOVAX PRIOR TO AGE 65 ONE PNEUMOVAX PRIOR TO AGE 65 [facility] Start: 2014 Anxiety Screening Anxiety Screening [facility] Start: 2014 Depression Screening Depression Screening [facility] Start: 2014 HEPATITIS C SCREENING HEPATITIS C SCREENING [facility] Start: 2014 SPIROMETRY SPIROMETRY [facility] Start: 2010 PEDS TO ADULT TRANSITION ANNUAL ASSESSMENT PEDS TO ADULT TRANSITION ANNUAL ASSESSMENT [facility] Start: 2008 PEDS TO ADULT TRANSITION INITIAL DISCUSSION PEDS TO ADULT TRANSITION INITIAL DISCUSSION [facility] Start: 11-29-2007 HPV VACCINE (1 - 2-dose series) HPV VACCINE (1 - 2-dose series) [facility] Start: 2006 MENINGOCOCCAL B: Consider based on risk (1 of 2 - Risk Bexsero 2-dose series) MENINGOCOCCAL B: Consider based on risk (1 of 2 - Risk Bexsero 2-dose series) [facility] Start: 2005 HPV VACCINE (1 - 2-dose series) HPV VACCINE (1 - 2-dose series) [facility] Start: 2002 PNEUMOCOCCAL (1 - PCV) PNEUMOCOCCAL (1 - PCV) [facility] Start: 2001 COVID-19 VACCINE (#1) COVID-19 VACCINE (#1) [facility] Start: 2001 COVID-19 VACCINE (1) COVID-19 VACCINE (1) [facility] Start: 05-30-1997 COVID-19 VACCINE (#1) COVID-19 VACCINE (#1) [facility] Start: 1996 HEPATITIS B (1 of 3 - 3-dose series) HEPATITIS B (1 of 3 - 3-dose series) [facility] Start: 1996 Hepatitis B Vaccine (1 of 3 - 3-dose series) Hepatitis B Vaccine (1 of 3 - 3-dose series) [facility] Bacteria identified in Urine by Culture URINE CULTURE Microbiology Routine Pelvic pain Ordered: 04/29/2022 [facility] Work Phone: Comment on above: Ordered: 04/29/2022 Bacteria identified in Urine by Culture URINE CULTURE Microbiology Routine care in first trimester 09/15/2022 11:24 AM EST [facility] Work Phone: Bacteria identified in Urine by Culture Urine Culture [facility] Bacteria identified in Urine by Culture URINE CULTURE Microbiology Routine 27 weeks gestation of 02/08/2023 10:41 AM EDT [facility] Work Phone: BACTERIAL VAGINOSIS AMPLIFICATION BACTERIAL VAGINOSIS AMPLIFICATION Lab Routine Pelvic pressure in 01/26/2023 12:46 PM EDT [facility] Work Phone: End: 09-03-2023 BIOPHYSICAL PROFILE US WHI BIOPHYSICAL PROFILE US WHI Anc Imaging Routine Maternal care for decelerations during Once per week for 10 Occurrences starting 03/07/2023 until 09/03/2023 [facility] Work Phone: Comment on above: Once per week for 10 Occurrences startin g 03/07/2023 until 09/03/2023 NARESH / TRICHOMONA S AMPLIFICATION NARESH / TRICHOMONAS AMPLIFICATION Microbiology Routine Pelvic pressure in 01/26/2023 12:46 PM EDT [facility] Work Phone: Chlamydia trachomatis+Neisseria gonorrhoeae DNA [Presence] in Unspecified specimen by MERLINE with probe detection GC/CHLAMYDIA DNA DET Lab Routine care in first trimester 09/15/2022 11:24 AM EST [facility] [employer] Work Phone: End: 01-13-2023 COLONOSCOPY DIAGNOSTIC COLONOSCOPY DIAGNOSTIC Endoscopy Routine Change in bowel function 1 Occurrences starting 01/13/2022 until 01/13/2023 [facility] Work Phone: Comment on above: 1 Occurrences starting 01/13/2022 until 01/13/2023 End: 02-12-2023 Ct abdomen & pelvis w/contrast material CT ABD/PEL W IVCON Radiology Routine Generalized abdominal pain 1 Occurrences starting 01/13/2022 until 02/12/2023 [facility] Work Phone: Comment on above: 1 Occurrences starting 01/13/2022 until 02/12/2023 End: 01-13-2023 EGD DIAGNOSTIC EGD DIAGNOSTIC Endoscopy Routine Nausea and vomiting, unspecified vomiting type 1 Occurrences starting 01/13/2022 until 01/13/2023 [facility] Work Phone: Comment on above: 1 Occurrences starting 01/13/2022 until 01/13/2023 End: 05-12-2023 nonstress test NON-STRESS TEST Procedures Routine Maternal care for decelerations during Once per week for 9 Occurrences starting 03/07/2023 until 05/12/2023 [facility] Work Phone: Comment on above: Once per week for 9 Occurrences starting 03/07/2023 until 05/12/2023 End: 05-05-2023 nonstress test NON-STRESS TEST Procedures Routine Non-reassuring heart rate or rhythm affecting management of mother Once per week for 8 Occurrences starting 03/14/2023 until 05/05/2023 [facility] Work Phone: Comment on above: Once per week for 8 Occurrences starting 03/14/2023 until 05/05/2023 End: 02-12-2023 Gastric emptying imaging study NM GASTRIC EMPTYING SOLID Radiology Routine 1 Occurrences starting 01/13/2022 until 02/12/2023 [facility] Work Phone: Comment on above: 1 Occurrences starting 01/13/2022 until 02/12/2023 Influenza virus A an d B RNA and SARS-CoV-2 (COVID-19) N gene panel - Respiratory specimen by MERLINE with probe detection COVID WITH FLUA+B, ROUTINE Microbiology Routine Viral illness Ordered: 12/13/2021 [facility] Work Phone: Comment on above: Ordered: 12/13/2021 End: 06-05-2025 MR Lumbar spine WO contrast MRI LUMBAR SPINE WO IVCON Radiology BRANDI Acute midline low back pain with left-sided sciatica Urinary incontinence, unspecified type 1 Occurrences starting 05/06/2024 until 06/05/2025 [facility] Work Phone: Comment on above: 1 Occurrences starting 05/06/2024 until 06/05/2025 PAP FLUID CERVICAL SCREENING PAP FLUID CERVICAL SCREENING Lab Routine Encounter for screening for malignant neoplasm of cervix 09/15/2022 11:24 AM [facility] Work Phone: Patient Education [facility] Work Phone: Patient referral [facility] Work Phone: SURGICAL PATHOLOGY [facility] Work Phone: Comment on above: Release Upon Ordering for 1 Occurrences starting 02/11/2022, 1 completed T VAGINALIS AMPLIFICATION T VAGI NALIS AMPLIFICATION Lab Routine care in first trimester 09/15/2022 11:24 AM EST [facility] Work Phone: End: 01-05-2024 US Pelvis [facility] Comment on above: ONCE for 1 Occurrences starting 01/05/20 until 01/05/2024 End: 02-02-2025 US Pelvis limited US FEMALE PELVIS TRANSABD LTD Radiology Routine Pelvic pain in female 1 Occurrences starting 01/04/2024 until 02/02/2025 [facility] Work Phone: Comment on above: 1 Occurrences starting 01/04/2024 until 02/02/2025 End: 02-02-2025 US Pelvis transvaginal US FEMALE PELVIS TRANSVAG Radiology Routine Pelvic pain in female 1 Occurrences starting 01/04/2024 until 02/02/2025 [facility] Comment on above: 1 Occurrences starting 01/04/2024 until 02/02/2025 [facility] Immunizations Immunization Date Immunization Notes Care Provider Emily au 02-16-2023 tetanus toxoid, redu bob diphtheria toxoid, and acellular pertussis vaccine, adsorbed [facility] Work Phone: [facility] 02-14-2023 tetanus toxoid, redu bob diphtheria toxoid, and acellular pertussis vaccine, adsorbed [facility] 05-31-2017 influenza, injectabl e, quadrivalent, contains preservative Rosanna Quinones Work Phone: [facility] 05-31-2017 influenza virus vaccine, unspecified formulation Sabrina Sorensen MD Work Phone: [facility] 06-03-2016 Influenza virus vaccine [facility] 06-03-2016 influenza, injectabl e, quadrivalent, contains preservative Rosanna Quinones Work Phone: [facility] 04-22-2016 tetanus toxoid, redu bob diphtheria toxoid, and acellular pertussis vaccine, adsorbed [facility] 04-06-2016 tetanus toxoid, redu bob diphtheria toxoid, and acellular pertussis vaccine, adsorbed Rosanna Quinones Work Phone: [facility] NEGATED: Highlighted row has not occurred!03-29-2023 measles, mumps and rubella virus vaccine Gissel Alba MD Work Phone: [facility] Comment on above: Deferred: Patient Re fused NEGATED: Highlighted row has not occurred!03-29-2023 pneumococcal polysaccharide vaccine, 23 valent Gissel Alba MD Work Phone: [facility] Comment on above: Deferred: Patient Re fused Payers Date Payer Category Payer Self-pay [id number] 2024 Unknown [id number] 2021 Medicaid [employer] [place] [id number] 2021-Present [phone] [facility] [address] [place] [address] Medicaid [id number] 2021 Medicaid [id number] 2015 Unknown [id number] 1996 Unknown [id number] 1996 Unknown [id number] 1996 Unknown [id number] 1996 Unknown [id number] 1996 Unknown [id number] 1996 Unknown [id number] 1996 Unknown [id number] 1996 Unknown [id number] Unknown [id number] Unknown [id number] Social History Date Type Detail Facility Start: 04-18-2019 End: 02-25-2021 Tobacco smoking status NHIS Smokes tobacco daily [facility] Start: 04-18-2019 End: 05-06-2024 Tobacco use and exposure Smokeless tobacco non-user [facility] Start: 05-27-2021 End: 09-15-2021 Alcohol intake Current drinker of alcohol (finding) [facility] Start: 02-25-2021 Tobacco Comment 2-3 cigarettes weekl y [facility] Start: 1995 Sex Assigned At Not on file [facility] Start: 11-17-2021 Light tobacco smoker (finding) [facility] Start: 1995 Sex Assigned At Female A [facility] Start: 05-12-2021 End: 08-01-2022 Exposure to SARS-CoV-2 (event) Not sure [facility] Work Phone: Start: 04-18-2019 End: 01-19-2023 Cigarettes smoked current (pack per day) - Reported 0.5 [facility] Start: 02-11-2022 History SDOH Alcohol Comment rare [facility] History of tobacco use Cigarette Smoker [facility] Start: 04-19-2022 End: 04-29-2022 Exposure to SARS-CoV-2 (event) Yes [facility] Start: 08-26-2022 End: 07-30-2023 Tobacco smoking status UTIS Unknown if ever smoked [facility] Start: 09-15-2022 Alcohol Comment not while C [facility] Start: 08-17-2022 [facility] Start: 02-28-2023 End: 12-06-2024 Tobacco smoking status NHIS Ex-smoker [facility] History of tobacco use Current smoker [facility] Start: 02-28-2023 End: 11-06-2024 Alcohol intake Ex-drinker (finding) [facility] Start: 02-28-2023 Tobacco Comment Not currently, early on in [facility] Start: 01-19-2023 End: 03-06-2023 Tobacco use panel [facility] National Score (1-100), lower number is lower risk 47 [facility] The thought of harming myself has occurred to me Never [facility] Start: 12-06-2024 Sex Female (finding) [facility] NEGATED: Highlighted row [facility] Goals Date Patient Goal Desired Activity /State Personal health goal Functional Status Date Assessment Result Facility 04-01-2023 Are you deaf, or do you have serious difficulty hearing No 04/01/2023 5:00 PM Meena Nieves, DOMINGUEZ No [facility] 04-01-2023 Are you blind, or do you have serious difficulty seeing, even when wearing glasses No 04/01/2023 5:00 PM Meena Nieves, DOMINGUEZ No [facility] 04-01-2023 Do you have serious difficulty walking or climbing stairs No 04/01/2023 5:00 PM Meena Nieves, DOMINGUEZ No [facility] 04-01-2023 Do you have difficul ty dressing or bathing No 04/01/2023 5:00 PM Meena Nieves, RN No [facility] 04-01-2023 Because of a physica l, mental, or emotional condition, do you have difficulty doing errands alone such as visiting a physician's office or shopping No 04/01/2023 5:00 PM Meena Nieves, DOMINGUEZ No [facility] 12-14-2021 Functional [facility] 12-14-2021 Functional Status Silviano Day kayce [facility] Mental Status Date Assessment Result Facility 07-30-2023 Cognitive function Level Of Cons ciousness Awake;Alert;Appropriate [facility] Work Phone: 08-05-2023 Because of a physica l, mental, or emotional condition, do you have serious difficulty concentrating, remembering, or making decisions No 04/01/2023 5:00 PM EDT Meena Egan RN No [facility] 12-14-2021 Mental Status [facility] 12-14-2021 Mental Status [facility] Clinical Notes 07-09-2016 to 12-06-2024 Note Date & Type Note Facility 12-06-2024 Discharge summary [facility] 12-06-2024 Radiology Diagnostic study note [facility] Imaging Services [address] [place] [address] Abdomen/Pelvis without Cont MR#: [id number] Acct: [id number] Name: ADAMARIS BRICE Rep #: [id number] : 1995 F 29 From: Meagan Barba MD PCP: Dr. Juan Diego Gaines, DO Status: RE G ER Study:Abdomen/Pelvis without Cont Date of Exa m: 12/06/24 Exam# [id number] Ordering Dr: Dimitrios Durham MD PROCEDURE: ABDOMEN/PELVIS WITHOUT CONT 12/06/2024 REASON FOR EXAM: KIDNEY STONE, concern on the right. TECHNIQUE: Abdomen and pelvis CT without intravenous contrast. Noncontrast technique limits evaluation of the abdominal and pelvic viscera. Coronal and Sagittal reconstruction series were provided. One or more dose reduction techniques were used (e.g., Automated exposure control, adjustment of the mA and/or kV according to patient size, use of iterative reconstruction technique). PATIENT PREPARATION: Per protocol ORAL CONTRAST TYPE: None. COMPARISON: None. FINDINGS: Lung bases: The lung bases are clear. The heart is normal in size. Liver: The unopacified liver is normal in size. No biliary ductal dilation. Gallbladder: No radiopaque stones in the gallbladder. Spleen: Normal size. Pancreas: Unremarkable. Adrenals: No adrenal mass. Kidneys: No hydronephrosis or nephrolithiasis. Bladder: Moderately distended and unremarkable. Reproductive Organs: Normal uterine size and contour. Ovaries are unremarkable. Bowel: The bowel loops are normal caliber. No ascites or pneumoperitoneum. Normal appendix. Lymph nodes: No suspicious lymph node enlargement. Vasculature: The abdominal aorta and IVC contours are normal. Noncontrast technique limits evaluation. Bones: Degenerative changes of the spine. CT/Abdomen/Pelvis without Cont IMPRESSION: NORMAL NONCONTRAST CT OF THE ABDOMEN AND PELVIS. Reading Location: [facility] CC: Dr. Juan Diego Gaines DO; Dr. Da Durham MD ~ Soft Sugar Cutter: Signed [facility] 12-06-2024 Discharge summary Note Date/Time December 06, 2024 8:21pm [facility] Medical Records Department [address] [place] [address] Emergency Department Summary 12/06/24 MR#: [id number] Acct: [id number] Name: ADAMARIS BRICE Rep #:[id number] : 1995 29 From: Da Durham MD PCP: Dr. Juan Diego Gaines DO Status:RE G ER Location: ED HPI History of Present Illness Chief Complaint: Flank Pain Detail of Chief Complaint: Urinary tract symptoms with low back pain Informant: patient Onset/Context/Timing Onset: Today Context: Sudden Onset Timing: Continuous and Intermittent Quality: Pressure, frequency, hematuria dysuria Location: Current Severity: Mild (With respect to the back pain.) Maximum Severity: Moderate (With respect to the dysuria) Worsened by: Nothing Relieved by: Nothing Associated Symptoms Associated Symptoms: no nausea or vomiting. No fever or chills. Exacerbation of sciatica Narrative Narrative: Patient is a 29-year-old female status post tubal ligation 2 to 3 years ago whose last normal menstrual period ended November 26 who presents with dysuria, frequency, urgency, suprapubic discomfort and low back pain bilaterally. She denies nausea or vomiting. She denies fever or chills. She denies flank pain. Prior similar symptoms: Yes Recent Illness/Hospitalization: No PFSH PFS Medical History Migraine Vertigo Herniated disc Sciatica Asthma Home Medications ?Medication ?Instructions ?Recorded ?Last Taken ?Type albuterol sulfate 90 mcg/actuation 1 puff inhalation Q 4H PRN PRN 04/15/19 Unknown History aerosol inhaler Wheezing loratadine 10 mg capsule 10 mg PO DAILY PRN Allergies 04/15/19 Unknown History Controll 1 tab PO.IVFORM DAILY Unknown History Held on 03/08/23. Instructions: Order Changed albuterol sulfate 2.5 mg/3 mL 2.5 mg (3 mL) inhalation Q4H PRN 05/13/21 Unknown Rx (0.083 %) solution for nebulization #25 vials prednisone 20 mg tablet 40 mg (2 x 20 mg) PO DAILY # 10 05/13/21 Unknown Rx Held on 03/08/23. TABLETS Instructions: Order Changed diazepam 5 mg tablet 5 mg PO Q8 PRN Muscle Spasm #15 06/10/21 Unknown Rx Held on 03/08/23. tabs Instructions: Order Changed hydrocodone-acetaminophen 5-325mg 1 tab PO Q6H PRN PRN Pain 3 days 06/10/21 Unknown Rx 5mg-325mg #12 TABLETS Held on 03/08/23. Instructions: Order Changed ketorolac 10 mg tablet 10 mg PO Q8H PRN pain #15 ta bs 06/10/21 Unknown Rx Held on 03/08/23. Instructions: Order Changed prednisone 20 mg tablet 60 mg (3 x 20 mg) PO DAILY # 15 06/10/21 Unknown Rx Held on 03/08/23. TABLETS Instructions: Order Changed ketorolac 10 mg tablet 10 mg PO Q6H PRN pain 3 days #10 11/29/21 Unknown Rx Held on 03/08/23. tabs Instructions: Order Changed ipratropium bromide 0.02 % 2.5 ml inhalation Q6H PRN 1 Unknown Rx solution for inhalation shortness of breath or wheez ing Held on 03/08/23. #62.5 mL Instructions: Order Changed prednisone 20 mg tablet 60 mg (3 x 20 mg) PO DAILY # 15 tabs 08/26/22 Unknown Rx Held on 03/08/23. Instructions: Order Changed ondansetron 4 mg disintegrating 4 mg PO Q8H PRN PRN Na usea #10 tabs 10/05/22 Unknown Rx tablet fluticasone propionate 44 2 inh inhalation BID 3 Unknown History mcg/actuation HFA aerosol inhaler (Flovent HFA) vit no.95-ferrous 1 tab PO DAILY 02/28/23 Unk nown History fumarate 28 mg-folic acid 800 mcg tablet () fluticasone propionate 50 2 spray intranasal DAILY all ergy 03/08/23 Unknown History mcg/actuation nasal symptoms spray,suspension (Allergy Relief (fluticasone)) Allergy/AdvReac Type Severity Reaction Status Date / Time Cephalosporins Allergy Severe Hives Verified 12/06/24 18:20 NSAIDS (Non-Steroidal Allergy Intermediate Abd Verified 12/06/24 18:20 Anti-Inflamma cramps/diarrhea benzonatate (From Tessalon Allergy Hives Verified 12/06/24 18:20 Perles) cefdinir (From Omnicef) Allergy Hives Verified 12/06/24 18:20 red (food color) Allergy Hives Verified 12/06/24 18:20 Social History (Updated 12/06/24 @ 18:[address] Da Durham MD) household members: children Smoking Status: Former smoker substance use type: does not use ROS ROS ED Constitutional Constitutional ED: Denies chills, fever(s), subjective or sweats Cardiovascular Cardiovascular: Denies chest pain or palpitations Respiratory/Chest Respiratory/Chest: Denies cough or dyspnea Gastrointestinal Gastrointestinal: Reports abdominal pain; Denies constipation, diarrhea, melena,nausea or vomiting Genitourinary Genitourinary ED: Reports dysuria, hematuria, LMP (females 10-50) Details: Comment: (Ended November 26. Patient states it was normal with respect to days of flow, amount of flow and color of blood. Furthermore, she is status post tubal ligation.) and urinary frequency Musculoskeletal Musculoskeletal: Reports back pain Integumentary Denies rash Neurologic Neurologic: Denies paresthesias or weakness Hematologic/Lymphatic Hematologic/Lymphatic: Reports systems reviewed and no addt'l complaints, exceptas documented EXAM Physical Exam Const Vital Signs: 12/06/24 18:18 Temperature 98.5 F Temperature Source Oral Pulse Rate 101 H Respiratory Rate 16 Blood Pressure 136/83 H Blood Pressure Mean 100 Pulse Ox 100 Oxygen Delivery Method Room Air Positive well nourished and well developed Constitutional Narrative: Patient appears ill. General Appearance ED: well developed HEENT Reports moist mucous membranes HEENT Narrative: Head is atraumatic normocephalic. Eyes PERRL and EOMs intact bilaterally General Eye ED: Negative for pale conjunctiva or scleral icterus Neck no lymphadenopathy, supple and no JVD Resp normal respiratory effort Cardio regular rate and regular rhythm GI non-distended and no masses; Negative for non-tender or hepatosplenomegaly GI Narrative: Pain to palpation suprapubic area. Palpation: soft and tender suprapubic Back/Spine no CVA tenderness Extremity normal to inspection General Extremety ED: Negative for edema or tenderness General Extremity: Negative for edema Neuro oriented x3 and CN's II-XII intact bilaterally Sensorium / Orientation: alert Psych mental status grossly normal Skin no rashes or lesions noted, no wounds and skin turgor normal Skin Narrative: Patient is face looks flushed. MDM MDM MDM Narrative Medical decision making narrative: Patient's history and physical is consistent with hemorrhagic cystitis. UA was obtained. Doubt this is a distal ureteral stone. Symptoms not consistent with .. Lab Data Labs: Laboratory Results - last 24 hr 12/06/24 18:36 Urine Color Straw Urine Clarity Clear Urine pH 6.5 Ur Specific Cameron 1.005 Urine Protein Negative Urine Glucose (UA) Normal Urine Ketones Negative Urine Occult Blood Negative Urine Nitrite Negative Urine Bilirubin Negative Urine Urobilinogen Normal Ur Leukocyte Esterase Negative Urine RBC 0 SEEN Urine WBC 0 SEEN Ur Squamous Epith Cells 0-5 SEEN Urine Bacteria 0 SEEN Urine Mucus 0 SEEN Radiography Diagnostic Testing: Clinical Impression(s) from Imaging Studies Abdomen/Pelvis CT 12/06/24 19:20 IMPRESSION: NORMAL NONCONTRAST CT OF THE ABDOMEN AND PELVIS. Reading Location: [facility] CT of the abdomen pelvis contrast reveals normal liver spleen gallbladder. Kidneys appear normal. There is no evidence of hydronephrosis hydroureter. There is no evidence of renal calculi. There is no evidence of ureteral calculieither. Awaiting formal read by radiologist, 1936 Treatment and Re-Evaluation :: Since the radiologist also interpreted the CT is negative patient be discharged to home. Discharge Plan Triage Chief Complaint: Flank Pain ED Provider: Da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 re-assessment reviewed with patient in detail. - MRI LUMBAR SPINE WO IVCON - CYCLOBENZAPRINE 10 MG TABLET 2. Urinary incontinence, unspecified type - ICD9: 788.30, ICD10: R32 - MRI LUMBAR SPINE WO IVCON Daisy Hall [facility] Discharge instructions Patient Education 04/29/2024 12:21:46 Sciatica Sciatica Sciatica is a condition that causes pain in the lower back that spreads down into the buttock, hip,and leg. Sometimes the leg pain can happen without any back pain. Sciatica happens when a spinal nerve is irritated or has pressure put on it as comes out of the spinal canal in the lower back. This most often happens when a bulge or rupture of a nearby spinal disk presses on the nerve. Sciatica can also be caused by a narrowing of the spinal canal (spinal stenosis) or spasm of the muscle in the buttocks that the sciatic nerve passes through (pyriform muscle). Sciatica is also called lumbar radiculopathy. Sciatica may begin after a sudden twisting or bending force, such as in a car accident. Or it can happen after a simple awkward movement. In either case, muscle spasm often also happens. Muscle spasmmakes the pain worse. A healthcare provider makes a diagnosis of sciatica from your symptoms and a physical exam. Unless you had an injury from a car accident or fall, you usually won t have X-rays taken at this time. This is because the nerves and disks in your back can t be seen on an X-ray. If the provider sees signsof a compressed nerve, you will need to schedule an MRI scan as an outpatient. Signs of a compressed nerve include loss of strength in a leg. Most sciatica gets better with medicine, exercise, and physical therapy. If your symptoms continue after at least 3 months of medical treatment, you may need surgery or injections to your lower back. Home care Follow these tips when caring for yourself at home: You may need to stay in bed the first few days. But as soon as possible, begin sitting up or walking. This will help you avoid problems that come from staying in bed for long periods. When in bed, try to find a position that is comfortable. A firm mattress is best. Try lying flat onyour back with pillows under your knees. You can also try lying on your side with your knees bent up toward your chest and a pillow between your knees. Avoid sitting for long periods. This puts more stress on your lower back than standing or walking. Use heat from a hot shower, hot bath, or heating pad to help ease pain. Massage can also help. You can also try using an ice pack. You can make your own ice pack by putting ice cubes in a plastic bag. Wrap the bag in a thin towel. Try both heat and cold to see which works best. Use the method that feels best for 20 minutes several times a day. You may use acetaminophen or ibuprofen to ease pain, unless another pain medicine was prescribed. Note: If you have chronic liver or kidney disease, talk with your healthcare provider before taking these medicines. Also talk with your provider if you ve had a stomach ulcer or gastrointestinal bleeding. Use safe lifting methods. Don t lift anything heavier than 15 pounds until all of the pain is gone. Follow-up care Follow up with your healthcare provider, or as advised. You may need physical therapy or additionaltests. If X-rays were taken, a radiologist will look at them. You will be told of any new findings that may affect your care. When to seek medical advice Call your healthcare provider right away if any of these occur: Pain gets worse even after taking prescribed medicine Weakness or numbness in 1 or both legs or hips Numbness in your groin or genital area You can t control your bowel or bladder Fever Redness or swelling over your back or spine [id number] [employer]. [address] [place] [address]. All rights reserved. This information is not intended as a substitute for professional medical care. Always follow yourhealthcare professional's instructions. 04/29/2024 12:21:45 Understanding Lumbar Radiculopathy Understanding Lumbar Radiculopathy Lumbar radiculopathy is irritation or inflammation of a nerve root in the low back. It causes symptoms that spread out from the back down one or both legs. To understand this condition, it helps to understand the parts of the spine: Vertebrae. These are bones that stack to form the spine. The lumbar spine contains the 5 bottom vertebrae. Disks. These are soft pads of tissue between the vertebrae. They act as shock absorbers for the spine. Spinal canal. This is a tunnel formed within the stacked vertebrae. In the lumbar spine, nerves runthrough this canal. Nerves. These branch off and leave the spinal canal, traveling out to parts of the body. As they leave the spinal canal, nerves pass through openings between the vertebrae. The nerve root is the partof the nerve that is closest to the spinal canal. Sciatic nerve. This is a large nerve formed from several nerve roots in the low back. This nerve extends down the back of the leg to the foot. With lumbar radiculopathy, nerve roots in the low back become irritated. This leads to pain and symptoms. The sciatic nerve is commonly involved, so the condition is often called sciatica. What causes lumbar radiculopathy? Aging, injury, poor posture, extra body weight, and other issues can lead to problems in the low back. These problems may then irritate nerve roots. They include: Damage to a disk in the lumbar spine. The damaged disk may then press on nearby nerve roots. Degeneration from wear and tear, and aging. This can lead to narrowing (stenosis) of the openings between the vertebrae. The narrowed openings press on nerve roots as they leave the spinal canal. Unstable spine. This is when a vertebra slips forward. It can then press on a nerve root. Other, less common things can put pressure on nerves in the low back. These include diabetes, infection, or a tumor. Symptoms of lumbar radiculopathy These include: Pain in the low back Pain, numbness, tingling, or weakness that travels into the buttocks, hip, groin, or leg Muscle spasms Treatment for lumbar radiculopathy In most cases, your healthcare provider will first try treatments that help relieve symptoms. Thesemay include: Prescription and jquj-wzu-fiaqbyl pain medicines. These help relieve pain, swelling, and irritation. Limits on positions and activities that increase pain. But lying in bed or avoiding all movement isonly recommended for a short period of time. Physical therapy, including exercises and stretches. This helps decrease pain and increase movementand function. Steroid shots into the lower back. This may help relieve symptoms for a time. Weight-loss program. If you are overweight, losing extra pounds may help relieve symptoms. In some cases, you may need surgery to fix the underlying problem. This depends on the cause, the symptoms, and how long the pain has lasted. Possible complications Over time, an irritated and inflamed nerve may become damaged. This may lead to long-lasting (permanent) numbness or weakness in your legs and feet. If symptoms change suddenly or get worse, be sure to let your healthcare provider know. When to call your healthcare provider Call your healthcare provider right away if you have any of these: New pain or pain that gets worse New or increasing weakness, tingling, or numbness in your leg or foot Problems controlling your bladder or bowel [id number] [employer] [address] [place] [address]. All rights reserved. This information is not intended as a substitute for professional medical care. Always follow yourhealthcare professional's instructions. 04/29/2024 12:21:38 Back Pain (Acute or Chronic) Back Pain (Acute or Chronic) Back pain is one of the most common problems. The good news is that most people feel better in 1 to2 weeks, and most of the rest in 1 to 2 months. Most people can remain active. People who have pain describe it differently not everyone is the same. The pain can be sharp, stabbing, shooting, aching, cramping or burning. Movement, standing, bending, lifting, sitting, or walking may worsen pain. It can be localized to one spot or area, or it can be more generalized. It can spread or radiate upwards, to the front, or go down your arms or legs (sciatica). It can cause muscle spasm. Most of the time, mechanical problems with the muscles or spine cause the pain. Mechanical problemsare usually caused by an injury to the muscles or ligaments. While illness can cause back pain, it is usually not caused by a serious illness. Mechanical problems include: Physical activity such as sports, exercise, work, or normal activity Overexertion, lifting, pushing, pulling incorrectly or too aggressively Sudden twisting, bending, or stretching from an accident, or accidental movement Poor posture Stretching or moving wrong, without noticing pain at the time Poor coordination, lack of regular exercise (check with your doctor about this) Spinal disc disease or arthritis Stress Pain can also be related to , or illness like appendicitis, bladder or kidney infections, pelvic infections, and many other things. Acute back pain usually gets better in 1 to 2 weeks. Back pain related to disk disease, arthritis in the spinal joints or spinal stenosis (narrowing of the spinal canal) can become chronic and last for months or years. Unless you had a physical injury (for example, a car accident or fall) X-rays are usually not needed for the initial evaluation of back pain. If pain continues and does not respond to medical treatment, X-rays and other tests may be needed. Home care Try these home care recommendations: When in bed, try to find a position of comfort. A firm mattress is best. Try lying flat on your back with pillows under your knees. You can also try lying on your side with your knees bent up towardsyour chest and a pillow between your knees. At first, do not try to stretch out the sore spots. If there is a strain, it is not like the good soreness you get after exercising without an injury. In this case, stretching may make it worse. Don't sit for long periods, as in a long car ride or during other travel. This puts more stress on the lower back than standing or walking. During the first 24 to 72 hours after an acute injury or flare up of chronic back pain, apply an ice pack to the painful area for 20 minutes and then remove it for 20 minutes. Do this over a period of 60 to 90 minutes or several times a day. This will reduce swelling and pain. Wrap the ice pack in a thin towel or plastic to protect your skin. You can start with ice, then switch to heat. Heat (hot shower, hot bath, or heating pad) reduces pain and works well for muscle spasms. Heat can be applied to the painful area for 20 minutes then remove it for 20 minutes. Do this over a period of 60 to 90 minutes or several times a day. Do not sleep on a heating pad. It can lead to skin silver or tissue damage. You can alternate ice and heat therapy. Talk with your doctor about the best treatment for your back pain. Therapeutic massage can help relax the back muscles without stretching them. Be aware of safe lifting methods and do not lift anything without stretching first. Medicines Talk to your doctor before using medicine, especially if you have other medical problems or are taking other medicines. You may use wdtr-muj-aeasuwr medicine as directed on the bottle to control pain, unless another pain medicine was prescribed. If you have chronic conditions like diabetes, liver or kidney disease, stomach ulcers, or gastrointestinal bleeding, or are taking blood thinners, talk to your doctor beforetaking any medicine. Be careful if you are given a prescription medicines, narcotics, or medicine for muscle spasms. They can cause drowsiness, affect your coordination, reflexes, and judgement. Do not drive or operate heavy machinery. Follow-up care Follow up with your healthcare provider, or as advised. A radiologist will review any X-rays that were taken. Your provide will notify you of any new findings that may affect your care. Call 911 Call 911 if any of the following occur: Trouble breathing Confusion Very drowsy or trouble awakening Fainting or loss of consciousness Rapid or very slow heart rate Loss of bowel or bladder control When to seek medical advice Call your healthcare provider right away if any of these occur: Pain becomes worse or spreads to your legs Weakness or numbness in one or both legs Numbness in the groin or genital area [id number] [employer] [address] [place] [address]. All rights reserved. This information is not intended as a substitute for professional medical care. Always follow yourhealthcare professional's instructions. Follow Up Care 04/29/2024 11:49:47 With:BLANCO BERGER Address: [address] [facility] [address] [facility] [place], [place] [phone]- [phone] Business (1) When:2-4 days Comments:Schedule appointment as soon as possibleReturn to ED if symptoms worsenLimit activityAvoid any pressure to the left buttockReturn to an ER for symptoms as describedMay use TylenolDo not drive within 8 hours of cyclobenzaprine use With:JUAN DIEGO GAINES Address: [address] [place] [address]- Business (1) When:2-4 days [facility] 09-02-2024 Emergency department Discharge summary Discharge Instructions Thank you for allowing [facility] to assist you with your healthcare needs. The following is importantdischarge information regarding your hospital visit. What to Do Next Instructions from Your Care Team Discharge Return to Work, School, or Sports (Return to Work, School, or Sports) - Ordered -- 05/01/24, May return to: work, 04/29/24 12:23:00 EDT Post Acute Orders No qualifying data available. You Need to Schedule the Following Appointments Follow Up with BLANCO BERGER When:Within 2-4 days Where:[address] [facility] [address] [facility] [place] [phone] Business (1) Additional Information: Schedule appointment as soon as possible Return to ED if symptoms worsen Limit activity Avoid any pressure to the left buttock Return to an ER for symptoms as described May use Tylenol Do not drive within 8 hours of cyclobenzaprine use Follow Up with JUAN DIEGO GAINES When:Within 2-4 days [facility] [facility] [place] [address]- [facility] (1) Allergies David Levine Medications Please ask your primary doctor or pharmacist before taking any other medication not listed, including over the counter drugs, herbal medications, vitamins and or supplements as they may interact withyour home medications. What How Much When Instructions Last Dose New cyclobenzaprine (cyclobenzaprine 10 mg oral tablet) 1 tab(s) by mouth Three (3) times a day As needed for back spasm/ pain Printed Prescription New predniSONE (predniSONE 10 mg oral tablet) 3 by mouth Two (2) times a day 6 po 1st dose then 3 po q12 Printed Prescription Unchanged dicyclomine (dicyclomine 10 mg oral capsule) 1 cap by mouth Four (4) times a day Duration: 7 Days Unchanged promethazine (promethazine 25 mg oral tablet) 1 tab(s) by mouth Every 4 hours Please take this list to your next doctor s visit. Bring all medications you take, including over the counter medications, herbals and other supplements with you to your doctor s visit. Patients and families are reminded to discard old lists and to update any records with all medication providers or retail pharmacies. [employer] Sciatica Sciatica is a condition that causes pain in the lower back that spreads down into the buttock, hip,and leg. Sometimes the leg pain can happen without any back pain. Sciatica happens when a spinal nerve is irritated or has pressure put on it as comes out of the spinal canal in the lower back. This most often happens when a bulge or rupture of a nearby spinal disk presses on the nerve. Sciatica can also be caused by a narrowing of the spinal canal (spinal stenosis) or spasm of the muscle in the buttocks that the sciatic nerve passes through (pyriform muscle). Sciatica is also called lumbar radiculopathy. Sciatica may begin after a sudden twisting or bending force, such as in a car accident. Or it can happen after a simple awkward movement. In either case, muscle spasm often also happens. Muscle spasmmakes the pain worse. A healthcare provider makes a diagnosis of sciatica from your symptoms and a physical exam. Unless you had an injury from a car accident or fall, you usually won t have X-rays taken at this time. This is because the nerves and disks in your back can t be seen on an X-ray. If the provider sees signsof a compressed nerve, you will need to schedule an MRI scan as an outpatient. Signs of a compressed nerve include loss of strength in a leg. Most sciatica gets better with medicine, exercise, and physical therapy. If your symptoms continue after at least 3 months of medical treatment, you may need surgery or injections to your lower back. Home care Follow these tips when caring for yourself at home: You may need to stay in bed the first few days. But as soon as possible, begin sitting up or walking. This will help you avoid problems that come from staying in bed for long periods. When in bed, try to find a position that is comfortable. A firm mattress is best. Try lying flat onyour back with pillows under your knees. You can also try lying on your side with your knees bent up toward your chest and a pillow between your knees. Avoid sitting for long periods. This puts more stress on your lower back than standing or walking. Use heat from a hot shower, hot bath, or heating pad to help ease pain. Massage can also help. You can also try using an ice pack. You can make your own ice pack by putting ice cubes in a plastic bag. Wrap the bag in a thin towel. Try both heat and cold to see which works best. Use the method that feels best for 20 minutes several times a day. You may use acetaminophen or ibuprofen to ease pain, unless another pain medicine was prescribed. Note: If you have chronic liver or kidney disease, talk with your healthcare provider before taking these medicines. Also talk with your provider if you ve had a stomach ulcer or gastrointestinal bleeding. Use safe lifting methods. Don t lift anything heavier than 15 pounds until all of the pain is gone. Follow-up care Follow up with your healthcare provider, or as advised. You may need physical therapy or additionaltests. If X-rays were taken, a radiologist will look at them. You will be told of any new findings that may affect your care. When to seek medical advice Call your healthcare provider right away if any of these occur: Pain gets worse even after taking prescribed medicine Weakness or numbness in 1 or both legs or hips Numbness in your groin or genital area You can t control your bowel or bladder Fever Redness or swelling over your back or spine 6022-8800 [employer] [address] [place] [address], [place] [address]. All rights reserved. This information is not intended as a substitute for professional medical care. Always follow yourhealthcare professional's instructions. Understanding Lumbar Radiculopathy Lumbar radiculopathy is irritation or inflammation of a nerve root in the low back. It causes symptoms that spread out from the back down one or both legs. To understand this condition, it helps to understand the parts of the spine: Vertebrae. These are bones that stack to form the spine. The lumbar spine contains the 5 bottom vertebrae. Disks. These are soft pads of tissue between the vertebrae. They act as shock absorbers for the spine. Spinal canal. This is a tunnel formed within the stacked vertebrae. In the lumbar spine, nerves runthrough this canal. Nerves. These branch off and leave the spinal canal, traveling out to parts of the body. As they leave the spinal canal, nerves pass through openings between the vertebrae. The nerve root is the partof the nerve that is closest to the spinal canal. Sciatic nerve. This is a large nerve formed from several nerve roots in the low back. This nerve extends down the back of the leg to the foot. With lumbar radiculopathy, nerve roots in the low back become irritated. This leads to pain and symptoms. The sciatic nerve is commonly involved, so the condition is often called sciatica. What causes lumbar radiculopathy? Aging, injury, poor posture, extra body weight, and other issues can lead to problems in the low back. These problems may then irritate nerve roots. They include: Damage to a disk in the lumbar spine. The damaged disk may then press on nearby nerve roots. Degeneration from wear and tear, and aging. This can lead to narrowing (stenosis) of the openings between the vertebrae. The narrowed openings press on nerve roots as they leave the spinal canal. Unstable spine. This is when a vertebra slips forward. It can then press on a nerve root. Other, less common things can put pressure on nerves in the low back. These include diabetes, infection, or a tumor. Symptoms of lumbar radiculopathy These include: Pain in the low back Pain, numbness, tingling, or weakness that travels into the buttocks, hip, groin, or leg Muscle spasms Treatment for lumbar radiculopathy In most cases, your healthcare provider will first try treatments that help relieve symptoms. Thesemay include: Prescription and qbpp-jzb-wjdcieu pain medicines. These help relieve pain, swelling, and irritation. Limits on positions and activities that increase pain. But lying in bed or avoiding all movement isonly recommended for a short period of time. Physical therapy, including exercises and stretches. This helps decrease pain and increase movementand function. Steroid shots into the lower back. This may help relieve symptoms for a time. Weight-loss program. If you are overweight, losing extra pounds may help relieve symptoms. In some cases, you may need surgery to fix the underlying problem. This depends on the cause, the symptoms, and how long the pain has lasted. Possible complications Over time, an irritated and inflamed nerve may become damaged. This may lead to long-lasting (permanent) numbness or weakness in your legs and feet. If symptoms change suddenly or get worse, be sure to let your healthcare provider know. When to call your healthcare provider Call your healthcare provider right away if you have any of these: New pain or pain that gets worse New or increasing weakness, tingling, or numbness in your leg or foot Problems controlling your bladder or bowel [id number] [employer] [address] [place] [address]. All rights reserved. This information is not intended as a substitute for professional medical care. Always follow yourhealthcare professional's instructions. Back Pain (Acute or Chronic) Back pain is one of the most common problems. The good news is that most people feel better in 1 to2 weeks, and most of the rest in 1 to 2 months. Most people can remain active. People who have pain describe it differently not everyone is the same. The pain can be sharp, stabbing, shooting, aching, cramping or burning. Movement, standing, bending, lifting, sitting, or walking may worsen pain. It can be localized to one spot or area, or it can be more generalized. It can spread or radiate upwards, to the front, or go down your arms or legs (sciatica). It can cause muscle spasm. Most of the time, mechanical problems with the muscles or spine cause the pain. Mechanical problemsare usually caused by an injury to the muscles or ligaments. While illness can cause back pain, it is usually not caused by a serious illness. Mechanical problems include: Physical activity such as sports, exercise, work, or normal activity Overexertion, lifting, pushing, pulling incorrectly or too aggressively Sudden twisting, bending, or stretching from an accident, or accidental movement Poor posture Stretching or moving wrong, without noticing pain at the time Poor coordination, lack of regular exercise (check with your doctor about this) Spinal disc disease or arthritis Stress Pain can also be related to , or illness like appendicitis, bladder or kidney infections, pelvic infections, and many other things. Acute back pain usually gets better in 1 to 2 weeks. Back pain related to disk disease, arthritis in the spinal joints or spinal stenosis (narrowing of the spinal canal) can become chronic and last for months or years. Unless you had a physical injury (for example, a car accident or fall) X-rays are usually not needed for the initial evaluation of back pain. If pain continues and does not respond to medical treatment, X-rays and other tests may be needed. Home care Try these home care recommendations: When in bed, try to find a position of comfort. A firm mattress is best. Try lying flat on your back with pillows under your knees. You can also try lying on your side with your knees bent up towardsyour chest and a pillow between your knees. At first, do not try to stretch out the sore spots. If there is a strain, it is not like the good soreness you get after exercising without an injury. In this case, stretching may make it worse. Don't sit for long periods, as in a long car ride or during other travel. This puts more stress on the lower back than standing or walking. During the first 24 to 72 hours after an acute injury or flare up of chronic back pain, apply an ice pack to the painful area for 20 minutes and then remove it for 20 minutes. Do this over a period of 60 to 90 minutes or several times a day. This will reduce swelling and pain. Wrap the ice pack in a thin towel or plastic to protect your skin. You can start with ice, then switch to heat. Heat (hot shower, hot bath, or heating pad) reduces pain and works well for muscle spasms. Heat can be applied to the painful area for 20 minutes then remove it for 20 minutes. Do this over a period of 60 to 90 minutes or several times a day. Do not sleep on a heating pad. It can lead to skin silver or tissue damage. You can alternate ice and heat therapy. Talk with your doctor about the best treatment for your back pain. Therapeutic massage can help relax the back muscles without stretching them. Be aware of safe lifting methods and do not lift anything without stretching first. Medicines Talk to your doctor before using medicine, especially if you have other medical problems or are taking other medicines. You may use [id number] medicine as directed on the bottle to control pain, unless another pain medicine was prescribed. If you have chronic conditions like diabetes, liver or kidney disease, stomach ulcers, or gastrointestinal bleeding, or are taking blood thinners, talk to your doctor beforetaking any medicine. Be careful if you are given a prescription medicines, narcotics, or medicine for muscle spasms. They can cause drowsiness, affect your coordination, reflexes, and judgement. Do not drive or operate heavy machinery. Follow-up care Follow up with your healthcare provider, or as advised. A radiologist will review any X-rays that were taken. Your provide will notify you of any new findings that may affect your care. Call 911 Call 911 if any of the following occur: Trouble breathing Confusion Very drowsy or trouble awakening Fainting or loss of consciousness Rapid or very slow heart rate Loss of bowel or bladder control When to seek medical advice Call your healthcare provider right away if any of these occur: Pain becomes worse or spreads to your legs Weakness or numbness in one or both legs Numbness in the groin or genital area [id number] [employer]. [address] [place] [id number]. All rights reserved. This information is not intended as a substitute for professional medical care. Always follow yourhealthcare professional's instructions. Additional Information VACCINATE! IT SAVES LIVES! Members of the community who have not yet received the COVID-19 vaccine and would like to receive it can visit one of [facility] vaccine clinics. There are many vaccine clinic locations within the [facility]. For locations and available times, please visit www.[email or web address].[email or web address]/. It is important to note that some COVID mobile vaccine clinics are held outdoors and may be canceled in rainy or stormy conditions. To learn more about pediatric vaccinations (ages 5-11), we invite you to visit the [facility] webpage. [email or web address] learn more about the COVID-19 vaccine, we invite you to visit the CDC website for a list of frequently asked questions. https://www.cdc.gov/coronavirus/2019-ncov/vaccines/faq.html [facility] Patient Portal Access Instructions: Stay connected with your healthcare team and access your personal medical information anytime with the [facility] Patient Portal. If you would like a full copy of your medical records please contact the [facility] Medical Records Department Monday through Monday between 8a.m. and 4:30p.m. Please follow the directions below to access the portal: 1.Access the email account you provided upon registration to the [facility].2.Look for an invitation email from [facility].3.Open the email and access the invitation link: Accept Invitation to [facility].Fill in the required you to create your account. Sign into www.[employer] with your username and password that you created in the above steps to stay up to date. You can then view a summary of results, a summary of your visits, and the ability to download your summaries to your computer or send the information securely to a physician. Remember that your healthcare information is confidential, so carefully consider who you will allow to register on the [facility] Patient Portal for access to your information. You can also access the [facility] Patient Portal on the [employer]. Simply click on Health Records under [employer] and then click on the [employer] logo. HOW TO SAFELY DISPOSE OF PRESCRIPTION MEDICATIONS Please use one of the following methods to safely dispose of your unused medications. 1.Use a drug disposal kit: the drug disposal pouch allows you to safely discard your old and unuseddrugs. Ask your nurse to give you one when you are discharged.2.Visit a local take-back location: Many local pharmacies and police departments have programs that collect old and unwanted prescriptiondrugs. Call your local pharmacy or go to http://bit.[employer]/2W0Ka3n to find one close to you.3.Make use of household items: Use cat litter or old coffee grounds to dispose medications if other options arenot available. Mix your drugs with these household products, seal them in an airtight container andthrow it into the garbage. Call [facility]: [phone] to be sure your drugs can be disposed of in this way. Some medicines may require a different approach.4.Never flush your medications down the toilet. IF YOU HAVE BEEN PRESCRIBED AN OPIOIDS FOR PAIN If you have been prescribed an opioid (such as hydrocodone, oxycodone or morphine), it is critical to understand the possible side effects and risks of opioid pain medications. Even when taken as directed, opioids can have several side effects including: Tolerance, meaning you might need to take more of a medication for the same pain relief. Nausea, vomiting and/or constipation. Sleepiness, dizziness, dry mouth, confusion, depression or itching. Physical dependence, meaning you have withdrawal symptoms when a medication is stopped ? this can develop within a few days. KNOW YOUR RESPONSIBILITIES It is important to know exactly how much and how often to take the opioid pain medications you are prescribed. Never take opioids in higher amounts or more often than prescribed. Do not combine opioids with alcohol or other drugs that cause drowsiness, such as benzodiazepines, also known as benzos,including diazepam and alprazolam, muscle relaxants or sleep aids. Never sell or share prescriptionopioids. This is illegal. Store opioids in a secure place and out of reach of others (including children, family, friends and visitors). The last page(s) of this document has been signed and retained as a CHART COPY Signatures Patient Education Materials [employer] Understanding Lumbar Radiculopathy Back Pain (Acute or Chronic) Medication Leaflets My discharge plan and instructions have been reviewed and explained to me and IYUNIEL ELIZABETH Munderstand my current condition and have read and understand these discharge instructions. I have received a written copy of the plan/instructions. If I have questions, I am aware that I should contact my doctor. 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 Author Type: Physician Pig Farmer Type: Progress Notes Filed: 02/26/2024 18:47 Note Text: This note was created using [employer]. Subjective Adamaris Brice is a 28 year old female. HPI Presents with a chief complaint of left foot pain for a week. She had fell off of a truck about 3 feet in the air and landed on her left foot. She thought it was getting better however some kids had stomped on her foot again this week and it was still painful. She did end up losing the nail off of her great toe. She is able to put weight on it but is painful. No weakness numbness tingling. No other injuries at this time. Review of Systems Constitutional: Negative. HENT: Negative. Respiratory: Negative. Cardiovascular: Negative. Gastrointestinal: Negative. Musculoskeletal: Left foot pain All other systems reviewed and are negative. PAST MEDICAL HISTORY Diagnosis Date Asthma Environmental allergies fracture growth plate left ankle Herpes genitalis Mental disorder Placental abruption in third trimester 03/24/2023 Ulcerative colitis (HCC) Possible Ulcerative Colitis per patient Vertigo 11/2020 Current Outpatient Medications Medication Sig Dispense Refill fluticasone propionate (FLOVENT INHALATION) Inhale as instructed. fluticasone (FLONASE) 50 mcg/actuation nasal spray Use 2 Sprays in each nostril once daily. Rinse mouth after use. 1 Each 0 PNV no.95/ferrous fum/folic ac ( ORAL) Take by mouth. omeprazole (PRILOSEC) 20 mg capsule Take 1 capsule by mouth once daily. 30 capsule 2 albuterol HFA (VENTOLIN HFA) 90 mcg/actuation inhaler Inhale 2 Puffs as instructed every 4 hours as needed for Wheezing/Shortness of Breath. 1 Inhaler 5 loratadine (CLARITIN) 10 mg tablet Take 1 tablet by mouth once daily as needed. FOR ALLERGY SYMPTOMS 30 tablet 0 dicyclomine (BENTYL) 10 mg capsule Take 10 mg by mouth before meals and at bedtime. (Patient not taking: Reported on 01/04/2024) ALBUTEROL INHALATION Albuterol Albuterol Inhaler Active 1 PUFF EVERY 4 HOURS NEEDED April 15, 2019 1:49pm 04-15-2019 [facility] ([id number]) (Patient not taking: Reported on 02/26/2024) No current facility-administered medications for this visit. PAST SURGICAL HISTORY Procedure Laterality Date SECTION HX INSERT INTRAUTERINE DEVICE 05/27/2021 LIGATE FALLOPIAN TUBE Bilateral at time of FAMILY HISTORY Problem Relation Age of Onset Heart Mother Asthma Mother Arthritis Mother Hypertension Mother Stroke Mother Heart Father Stroke Father Seizures Father Psychiatry Father bipolar Seizures Brother Stroke Brother 12 Breast Cancer Maternal Grandmother PGGM ,MGaunt Diabetes Maternal Grandmother Colon Polyps Maternal Grandmother Diabetes Maternal Grandfather Heart Maternal Grandfather Diabetes Paternal Grandmother Diabetes Paternal Grandfather Emphysema Paternal Grandfather Heart Paternal Grandfather Colon Cancer Maternal Aunt Arthritis Maternal Uncle Social History Tobacco Use Smoking status: Former Packs/day: .25 Types: Cigarettes Smokeless tobacco: Never Tobacco comments: Not currently, early on in Vaping Use Vaping Use: Never used Substance Use Topics Alcohol use: Not Currently Comment: not while Drug use: No Objective BP 144/72 Pulse 110 Temp 36.9 ?C (98.5 ?F) Resp 20 Wt 95.4 kg (210 lb 5.1 oz) LMP 09/29/2023 (Exact Date) SpO2 99% BMI 35.00 kg/m? Physical Exam Vitals reviewed. Constitutional: Appearance: Normal appearance. HENT: Head: Normocephalic and atraumatic. Feet: Comments: Patient has mild swelling to the left great toe and first metatarsal of the left foot. The great toenail has avulsed completely off. Nailbed does appear intact. No erythema or sign of infection. She has 2+ pedal pulses. No other tenderness of the foot. Skin: General: Skin is warm and dry. Neurological: Mental Status: She is alert. Assessment and Plan ASSESSMENT/PLAN: 1. Foot injury, left, initial encounter - ICD9: 959.7, ICD10: S99.922A X-rays of the left foot are negative for fracture. I feel she does have a contusion of the foot. She also has a toenail avulsion. There is no sign of infection from the avulsion. Discussed wound care. tylenol, ice, elevate. If not improving follow-up with PCP. Patient agreeable with plan. - XR FOOT GENERAL 3V AP/LAT/OBL LEFT 2. Toenail avulsion, initial encounter - ICD9: 893.0, ICD10: S91.209A [facility]07-01-2024 History of Present illness Narrative* Amalia Galeana PA-C - 02/26/2024 6:14 PM EDT This note was created using [employer]. Subjective Adamaris Brice is a 28 year old female. HPI Presents with a chief complaint of left foot pain for a week. She had fell off of a truck about 3 feet in the air and landed on her left foot. She thought it was getting better however some kids had stomped on her foot again this week and it was still painful. She did end up losing the nail off of her great toe. She is able to put weight on it but is painful. No weakness numbness tingling. No other injuries at this time. Review of Systems Constitutional: Negative. HENT: Negative. Respiratory: Negative. Cardiovascular: Negative. Gastrointestinal: Negative. Musculoskeletal: Left foot pain All other systems reviewed and are negative. PAST MEDICAL HISTORY Diagnosis Date Asthma Environmental allergies fracture growth plate left ankle Herpes genitalis Mental disorder Placental abruption in third trimester 03/24/2023 Ulcerative colitis (HCC) Possible Ulcerative Colitis per patient Vertigo 11/2020 Current Outpatient Medications Medication Sig Dispense Refill fluticasone propionate (FLOVENT INHALATION) Inhale as instructed. fluticasone (FLONASE) 50 mcg/actuation nasal spray Use 2 Sprays in each nostril once daily. Rinse mouth after use. 1 Each 0 PNV no.95/ferrous fum/folic ac ( ORAL) Take by mouth. omeprazole (PRILOSEC) 20 mg capsule Take 1 capsule by mouth once daily. 30 capsule 2 albuterol HFA (VENTOLIN HFA) 90 mcg/actuation inhaler Inhale 2 Puffs as instructed every 4 hours asneeded for Wheezing/Shortness of Breath. 1 Inhaler 5 loratadine (CLARITIN) 10 mg tablet Take 1 tablet by mouth once daily as needed. FOR ALLERGY SYMPTOMS 30 tablet 0 dicyclomine (BENTYL) 10 mg capsule Take 10 mg by mouth before meals and at bedtime. (Patient not taking: Reported on 01/04/2024) ALBUTEROL INHALATION Albuterol Albuterol Inhaler Active 1 PUFF EVERY 4 HOURS NEEDED March 1:49pm 04-15-2019 [facility] ([id number]) (Patient not taking: Reported on 02/26/2024) No current facility-administered medications for this visit. PAST SURGICAL HISTORY Procedure Laterality Date SECTION HX INSERT INTRAUTERINE DEVICE 05/27/2021 LIGATE FALLOPIAN TUBE Bilateral at time of FAMILY HISTORY Problem Relation Age of Onset Heart Mother Asthma Mother Arthritis Mother Hypertension Mother Stroke Mother Heart Father Stroke Father Seizures Father Psychiatry Father bipolar Seizures Brother Stroke Brother 12 Breast Cancer Maternal Grandmother PGGM ,MGaunt Diabetes Maternal Grandmother Colon Polyps Maternal Grandmother Diabetes Maternal Grandfather Heart Maternal Grandfather Diabetes Paternal Grandmother Diabetes Paternal Grandfather Emphysema Paternal Grandfather Heart Paternal Grandfather Colon Cancer Maternal Aunt Arthritis Maternal Uncle Social History Tobacco Use Smoking status: Former Packs/day: .25 Types: Cigarettes Smokeless tobacco: Never Tobacco comments: Not currently, early on in Vaping Use Vaping Use: Never used Substance Use Topics Alcohol use: Not Currently Comment: not while Drug use: No Objective BP 144/72 Pulse 110 Temp 36.9 C (98.5 F) Resp 20 Wt 95.4 kg (210 lb 5.1 oz) LMP 09/29/2023 (Exact Date) SpO2 99% BMI 35.00 kg/m Physical Exam Vitals reviewed. Constitutional: Appearance: Normal appearance. HENT: Head: Normocephalic and atraumatic. Feet: Comments: Patient has mild swelling to the left great toe and first metatarsal of the left foot. The great toenail has avulsed completely off. Nailbed does appear intact. No erythema or sign of infection. She has 2+ pedal pulses. No other tenderness of the foot. Skin: General: Skin is warm and dry. Neurological: Mental Status: She is alert. Assessment and Plan ASSESSMENT/PLAN: 1. Foot injury, left, initial encounter - ICD9: 959.7, ICD10: S99.922A X-rays of the left foot are negative for fracture. I feel she does have a contusion of the foot. She also has a toenail avulsion. There is no sign of infection from the avulsion. Discussed wound care. tylenol, ice, elevate. If not improving follow-up with PCP. Patient agreeable with plan. - XR FOOT GENERAL 3V AP/LAT/OBL LEFT 2. Toenail avulsion, initial encounter - ICD9: 893.0, ICD10: S91.209A Amalia Galeana PA-C [facility] History of Present illness Narrative* Sonia Watt RT(R) - 02/26/2024 6:10 PM EDT Radiology Service Progress Note PATIENT NAME: Adamaris Brice DATE OF SERVICE: February 26, 2024 TIME: 6:20 PM PATIENT IDENTITY VERIFICATION COMPLETED USING TWO (2) IDENTIFIERS: Name and Date of confirmedby patient verbally. FALL SCREENING: Has the patient had 2 falls in the last year or 1 fall with injury or currently using an Ambulatory Assistive Device (Walker, Cane, Wheelchair, Crutches, etc.)? No PATIENT GENDER DATA: Female. status: : No status: NO. PATIENT RELEVANT IMPLANT DATA REVIEWED: Not Applicable PATIENT PRESENTS WITH AN IMPLANTABLE OR ATTACHED DIRECTOR OF ASSESSMENT: No RADIOLOGY DEPARTMENT: General X-ray: Exam(s) Completed: Lower Extremity X- Ray(s): Foot, Left PERIPHERAL IV DATA: Not applicable SIGNED BY: RT Deisi(R) February 26, 2024 6:20 PM documented in [facility]Bet[facility] NoteHNO ID: [id number] Author: SONIA WATT RT(R) Service: Radiology Author Type: Technologist Type: Progress Notes Filed: 02/26/2024 18:26 Note Text: Radiology Service Progress Note PATIENT NAME: Adamaris Brice DATE OF SERVICE: February 26, 2024 TIME: 6:20 PM PATIENT IDENTITY VERIFICATION COMPLETED USING TWO (2) IDENTIFIERS: Name and Date of confirmed by patient verbally. FALL SCREENING: Has the patient had 2 falls in the last year or 1 fall with injury or currently using an Ambulatory Assistive Device (Walker, Cane, Wheelchair, Crutches, etc.)? No PATIENT GENDER DATA: Female. status: : No status: NO. PATIENT RELEVANT IMPLANT DATA REVIEWED: Not Applicable PATIENT PRESENTS WITH AN IMPLANTABLE OR ATTACHED DIRECTOR OF ASSESSMENT: No RADIOLOGY DEPARTMENT: General X-ray: Exam(s) Completed: Lower Extremity X-Ray(s): Foot, Left PERIPHERAL IV DATA: Not applicable SIGNED BY: RT Deisi(R) February 26, 2024 6:20 [facility]05-09-2024 NoteHNO ID: [id number] Author: SABRINA SORENSEN MD Service: ? Author Type: Physician Type: Progress Notes Filed: 01/04/2024 16:32 Note Text: Adamaris Brice is a 28 year old female who presents for problem visit. HPI: Patient reports left sided pelvic pain. It started about 1 month ago. She denies that anything makes the pain better other than Tylenol. Patient denies pain triggers. Also she reports no menses since September. She is and did have menses for a few months prior. Denies vaginitis or STD concerns. 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 History Comments: Sexual Activity: Yes; Male Contraception: No contraception data on record PAST MEDICAL HISTORY Diagnosis Date - Asthma - Environmental allergies - fracture growth plate left ankle - Herpes genitalis - Mental disorder - Placental abruption in third trimester 03/24/2023 - Ulcerative colitis (HCC) Possible Ulcerative Colitis per patient - Vertigo 11/2020 PAST SURGICAL HISTORY Procedure Laterality Date - SECTION HX - INSERT INTRAUTERINE DEVICE 05/27/2021 - LIGATE FALLOPIAN TUBE Bilateral at time of FAMILY HISTORY Problem Relation Age of Onset - Heart Mother - Asthma Mother - Arthritis Mother - Hypertension Mother - Stroke Mother - Heart Father - Stroke Father - Seizures Father - Psychiatry Father bipolar - Seizures Brother - Stroke Brother 12 - Breast Cancer Maternal Grandmother PGGM ,MGaunt - Diabetes Maternal Grandmother - Colon Polyps Maternal Grandmother - Diabetes Maternal Grandfather - Heart Maternal Grandfather - Diabetes Paternal Grandmother - Diabetes Paternal Grandfather - Emphysema Paternal Grandfather - Heart Paternal Grandfather - Colon Cancer Maternal Aunt - Arthritis Maternal Uncle Social History Tobacco Use - Smoking status: Former Packs/day: .25 Types: Cigarettes - Smokeless tobacco: Never - Tobacco comments: Not currently, early on in Vaping Use - Vaping Use: Never used Substance Use Topics - Alcohol use: Not Currently Comment: not while - Drug use: No Current Outpatient Medications Medication Sig - fluticasone propionate (FLOVENT INHALATION) Inhale as instructed. - fluticasone (FLONASE) 50 mcg/actuation nasal spray Use 2 Sprays in each nostril once daily. Rinse mouth after use. - PNV no.95/ferrous fum/folic ac ( ORAL) Take by mouth. - ALBUTEROL INHALATION Albuterol Albuterol Inhaler Active 1 PUFF EVERY 4 HOURS NEEDED April 15, 2019 1:49pm 04-15-2019 [facility] ([id number]) - albuterol HFA (VENTOLIN HFA) 90 mcg/actuation inhaler Inhale 2 Puffs as instructed every 4 hours as needed for Wheezing/Shortness of Breath. - loratadine (CLARITIN) 10 mg tablet Take 1 tablet by mouth once daily as needed. FOR ALLERGY SYMPTOMS - dicyclomine (BENTYL) 10 mg capsule Take 10 mg by mouth before meals and at bedtime. (Patient not taking: Reported on 01/04/2024) - omeprazole (PRILOSEC) 20 mg capsule Take 1 capsule by mouth once daily. No current facility-administered medications for this visit. Allergies As of Date: 01/04/2024 Allergen Noted Reaction CEPHALOSPORINS 10/01/2022 Unknown NSAIDS (NON-STEROIDAL ANTI-INFLAM*09/15/2022 GI Upset OMNICEF [CEFDINIR] 04/29/2022 Hives RED DYE 12/10/2010 Hives TESSALON [BENZONATATE] 05/31/2017 Rash Fully Assessed 01/04/2024 REVIEW OF SYSTEMS Abdomen: No bloating, early satiety, indigestion, or increased flatulence. No abdominal pain, nausea, vomiting, diarrhea, or constipation. Bladder: No dysuria, gross hematuria, urinary urgency, or incontinence; positive urinary frequency Allergies and current medication updated:Yes EXAM: BP 118/72 Wt 211 lb (95.7kg) LMP 09/29/2023 GENERAL: pleasant, female in no apparent distress PELVIC: external genitalia normal, normal Bartholin's glands, urethra, [place]'s glands, no vulvar lesions, no cervical lesions, good vaginal support, physiologic discharge present, normal appearing perineal body and perianal region BIMANUAL: exam limited by patient's tenderness on exam ASSESSMENT AND PLAN: 28yo female with pelvic pain, urinary frequency AND oligomenorrhea UA AND urine hcg negative Oligomenorrhea likely from but will check labs Pelvic US ordered Medical Decision Making: Problems: Moderate: New problem with uncertain prognosis Data: Unique test(s) ordered: 3+ Risk: Low: Low risk from testing/treatment Medical Decision Making Level: 4 - Moderate Sabrina Sorensen [facility]05-09-2024 History of Present illness Narrative* Sabrina Sorensen MD - 01/04/2024 3:34 PM EDT Adamaris Brice is a 28 year old female who presents for problem visit. HPI: Patient reports left sided pelvic pain. It started about 1 month ago. She denies that anythingmakes the pain better other than Tylenol. Patient denies pain triggers. Also she reports no menses since September. She is and did have menses for a few months prior. Denies vaginitis orSTD concerns. 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 History Comments: Sexual Activity: Yes; Male Contraception: No contraception data on record PAST MEDICAL HISTORY Diagnosis Date Asthma Environmental allergies fracture growth plate left ankle Herpes genitalis Mental disorder Placental abruption in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 Cramps with or without diarrhea If you notice any of the above symptoms, contact our office at [phone] and ask to speak with anurse. After hours, you can call [employer] [facility] at [phone] OR call [facility] at [phone] ask to have the doctor carton counter feeder paged. If you consider this an emergency, dial 9--0 or go to your nearest emergency department. NEED HELP? Are you dealing with a violent or abusive relationship? Are you a victim of rape or sexual assult? Call [facility] ([place]) 24 hour Crisis Hotline: 536.493.2044 or 204-289-5800. MANUAL Your Guide to a Healthy manual is now on-line. Visit [email or web address] to download your free copy documented in this encounterBethesda North Hospital05-11-2023 Miscellaneous Notes* Telephone Encounter - Sabrina Sorensen MD - 01/05/2023 8:59 AM EDT Rx given Qasim to discuss daily suppressive therapy at next visit Sabrina Sorensen MD * Telephone Encounter - Xiomy Roblero RN - 01/05/2023 8:38 AM EDT 22w1d documented in this encounterBethesda North Hospital05-08-2023 History of Present illness Narrative* Diamond Sorensen APRN.MARIZA - 01/02/2023 5:20 PM EDT CC: Patient presents with: Ear Pain: Right ear pain, sore throat, nasally, congestion x 2 days Has been out of her Flovent for a few weeks. HPI: Adamaris Brice is a 27 year old female who presents to the office with complaint of head congestion, cough, nonproductive, sore throat, and ear symptoms for a few days. Symptoms are staying the same. Associated symptoms includes sore throat. Denies fever, nausea, vomiting , and diarrhea. Treatments tried include nothing so far. with no relief of symptoms. Sick contacts: unknown. History of asthma, frequent episodes of bronchitis, chronic bronchitis, bronchiectasis or COPD: yesasthma Smoker: No Seasonal/environmental allergies: No The ROS is otherwise negative. The patient's pmh, medications, allergies, and past visits are reviewed. PHYSICAL EXAM: BP 122/54 Pulse 94 Temp 36.8 C (98.3 F) Resp 21 Wt 92.7 kg (204 lb 6.4 oz) LMP 07/20/2022 SpO2 100% BMI 33.85 kg/m General appearance: alert, cooperative, pleasant, in no acute distress Head: Normocephalic Eyes: EOM's intact, conjunctiva pink and moist, no icterus, sclera white, non-injected Ears: Right ear: External ear/canal- Normal, TM - clear with good landmarks. Left ear: External ear/canal- Normal, TM - clear with good landmarks Oropharynx:moderate erythema, without exudates present Heart: Negative. RRR without obvious murmur, gallop, or rubs. No ectopy. Lungs: mild wheezing diffusely PAST MEDICAL HISTORY Diagnosis Date Asthma Environmental allergies fracture growth plate left ankle Herpes genitalis Mental disorder RSV (respiratory syncytial virus infection) Ulcerative colitis (HCC) Possible Ulcerative Colitis per patient Vertigo 11/2020 PAST SURGICAL HISTORY Procedure Laterality Date INSERT INTRAUTERINE DEVICE 05/27/2021 ALLERGIES Cephalosporins, Nsaids (Non-Steroidal Anti-Inflammatory Drug), Omnicef [Cefdinir], Red Dye, and Tessalon [Benzonatate] MEDICATIONS PNV no.95/ferrous fum/folic ac ( ORAL) Take by mouth. dicyclomine (BENTYL) 10 mg capsule Take 10 mg by mouth before meals and at bedtime. ALBUTEROL INHALATION Albuterol Albuterol Inhaler Active 1 PUFF EVERY 4 HOURS NEEDED March 1:49pm 04-15-2019 [facility] ([id number]) omeprazole (PRILOSEC) 20 mg capsule Take 1 capsule by mouth once daily. albuterol HFA (VENTOLIN HFA) 90 mcg/actuation inhaler Inhale 2 Puffs as instructed every 4 hours asneeded for Wheezing/Shortness of Breath. loratadine (CLARITIN) 10 mg tablet Take 1 tablet by mouth once daily as needed. FOR ALLERGY SYMPTOMS fluticasone (FLOVENT) 110 mcg/actuation inhaler Inhale 1 Puff as instructed twice daily. FAMILY HISTORY Problem Relation Age of Onset Heart Mother Asthma Mother Arthritis Mother Hypertension Mother Stroke Mother Heart Father Stroke Father Seizures Father Psychiatry Father bipolar Seizures Brother Stroke Brother 12 Breast Cancer Maternal Grandmother PGGM ,MGaunt Diabetes Maternal Grandmother Colon Polyps Maternal Grandmother Diabetes Maternal Grandfather Heart Maternal Grandfather Diabetes Paternal Grandmother Diabetes Paternal Grandfather Emphysema Paternal Grandfather Heart Paternal Grandfather Colon Cancer Maternal Aunt Arthritis Maternal Uncle Social History Tobacco Use Smoking status: Every Day Packs/day: 0.25 Types: Cigarettes Smokeless tobacco: Never Vaping Use Vaping Use: Never used Substance Use Topics Alcohol use: Yes Comment: not while Drug use: No ASSESSMENT/PLAN: 1. Strep throat - ICD9: 034.0, ICD10: J02.0 (primary diagnosis) - STREP A MOLECULAR (POC) - neg 2. Mild intermittent asthma, uncomplicated - ICD9: 493.90, ICD10: J45.20 - FLUTICASONE PROPIONATE 110 MCG/ACTUATION HFA AEROSOL INHALER If patient 1 really fill on her inhaler. Patient is to contact PCP for further refills. Prescription instructions reviewed with patient as applicable. Potential red flag symptoms discussed with the patient. Reviewed appropriate action plan to take if red flag symptoms occur. Patient agreeable to treatment plan. Diamond Sorensen APRN.MARIZA documented in this encounterBethesda North Hospital04-27-2023 Miscellaneous Notes* Quick Notes - Shayla Partida APRN.CNM - 12/22/2022 2:43 PM EDT S: Adamaris Brice is a 27 year old female who presents at 20.1 weeks gestation for a routine visit. Just completed anatomy US and will need follow up US due to suboptimal views. Positive movement. Increased back and sciatica pain- looking into chiropractor. Denies headache, visual changes, chest pain, shortness of breath, vaginal bleeding, leakage of fluid, or dysuria. O: See flow sheet Gen: No apparent distress Abd: Gravid, nontender ASSESSMENT/PLAN: 1. 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 The sequential screen combinesultrasound and blood tests to determine the risk of chromosomal abnormalities, including Down's Syndrome (Trisomy 21) and Trisomy 18, as well as open neural tube defects including spina bifida. Ultrasound examination is performed between 11 weeks and 13 weeks gestational age. Blood tests are drawn after the ultrasound and again later in the between 15 and 21 weeks gestational age. Please let your physician know if you are interested in this testing. It will require an appointment withour bindery technician. This is not an ultrasound performed by a physician in our office during a routine visit. SIGNS AND SYMPTOMS OF LABOR 1. Contractions every 10 minutes or more often 2. Clear, pink, or brownish fluid (water) leaking from vagina 3. Feeling that baby is pushing down, pressure 4. Low, dull backache 5. Cramps that feel like a period 6. Cramps with or without diarrhea If you notice any of the above symptoms, contact our office at [phone] and ask to speak with anurse. After hours, you can call doctors registry at [phone] OR call [facility] at [phone] ask to have the doctor carton counter feeder paged. If you consider this an emergency, dial 9-1-1 or go to your nearest emergency department. NEED HELP? Are you dealing with a violent or abusive relationship? Are you a victim of rape or sexual assult? Call [facility] ([place]) 24 hour Crisis Hotline: 955.416.5118 or 354-834-1809. MANUAL Your Guide to a Healthy manual is now on-line. Visit [email or web address] to download your free copy documented in this encounterBethesda North Hospital03-30-2023 Miscellaneous Notes* Quick Notes - Sabrina Sorensen MD - 11/24/2022 9:13 AM EDT KJ - VB No. LOF No. CTXS No. Movement: absent. Other c/o: Patient feels dizzy at times. 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 Medication list reviewed. Physical Exam See Flow Sheet Gen: no accute distress, well appearing Abd: soft, nontender, gravid A/P 16w1d Estimated Date of Delivery: 05/10/23 Schedule anatomy US [facility] today Dizziness - advised on hydration & frequent snacks. Will write note for work. Sciatic pain - continue PT exercises. Considering chiropractic treatment. Sabrina Sorensen MD documented in this encounterBethesda North Hospital03-30-2023 Instructions* Patient Instructions* Jessica Nazario Ma - 11/24/2022 8:58 AM EDT SEQUENTIAL SCREENINGS [facility] offers sequential screenings for women who are interested in screenings for chromosomal abnormalities and certain defects during a . The sequential screen combinesultrasound and blood tests to determine the risk of chromosomal abnormalities, including Down's Syndrome (Trisomy 21) and Trisomy 18, as well as open neural tube defects including spina bifida. Ultrasound examination is performed between 11 weeks and 13 weeks gestational age. Blood tests are drawn after the ultrasound and again later in the between 15 and 21 weeks gestational age. Please let your physician know if you are interested in this testing. It will require an appointment withour bindery technician. This is not an ultrasound performed by a physician in our office during a routine visit. SIGNS AND SYMPTOMS OF LABOR 1. Contractions every 10 minutes or more often 2. Clear, pink, or brownish fluid (water) leaking from vagina 3. Feeling that baby is pushing down, pressure 4. Low, dull backache 5. Cramps that feel like a period 6. Cramps with or without diarrhea If you notice any of the above symptoms, contact our office at [phone] and ask to speak with anurse. After hours, you can call doctors registry at [phone] OR call [facility] at [phone] ask to have the doctor carton counter feeder paged. If you consider this an emergency, dial 9-1-1 or go to your nearest emergency department. NEED HELP? Are you dealing with a violent or abusive relationship? Are you a victim of rape or sexual assult? Call [facility] ([place]) 24 hour Crisis Hotline: 865.408.4756 or 557-632-5476. MANUAL Your Guide to a Healthy manual is now on-line. Visit [email or web address] to download your free copy documented in this encounterBethesda North Hospital03-16-2023 Miscellaneous Notes* Telephone Encounter - Rosana Persaud RN - 11/10/2022 2:15 PM EDT Order signed and faxed. Rosana Persaud RN * Telephone Encounter - Xiomy Roblero RN - 11/03/2022 8:05 AM EST Received breast pump request from [employer]. To KJ to sign. Xiomy Roblero RN documented in this encounterBethesda North Hospital03-13-2023 Miscellaneous Notes* Telephone Encounter - Concepcion Downey APRN.CNP - 11/07/2022 4:32 PM EDT Noted. Agree that pt needs to wait to be evaluated by ER staff. Thank you, Concepcion Downey APRN.SUPERINTENDENT PRESSURE * Telephone Encounter - Maria Guadalupe Rosen RN - 11/07/2022 3:40 PM EDT Patient calls back to ask provider recommendation. Patient is currently at [facility] waiting to be seen. She reports they have no empty beds and her SOB isn't getting any better. Patient audibly SOB and wheezing over phone and could hardly understand what patient is saying. Notified patient that she needed to discuss concerns with hospital staff as based on symptoms and diagnosis she needs ER evaluation. Maria Guadalupe Rosen RN * Telephone Encounter - Mena Gallardo LPN - 11/07/2022 9:21 AM EDT Patient calling said she had gone to [place] [facility] was told she has pneumonia. She had been given rx for Amox from [employer] where she works. Patient said she is more short of breath, she has taken 3 nebulizer treatments since 330 am this morning, about every 3 hours and her rescue inhaler is not helping atall. She said she is also. Advised to go to ER for evaluation. Patient said she may go to [facility] ER. documented in this encounterBethesda North Hospital03-02-2023 Miscellaneous Notes* Quick Notes - Dayan Reed MD - 10/27/2022 10:35 AM EST RR- VB No. LOF No. CTXS No. Movement: present. Other c/o: No. Medication list reviewed. Physical Exam See Flow Sheet Abd: soft, nontender, gravid Ext: edema: Trace A/P 12w1d Estimated Date of Delivery: 05/10/23 reviewed labs. reviewed aneuploidy screening and limitations. Desires to proceed F/u in 4 weeks or prn Dayan Reed M.D. documented in this encounterBethesda North Hospital03-02-2023 Instructions* Patient Instructions* Yael Espinosa Ma - 10/27/2022 10:21 AM EST SEQUENTIAL SCREENINGS [facility] offers sequential screenings for women who are interested in screenings for chromosomal abnormalities and certain defects during a . The sequential screen combinesultrasound and blood tests to determine the risk of chromosomal abnormalities, including Down's Syndrome (Trisomy 21) and Trisomy 18, as well as open neural tube defects including spina bifida. Ultrasound examination is performed between 11 weeks and 13 weeks gestational age. Blood tests are drawn after the ultrasound and again later in the between 15 and 21 weeks gestational age. Please let your physician know if you are interested in this testing. It will require an appointment withour bindery technician. This is not an ultrasound performed by a physician in our office during a routine visit. SIGNS AND SYMPTOMS OF LABOR 1. Contractions every 10 minutes or more often 2. Clear, pink, or brownish fluid (water) leaking from vagina 3. Feeling that baby is pushing down, pressure 4. Low, dull backache 5. Cramps that feel like a period 6. Cramps with or without diarrhea If you notice any of the above symptoms, contact our office at [phone] and ask to speak with anurse. After hours, you can call doctors registry at [phone] OR call [facility] at [phone] ask to have the doctor carton counter feeder paged. If you consider this an emergency, dial 6-6-2 or go to your nearest emergency department. NEED HELP? Are you dealing with a violent or abusive relationship? Are you a victim of rape or sexual assult? Call [facility] ([place]) 24 hour Crisis Hotline: 213.473.2803 or 760-939-7864. MANUAL Your Guide to a Healthy manual is now on-line. Visit [email or web address] to download your free copy documented in this encounterBethesda North Hospital02-04-2023 History of Present illness Narrative* Blanco Almaguer APRN.SUPERINTENDENT PRESSURE - 10/01/2022 2:53 PM EST Subjective HPI Patient presents to urgent care with chief complaint of upper respiratory tract like infection. Duration of symptoms 3 days. Associated symptoms, nasal congestion, nasal discharge and nonproductive cough. Patient denies the use of any [id number] medications or home remedies for symptom management. Patient states recent sick contacts with similar signs and symptoms. Patient denies any productive cough, fever, chest pain, shortness of breath, pleuritic pain, rash, vaginal discharge, abdominal pain, nausea, vomiting or change in bowel or bladder habit. Patient currently 8 weeks . Past medical history prescription medication use allergies reviewed. .Patient presents with: Headache: Pt reported x8 wk gestation, nasal congestion , x3 days. PAST MEDICAL HISTORY Diagnosis Date Asthma Environmental allergies fracture growth plate left ankle Herpes genitalis Mental disorder RSV (respiratory syncytial virus infection) Ulcerative colitis (HCC) Possible Ulcerative Colitis per patient Vertigo 11/2020 PAST SURGICAL HISTORY Procedure Laterality Date INSERT INTRAUTERINE DEVICE 05/27/2021 ALLERGIES Cephalosporins, Nsaids (Non-Steroidal Anti-Inflammatory Drug), Omnicef [Cefdinir], Red Dye, and Tessalon [Benzonatate] MEDICATIONS PNV no.95/ferrous fum/folic ac ( ORAL) Take by mouth. dicyclomine (BENTYL) 10 mg capsule Take 10 mg by mouth before meals and at bedtime. ALBUTEROL INHALATION Albuterol Albuterol Inhaler Active 1 PUFF EVERY 4 HOURS NEEDED March 1:49pm 04-15-2019 [facility] ([id number]) albuterol HFA (VENTOLIN HFA) 90 mcg/actuation inhaler Inhale 2 Puffs as instructed every 4 hours asneeded for Wheezing/Shortness of Breath. loratadine (CLARITIN) 10 mg tablet Take 1 tablet by mouth once daily as needed. FOR ALLERGY SYMPTOMS nortriptyline (PAMELOR) 10 mg capsule Take 1 capsule by mouth daily at bedtime. omeprazole (PRILOSEC) 20 mg capsule Take 1 capsule by mouth once daily. promethazine (PHENERGAN) 25 mg tablet Take 25 mg by mouth every 6 hours as needed. (Patient not taking: Reported on 10/01/2022) fluticasone (FLOVENT) 110 mcg/actuation inhaler Inhale 1 Puff as instructed twice daily. (Patient taking differently: Inhale 1 Puff as instructed twice daily. Taking in the AM, daily) FAMILY HISTORY Problem Relation Age of Onset Heart Mother Asthma Mother Arthritis Mother Hypertension Mother Stroke Mother Heart Father Stroke Father Seizures Father Psychiatry Father bipolar Seizures Brother Stroke Brother 12 Breast Cancer Maternal Grandmother PGGM ,MGaunt Diabetes Maternal Grandmother Colon Polyps Maternal Grandmother Diabetes Maternal Grandfather Heart Maternal Grandfather Diabetes Paternal Grandmother Diabetes Paternal Grandfather Emphysema Paternal Grandfather Heart Paternal Grandfather Colon Cancer Maternal Aunt Arthritis Maternal Uncle Social History Tobacco Use Smoking status: Every Day Packs/day: 0.25 Types: Cigarettes Smokeless tobacco: Never Vaping Use Vaping Use: Never used Substance Use Topics Alcohol use: Yes Comment: not while Drug use: No BP 132/84 Pulse 90 Temp 37 C (98.6 F) (Tympanic) Resp 18 Wt 82.1 kg (181 lb) LMP 07/20/2022 SpO2 100% BMI 29.97 kg/m Review of Systems Constitutional: Negative for chills, fever and malaise/fatigue. HENT: Positive for congestion. Negative for ear discharge, ear pain, sinus pain and sore throat. Eyes: Negative for blurred vision, pain, discharge and redness. Respiratory: Positive for cough. Negative for hemoptysis, sputum production, shortness of breath, wheezing and stridor. Cardiovascular: Negative for chest pain. Gastrointestinal: Negative for abdominal pain, diarrhea, nausea and vomiting. Musculoskeletal: Negative for myalgias. Skin: Negative for itching and rash. Neurological: Positive for headaches. Negative for dizziness. Objective Physical Exam Constitutional: General: She is not in acute distress. Appearance: She is not diaphoretic. HENT: Head: Normocephalic. Right Ear: Tympanic membrane, ear canal and external ear normal. Left Ear: Tympanic membrane, ear canal and external ear normal. Nose: Congestion present. Mouth/Throat: Mouth: Mucous membranes are moist. Pharynx: Oropharynx is clear. No oropharyngeal exudate or posterior oropharyngeal erythema. Eyes: Conjunctiva/sclera: Conjunctivae normal. Pupils: Pupils are equal, round, and reactive to light. Cardiovascular: Rate and Rhythm: Normal rate and regular rhythm. Heart sounds: Normal heart sounds. Pulmonary: Effort: Pulmonary effort is normal. No tachypnea, accessory muscle usage or respiratory distress. Breath sounds: Normal breath sounds. No stridor. No wheezing, rhonchi or rales. Abdominal: General: There is no distension. Palpations: Abdomen is soft. Tenderness: There is no abdominal tenderness. There is no guarding or rebound. Musculoskeletal: Cervical back: Normal range of motion and neck supple. No rigidity or tenderness. Lymphadenopathy: Cervical: No cervical adenopathy. Skin: General: Skin is warm and dry. Neurological: Mental Status: She is alert and oriented to person, place, and time. ASSESSMENT/PLAN: 1. Viral illness - ICD9: 079.99, ICD10: B34.9 - Discussed viral etiology and rationale for treatment. - Supportive care with fluids and rest - COVID WITH FLUA+B, ROUTINE Treat as viral etiology this time. Patient will follow up with primary care provider 2-3 days. Patient was instructed to immediately proceed to emergency room for any new, worsening, or symptoms lasting longer than anticipated. The patient's clinical presentation is otherwise unremarkable at this time. Based on exam and clinical finding, the patient is stable for discharge. Plan of care was discussed with patient. Patient verbalizes understanding and agrees to plan of care. This note was generated using [employer] software. It may contain errors in wording, punctuation, or spelling. Blanco Almaguer APRN.SUPERINTENDENT PRESSURE documented in this encounterBethesda North Hospital02-01-2023 Miscellaneous Notes* Telephone Encounter - Christy Maria MD - 09/28/2022 4:45 PM EST ordered * Telephone Encounter - Rosana Persaud RN - 09/28/2022 4:27 PM EST Patient is scheduled for dating u/s 09/29/22 in the morning. Please file order.KJ not back before herappt. Rosana Persaud RN documented in this encounterBethesda North Hospital01-20-2023 Miscellaneous Notes* Telephone Encounter - Dione Echeverria RN - 09/16/2022 10:53 AM EST PRAF form completed. LENCHO Neves, RN OB Clinical Navigator documented in this encounterBethesda North Hospital01-19-2023 History of Present illness Narrative* Sabrina Sorensen MD - 09/15/2022 10:12 AM EST INITIAL OB ASSESSMENT Chemist Food offered: Patient declines. Obstetric History T1 L1 SAB0 IAB0 Ectopic0 Multiple0 Live Births1 Name of Baby 1: Antonio Date: 06/30/16 GA: 40w2d Delivery: Vaginal, Spontaneous Apgar1: 8 Apgar5: 9 Living: Living Name of Baby 2: Not recorded Date: Not recorded GA: Not recorded Delivery: Not recorded Apgar1: Not recorded Apgar5: Not recorded Living: Not recorded HPI: Adamaris Brice is a 26 year old female here to establish Obstetrical Care. Patient's last menstrual period was 07/20/2022. from OB Dating Form. Complaints: nausea without vomiting was unplanned but accepted. OB History T1 L1 SAB0 IAB0 Ectopic0 Multiple0 Live Births1 Prior : never History of 4th degree laceration: No Patient's Risk Screening for delivery: Have you had a prior george between 20w and 36w6d?: No History of abnormal pap: No Prior treatment for cervical dysplasia: none. 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 dicyclomine (BENTYL) 10 mg capsule Take 10 mg by mouth before meals and at bedtime. ALBUTEROL INHALATION Albuterol Albuterol Inhaler Active 1 PUFF EVERY 4 HOURS NEEDED March 1:49pm 04-15-2019 [facility] ([id number]) omeprazole (PRILOSEC) 20 mg capsule Take 1 capsule by mouth once daily. omeprazole (PRILOSEC) 20 mg capsule Take 1 capsule by mouth once daily. traMADol (ULTRAM) 50 mg tablet Take 50 mg by mouth every 8 hours as needed for pain. (Patient not taking: Reported on 01/13/2022) promethazine (PHENERGAN) 25 mg tablet Take 25 mg by mouth every 6 hours as needed. fluticasone (FLONASE) 50 mcg/actuation nasal spray Use 1 Sumner in the nose. (Patient not taking: Reported on 12/15/2021 ) Levonorgestrel-Ethinyl Estrad (AVIANE) 0.1mg - 20mcg per tablet Take 1 tablet by mouth once daily. L. acidophilus-L. rhamnosus 15 billion cell cap Take 1 capsule by mouth once daily. FLORAJEN WOMEN.If on antibiotic, take at least 1-2 hours before or after antibiotic. KEEP REFRIGERATED (Patient not taking: Reported on 01/13/2022 ) Vcxogafxmqotwmv-Ywkseiysk-MA (BROMFED DM) 2-30-10 mg/5 mL syrup Take 10 mL by mouth three times daily as needed. (Patient not taking: Reported on 09/15/2021 ) ibuprofen (MOTRIN) 600 mg tablet Take 1 tablet by mouth every 6 hours as needed for pain. (Patient not taking: Reported on 09/15/2021 ) diazePAM (VALIUM) 5 mg tablet Take by mouth. (Patient not taking: Reported on 06/30/2021) HYDROcodone-acetaminophen (NORCO) 5-325 mg per tablet (Patient not taking: Reported on 09/15/2021) predniSONE (DELTASONE) 20 mg tablet Take by mouth. (Patient not taking: Reported on 06/30/2021 ) acyclovir (ZOVIRAX) 400 mg tablet Take 1 tablet by mouth twice daily. (Patient taking differently: Take 400 mg by mouth as needed. ) albuterol HFA (VENTOLIN HFA) 90 mcg/actuation inhaler Inhale 2 Puffs as instructed every 4 hours asneeded for Wheezing/Shortness of Breath. fluticasone (FLOVENT) 110 mcg/actuation inhaler Inhale 1 Puff as instructed twice daily. (Patient taking differently: Inhale 1 Puff as instructed twice daily. Taking in the AM, daily ) loratadine (CLARITIN) 10 mg tablet Take 1 tablet by mouth once daily as needed. FOR ALLERGY SYMPTOMS No current facility-administered medications on file prior to visit. Review of Systems: GENERAL: Negative for: Fever or Chills HEENT: Negative for: Headache, Impaired Vision, Ringing in Ears, Nosebleeds NECK: Negative for: Swelling, Pain, Stiffness RESPIRATORY: Negative for: Cough, Shortness of breath, Wheezing GASTROINTESTINAL: Negative for: Heartburn, Constipation, Diarrhea, Blood in stool, Vomiting MUSCULOSKELETAL: Negative for: Muscle or joint pain, stiffness, Joint swelling NEUROLOGIC/PSYCHIATRIC: Negative for: Weakness, Paralysis, Numbness, Tingling, Tremor, Anxiety, Depression, Memory loss SKIN: Negative for: Rash, Itching GENITOURINARY: Negative for: vaginal itching, vaginal discharge, hematuria or dysuria PHYSICAL EXAM: BP 118/72 Ht 5' 5.157 (1.66m) Wt 176 lb 9.6 oz (80.1kg) LMP 07/20/2022 BMI 29.25 kg/(m^2). GENERAL: pleasant female in no apparent distress DERMATOLOGY: Normal, without lesions, non-icteric, and non-hirsute NECK: Supple, full range of motion, no adenopathy, and thyroid normal CHEST: Normal inspiratory effort BREAST: soft, non-tender, symmetric, no dominant mass, normal nipple-areolar complex, no lymphadenopathy, and no nipple discharge ABDOMEN: soft, non-tender, and no masses NEURO: alert and oriented x3,exam grossly non-focal PELVIS: External genitalia normal without lesions. Perineal body intact. No vaginal or cervical lesions. Cervix closed. Uterus 6 week size. No adnexal masses or tenderness. Clinical Pelvimetry: Pelvimetry clinically assessed as adequate Limited OB ultrasound exam: single intrauterine and positive cardiac activity OB Risk Screening: Completed, no positive findings documented. ASSESSMENT: 26 year old at 6&1 wks gestational age PLAN: 1) Patient oriented to practice. Discussed nutrition, folic acid supplementation, dietary guidelines, exercise, smoking, alcohol, caffeine, and drug use. Discussed routine OB labs including STD/HIV. Discussed aneuploidy screening options including serum screening and nuchal translucency. Patient declines all aneuploidy screening. CF carrier screening discussed and declined. 2) See problem list 3) Med list reviewed & discussed R/B/A of use in Follow up in 2 weeks or sooner prn. Sabrina Sorensen MD documented in this encounterBethesda North Hospital01-19-2023 Instructions* Patient Instructions* Jessica Nazario Ma - 09/15/2022 10:12 AM EST Please select the following link to access the [facility] Your Guide to a Healthy . [email or web address] documented in this encounterBethesda North Hospital01-02-2023 Miscellaneous Notes* Telephone Encounter - Ernestina Massey LPN - 08/29/2022 10:14 AM EST Pt states she has chronic asthma & was dx'd with pneumonia on 08/26/22. Pt states she is havingsob with exertion, states it is not worse than when seen in ER. Breathing is fine with rest. Pt states she is using her nebulizer but is out of her inhalers. Pt notified no providers are in the office today but she can be seen in EC or ED if she feels she is getting worse & needs to be seen. Pt states understanding. Ernestina Massey LPN documented in this encounterBethesda North Hospital12-30-2022 History of Present illness Narrative* Isis Bailey APRN.MARIZA - 08/26/2022 2:15 PM EST Chief Complaint Patient presents with: ED Follow-up HPI Adamaris Brice is a 26 year old female who presents here today for Above Complaints.. Patient presents for ER follow up for pneumonia. Patient was seen 08/24 at [facility] for shortness of breath ad was initiated on a zpak, prednisone and was encouraged to continue use of albuterol. at that time. Reports chest tightness, shortness of breath at rest, worse with exertion, sinus congestion, wheezing. Denies fevers. Past medical history, appointments, medications, allergies reviewed. Previous Medical History PAST MEDICAL HISTORY Diagnosis Date Asthma Environmental allergies fracture growth plate left ankle Herpes genitalis Mental disorder RSV (respiratory syncytial virus infection) Vertigo 11/2020 Previous Surgical History PAST SURGICAL HISTORY Procedure Laterality Date INSERT INTRAUTERINE DEVICE 05/27/2021 Family History FAMILY HISTORY Problem Relation Age of Onset Asthma Mother Arthritis Mother Hypertension Mother Stroke Mother Heart Father Stroke Father Seizures Father Psychiatry Father bipolar Arthritis Maternal Uncle Breast Cancer Maternal Grandmother PGGM ,MGaunt Diabetes Maternal Grandmother Colon Polyps Maternal Grandmother Diabetes Maternal Grandfather Heart Maternal Grandfather Diabetes Paternal Grandmother Diabetes Paternal Grandfather Emphysema Paternal Grandfather Heart Paternal Grandfather Seizures Brother Stroke Brother 12 Colon Cancer Maternal Aunt Patient Allergies ALLERGIES Allergen Reactions Omnicef [Cefdinir] Hives Red Dye Hives Tessalon [Benzonata* Rash Current Medications Current Outpatient Medications on File Prior to Visit Medication Sig dicyclomine (BENTYL) 10 mg capsule Take 10 mg by mouth before meals and at bedtime. nortriptyline (PAMELOR) 10 mg capsule Take 1 capsule by mouth daily at bedtime. ALBUTEROL INHALATION Albuterol Albuterol Inhaler Active 1 PUFF EVERY 4 HOURS NEEDED March 1:49pm 04-15-2019 [facility] ([id number]) omeprazole (PRILOSEC) 20 mg capsule Take 1 capsule by mouth once daily. omeprazole (PRILOSEC) 20 mg capsule Take 1 capsule by mouth once daily. traMADol (ULTRAM) 50 mg tablet Take 50 mg by mouth every 8 hours as needed for pain. (Patient not taking: Reported on 01/13/2022) promethazine (PHENERGAN) 25 mg tablet Take 25 mg by mouth every 6 hours as needed. fluticasone (FLONASE) 50 mcg/actuation nasal spray Use 1 Sumner in the nose. (Patient not taking: Reported on 12/15/2021 ) Levonorgestrel-Ethinyl Estrad (AVIANE) 0.1mg - 20mcg per tablet Take 1 tablet by mouth once daily. L. acidophilus-L. rhamnosus 15 billion cell cap Take 1 capsule by mouth once daily. FLORAJEN WOMEN.If on antibiotic, take at least 1-2 hours before or after antibiotic. KEEP REFRIGERATED (Patient not taking: Reported on 01/13/2022 ) Luepcvmtvltffwz-Dsdqpaokl-IW (BROMFED DM) 2-30-10 mg/5 mL syrup Take 10 mL by mouth three times daily as needed. (Patient not taking: Reported on 09/15/2021 ) ibuprofen (MOTRIN) 600 mg tablet Take 1 tablet by mouth every 6 hours as needed for pain. (Patient not taking: Reported on 09/15/2021 ) diazePAM (VALIUM) 5 mg tablet Take by mouth. (Patient not taking: Reported on 06/30/2021) HYDROcodone-acetaminophen (NORCO) 5-325 mg per tablet (Patient not taking: Reported on 09/15/2021) predniSONE (DELTASONE) 20 mg tablet Take by mouth. (Patient not taking: Reported on 06/30/2021 ) acyclovir (ZOVIRAX) 400 mg tablet Take 1 tablet by mouth twice daily. (Patient taking differently: Take 400 mg by mouth as needed. ) albuterol HFA (VENTOLIN HFA) 90 mcg/actuation inhaler Inhale 2 Puffs as instructed every 4 hours asneeded for Wheezing/Shortness of Breath. fluticasone (FLOVENT) 110 mcg/actuation inhaler Inhale 1 Puff as instructed twice daily. (Patient taking differently: Inhale 1 Puff as instructed twice daily. Taking in the AM, daily ) loratadine (CLARITIN) 10 mg tablet Take 1 tablet by mouth once daily as needed. FOR ALLERGY SYMPTOMS No current facility-administered medications on file prior to visit. Social History Social History Tobacco Use Smoking status: Every Day Packs/day: 0.50 Types: Cigarettes Smokeless tobacco: Never Vaping Use Vaping Use: Never used Substance Use Topics Alcohol use: Yes Comment: rare Drug use: No Review of Symptoms REVIEW OF SYSTEMS SEE HPI EXAM: LMP 01/28/2022 (Approximate) General Appearance: Patient ill appearing increased work of breathing noted. Lungs: Positive findings: wheezing, tachypnea, audible wheezes Heart: RRR without murmur, gallop, or rubs. No ectopy. Health Maintenance List HEPATITIS B(1 of 3 - 3-dose series) Never done COVID-19 VACCINE(1) Never done HPV VACCINE(1 - 2-dose series) Never done HEPATITIS C SCREENING Never done DEPRESSION ASSESSMENT Never done PAP TESTING due on 04/18/2022 INFLUENZA(1) due on 04/28/2022 PNEUMOCOCCAL(1 - PCV) due on 12/15/2022 DTAP,TDAP,TD(2 - Td or Tdap) due on 04/06/2026 HIV SCREENING Completed ASSESSMENT/PLAN: 1. Bacterial pneumonia - ICD9: 482.9, ICD10: J15.9 -Instructed patient to go to ER, patient declined emergent transport. Isis Bailey APRN.SUPERINTENDENT PRESSURE documented in this encounterBethesda North Hospital12-30-2022 Miscellaneous Notes* Telephone Encounter - Shira Sarah RN - 08/26/2022 9:08 AM EST Patient calling to schedule appointment with PCP. Transferred from Appointment Center to Nurse director television for triage due to report of Asthma. Patient has been evaluated by healthcare provider for previous and current symptoms. Seen in ED in [place] two days ago on 08/24 for SOB and cough. Tested negative for COVID and Flu. Was diagnosed with acute pneumonia and given Zpack, prednisone and is using albuterol. Denies any new or worse symptoms, states symptoms same as when seen in ED. Shareetha in Appointment Center to continue with scheduling request for first available appointment with office of PCP. Advised to continue following with PCP as needed until appointment or be seen in ED for new or worsening symptoms that cannot wait for appointment. Understanding verbalized. GO TO THE EMERGENCY ROOM OR CALL 911 IF: * You develop any new symptoms * Your condition worsens * You are concerned or anxious about your condition for any other reason. If you have any questions, you can call Nurse director television back. documented in this encounterBethesda North Hospital12-05-2022 History of Present illness Narrative* Amaris Dai APRN.MARIZA - 08/01/2022 1:03 PM EST Subjective Nasal Congestion Associated symptoms include chills, congestion, coughing and headaches. Pertinent negatives includeno ear pain or sore throat. Aadmaris Brice is a 26 year old female who presents with headache, sinus congestion, cough, vomiting, body aches, fever of 102.5 at home, chills and diarrhea. 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 She has taken tylenol at home. Review of Systems Constitutional: Positive for chills and fever. HENT: Positive for congestion. Negative for ear pain and sore throat. Respiratory: Positive for cough. Cardiovascular: Negative. Gastrointestinal: Positive for diarrhea and vomiting. Musculoskeletal: Positive for myalgias. Neurological: Positive for headaches. BP 106/62 Pulse 96 Temp 36.8 C (98.2 F) Resp 16 Wt 78.5 kg (173 lb) LMP 01/28/2022 (Approximate) SpO2 98% BMI 28.79 kg/m PAST MEDICAL HISTORY Diagnosis Date Asthma Environmental allergies fracture growth plate left ankle Herpes genitalis Mental disorder RSV (respiratory syncytial virus infection) Vertigo 11/2020 PAST SURGICAL HISTORY Procedure Laterality Date INSERT INTRAUTERINE DEVICE 05/27/2021 ALLERGIES Omnicef [Cefdinir], Red Dye, and Tessalon [Benzonatate] MEDICATIONS nortriptyline (PAMELOR) 10 mg capsule Take 1 capsule by mouth daily at bedtime. ALBUTEROL INHALATION Albuterol Albuterol Inhaler Active 1 PUFF EVERY 4 HOURS NEEDED March 1:49pm 04-15-2019 [facility] ([id number]) omeprazole (PRILOSEC) 20 mg capsule Take 1 capsule by mouth once daily. Levonorgestrel-Ethinyl Estrad (AVIANE) 0.1mg - 20mcg per tablet Take 1 tablet by mouth once daily. albuterol HFA (VENTOLIN HFA) 90 mcg/actuation inhaler Inhale 2 Puffs as instructed every 4 hours asneeded for Wheezing/Shortness of Breath. loratadine (CLARITIN) 10 mg tablet Take 1 tablet by mouth once daily as needed. FOR ALLERGY SYMPTOMS dicyclomine (BENTYL) 10 mg capsule Take 10 mg by mouth before meals and at bedtime. oseltamivir (TAMIFLU) 75 mg capsule Take 1 capsule by mouth twice daily for 5 days. omeprazole (PRILOSEC) 20 mg capsule Take 1 capsule by mouth once daily. traMADol (ULTRAM) 50 mg tablet Take 50 mg by mouth every 8 hours as needed for pain. (Patient not taking: Reported on 01/13/2022) promethazine (PHENERGAN) 25 mg tablet Take 25 mg by mouth every 6 hours as needed. fluticasone (FLONASE) 50 mcg/actuation nasal spray Use 1 Sumner in the nose. (Patient not taking: Reported on 12/15/2021 ) L. acidophilus-L. rhamnosus 15 billion cell cap Take 1 capsule by mouth once daily. FLORAJEN WOMEN.If on antibiotic, take at least 1-2 hours before or after antibiotic. KEEP REFRIGERATED (Patient not taking: Reported on 01/13/2022 ) Dbtjbjbkeqzfvyw-Srpvgpwol-AO (BROMFED DM) 2-30-10 mg/5 mL syrup Take 10 mL by mouth three times daily as needed. (Patient not taking: Reported on 09/15/2021 ) ibuprofen (MOTRIN) 600 mg tablet Take 1 tablet by mouth every 6 hours as needed for pain. (Patient not taking: Reported on 09/15/2021 ) diazePAM (VALIUM) 5 mg tablet Take by mouth. (Patient not taking: Reported on 06/30/2021) HYDROcodone-acetaminophen (NORCO) 5-325 mg per tablet (Patient not taking: Reported on 09/15/2021) predniSONE (DELTASONE) 20 mg tablet Take by mouth. (Patient not taking: Reported on 06/30/2021 ) acyclovir (ZOVIRAX) 400 mg tablet Take 1 tablet by mouth twice daily. (Patient taking differently: Take 400 mg by mouth as needed. ) fluticasone (FLOVENT) 110 mcg/actuation inhaler Inhale 1 Puff as instructed twice daily. (Patient taking differently: Inhale 1 Puff as instructed twice daily. Taking in the AM, daily ) FAMILY HISTORY Problem Relation Age of Onset Asthma Mother Arthritis Mother Hypertension Mother Stroke Mother Heart Father Stroke Father Seizures Father Psychiatry Father bipolar Arthritis Maternal Uncle Breast Cancer Maternal Grandmother PGGM ,MGaunt Diabetes Maternal Grandmother Colon Polyps Maternal Grandmother Diabetes Maternal Grandfather Heart Maternal Grandfather Diabetes Paternal Grandmother Diabetes Paternal Grandfather Emphysema Paternal Grandfather Heart Paternal Grandfather Seizures Brother Stroke Brother 12 Colon Cancer Maternal Aunt Social History Tobacco Use Smoking status: Every Day Packs/day: 0.50 Types: Cigarettes Smokeless tobacco: Never Vaping Use Vaping Use: Never used Substance Use Topics Alcohol use: Yes Comment: rare Drug use: No Objective Physical Exam Vitals and nursing note reviewed. Constitutional: Appearance: Normal appearance. HENT: Right Ear: Tympanic membrane, ear canal and external ear normal. Left Ear: Tympanic membrane, ear canal and external ear normal. Nose: Congestion present. Mouth/Throat: Mouth: Mucous membranes are moist. Pharynx: Oropharynx is clear. Uvula midline. No oropharyngeal exudate or posterior oropharyngeal erythema. Cardiovascular: Rate and Rhythm: Normal rate and regular rhythm. Heart sounds: Normal heart sounds. Pulmonary: Effort: Pulmonary effort is normal. No respiratory distress. Breath sounds: Normal breath sounds. No wheezing or rales. Musculoskeletal: Cervical back: Neck supple. Lymphadenopathy: Cervical: No cervical adenopathy. Skin: General: Skin is warm and dry. Findings: No erythema or rash. Neurological: Mental Status: She is alert. ASSESSMENT/PLAN: 1. Flu-like symptoms - ICD9: 780.99, ICD10: R68.89 - COVID WITH FLUA+B, ROUTINE - OSELTAMIVIR 75 MG CAPSULE - Follow-up with your PCP in 3-5 days if symptoms have not improved or sooner if symptoms worsen - Discussed red flags and need for immediate medical evaluation if any occur. - Discussed supportive care treatment with fluids, rest and analgesia. - Discussed expected course of illness Amaris Dai APRN.CNP documented in this encounterBethesda North Hospital12-05-2022 Instructions* Patient Instructions* Amaris Dai APRN.CNP - 08/01/2022 1:03 PM EST ASSESSMENT/PLAN: 1. Flu-like symptoms - ICD9: 780.99, ICD10: R68.89 - COVID WITH FLUA+B, ROUTINE - OSELTAMIVIR 75 MG CAPSULE - Follow-up with your PCP in 3-5 days if symptoms have not improved or sooner if symptoms worsen - Discussed red flags and need for immediate medical evaluation if any occur. - Discussed supportive care treatment with fluids, rest and analgesia. - Discussed expected course of illness Amaris Dai APRN.[facility] PATIENT INFO INFLUENZA INTRODUCTION Influenza (commonly called the flu) is a highly contagious illness that can occur in children or adults of any age. It occurs more often in the winter months because people spend more time in close contact with one another. The flu is spread easily from igmcad-vz-xenxkx by coughing, sneezing, or touching surfaces. Every year, complications of the flu require more than 200,000 people in the [place] to be hospitalized. Serious illness is more likely in the very young, older adults, women, and people who have certain health problems such as asthma or other forms of lung disease. There have been several widespread flu outbreaks (called pandemics), which led to the deaths of many people worldwide. These outbreaks occurred when new strains of influenza viruses formed (often from pigs or birds) and humans became infected because they had no immunity to these viruses. FLU SYMPTOMS Symptoms of seasonal flu can vary from person to person, but usually include: Fever (temperature higher than 100 F or 37.8 C) Headache and muscle aches Fatigue Cough and sore throat may also be present People with the flu usually have a fever for two to five days. This is different than fever caused by other upper respiratory viruses, which usually resolve after 24 to 48 hours. Some people have cold-like symptoms (runny nose, sore throat) during the flu while others have fever and muscle aches. Flu symptoms usually improve over two to five days, although the illness may last for a week or more. Weakness and fatigue may persist for several weeks Flu complications -- Complications of influenza occur in some people; pneumonia is the most common complication. Pneumonia is a serious infection of the lungs, and is more likely to occur in people over the age of 65, people who live in computer terminal operator care facilities (nursing homes), and those with other illnesses such as diabetes or conditions affecting the heart or lungs. FLU DIAGNOSIS Influenza is usually diagnosed based on symptoms (fever, cough and muscle aches). Lab testing for influenza is performed in certain cases, such as during a new influenza outbreak in a community. FLU TREATMENT When to seek help -- Most people with the flu recover within one to two weeks without treatment. However, serious complications of the flu can occur. Call your doctor or nurse immediately if: You feel short of breath or have trouble breathing You have pain or pressure in your chest or stomach You have signs of being dehydrated, such as dizziness when standing or not passing urine You feel confused You cannot stop vomiting or you cannot drink enough fluids There are several groups of people who are at increased risk for flu complications. These include women, young children (<5 years of age, and especially <2 years of age), people ?65 years of age, and people with certain diseases such as chronic lung disease (such as asthma), heart disease, diabetes, immunosuppressing conditions (such as HIV infection or transplantation), and some other diseases. If you or your child has flu symptoms and is at increased risk of flu complications, you should call your healthcare provider. Treat symptoms -- Treating the symptoms of influenza can help you to feel better, but will not makethe flu go away faster. Rest until the flu is fully resolved, especially if the illness has been severe Fluids -- Drink enough fluids so that you do not become dehydrated. One way to transition rn if you are drinking enough is to look at the color of your urine. Normally, urine should be light yellow to nearlycolorless. If you are drinking enough, you should pass urine every three to five hours. Acetaminophen (such as Tylenol and other brands) can relieve fever, headache, and muscle aches. Aspirin, and medicines that include aspirin (eg, bismuth subsalicylate; PeptoBismol), are not recommended for children under 18 because aspirin can lead to a serious disease called Linda syndrome. Cough medicines are not usually helpful; cough usually resolves without treatment. We do not recommend cough or cold medicine for children under age six years. Antiviral treatment -- Antiviral medicines can be used to treat or prevent influenza. When used as a treatment, the medicine does not eliminate flu symptoms, although it can reduce the severity and duration of symptoms by about one day. Not every person with influenza needs an antiviral medicine; the decision is based upon your risk of developing complications of influenza. Antiviral treatment is most effective for seasonal influenza when it is taken within the first 48 hours of flu symptoms. Side effects -- Zanamivir and oseltamivir can cause mild side effects, including nausea and vomiting; zanamivir, which is inhaled, can cause difficulty breathing in some cases. Most people are able to continue the medicine despite the side effects. Antibiotics -- Antibiotics are NOT useful for treating viral illnesses such as influenza. Antibiotics should only used if there is a bacterial complication of the flu such as bacterial pneumonia, earinfection, or sinusitis. Antibiotics can cause side effects and lead to development of antibiotic resistance. documented in this encounterBethesda [facility] Hospital09-25-[facility]22 History of Present illness Narrative* Andrea Brooks APRN.MARIZA - 05/22/2022 1:59 PM EDT Subjective HPI HPI Adamaris Brice is a 26 year old female who presents today for CC of migrain for few days, visual changes/light, nausea. Has tried excedrin migrain without relief. Symptoms are worsened by light. Risk factors hx of chronic migrains, seen specialist past. Denies head injury. Reports this feels like usual migraine. Denies thunder clap, worst headache ever. Denies possibility of being . .Patient presents with: Headache: Migraine since last Monday PAST MEDICAL HISTORY Diagnosis Date Asthma Environmental allergies fracture growth plate left ankle Herpes genitalis Mental disorder RSV (respiratory syncytial virus infection) Vertigo 11/2020 PAST SURGICAL HISTORY Procedure Laterality Date INSERT INTRAUTERINE DEVICE 05/27/2021 ALLERGIES Omnicef [Cefdinir], Red Dye, and Tessalon [Benzonatate] MEDICATIONS nortriptyline (PAMELOR) 10 mg capsule^Take 1 capsule by mouth daily at bedtime.^Disp: 30 capsule^Rfl: 2 ALBUTEROL INHALATION^Albuterol Albuterol Inhaler Active 1 PUFF EVERY 4 HOURS NEEDED March 1:49pm 04-15-2019 [facility] ([id number])^Disp: ^Rfl: omeprazole (PRILOSEC) 20 mg capsule^Take 1 capsule by mouth once daily.^Disp: 30 capsule^Rfl: 2 Levonorgestrel-Ethinyl Estrad (AVIANE) 0.1mg - 20mcg per tablet^Take 1 tablet by mouth once daily.^Disp: 28 tablet^Rfl: 14 albuterol HFA (VENTOLIN HFA) 90 mcg/actuation inhaler^Inhale 2 Puffs as instructed every 4 hours asneeded for Wheezing/Shortness of Breath.^Disp: 1 Inhaler^Rfl: 5 loratadine (CLARITIN) 10 mg tablet^Take 1 tablet by mouth once daily as needed. FOR ALLERGY SYMPTOMS^Disp: 30 tablet^Rfl: 0 omeprazole (PRILOSEC) 20 mg capsule^Take 1 capsule by mouth once daily.^Disp: 30 capsule^Rfl: 2 traMADol (ULTRAM) 50 mg tablet^Take 50 mg by mouth every 8 hours as needed for pain.^Disp: ^Rfl: (Patient not taking: Reported on 01/13/2022) promethazine (PHENERGAN) 25 mg tablet^Take 25 mg by mouth every 6 hours as needed.^Disp: ^Rfl: fluticasone (FLONASE) 50 mcg/actuation nasal spray^Use 1 Sumner in the nose.^Disp: ^Rfl: (Patient not taking: Reported on 12/15/2021 ) L. acidophilus-L. rhamnosus 15 billion cell cap^Take 1 capsule by mouth once daily. FLORAJEN WOMEN.If on antibiotic, take at least 1-2 hours before or after antibiotic. KEEP REFRIGERATED^Disp: 30 capsule^Rfl: 11 (Patient not taking: Reported on 01/13/2022 ) Rjptvtarjvoajne-Yiswczoch-IB (BROMFED DM) 2-30-10 mg/5 mL syrup^Take 10 mL by mouth three times daily as needed.^Disp: 240 mL^Rfl: 0 (Patient not taking: Reported on 09/15/2021 ) ibuprofen (MOTRIN) 600 mg tablet^Take 1 tablet by mouth every 6 hours as needed for pain.^Disp: 30 tablet^Rfl: 1 (Patient not taking: Reported on 09/15/2021 ) diazePAM (VALIUM) 5 mg tablet^Take by mouth.^Disp: ^Rfl: (Patient not taking: Reported on 06/30/2021) HYDROcodone-acetaminophen (NORCO) 5-325 mg per tablet^^Disp: ^Rfl: (Patient not taking: Reported on09/15/2021) predniSONE (DELTASONE) 20 mg tablet^Take by mouth.^Disp: ^Rfl: (Patient not taking: Reported on 06/30/2021 ) acyclovir (ZOVIRAX) 400 mg tablet^Take 1 tablet by mouth twice daily.^Disp: 180 tablet^Rfl: 0 (Patient taking differently: Take 400 mg by mouth as needed. ) fluticasone (FLOVENT) 110 mcg/actuation inhaler^Inhale 1 Puff as instructed twice daily.^Disp: 3 Inhaler^Rfl: 3 (Patient taking differently: Inhale 1 Puff as instructed twice daily. Taking in the AM,daily ) FAMILY HISTORY Problem Relation Age of Onset Asthma Mother Arthritis Mother Hypertension Mother Stroke Mother Heart Father Stroke Father Seizures Father Psychiatry Father bipolar Arthritis Maternal Uncle Breast Cancer Maternal Grandmother PGGM ,MGaunt Diabetes Maternal Grandmother Colon Polyps Maternal Grandmother Diabetes Maternal Grandfather Heart Maternal Grandfather Diabetes Paternal Grandmother Diabetes Paternal Grandfather Emphysema Paternal Grandfather Heart Paternal Grandfather Seizures Brother Stroke Brother 12 Colon Cancer Maternal Aunt Social History Tobacco Use Smoking status: Every Day Packs/day: 0.50 Types: Cigarettes Smokeless tobacco: Never Vaping Use Vaping Use: Never used Substance Use Topics Alcohol use: Yes Comment: rare Drug use: No Review of Systems Constitutional: Negative for chills and fever. HENT: Negative for congestion, ear discharge, ear pain, hearing loss and sore throat. Eyes: Negative for blurred vision, double vision, photophobia, pain, discharge and redness. Respiratory: Negative for cough and shortness of breath. Cardiovascular: Negative for chest pain. Gastrointestinal: Negative for abdominal pain, nausea and vomiting. Musculoskeletal: Negative for myalgias and neck pain. Skin: Negative for rash. Neurological: Positive for headaches. Negative for tremors, sensory change, speech change and focalweakness. Psychiatric/Behavioral: Negative for depression. Objective Blood pressure 120/82, pulse 105, temperature 37 C (98.6 F), resp. rate 21, weight 80.7 kg (178 lb), last menstrual period 01/28/2022, SpO2 98 %. Physical Exam Constitutional: General: She is not in acute distress. Appearance: She is not diaphoretic. HENT: Head: Normocephalic and atraumatic. Right Ear: Hearing normal. Left Ear: Hearing normal. Eyes: General: Lids are normal. Lids are everted, no foreign bodies appreciated. No scleral icterus. Right eye: No discharge. Left eye: No discharge. Conjunctiva/sclera: Conjunctivae normal. Pupils: Pupils are equal, round, and reactive to light. Neck: Trachea: Trachea normal. Cardiovascular: Rate and Rhythm: Normal rate and regular rhythm. Heart sounds: Normal heart sounds. Pulmonary: Effort: Pulmonary effort is normal. Breath sounds: Normal breath sounds. Musculoskeletal: Cervical back: Normal range of motion and neck supple. Lymphadenopathy: Cervical: No cervical adenopathy. Skin: Findings: No rash. Neurological: Mental Status: She is alert. She is not disoriented. Cranial Nerves: No cranial nerve deficit, dysarthria or facial asymmetry. Sensory: Sensation is intact. Motor: No weakness or tremor. Coordination: Romberg sign negative. Coordination normal. Wynblq-Hzqo-Ulfgel Test and Heel to Aguilar Test normal. Rapid alternating movements normal. Gait: Gait is intact. Deep Tendon Reflexes: Reflexes are normal and symmetric. Reflex Scores: Bicep reflexes are 2+ on the right side and 2+ on the left side. Patellar reflexes are 2+ on the right side and 2+ on the left side. ASSESSMENT/PLAN: 1. Unspecified migraine - ICD9: 346.90, ICD10: G43.909 Patient reported relief with zofran and toradol Lifestyle modification discussed F/u with pcp if s/s persist/worsen/change. - ONDANSETRON 4 MG DISINTEGRATING TABLET - KETOROLAC 60 MG/2 ML INTRAMUSCULAR SOLUTION Agrees to plan Andrea Brooks APRN.CNP documented in this encounterBethesda North Hospital09-02-2022 History of Present illness Narrative* Concepcion Yoder APRN.CNP - 04/29/2022 9:19 AM EDT Chief Complaint Patient presents with: ED Follow-up: Pt states was seen for covid symptoms , was dx with pnemonia and uti. All step and covid and flu tests were negative. Was back in er Monday because had hives from atb . 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 or new atb HPI Adamaris Brice is a 26 year old female who presents here today for Above Complaints. Adamaris is an established patient of Dr. Gaines, DO and myself. Concerns today... ER follow-up-- Seen at [facility] ER on 04/24 d/t cough and chest tightness. Chest x- ray normal. Negativefor COVID, strep, and flu. COVID negative x 3. Dx with UTI and bronchitis. Started on Cefdinir 300 mg BID. Started having reaction with hives all over body on Monday (04/25). Went back to ER on 04/27 d/t reaction. Switched antibiotic and given rx for prednisone for allergic reaction. Today.. Pt has not been able to olive picker new antibiotic or steroid prescription from pharmacy yet. Took cefdinir x 3-4 days then stopped due to hives. Reports no UTI symptoms at ER visit when dx. Reports today noticing urine to be very dark in color and having an odor. Also reports mild pelvic discomfort similar to when she gets UTIs. Admits she probably still has UTI since only taking a few days of ATB regimen. URI and bronchitis symptoms are resolving. Had to use steroid inhaler once and albuterol inhaler twice during this episodic bronchitis. Has since not needed either. No fever/chills. Slight mild coughthat is improving. Son with COVID -- dx a few days ago. Wanted to return to work today but work is making her stay home until Monday. Needing note for work to be excused for this and stating she can return without restrictions. Hives are much improved but still slightly there. After stopping Cefdinir and taking benadryl, symptoms started to resolve. Denies any symptoms of SOB, CP, or throat closing sensation during episode. No other concerns or complaints. Past medical history, appointments, medications, allergies reviewed. Previous Medical History PAST MEDICAL HISTORY Diagnosis Date Asthma Environmental allergies fracture growth plate left ankle Herpes genitalis Mental disorder RSV (respiratory syncytial virus infection) Vertigo 11/2020 Previous Surgical History PAST SURGICAL HISTORY Procedure Laterality Date INSERT INTRAUTERINE DEVICE 05/27/2021 Family History FAMILY HISTORY Problem Relation Age of Onset Asthma Mother Arthritis Mother Hypertension Mother Stroke Mother Heart Father Stroke Father Seizures Father Psychiatry Father bipolar Arthritis Maternal Uncle Breast Cancer Maternal Grandmother PGGM ,MGaunt Diabetes Maternal Grandmother Colon Polyps Maternal Grandmother Diabetes Maternal Grandfather Heart Maternal Grandfather Diabetes Paternal Grandmother Diabetes Paternal Grandfather Emphysema Paternal Grandfather Heart Paternal Grandfather Seizures Brother Stroke Brother 12 Colon Cancer Maternal Aunt Patient Allergies ALLERGIES Allergen Reactions Omnicef [Cefdinir] Hives Red Dye Hives Tessalon [Benzonata* Rash Current Medications Current Outpatient Medications on File Prior to Visit Medication Sig doxycycline monohydrate 100 mg tablet Take 1 tablet by mouth twice daily for 5 days. nortriptyline (PAMELOR) 10 mg capsule Take 1 capsule by mouth daily at bedtime. ALBUTEROL INHALATION Albuterol Albuterol Inhaler Active 1 PUFF EVERY 4 HOURS NEEDED March 1:49pm 04-15-2019 [facility] ([id number]) omeprazole (PRILOSEC) 20 mg capsule Take 1 capsule by mouth once daily. omeprazole (PRILOSEC) 20 mg capsule Take 1 capsule by mouth once daily. traMADol (ULTRAM) 50 mg tablet Take 50 mg by mouth every 8 hours as needed for pain. (Patient not taking: Reported on 01/13/2022) promethazine (PHENERGAN) 25 mg tablet Take 25 mg by mouth every 6 hours as needed. fluticasone (FLONASE) 50 mcg/actuation nasal spray Use 1 Sumner in the nose. (Patient not taking: Reported on 12/15/2021 ) keTORolac (TORADOL) 10 mg tablet EVERY 6 HOURS Levonorgestrel-Ethinyl Estrad (AVIANE) 0.1mg - 20mcg per tablet Take 1 tablet by mouth once daily. L. acidophilus-L. rhamnosus 15 billion cell cap Take 1 capsule by mouth once daily. FLORAJEN WOMEN.If on antibiotic, take at least 1-2 hours before or after antibiotic. KEEP REFRIGERATED (Patient not taking: Reported on 01/13/2022 ) Yfierntntlnsuvl-Hqdsfleds-OL (BROMFED DM) 2-30-10 mg/5 mL syrup Take 10 mL by mouth three times daily as needed. (Patient not taking: Reported on 09/15/2021 ) ibuprofen (MOTRIN) 600 mg tablet Take 1 tablet by mouth every 6 hours as needed for pain. (Patient not taking: Reported on 09/15/2021 ) diazePAM (VALIUM) 5 mg tablet Take by mouth. (Patient not taking: Reported on 06/30/2021) HYDROcodone-acetaminophen (NORCO) 5-325 mg per tablet (Patient not taking: Reported on 09/15/2021) predniSONE (DELTASONE) 20 mg tablet Take by mouth. (Patient not taking: Reported on 06/30/2021 ) acyclovir (ZOVIRAX) 400 mg tablet Take 1 tablet by mouth twice daily. (Patient taking differently: Take 400 mg by mouth as needed. ) albuterol HFA (VENTOLIN HFA) 90 mcg/actuation inhaler Inhale 2 Puffs as instructed every 4 hours asneeded for Wheezing/Shortness of Breath. fluticasone (FLOVENT) 110 mcg/actuation inhaler Inhale 1 Puff as instructed twice daily. (Patient taking differently: Inhale 1 Puff as instructed twice daily. Taking in the AM, daily ) loratadine (CLARITIN) 10 mg tablet Take 1 tablet by mouth once daily as needed. FOR ALLERGY SYMPTOMS No current facility-administered medications on file prior to visit. Social History Social History Tobacco Use Smoking status: Every Day Packs/day: 0.50 Types: Cigarettes Smokeless tobacco: Never Vaping Use Vaping Use: Never used Substance Use Topics Alcohol use: Yes Comment: rare Drug use: No REVIEW OF SYSTEMS: as above Reviewed relevant PMHx, PSHx, Social Hx, current medications and allergies. Review of Symptoms REVIEW OF SYSTEMS See HPI. EXAM: BP 118/62 (BP Site: Right Arm, BP Position: Sitting, BP Cuff Size: Regular Adult) Pulse 68 Resp14 Wt 80.7 kg (178 lb) LMP 01/28/2022 (Approximate) BMI 29.62 kg/m General Appearance: Well appearing, alert, in no acute distress, well-hydrated, well nourished.. Skin: Skin color, texture, turgor normal, no suspicious rashes or lesions. Head: Normocephalic, no masses, lesions, tenderness or abnormalities. Oropharynx: Lips, mucosa, and tongue normal, teeth and gums normal, oropharynx normal. Neck: Supple, no adenopathy; thyroid symmetric, normal size, no bruits. Lungs: Lungs clear to auscultation. No wheezing, rhonchi, rales.. Heart: RRR without murmur, gallop, or rubs. No ectopy. Abdomen: Normal abdominal exam, Abdomen soft, non-tender. Bowel sounds normal. No masses, organomegaly. Health Maintenance List HEPATITIS B(1 of 3 - 3-dose series) Never done COVID-19 VACCINE(1) Never done HPV VACCINE(1 - 2-dose series) Never done HEPATITIS C SCREENING Never done PAP TESTING due on 04/18/2022 INFLUENZA(1) due on 04/28/2022 PNEUMOCOCCAL(1 - PCV) due on 12/15/2022 DEPRESSION SCREENING due on 12/15/2022 DTAP,TDAP,TD(2 - Td or Tdap) due on 04/06/2026 HIV SCREENING Completed ASSESSMENT/PLAN: 1. Recurrent UTI (urinary tract infection) - ICD9: 599.0, ICD10: N39.0 (primary diagnosis) Acute. Recently dx at ER. Rechecking for cure d/t only taking half of atb regimen and possible symptoms persist. - UA dip completely negative. - Send urine for culture - Patient education for prevention given 2. Pelvic pain - ICD9: [id number], ICD10: R10.2 See above. - UA DIP, URINE (POC) - SULFAMETHOXAZOLE 800 MG-TRIMETHOPRIM 160 MG TABLET - URINE CULTURE 3. Bronchitis - ICD9: 490, ICD10: J40 Resolving and improved. Continue prednisone rx given at ER. Will help with breathing and allergic reaction. 4. Allergic reaction, subsequent encounter - ICD9: V58.89, 995.3, ICD10: T78.40XD Hives to Cefdinir atb. Resolving. Continue prednisone rx given. Updated chart with new allergy. RTO as needed. Prescription instructions reviewed with patient as applicable. Potential red flag symptoms discussed with the patient. Reviewed appropriate action plan to take if red flag symptoms occur. Patient agreeable to treatment plan. Concepcion Yoder APRN.SUPERINTENDENT [employer]URE [address] [place] [address] documented in this encounterBethesda North Hospital09-01-2022 Miscellaneous Notes* Telephone Encounter - Jacquie Bhatt RN - 04/28/2022 2:42 PM EDT Spoke with patient. Given message from provider's office. Patient verbalizes understanding. Transferred to home care music therapist for appointment tomorrow. Jacquie Bhatt RN * Telephone Encounter - Staci Gordillo LPN - 04/28/2022 2:31 PM EDT TC to pt. LM to call office, ask for triage nurse to get results. Staci Gordillo LPN * Telephone Encounter - Concepcion Yoder APRN.MARIZA - 04/28/2022 2:27 PM EDT Unfortunately I cannot clear her for work without assessing her for this. VV is fine with me so I can at least assess via video. I have openings tomorrow. Please assist in scheduling. Thank you, Concepcion Yoder APRN.MARIZA * Telephone Encounter - Jacquie Bhatt RN - 04/28/2022 2:17 PM EDT Patient calling to request letter to return to work Monday 04/30. She has work a excuse letter tocover her through this date. She says her employer is asking for release to come back. She says hersymptoms started on 04/22. She was seen in [place] ER on 04/24. She tested negative for COVID in the ER. She went back to [place] ER yesterday for allergic reaction to antibiotic. She has not been re- tested for COVID. Advised she may need to be seen since she has not been seen here through any part of her illness. She says she would need an appointment tomorrow. She could do in office or virtual? Or can provider just write back to work letter? Jacquie Bhatt RN documented in this encounterBethesda North Hospital09-01-2022 Miscellaneous Notes* Telephone Encounter - Concepcion Yoder APRN.SUPERINTENDENT PRESSURE - 04/28/2022 9:59 AM EDT Noted. Thank you. Concepcion Yoedr APRN.CNP * Telephone Encounter - Danica Shukla LPN - 04/28/2022 9:52 AM EDT Called to inform pt of information provided. She voices understanding. She states did end up going to er yesterday. * Telephone Encounter - Concepcion Yoder APRN.CNP - 04/27/2022 7:44 PM EDT The following approved medication requests have been transmitted electronically. Requested Prescriptions Signed Prescriptions Disp Refills doxycycline monohydrate 100 mg tablet 10 tablet 0 Sig: Take 1 tablet by mouth twice daily for 5 days. Authorizing Provider: CONCEPCION YODER APRN.CNP * Telephone Encounter - Maria Guadalupe Rosen RN - 04/27/2022 4:00 PM EDT Patient calls in to check on request for antibiotic. Patient went to olive picker medication at [facility] and it wasn't there. Notified patient provider hasn't got a chance to review request inbetween seeing patients and request was just made at 2:52 pm. Patient aware request to be handled as provider is able. Patient asking for it to be handled today because she feels miserable and irritable. Patient reports still not able to go to ED. Maria Guadalupe Rosen RN * Telephone Encounter - Danica Shukla LPN - 04/27/2022 2:52 PM EDT Spoke with pt gave information provided. Pt states would appreciate that she uses [facility]. * Telephone Encounter - Concepcion Yoder APRN.CNP - 04/27/2022 2:26 PM EDT Noted. If unable to go to ED, we can adjust antibiotic regimen due to new allergy. Thank you, Concepcion Yoder APRN.SUPERINTENDENT PRESSURE * Telephone Encounter - Mena Gallardo LPN - 04/27/2022 2:00 PM EDT Patient calling said she was in [place] ER Monday and diagnosed with pneumonia. She began taking Cefdinir 300 mg one twice daily on Monday, she was given IV dose Monday in ER. Patient said she started with hives Monday and getting worse each day. Advised to return to ER for evaluation may have allergic reaction to the antibiotics. documented in this encounterBethesda North Hospital06-30-2022 History of Present illness Narrative* RT Chema(R) - 02/24/2022 11:20 AM EDT Radiology Service Progress Note PATIENT NAME: Adamaris Brice DATE OF SERVICE: February 24, 2022 TIME: 11:36 AM PATIENT IDENTITY VERIFICATION COMPLETED USING TWO (2) IDENTIFIERS: Name and Date of confirmedby patient verbally. FALL SCREENING: Has the patient had 2 falls in the last year or 1 fall with injury or currently using an Ambulatory Assistive Device (Walker, Cane, Wheelchair, Crutches, etc.)? No PATIENT GENDER DATA: Female. status: : No status: NO. PATIENT RELEVANT IMPLANT DATA REVIEWED: Not Applicable RADIOLOGY DEPARTMENT: CT; Exam(s) Completed: Abdomen/Pelvis PERIPHERAL IV DATA: 22g right forearm SIGNED BY: RT Chema(R) February 24, 2022 11:36 AM documented in this encounterBethesda North Hospital06-20-2022 NoteHNO ID: [id number] Author: Noemy Olmedo, Nuclear SkilledWizard Service: Nuclear Medicine Author Type: Sporting Goods Salesperson Type: Progress Notes Filed: 02/14/2022 8:25 AM Note Text: RADIOLOGY SERVICE PROGRESS NOTE SERVICE DATE: 02/14/2022 SERVICE TIME: 8:24 AM PATIENT IDENTITY VERIFICATION COMPLETED USING TWO (2) STANDARD IDENTIFIERS: Name and Date of confirmed by patient verbally FALL SCREENING: Has the patient had 2 falls in the last year or 1 fall with injury or currently using an Ambulatory Assistive Device (Walker, Cane, Wheelchair, Crutches, etc.)? No PATIENT GENDER DATA: .female : No ALLERGIES: Reviewed and unchanged MEDICATIONS REVIEWED: Yes PATIENT RELEVANT IMPLANT DATA REVIEWED: Not Applicable CREATININE: Creatinine Date Value Ref Range Status 02/10/2021 0.66 0.58 - 0.96 mg/dL Final 10/22/2019 0.62 0.58 - 0.96 mg/dL Final eGFR-All Other Races Date Value Ref Range Status 02/10/2021 >60 . Final Comment: eGFR (Estimated GFR) Units of measure: mL/min/1.73 meters squared eGFR is derived from the reexpressed MDRD Study equation using the following parameters: serum creatinine, age, gender and race. The creatinine assay has been calibrated to be traceable to IDMS. An eGFR <60 mL/min/1.73m2 for >3 months is consistent with chronic kidney disease. Refer to KDOQI guidelines for clinical interpretation. In patients with unstable renal function, e.g. those with acute kidney injury, the eGFR may not accurately reflect actual GFR. eGFR- Date Value Ref Range Status 02/10/2021 >60 Final P.O.C.T. RESULTS: N/A February 14, [address] PERFORMED: No IV SITE: NM only - not applicable, oral or physician administered agents given to patient POST EXAM PIV STATUS: Not applicable PROCEDURE TYPE: NM GET: 1.16 mCi Tc99m SULFUR COLLOID was administered orally via 4 ounces of Egg Beaters,2 pieces of toast, 1 ounce of jelly with 8 ounces of water orally ADMINISTRATION TIME: 0750 PATIENT DISCHARGED TO: Ambulatory patient, left IN department area. A Diagnostic radioactive procedure has taken place, with no further precautions necessary other than routine body substance precautions. More information regarding radiation safety can be found using this link: [email or web address] SIGNATURE: Noemy Olmedo Mix [employer] Meet PATIENT NAME: Adamaris Brice DATE: February 14, 2022 TIME: 8:24 AM PAGER/CONTACT #:[facility]06-20-[facility] History of Present illness Narrative* Noemy Olmedo Mix [employer] Meet - 02/14/2022 7:30 AM EDT RADIOLOGY SERVICE PROGRESS NOTE SERVICE DATE: 02/14/2022 SERVICE TIME: 8:24 AM PATIENT IDENTITY VERIFICATION COMPLETED USING TWO (2) STANDARD IDENTIFIERS: Name and Date of confirmed by patient verbally FALL SCREENING: Has the patient had 2 falls in the last year or 1 fall with injury or currently using an Ambulatory Assistive Device (Walker, Cane, Wheelchair, Crutches, etc.)? No PATIENT GENDER DATA: .female : No ALLERGIES: Reviewed and unchanged MEDICATIONS REVIEWED: Yes PATIENT RELEVANT IMPLANT DATA REVIEWED: Not Applicable CREATININE: Creatinine Date Value Ref Range Status 02/10/2021 0.66 0.58 - 0.96 mg/dL Final 10/22/2019 0.62 0.58 - 0.96 mg/dL Final eGFR-All Other Races Date Value Ref Range Status 02/10/2021 >60 . Final Comment: eGFR (Estimated GFR) Units of measure: mL/min/1.73 meters squared eGFR is derived from the reexpressed MDRD Study equation using the following parameters: serum creatinine, age, gender and race. The creatinine assay has been calibrated to be traceable to IDMS. An eGFR <60 mL/min/1.73m2 for >3 months is consistent with chronic kidney disease. Refer to KDOQI guidelines for clinical interpretation. In patients with unstable renal function, e.g. those with acute kidney injury, the eGFR may not accurately reflect actual GFR. eGFR- Date Value Ref Range Status 02/10/2021 >60 Final P.O.C.T. RESULTS: N/A February 14, [address] PERFORMED: No IV SITE: NM only - not applicable, oral or physician administered agents given to patient POST EXAM PIV STATUS: Not applicable PROCEDURE TYPE: NM GET: 1.16 mCi Tc99m SULFUR COLLOID was administered orally via 4 ounces of Egg Beaters,2 pieces of toast, 1 ounce of jelly with 8 ounces of water orally ADMINISTRATION TIME: 0750 PATIENT DISCHARGED TO: Ambulatory patient, left IN department area. A Diagnostic radioactive procedure has taken place, with no further precautions necessary other than routine body substance precautions. More information regarding radiation safety can be found usingthis link: [email or web address] SIGNATURE: Isac Luna PATIENT NAME: Adamaris Brice DATE: February 14, 2022 TIME: 8:24 AM PAGER/CONTACT #: documented in this encounterBethesda [facility] Hospital06-17-2022 Miscellaneous Notes* Sedation Documentation - Indira Car RN - 02/11/2022 3:18 PM EDT abd soft * Sedation Documentation - Indira Car RN - 02/11/2022 3:16 PM EDT abd soft * Sedation Documentation - Indira Car RN - 02/11/2022 3:13 PM EDT abd soft * Sedation Documentation - Indira Car RN - 02/11/2022 3:05 PM EDT Cart turned For colonoscopy, abd soft * Sedation Documentation - Indira Car RN - 02/11/2022 2:58 PM EDT abd soft documented in this encounterBethesda North Hospital06-17-2022 History and physical note * Ivory Quiroz MD - 02/11/2022 2:30 PM EDT PROCEDURAL SEDATION HISTORY AND PHYSICAL EXAM SERVICE DATE: 02/11/2022 SERVICE TIME: 1423 Subjective HPI: This is a 26 year old female who presents for EGD/colonoscopy for evaluation of n/v/abdominal pain/diarrhea PAST ANESTHESIA HISTORY: No history of adverse event PAST MEDICAL HISTORY Diagnosis Date Asthma Environmental allergies fracture growth plate left ankle Herpes genitalis Mental disorder RSV (respiratory syncytial virus infection) Vertigo 11/2020 PAST SURGICAL HISTORY Procedure Laterality Date INSERT INTRAUTERINE DEVICE 05/27/2021 Prior to Admission medications as of 01/13/22 1044 Medication Sig Last Dose Taking ALBUTEROL INHALATION Albuterol Albuterol Inhaler Active 1 PUFF EVERY 4 HOURS NEEDED March 1:49pm 04-15-2019 [facility] ([id number]) omeprazole (PRILOSEC) 20 mg capsule Take 1 capsule by mouth once daily. omeprazole (PRILOSEC) 20 mg capsule Take 1 capsule by mouth once daily. dicyclomine (BENTYL) 10 mg/5 mL oral liquid Take 5 mL by mouth before meals and at bedtime. traMADol (ULTRAM) 50 mg tablet Take 50 mg by mouth every 8 hours as needed for pain. Patient not taking: Reported on 01/13/2022 promethazine (PHENERGAN) 25 mg tablet Take 25 mg by mouth every 6 hours as needed.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 admits to some nausea and vomiting. Patient states she has had some loose stools but denies any watery diarrhea. Patient also admits to body aches and muscle aches. Patient also admits to a mild headache. [facility] Medical History Asthma Herniated disc Migraine Sciatica Vertigo Home Medications albuterol sulfate 90 mcg/actuation aerosol inhaler 1 puff inhalation Q4H PRN PRNWheezing 04/15/19 [History Last Taken Unknown] loratadine 10 mg capsule 10 mg PO DAILY PRN Allergies 04/15/19 [History Last Taken Unknown] Controll 1 tab PO.IVFORM DAILY 05/12/21 [History Last Taken Unknown] albuterol sulfate 2.5 mg/3 mL (0.083 %) solution for nebulization 2.5 mg (3 mL) inhalation Q4H PRN #25 vials 05/13/21 [Rx Last Taken Unknown] prednisone 20 mg tablet 40 mg PO DAILY #10 TABLETS 05/13/21 [Rx Last Taken Unknown] diazepam 5 mg tablet 5 mg PO Q8 PRN Muscle Spasm #15 tabs 06/10/21 [Rx Last Taken Unknown] hydrocodone-acetaminophen 5-325mg 5mg-325mg 1 tab PO Q6H PRN PRN Pain 3 days #12TABLETS 06/10/21 [Rx Last Taken Unknown] ketorolac 10 mg tablet 10 mg PO Q8H PRN pain #15 tabs 06/10/21 [Rx Last Taken Unknown] prednisone 20 mg tablet 60 mg PO DAILY #15 TABLETS 06/10/21 [Rx Last Taken Unknown] ketorolac 10 mg tablet 10 mg PO Q6H PRN pain 3 days #10 tabs 11/29/21 [Rx Last Taken Unknown] ipratropium bromide 0.02 % solution for inhalation 2.5 ml inhalation Q6H PRN shortness of breath or wheezing #62.5 mL 08/26/22 [Rx Last Taken Unknown] prednisone 20 mg tablet 60 mg PO DAILY #15 tabs 08/26/22 [Rx Last Taken Unknown] ondansetron 4 mg disintegrating tablet 4 mg PO Q8H PRN PRN Nausea #10 tabs 02/08/23 [Rx Last Taken Unknown] Allergy/AdvReac Type Severity Reaction Status Date / Time benzonatate Allergy Hives Verified 10/05/22 07:25 [From Tessalon Perles] [email or web address] [From Omnicef] Allergy Hives Verified 10/05/22 07:26 red (food color) Allergy Hives Verified 10/05/22 07:25 Social History Smoking Status: Current every day smoker tobacco type: cigarettes substance use type: does not use ROS ROS ED Constitutional Constitutional ED: Reports chills, fever(s) and subjective Eyes Eyes: Denies blurry vision or change in vision ENT ENT ED: Denies rhinorrhea or sore throat Cardiovascular Cardiovascular: Denies chest pain or palpitations Respiratory/Chest Respiratory/Chest: Reports cough and dyspnea Gastrointestinal Gastrointestinal: Reports diarrhea, nausea and vomiting Genitourinary Genitourinary ED: Reports urinary frequency; Denies dysuria or hematuria Musculoskeletal Musculoskeletal: Reports back pain and myalgias; Denies neck pain Integumentary Denies abscess or rash Neurologic Neurologic: Reports headache(s); Denies weakness Allergic/Immunologic Allergic/Immunologic ED: Denies mouth swelling or urticaria EXAM Physical Exam Const Vital Signs: 10/05/22 07:26 Temperature 97.0 F L Temperature Source Temporal Pulse Rate 96 Respiratory Rate 17 Blood Pressure 144/75 H Blood Pressure Mean 98 Pulse Ox 100 Oxygen Delivery Method Room Air Positive well nourished and well developed General Appearance ED: well developed HEENT Reports moist mucous membranes Neck supple and no JVD Resp normal respiratory effort and clear to auscultation bilaterally Cardio regular rate, regular rhythm and no murmurs GI normal to inspection, nondistended, normoactive bowel sounds and non-tender Palpation: soft Extremity normal to inspection General Extremety ED: Negative for edema or tenderness General Extremity: Negative for edema Neuro oriented x3, CN's II-XII intact bilaterally and no sensory deficits noted Sensorium / Orientation: alert Motor Exam: strength 5/5 throughout Psych mental status grossly normal Skin no rashes or lesions noted MDM MDM MDM Narrative Medical decision making narrative: Differential diagnosis includes ectopic , ruptured ectopic , ureterolithiasis, urinary tract infection, gastroenteritis, infection, and ovarian torsion. CBC will be obtained to assess for leukocytosis and anemia. Basic metabolic profile will be obtained to assess for electrolyte abnormality and renal function. Quantitative hCG will be obtained to assess for status. Pelvic ultrasound will be obtained to assess for ectopic , ruptured ectopic , ovarian cyst, and ovarian torsion. Urinalysis will be obtained to assess for urinary tract infection and hematuria. Blood type andRh will be obtained to assess for type and Rh status. COVID-19 and influenza swabs will be obtained to assess for COVID-19 and influenza infection. Lab Data Attestation: I reviewed the patient's lab results. Lab results narrative: CBC was reviewed and was within normal limits. Basic metabolic profile was reviewed and was within normal limits. Quantitative hCG was reviewed and was 102,242. Urinalysis was reviewed and does not show any evidence of urinary tract infection or hematuria. Blood type and screen was a positive. COVID-19 rapid antigen was reviewed and was negative. Influenza A and influenza B antigens were reviewed and were negative. Labs: Laboratory Results - last 24 hr 10/05/22 10/05/22 10/05/22 08:00 08:00 08:00 WBC 9.0 RBC 4.31 Hgb 13.0 Hct 38.6 MCV 89.6 MCH 30.2 MCHC 33.7 RDW Std Deviation 41.4 RDW Coeff of Manuela 12.5 Plt Count 212 MPV 10.0 Immature Gran % (Auto) 0.400 Neut % (Auto) 71.7 H Lymph % (Auto) 18.9 L [place] % (Auto) 6.8 Eos % (Auto) 2.0 Baso % (Auto) 0.2 Absolute Neuts (auto) 6.5 Absolute Lymphs (auto) 1.70 Nucleated RBC % 0 Sodium 138 Potassium 3.7 Chloride 108 H Carbon Dioxide 24.0 Anion Gap 6 BUN 13 Creatinine 0.53 L Estim Creat Clear Calc 146.01 Est GFR (MDRD) Af Amer 181 Est GFR (MDRD) Non-Af 149 BUN/Creatinine Ratio 24.7 H Glucose 94 Calcium 8.6 HCG, Quant [id number] H Urine Color Urine Clarity Urine pH Ur Specific Cameron Urine Protein Urine Glucose (UA) Urine Ketones Urine Occult Blood Urine Nitrite Urine Bilirubin Urine Urobilinogen Ur Leukocyte Esterase Urine RBC Urine WBC Ur Squamous Epith Cells Urine Bacteria Urine Mucus Blood Type 10/05/22 10/05/22 08:00 08:45 WBC RBC Hgb Hct MCV MCH MCHC RDW Std Deviation RDW Coeff of Manuela Plt Count MPV Immature Gran % (Auto) Neut % (Auto) Lymph % (Auto) Oceana % (Auto) Eos % (Auto) Baso % (Auto) Absolute Neuts (auto) Absolute Lymphs (auto) Nucleated RBC % Sodium Potassium Chloride Carbon Dioxide Anion Gap BUN Creatinine Estim Creat Clear Calc Est GFR (MDRD) Af Amer Est GFR (MDRD) Non-Af BUN/Creatinine Ratio Glucose Calcium HCG, Quant Urine Color Yellow Urine Clarity Clear Urine pH 8.0 Ur Specific Cameron 1.015 Urine Protein Negative Urine Glucose (UA) Normal Urine Ketones Negative Urine Occult Blood Negative Urine Nitrite Negative Urine Bilirubin Negative Urine Urobilinogen Normal Ur Leukocyte Esterase 25 H Urine RBC 0 SEEN Urine WBC 0 SEEN Ur Squamous Epith Cells 0-5 SEEN Urine Bacteria 0 SEEN Urine Mucus 0 SEEN Blood Type A POSITIVE Radiography Diagnostic Testing: Clinical Impression(s) from Imaging Studies Obstetrics Ultrasound 10/05/22 07:44 IMPRESSION: Single live intrauterine gestation with a mean gestational age of 9 weeks and 1 day. Dominant follicle in the right ovary. Electronically Signed: Gibran Gonzalez MD at 10:01 EST , Pelvic ultrasound was reviewed independently by myself. There is a single live intrauterine gestation with a gestational age of 9-week 1 day. heart ratewas 166. Radiologist also interpreted the ultrasound and noticed a dominant follicle in the right ovary. There is no evidence of ovarian torsion. Treatment and Re-Evaluation Narrative: Patient was given IV fluids and Zofran. Patient is feeling better on reevaluation. Patient was instructed to drink plenty of fluids. Patient was given a prescription for Zofran to take as needed for nausea. Patient was instructed to follow-up with her [facility] SPECIALIST in 5 to 7 days. Patient understood and was agreeable with the plan. All questions were answered. Discharge Plan Triage Chief Complaint: Abd Pain ED Provider: Terrance Haas Dx/Rx/DC Orders Clinical Impression: Nausea and vomiting, Instructions: ED Vomiting (Adult), ED Established ... Prescriptions: New ondansetron [ondansetron] 4 mg tablet,disintegrating 4 mg PO Q8H PRN PRN (Reason: Nausea) Qty: 10 0RF No Action albuterol sulfate 1 INHALER inhaler 1 puff inhalation Q4H PRN PRN (Reason: Wheezing) loratadine 10 MG capsule 10 mg PO DAILY PRN (Reason: Allergies) Controll 1 tab PO.IVFORM DAILY prednisone 20 MG tablet 40 mg PO DAILY Qty: 10 0RF albuterol sulfate 2.5 MG/3 ML solution for nebulization 2.5 mg inhalation Q4H PRN Qty: 25 0RF Rx Instructions: Use q4 hours and PRN for wheezing hydrocodone-acetaminophen [hydrocodone-acetaminophen] 1 TABLET tablet 1 tab PO Q6H PRN PRN (Reason: Pain) 3 Days Qty: 12 0RF diazepam [diazepam] 5 MG tablet 5 mg PO Q8 PRN (Reason: Muscle Spasm) Qty: 15 0RF prednisone 20 MG tablet 60 mg PO DAILY Qty: 15 0RF ketorolac 10 mg tablet 10 mg PO Q8H PRN (Reason: pain) Qty: 15 0RF ketorolac 10 mg tablet 10 mg PO Q6H PRN (Reason: pain) 3 Days Qty: 10 0RF prednisone 20 mg tablet 60 mg PO DAILY Qty: 15 0RF ipratropium bromide 0.02 % solution 2.5 ml inhalation Q6H PRN (Reason: shortness of breath or wheezing) Qty: 62.5 1RF Stand Alone Forms: ED Work / School Excuse Primary Care Provider: Juan Diego Gaines Referrals: Juan Diego Gaines DO [Primary Care Provider] - 3-5 Days Dayan Reed MD [Med Staff - Active Staff] - 5-7 Days Disposition Disposition: Home, Self Care What to do if you have Problems For any increased pain, shortness of breath, bleeding, nausea or vomiting, chestpain, or any unexpected problems, contact your Primary Care Provider. Call [facility] ([phone]) or report to the closest Emergency Room. Call 911 if necessary. 10/05/22 1608 <Electronically signed by Terrance Haas DO> Cosigner Signature (if applicable): CC: Dr. Juan Diego Gaines DO ~ Signed [facility] Work Phone: Evaluation + Plan note No data available for this section [facility] Evaluation note* Diagnosis Pharyngitis, unspecified etiology- Primary Viral illness Unspecified viral infection, in conditions classified elsewhere and of unspecified site Pelvic pain Left lower quadrant abdominal pain [facility] Diagnosis LLQ abdominal pain- Primary Abdominal pain, left lower quadrant Pelvic pain Nausea and vomiting, unspecified vomiting type Flank pain Abdominal pain, unspecified site [facility]* Diagnosis Change in bowel function- Primary Other symptoms involving digestive system LLQ abdominal pain Abdominal pain, left lower quadrant Nausea and vomiting, unspecified vomiting type Generalized abdominal pain Abdominal pain, generalized Weight loss Loss of weight [facility] Diagnosis Nausea and vomiting, unspecified vomiting type Change in bowel function Other symptoms involving digestive system [facility] Diagnosis Generalized abdominal pain Abdominal pain, generalized [facility]* Diagnosis Recurrent UTI (urinary tract infection)- Primary Urinary tract infection, site not specified Pelvic pain Bronchitis Bronchitis, not specified as acute or chronic Allergic reaction, subsequent encounter [facility]* Diagnosis Unspecified migraine- Primary [facility]* Diagnosis Flu-like symptoms- Primary Other general symptoms documented in this encounter [facility] noteNo assessment information [facility]WWestern [facility] Work Phone: Evaluation note* Diagnosis Bacterial pneumonia- Primary Bacterial pneumonia, unspecified Nausea and vomiting, unspecified vomiting type documented in this encounter [facility] note* Diagnosis Encounter for screening for malignant neoplasm of cervix- Primary Screening for malignant neoplasm of the cervix care in first trimester Herpes simplex infection of genitourinary system FH: cystic fibrosis Family history of other endocrine and metabolic diseases Tobacco use disorder FH: muscular dystrophy Family history of other neurological diseases [facility]* Diagnosis 8 weeks gestation of - Primary state, incidental [facility]* Diagnosis 8 weeks gestation of state, incidental [facility]* Diagnosis Viral illness- Primary Unspecified viral infection, in conditions classified elsewhere and of unspecified site [facility] Diagnosis care in first trimester- Primary 12 weeks gestation of state, incidental Encounter for screening of mother Unspecified screening [facility] Diagnosis Encounter for supervision of other normal in second trimester- Primary 16 weeks gestation of state, incidental [facility]* Diagnosis Encounter for anatomic survey- Primary care in first trimester 20 weeks gestation of state, incidental Low-lying placenta Hemorrhage from placenta previa, unspecified as to episode of care [facility] Diagnosis 20 weeks gestation of - Primary state, incidental [facility]* Diagnosis Strep throat- Primary Streptococcal sore throat Mild intermittent asthma, uncomplicated Unspecified asthma [facility]* Diagnosis 25 weeks gestation of - Primary state, incidental Low lying placenta nos or without hemorrhage, second trimester Bilateral low back pain with sciatica, sciatica laterality unspecified, unspecified chronicity Pelvic pressure in Other specified complication, antepartum [facility]* Diagnosis Back pain in - Primary Other specified complication of , unspecified as to episode of care Decreased movements in second trimester, single or unspecified fetus 27 weeks gestation of state, incidental [facility]* Diagnosis Onset Date Resolution Status 24 weeks gestation of acute 29 weeks gestation of acute Cramping affecting , antepartum acute heart rate deceleratio ns affecting management of mother acute History of herpes simplex infection acute Low back pain acute Tobacco use acute [facility] Work Phone: Evaluation note* Diagnosis Placental abruption in third trimester- Primary 30 weeks gestation of state, incidental [facility]* Diagnosis 30 weeks gestation of - Primary state, incidental [facility]* Diagnosis Maternal care for decelerations during - Primary Abnormality in heart rate/rhythm, unspecified as to episode of care or not applicable [facility]* Diagnosis Onset Date Resolution Status 24 weeks gestation of acute 29 weeks gestation of acute Cramping affecting , antepartum acute heart rate deceleratio ns affecting management of mother acute History of herpes simplex infection acute Low back pain acute Tobacco use acute 31 weeks gestation of acute Decreased movement acu te Spotting affecting [facility] Work Phone: Evaluation note* Diagnosis Vaginal bleeding during - Primary 31 weeks gestation of state, incidental [facility]* Diagnosis 31 weeks gestation of - Primary state, incidental Encounter for supervision of other normal in third trimester Non-reassuring heart rate or rhythm affecting management of mother [facility]* Diagnosis Traumatic injury during in third trimester- Primary Vaginal bleeding during 31 weeks gestation of state, incidental [facility]* Diagnosis 33 weeks gestation of - Primary state, incidental Non-reassuring heart rate or rhythm affecting management of mother documented [facility]* Diagnosis Placental abruption in third trimester- Primary 33 weeks gestation of state, incidental [facility] Diagnosis Placental abruption in third trimester- Primary Maternal care for decelerations during Abnormality in heart rate/rhythm, unspecified as to episode of care or not applicable Non-reassuring heart rate or rhythm affecting management of mother 33 weeks gestation of state, incidental documented in this encounter [facility] Diagnosis state- Primary Routine follow-up documented in this encounter [facility]* Diagnosis care and examination- Primary Routine follow-up documented in this encounter [facility]* Diagnosis Sore throat- Primary Acute pharyngitis Strep throat Streptococcal sore throat documented [facility] this [facility]* Diagnosis Onset Date Resolution Status Encounter for pre-employment health screening examination [facility] Work Phone: Evaluation note* Diagnosis Pelvic pain in female- Primary Unspecified symptom associated with female genital organs Urinary frequency Oligomenorrhea, unspecified type documented in this encounter [facility]* Diagnosis Pelvic pain in female Unspecified symptom associated with female genital organs documented in this encounter [facility]* Diagnosis Foot injury, left, initial encounter- Primary Toenail avulsion, initial encounter Foot injury, left, initial encounter [facility] Diagnosis Foot injury, left, initial encounter [facility] Diagnosis Acute midline low back pain with left-sided sciatica- Primary Urinary incontinence, unspecified type documented in this encounter [facility]* Diagnosis DDD (degenerative disc disease), lumbar Degeneration of lumbar or lumbosacral intervertebral disc documented [facility] this [facility]* Diagnosis Non-reactive NST (non-stress test)- Primary Abnormal findings on screening 33 weeks gestation of state, incidental documented in this encounter [facility]* Diagnosis Rash- Primary Rash and other nonspecific skin eruption [facility] Diagnosis Acute midline low back pain with left-sided sciatica Urinary incontinence, unspecified type documented [facility] this encounter [facility]* Diagnosis Respiratory infection- Primary Other diseases of respiratory system, not elsewhere classified [facility] Diagnosis Sore throat- Primary Acute pharyngitis [facility] this [facility]* Diagnosis Functional urinary incontinence- Primary Acute midline low back pain with bilateral sciatica [facility] Additional Instructions Call [facility] tomorrow to make follow up appointment for additional testing.[facility] Work Phone: Progress note No data available for this section [facility] Progress note Author Sabrina Sorensen [facility] February 28, 2023 9:53am Note Date/Time February 28, 2023 9:07a m [facility] Medical Records Department [address] [place] [address] Progress Note - OBGYN 02/28/23 0905 MR#: [id number] Acct: [id number] Name: ADAMARIS BRICE DECEMBER Rep #:[id number] : 1995 27 From: Sabrina Sorensen MD PCP: Dr. Juan Diego Gaines, DO Status:RE G CL Location: [place] [id number] Subjective Subjective Patient is doing OK. Denies complaints at this time. Objective Data Objective Data Vital Signs: Vital Signs Temp Pulse Resp BP Pulse Ox O2 Del Method 98.0 F 87 15 118/56 L 97 Room Air 02/28/23 07:45 02/28/23 07:45 02/28/23 03:00 02/28/23 07:45 02/28/23 07:45 02/28/23 03:00 Oxygen Delivery Method Room Air Weight: 217 lb Body Mass Index (BMI) 36.1 Intake & Output: Intake and Output for Last 24 Hours 02/26/23 02/27/23 02/28/23 23:59 23:59 23:59 Intake Total 1000 / 1000 Balance 1000 / 1000 Lab / Micro Data 02/28/23 03:01 Labs: Laboratory Results - last 24 hr 02/28/23 01:45: WBC 12.2 H, RBC 3.70 L, Hgb 11.1 L, Hct 34.1 L, MCV 92.2, MCH 30.0, MCHC 32.6, RDW Std Deviation 43.0, RDW Coeff of Manuela 12.8, Plt Count 167, MPV 10.6, Immature Gran % (Auto) 0.900, Neut % (Auto) 73.9 H, Lymph % (Auto) 16.2 L, Oceana % (Auto) 6.4, Eos % (Auto) 2.4, Baso % (Auto) 0.2, Absolute Neuts (auto) 9.0 H, Absolute Lymphs (auto) 1.97, Nucleated RBC % 0, PT 13.3, INR 1.0, APTT 30.8, Fibrinogen 473 H, Blood Type A POSITIVE, Antibody Screen NEGATIVE 02/28/23 01:50: Group B Strep DNA POSITIVE H, Specimen Comment Not Reportable 02/28/23 03:01: WBC 11.8 H, RBC 3.70 L, Hgb 11.2 L, Hct 33.2 L, MCV 89.7, MCH 30.3, MCHC 33.7, RDW Std Deviation 42.2, RDW Coeff of Manuela 12.9, Plt Count 167, MPV 10.2, Immature Gran % (Auto) 0.800, Neut % (Auto) 74.8 H, Lymph % (Auto) 15.9 L, Oceana % (Auto) 6.3, Eos % (Auto) 2.0, Baso % (Auto) 0.2, Absolute Neuts (auto) 8.8 H, Absolute Lymphs (auto) 1.88, Nucleated RBC % 0, PT 12.8, INR 1.0, APTT 29.8, Fibrinogen 455 H Assessment & Plan (1) heart rate decelerations affecting management of mother: COMMENT: @29&5 PLAN: Plan Patient observed overnight for FHR decelerations. EFM is overall reassuring in between decelerations but patient persists in having intermittent prolonged decelerations. Plan of care discussed with Amalia Gavin ([facility]). Plan for transfer to [facility] for further evaluation. Plan discussed with patient &all questions answered. 02/28/23 0953 <Electronically signed by Sabrina Sorensen MD> Cosigner Signature (if applicable): CC: ~ Signed [facility] Work Phone: Progress note Author Dayan Reed [facility] March 09, 2023 11:36am Note Date/Time March 09, 2023 11:3 6am [facility] Medical Records Department [address] [place] [address] Progress Note 03/09/23 1135 MR#: [id number] Acct: [id number] Name: ADAMARIS BRICE DECEMBER Rep #:[id number] : 1995 27 From: Dayan Reed MD PCP: Dr. Juan Diego Gaines, DO Status:RE G CLI Location: [place] [address] Progress Note Patient denies any vaginal bleeding or leaking of fluid. Reports good movement now. Denies headache or visual changes. Prolonged monitoring reviewed. Abdomen soft, nontender, gravid Assessment and plan high risk multigravida at 31 weeks with prolonged decelerations. Recommend transfer back to tertiary care center. Dr. Maria reviewed the case with Dr. Mcgrath from . The triage note, her H&P from last visit and this note will act as her transport notes. Remainder of her care is in epic 03/09/23 1136 <Electronically signed by Dayan Reed MD> Dayan Reed MD Cosigner Signature (if applicable): CC: ~ Signed [facility] Work Phone: Reason for referral (narrative)* Outpatient Procedure (Routine) - Closed Specialty Diagnoses / Procedures Referred By Anh evans Referred To Contact [facility] Diagnoses Change in bowel function Procedures COLONOSCOPY DIAGNOSTIC COLONOSCOPY FLX DX W/COLLJ SPEC WHEN PFRMD Yousuf [address] [address] Referral ID Status Reason Start Date Expiration Date V isits Requested Visits Authorized [id number] Closed Auto-Generate d Referral 01/13/2022 01/13/2023 1 1 * Outpatient Procedure (Routine) - Closed Specialty Diagnoses / Procedures Referred By Anh evans Referred To Contact [facility] Diagnoses Nausea and vomiting, unspecified vomiting type Procedures EGD DIAGNOSTIC ESOPHAGOGASTRODUODENOSC OPY TRANSORAL DIAGNOSTIC [address] [facility] Disease [address] [address] Referral ID Status Reason Start Date Expiration Date V isits Requested Visits Authorized [id number] Closed Auto-Generate d Referral 01/13/2022 01/13/2023 1 1 [facility] for referral (narrative)* Diagnostic Procedure Only (Routine) - Closed Specialty Diagnoses / Procedures Referred By Anh evans Referred To Contact MOLECULAR & FUNCTIONAL IMAGING Diagnoses Nausea Procedures NM GASTRIC EMPTYING SOLID GASTRIC EMPTYING STUDY Christie Alvarado, SUPERINTENDENT PRESSURE [address] [facility] [place] [address] Molecular & Functional Imaging [address] [place] [address] Referral ID Status Reason Start Date Expiration Date V isits Requested Visits Authorized [id number] Closed Auto-Generate d Referral 02/09/2022 08/27/2022 1 1 [facility] for referral (narrative)* Diagnostic Procedure Only (Routine) - Authorized Specialty Diagnoses / Procedures Referred By Contac t Referred To Contact [facility] Diagnoses 8 weeks gestation of Procedures OBSTETRIC ULTRASOUND WHI US PREG UTERUS AFTER 1ST TRIMEST GESTATION Christy Spangler MD [address] [place] [address] [facility] [address] [place] [address] Referral ID Status Reason Start Date Expiration Date Visits Requested Visits Authorized [id number] Authorized Auto-Generat ed Referral 09/28/2022 09/28/2023 1 1 [facility] for referral (narrative)* Diagnostic Procedure Only (Routine) - Pending Review Specialty Diagnoses / Procedures Referred By Contac t Referred To Contact [facility] Diagnoses care in first trimester 12 weeks gestation of Procedures OBSTETRIC ULTRASOUND WHI US PREG UTERUS AFTER 1ST TRIMEST GESTATION Dayan Reed MD [address] [place] [address] [facility] [address] [place] [address] Referral ID Status Reason Start Date Expiration Date Visits Requested Visits Authorized [id number] Pending Review Auto-Generat ed Referral 10/27/2022 10/27/2023 1 1 [facility] for referral (narrative)* Diagnostic Procedure Only (Routine) - Pending Review Specialty Diagnoses / Procedures Referred By Contac t Referred To Contact [facility] Diagnoses 20 weeks gestation of Procedures OBSTETRIC ULTRASOUND WHI US PREG UTERUS AFTER 1ST TRIMEST GESTATION Shayla Partida APRN.CNM [address] [place] [address] [facility] [address] [place] [address] Referral ID Status Reason Start Date Expiration Date Visits Requested Visits Authorized [id number] Pending Review Auto-Generat ed Referral 12/22/2022 12/22/2023 1 1 [facility] for referral (narrative)* Outpatient Procedure (Routine) - Authorized Specialty Diagnoses / Procedures Referred By Contac t Referred To Contact [facility] Diagnoses Maternal care for decelerations during Procedures NON-STRESS TEST NON-STRESS TEST Sabrina Sorensen MD [address] [place] [address] [address] Referral ID Status Reason Start Date Expiration Date Visits Requested Visits Authorized [id number] Authorized Auto-Generat ed Referral 03/07/2023 03/06/2024 9 1 * Diagnostic Procedure Only (Routine) - Authorized Specialty Diagnoses / Procedures Referred By Contac t Referred To Contact [facility] Diagnoses Maternal care for decelerations during Procedures BIOPHYSICAL PROFILE US WHI BIOPHYSICAL PROFILE NON-STRESS TESTING Sabrina Sorensen MD [address] [place] [address] [place] [id number] [place] [address] Referral ID Status Reason Start Date Expiration Date Visits Requested Visits Authorized [id number] Authorized Auto-Generat ed Referral 03/07/2023 03/06/2024 10 1 [facility] for referral (narrative)* Diagnostic Procedure Only (Routine) - Authorized Specialty Diagnoses / Procedures Referred By Contac t Referred To Contact US IMAGING Diagnoses Pelvic pain in female Procedures US FEMALE PELVIS TRANSVAG US TRANSVAGINAL Sabrina Sorensen MD [address] [place] [address] [place] [address] Referral ID Status Reason Start Date Expiration Date Visits Requested Visits Authorized [id number] Authorized Auto-Generat ed Referral 01/04/2024 02/02/2025 1 1 * Diagnostic Procedure Only (Routine) - Authorized Specialty Diagnoses / Procedures Referred By Contac t Referred To Contact US IMAGING Diagnoses Pelvic pain in female Procedures US FEMALE PELVIS TRANSABD LTD US PELVIC NONOBSTETRIC IMAGE DCMTN LIMITED/F/U Sabrina Sorensen MD [address] [place] [address] [place] [address] Referral ID Status Reason Start Date Expiration Date Visits Requested Visits Authorized [id number] Authorized Auto-Generat ed Referral 01/04/2024 02/02/2025 1 1 [facility] for referral (narrative)* Diagnostic Procedure Only (Urgent) - Closed Specialty Diagnoses / Procedures Referred By Contac t Referred To Contact XR IMAGING Diagnoses Foot injury, left, initial encounter Procedures XR FOOT GENERAL 3V AP/LAT/OBL LEFT RADEX FOOT COMPLETE MINIMUM 3 VIEWS Amalia Galeana PA-C [address] [place] [address] [place] [address] Referral ID Status Reason Start Date Expiration Date V isits Requested Visits Authorized [id number] Closed Auto-Generate d Referral 02/26/2024 03/27/2025 1 1 [facility] for referral (narrative)* Diagnostic Procedure Only (Urgent) - Closed Specialty Diagnoses / Procedures Referred By Contac t Referred To Contact XR IMAGING Diagnoses Foot injury, left, initial encounter Procedures XR FOOT GENERAL 3V AP/LAT/OBL LEFT RADEX FOOT COMPLETE MINIMUM 3 VIEWS Amalia Galeana PA-C [address] [place] [address] [place] [address] Referral ID Status Reason Start Date Expiration Date V isits Requested Visits Authorized [id number] Closed Auto-Generate d Referral 02/26/2024 03/27/2025 1 1 [facility] for referral (narrative)* Diagnostic Procedure Only (Routine) - Closed Specialty Diagnoses / Procedures Referred By Contac t Referred To Contact XR IMAGING Diagnoses DDD (degenerative disc disease), lumbar Procedures XR LUMBAR GENERAL 3V AP/LAT/L5-S1 X-RAY L-S SPINE AP/LATERAL Zafar Mederos MD [address] [place] [address] [place] [address] Referral ID Status Reason Start Date Expiration Date V isits Requested Visits Authorized [id number] Closed Auto-Generate d Referral 06/11/2021 07/11/2022 1 1 [facility] for referral (narrative)No reason for referral information [facility]WWestern [facility]* Outpatient Procedure (Routine) - Closed Specialty Diagnoses / Procedures Referred By Contac t Referred To Contact [facility] Diagnoses Change in bowel function Procedures COLONOSCOPY DIAGNOSTIC COLONOSCOPY FLX DX W/COLLJ SPEC WHEN PFRMD Yousuf Andrea [address] [place] [address] [facility] [address] [place] [address] Referral ID Status Reason Start Date Expiration Date V isits Requested Visits Authorized [id number] Closed Auto-Generate d Referral 01/13/2022 01/13/2023 1 1 [facility] for visit Narrative* Diagnostic Procedure Only (Routine) - Closed Specialty Diagnoses / Procedures Referred By Contac t Referred To Contact MOLECULAR & FUNCTIONAL IMAGING Diagnoses Nausea Procedures NM GASTRIC EMPTYING SOLID GASTRIC EMPTYING STUDY Christie Alvarado, SUPERINTENDENT PRESSURE [address] [place] [address] Molecular [facility] Functional [facility] [address] [place] [address] Referral ID Status Reason Start Date Expiration Date V isits Requested Visits Authorized [id number] Closed Auto-Generate d Referral 02/09/2022 08/27/2022 1 1 [facility] for visit Narrative* Diagnostic Procedure Only (Routine) - Closed Specialty Diagnoses / Procedures Referred By Contac t Referred To Contact US IMAGING Diagnoses Pelvic pain in female Procedures US FEMALE PELVIS TRANSABD LTD US PELVIC NONOBSTETRIC IMAGE DCMTN LIMITED/F/U Sabrina Sorensen MD [address] [place] [address] [place] [address] Referral ID Status Reason Start Date Expiration Date V isits Requested Visits Authorized [id number] Closed Auto-Generate d Referral 01/04/2024 02/02/2025 1 1 [facility] for visit Narrative* Diagnostic Procedure Only (Urgent) - Closed Specialty Diagnoses / Procedures Referred By Contac t Referred To Contact XR IMAGING Diagnoses Foot injury, left, initial encounter Procedures XR FOOT GENERAL 3V AP/LAT/OBL LEFT RADEX FOOT COMPLETE MINIMUM 3 VIEWS Amalia Galeana PA-C [address] [place] [address] [place] [address] Referral ID Status Reason Start Date Expiration Date V isits Requested Visits Authorized [id number] Closed Auto-Generate d Referral 02/26/2024 03/27/2025 1 1 [facility] for visit Narrative* Diagnostic Procedure Only (Routine) - Closed Specialty Diagnoses / Procedures Referred By Contac t Referred To Contact XR IMAGING Diagnoses DDD (degenerative disc disease), lumbar Procedures XR LUMBAR GENERAL 3V AP/LAT/L5-S1 X-RAY L-S SPINE AP/LATERAL Zafar Mederos MD [address] [place] [address] [place] [address] Referral ID Status Reason Start Date Expiration Date V isits Requested Visits Authorized [id number] Closed Auto-Generate d Referral 06/11/2021 07/11/2022 1 1 [facility] Reason for Referral Specialty Diagnoses / Procedures Referred By Contac t Referred To Contact MR IMAGING Diagnoses Acute midline low back pain with left-sided sciatica Urinary incontinence, unspecified type Procedures MRI LUMBAR SPINE WO IVCON MRI SPINAL CANAL LUMBAR W/O CONTRAST MATERIAL Daisy Hall MD [address] [place] [address] [facility] [address] Referral ID Status Reason Start Date Expiration Date Visits Requested Visits Authorized [id number] Pending Review Auto-Generat ed Referral 05/06/2024 06/05/2025 1 1 Specialty Diagnoses / Procedures Referred By Contac t Referred To Contact Diagnoses 31 weeks gestation of Non-reassuring heart rate or rhythm affecting management of mother Procedures CONSULT TO MATERNAL MEDI OFFICE/OUTPATIENT [facility] MDM 60-74 MINUTES Sabrina Sorensen MD [address] [place] [address] Referral ID Status Reason Start Date Expiration Date Visits Requested Visits Authorized [id number] Authorized PCP Requested Referral Auto-Generate d Referral 03/14/2023 03/13/2024 1 1 Specialty Diagnoses / Procedures Referred By Contac t Referred To Contact [facility] Diagnoses Non-reassuring heart rate or rhythm affecting management of mother Procedures NON-STRESS TEST NON-STRESS TEST Sabrina Sorensen MD [address] [place] [address] [facility] [address] [place] [address] Referral ID Status Reason Start Date Expiration Date Visits Requested Visits Authorized [id number] Authorized Auto-Generat ed Referral 03/14/2023 03/13/2024 8 1 Specialty Diagnoses / Procedures Referred By Contac t Referred To Contact [facility] Diagnoses 25 weeks gestation of Bilateral low back pain with sciatica, sciatica laterality unspecified, unspecified chronicity Pelvic pressure in Procedures CONSULT TO PHYSICAL THERAPY PHYSICAL THERAPY EVALUATION HIGH COMPLEX 45 MINS Gissel Alba MD [address] [place] [address] [facility] [address] [address] Referral ID Status Reason Start Date Expiration Date Visits Requested Visits Authorized [id number] Pending Review Auto-Generat ed Referral 01/26/2023 01/26/2024 1 1 Specialty Diagnoses / Procedures Referred By Contac t Referred To Contact Diagnoses Mild intermittent asthma, uncomplicated Benson Sorensenque, LEASE PURCHASE DRIVER.SUPERINTENDENT PRESSURE [address] [place] [address] Referral ID Status Reason Start Date Expiration Date Visits Re quested Visits Authorized [id number] Closed 1 1 Specialty Diagnoses / Procedures Referred By Anh evans Referred To Contact CT IMAGING Diagnoses Nausea Generalized abdominal pain Procedures CT ABD/PEL W IVCON CT ABD & PELVIS W/CONTRAST [address] [address] [address] Imaging Referral ID Status Reason Start Date Expiration Date Visits Requested Visits Authorized [id number] Pending Review Auto-Generat ed Referral 01/13/2022 02/12/2023 1 1 Specialty Diagnoses / Procedures Referred By Anh evans Referred To Contact [facility]LECULAR [facility] FUNCTIONAL IMAGING Diagnoses Nausea Procedures NM GASTRIC EMPTYING SOLID GASTRIC EMPTYING STUDY [address] [address] [facility] [address] [place] [address] Referral ID Status Reason Start Date Expiration Date Visits Requested Visits Authorized [id number] Pending Review Auto-Generat ed Referral 01/13/2022 02/12/2023 1 1 Specialty Diagnoses / Procedures Referred By Anh evans Referred To Contact [facility] Diagnoses Change in bowel function Procedures COLONOSCOPY DIAGNOSTIC COLONOSCOPY FLX DX W/COLLJ SPEC WHEN PFRMD Yousuf [address] [address] [facility] [address] [place] [address] Referral ID Status Reason Start Date Expiration Date Visits Requested Visits Authorized [id number] Authorized Auto-Generat ed Referral 01/13/2022 01/13/2023 1 1 Specialty Diagnoses / Procedures Referred By Anh evans Referred To Contact [facility] Diagnoses Nausea and vomiting, unspecified vomiting type Procedures EGD DIAGNOSTIC ESOPHAGOGASTRODUODENOSC OPY TRANSORAL DIAGNOSTIC Yousuf [address] [address] [facility] [address] [place] [address] [place] [address] Referral ID Status Reason Start Date Expiration Date Visits Requested Visits Authorized [id number] Authorized Auto-Generat ed Referral 01/13/2022 01/13/2023 1 1 Specialty Diagnoses / Procedures Referred By Anh evans Referred To Contact Gastroenterology Diagnoses LLQ abdominal pain Pelvic pain Nausea and vomiting, unspecified vomiting type Flank pain Procedures CONSULT TO GASTROENTEROLOGY OFFICE/OUTPATIENT NEW [facility] MDM 60-74 MINUTES Concepcion Yoder APRN.SUPERINTENDENT PRESSURE [address] [place] [address] Referral ID Status Reason Start Date Expiration Date Visits Requested Visits Authorized [id number] Authorized PCP Requested Referral 12/15/2021 12/15/2022 1 1 Health Concerns Infection Onset Date Last Indicated Resolved Time COVID-19 Rule-Out 05/11/2021 05/10/2021 05/11/2021 7:49 PM EDT COVID-19 Rule-Out 08/02/2021 08/02/2021 08/03/2021 11:47 AM EST Infection Onset Date Last Indicated Resolved Time COVID-19 Rule-Out 08/01/2022 08/01/2022 Problem Noted Date OB Reminders 09/15/2022 Problem Noted Date OB Reminders 09/15/2022 Problem Noted Date OB Reminders 09/15/2022 Problem Noted Date OB Reminders 09/15/2022 Infection Onset Date Last Indicated Resolved Time COVID-19 Rule-Out 10/01/2022 10/01/2022 Problem Noted Date OB Reminders 09/15/2022 Problem Noted Date OB Reminders 09/15/2022 Problem Noted Date OB Reminders 09/15/2022 Problem Noted Date OB Reminders 09/15/2022 Problem Noted Date OB Reminders 09/15/2022 Problem Noted Date OB Reminders 09/15/2022 Problem Noted Date OB Reminders 09/15/2022 Problem Noted Date OB Reminders 09/15/2022 Problem Noted Date OB Reminders 09/15/2022 Problem Noted Date OB Reminders 09/15/2022 Problem Noted Date Diagnosed Date [facility] 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 04/01/2023 Problem Noted Date Diagnosed Date [facility] 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 04/01/2023 Problem Noted Date Diagnosed Date [place] 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 04/01/2023 Problem Noted Date Diagnosed Date [place] 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 04/01/2023 Problem Noted Date Diagnosed Date [place] 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 04/01/2023 Summary Purpose Family History No Family History Records FoundNo Family History Records FoundNo Family History Records FoundNo Family History Records FoundNo Family History Records FoundNo Family History Records Found No data available for this section No Family History Records FoundNo Family History Records FoundNo Family History Records FoundNo Family History Records Found Advance Directives No Advanced Directives Records Found Advance Directive Response Recorded Date/ Time Living Will No August 26, 4:18pm Power of Brick Tender No August 26, 2022 4:18pm Advance Directive Response Recorded Date/ Time Living Will No October 05 7:45am Power of Brick Tender No October 05, 2022 7:45am Advance Directive Response Recorded Date/ Time Living Will No October 05 8:45am Power of Brick Tender No October 05, 2022 8:45am Advance Directive Response Recorded Date/ Time Living Will No February 28, 2023 2 :03am Power of Brick Tender No February 28, 2023 2:03am Advance Directive Response Recorded Date/ Time Living Will No July 30 6:33pm Power of Brick Tender No July 30, 2023 6:33pm Advance Directive Response Recorded Date/ Time Living Will No October 03 10:58am Do you have a Healthcare Power of Brick Tender? No October 03, 2024 10:58am Living Will No December 06, 2024 6:18pm Do you have a Healthcare Power of Brick Tender? No December 06, 2024 6:18pm Medications Administered Section Inactive Administered Medications - up to 3 most recent administrations Medication Order MAR Action Action Date Dose Rate Site keTORolac 60 mg injection (TORADOL) 60 mg, INTRAMUSCULAR, ONCE, 1 dose, On 05/22/22 at 1430, Ketorolac (Toradol) is indicated for the short-term (up to 5 days) management of moderately severe acute pain. Continuation of ketorolac (Toradol) beyond 5 days increases the risk of developing serious adverse events. Please verify the duration of therapy for ketorolac (Toradol)., If ordered PRN for pain, patient/guardian may elect to receive this medication for higher pain levels INSTEAD of the opioid, if preferred: Yes Given 05/22/2022 2:05 PM EDT 60 mg Buttocks, Right ondansetron orally disintegrating 4 mg tab(s) (ZOFRAN ODT) 4 mg, ORAL, ONCE, 1 dose, On 05/22/22 at 1400, Place tablet on tongue and allow to dissolve; do not chew. Open packaging using dry hands; do not push tablet through packaging. Given 05/22/2022 2:06 PM EDT 4 mg Chief Complaint and Reason for Visit Chief Complaint GENERAL ILLNESS Chief Complaint GENERAL ILLNESS abd pain Chief Complaint abd pain PELVIC PAIN Chief Complaint PELVIC PAIN FALL Reason for Visit 24 weeks gestation o f 29 weeks gestation of Cramping affecting , antepartum heart rate decelerations affecting management of mother History of herpes simplex infection Low back pain Tobacco use Chief Complaint PELVIC PAIN FALL DECREASED MOVEMENT Reason for Visit 24 weeks gestation o f 29 weeks gestation of Cramping affecting , antepartum heart rate decelerations affecting management of mother History of herpes simplex infection Low back pain Tobacco use 31 weeks gestation of Decreased movement Spotting affecting Chief Complaint PE NON DOT PHYSICAL/ WEST [place]IEW EORDER/ PRE-EMPLOYMENT LBP RX HERE CCOLD SYMPTOMS Reason for Visit Encounter for pre-em ployment health screening examination Chief Complaint Admit Date BACK October 03, 2024 9 :24am BACK PAIN December 06, 2024 6:1 8pm Additional Source Comments Source Comments (unrecognize d section and content) In the event this informatio n is protected by the Federal Confidentiality of Alcohol and Drug Abuse Patient Records regulations: The Federal rules restrict any use of the information to criminally investigate or prosecute any alcohol or drug abuse patient.[facility] the event this information is protected by the Federal Confidentiality of Alcohol and Drug Abuse Patient Records regulations: The Federal rules restrict any use of the information to criminally investigate or prosecute any alcohol or drug abuse patient.[facility]In the event this information is protected by the Federal Confidentiality of Alcohol and Drug Abuse Patient Records regulations: The Federal rules restrict any use of the information to criminally investigate or prosecute any alcohol or drug abuse patient.[facility] HospitalIn the event this information is protected by the Federal Confidentiality of Alcohol and Drug Abuse Patient Records regulations: The Federal rules restrict any use of the information to criminally investigate or prosecute any alcohol or drug abuse patient.[facility] HospitalIn the event this information is protected by the Federal Confidentiality of Alcohol and Drug Abuse Patient Records regulations: The Federal rules restrict any use of the information to criminally investigate or prosecute any alcohol or drug abuse patient.[facility] HospitalIn the event this information is protected by the Federal Confidentiality of Alcohol and Drug Abuse Patient Records regulations: The Federal rules restrict any use of the information to criminally investigate or prosecute any alcohol or drug abuse patient.[facility] HospitalIn the event this information is protected by the Federal Confidentiality of Alcohol and Drug Abuse Patient Records regulations: The Federal rules restrict any use of the information to criminally investigate or prosecute any alcohol or drug abuse patient.[facility] HospitalIn the event this information is protected by the Federal Confidentiality of Alcohol and Drug Abuse Patient Records regulations: The Federal rules restrict any use of the information to criminally investigate or prosecute any alcohol or drug abuse patient.[facility] HospitalIn the event this information is protected by the Federal Confidentiality of Alcohol and Drug Abuse Patient Records regulations: The Federal rules restrict any use of the information to criminally investigate or prosecute any alcohol or drug abuse patient.[facility] HospitalIn the event this information is protected by the Federal Confidentiality of Alcohol and Drug Abuse Patient Records regulations: The Federal rules restrict any use of the information to criminally investigate or prosecute any alcohol or drug abuse patient.[facility] HospitalIn the event this information is protected by the Federal Confidentiality of Alcohol and Drug Abuse Patient Records regulations: The Federal rules restrict any use of the information to criminally investigate or prosecute any alcohol or drug abuse patient.[facility] HospitalIn the event this information is protected by the Federal Confidentiality of Alcohol and Drug Abuse Patient Records regulations: The Federal rules restrict any use of the information to criminally investigate or prosecute any alcohol or drug abuse patient.[facility] HospitalIn the event this information is protected by the Federal Confidentiality of Alcohol and Drug Abuse Patient Records regulations: The Federal rules restrict any use of the information to criminally investigate or prosecute any alcohol or drug abuse patient.[facility] HospitalIn the event this information is protected by the Federal Confidentiality of Alcohol and Drug Abuse Patient Records regulations: The Federal rules restrict any use of the information to criminally investigate or prosecute any alcohol or drug abuse patient.[facility] HospitalIn the event this information is protected by the Federal Confidentiality of Alcohol and Drug Abuse Patient Records regulations: The Federal rules restrict any use of the information to criminally investigate or prosecute any alcohol or drug abuse patient.[facility] HospitalIn the event this information is protected by the Federal Confidentiality of Alcohol and Drug Abuse Patient Records regulations: The Federal rules restrict any use of the information to criminally investigate or prosecute any alcohol or drug abuse patient.[facility] HospitalIn the event this information is protected by the Federal Confidentiality of Alcohol and Drug Abuse Patient Records regulations: The Federal rules restrict any use of the information to criminally investigate or prosecute any alcohol or drug abuse patient.[facility] HospitalIn the event this information is protected by the Federal Confidentiality of Alcohol and Drug Abuse Patient Records regulations: The Federal rules restrict any use of the information to criminally investigate or prosecute any alcohol or drug abuse patient.[facility] HospitalIn the event this information is protected by the Federal Confidentiality of Alcohol and Drug Abuse Patient Records regulations: The Federal rules restrict any use of the information to criminally investigate or prosecute any alcohol or drug abuse patient.[facility] HospitalIn the event this information is protected by the Federal Confidentiality of Alcohol and Drug Abuse Patient Records regulations: The Federal rules restrict any use of the information to criminally investigate or prosecute any alcohol or drug abuse patient.[facility] HospitalIn the event this information is protected by the Federal Confidentiality of Alcohol and Drug Abuse Patient Records regulations: The Federal rules restrict any use of the information to criminally investigate or prosecute any alcohol or drug abuse patient.[facility] HospitalIn the event this information is protected by the Federal Confidentiality of Alcohol and Drug Abuse Patient Records regulations: The Federal rules restrict any use of the information to criminally investigate or prosecute any alcohol or drug abuse patient.[facility] HospitalIn the event this information is protected by the Federal Confidentiality of Alcohol and Drug Abuse Patient Records regulations: The Federal rules restrict any use of the information to criminally investigate or prosecute any alcohol or drug abuse patient.[facility] HospitalIn the event this information is protected by the Federal Confidentiality of Alcohol and Drug Abuse Patient Records regulations: The Federal rules restrict any use of the information to criminally investigate or prosecute any alcohol or drug abuse patient.[facility] HospitalIn the event this information is protected by the Federal Confidentiality of Alcohol and Drug Abuse Patient Records regulations: The Federal rules restrict any use of the information to criminally investigate or prosecute any alcohol or drug abuse patient.[facility] HospitalIn the event this information is protected by the Federal Confidentiality of Alcohol and Drug Abuse Patient Records regulations: The Federal rules restrict any use of the information to criminally investigate or prosecute any alcohol or drug abuse patient.[facility] HospitalIn the event this information is protected by the Federal Confidentiality of Alcohol and Drug Abuse Patient Records regulations: The Federal rules restrict any use of the information to criminally investigate or prosecute any alcohol or drug abuse patient.[facility] HospitalIn the event this information is protected by the Federal Confidentiality of Alcohol and Drug Abuse Patient Records regulations: The Federal rules restrict any use of the information to criminally investigate or prosecute any alcohol or drug abuse patient.[facility] HospitalIn the event this information is protected by the Federal Confidentiality of Alcohol and Drug Abuse Patient Records regulations: The Federal rules restrict any use of the information to criminally investigate or prosecute any alcohol or drug abuse patient.[facility] HospitalIn the event this information is protected by the Federal Confidentiality of Alcohol and Drug Abuse Patient Records regulations: The Federal rules restrict any use of the information to criminally investigate or prosecute any alcohol or drug abuse patient.[facility] HospitalIn the event this information is protected by the Federal Confidentiality of Alcohol and Drug Abuse Patient Records regulations: The Federal rules restrict any use of the information to criminally investigate or prosecute any alcohol or drug abuse patient.[facility] HospitalIn the event this information is protected by the Federal Confidentiality of Alcohol and Drug Abuse Patient Records regulations: The Federal rules restrict any use of the information to criminally investigate or prosecute any alcohol or drug abuse patient.[facility] HospitalIn the event this information is protected by the Federal Confidentiality of Alcohol and Drug Abuse Patient Records regulations: The Federal rules restrict any use of the information to criminally investigate or prosecute any alcohol or drug abuse patient.[facility] HospitalIn the event this information is protected by the Federal Confidentiality of Alcohol and Drug Abuse Patient Records regulations: The Federal rules restrict any use of the information to criminally investigate or prosecute any alcohol or drug abuse patient.[facility] HospitalIn the event this information is protected by the Federal Confidentiality of Alcohol and Drug Abuse Patient Records regulations: The Federal rules restrict any use of the information to criminally investigate or prosecute any alcohol or drug abuse patient.[facility] HospitalIn the event this information is protected by the Federal Confidentiality of Alcohol and Drug Abuse Patient Records regulations: The Federal rules restrict any use of the information to criminally investigate or prosecute any alcohol or drug abuse patient.[facility] HospitalIn the event this information is protected by the Federal Confidentiality of Alcohol and Drug Abuse Patient Records regulations: The Federal rules restrict any use of the information to criminally investigate or prosecute any alcohol or drug abuse patient.[facility] HospitalIn the event this information is protected by the Federal Confidentiality of Alcohol and Drug Abuse Patient Records regulations: The Federal rules restrict any use of the information to criminally investigate or prosecute any alcohol or drug abuse patient.[facility] HospitalIn the event this information is protected by the Federal Confidentiality of Alcohol and Drug Abuse Patient Records regulations: The Federal rules restrict any use of the information to criminally investigate or prosecute any alcohol or drug abuse patient.[facility] HospitalIn the event this information is protected by the Federal Confidentiality of Alcohol and Drug Abuse Patient Records regulations: The Federal rules restrict any use of the information to criminally investigate or prosecute any alcohol or drug abuse patient.[facility] HospitalIn the event this information is protected by the Federal Confidentiality of Alcohol and Drug Abuse Patient Records regulations: The Federal rules restrict any use of the information to criminally investigate or prosecute any alcohol or drug abuse patient.[facility] HospitalIn the event this information is protected by the Federal Confidentiality of Alcohol and Drug Abuse Patient Records regulations: The Federal rules restrict any use of the information to criminally investigate or prosecute any alcohol or drug abuse patient.[facility] HospitalIn the event this information is protected by the Federal Confidentiality of Alcohol and Drug Abuse Patient Records regulations: The Federal rules restrict any use of the information to criminally investigate or prosecute any alcohol or drug abuse patient.[facility] HospitalIn the event this information is protected by the Federal Confidentiality of Alcohol and Drug Abuse Patient Records regulations: The Federal rules restrict any use of the information to criminally investigate or prosecute any alcohol or drug abuse patient.[facility] HospitalIn the event this information is protected by the Federal Confidentiality of Alcohol and Drug Abuse Patient Records regulations: The Federal rules restrict any use of the information to criminally investigate or prosecute any alcohol or drug abuse patient.[facility] HospitalIn the event this information is protected by the Federal Confidentiality of Alcohol and Drug Abuse Patient Records regulations: The Federal rules restrict any use of the information to criminally investigate or prosecute any alcohol or drug abuse patient.[facility] HospitalIn the event this information is protected by the Federal Confidentiality of Alcohol and Drug Abuse Patient Records regulations: The Federal rules restrict any use of the information to criminally investigate or prosecute any alcohol or drug abuse patient.[facility] HospitalIn the event this information is protected by the Federal Confidentiality of Alcohol and Drug Abuse Patient Records regulations: The Federal rules restrict any use of the information to criminally investigate or prosecute any alcohol or drug abuse patient.[facility] HospitalIn the event this information is protected by the Federal Confidentiality of Alcohol and Drug Abuse Patient Records regulations: The Federal rules restrict any use of the information to criminally investigate or prosecute any alcohol or drug abuse patient.[facility] HospitalIn the event this information is protected by the Federal Confidentiality of Alcohol and Drug Abuse Patient Records regulations: The Federal rules restrict any use of the information to criminally investigate or prosecute any alcohol or drug abuse patient.[facility] HospitalIn the event this information is protected by the Federal Confidentiality of Alcohol and Drug Abuse Patient Records regulations: The Federal rules restrict any use of the information to criminally investigate or prosecute any alcohol or drug abuse patient.[facility] HospitalIn the event this information is protected by the Federal Confidentiality of Alcohol and Drug Abuse Patient Records regulations: The Federal rules restrict any use of the information to criminally investigate or prosecute any alcohol or drug abuse patient.[facility] HospitalIn the event this information is protected by the Federal Confidentiality of Alcohol and Drug Abuse Patient Records regulations: The Federal rules restrict any use of the information to criminally investigate or prosecute any alcohol or drug abuse patient.[facility] HospitalIn the event this information is protected by the Federal Confidentiality of Alcohol and Drug Abuse Patient Records regulations: The Federal rules restrict any use of the information to criminally investigate or prosecute any alcohol or drug abuse patient.[facility] HospitalIn the event this information is protected by the Federal Confidentiality of Alcohol and Drug Abuse Patient Records regulations: The Federal rules restrict any use of the information to criminally investigate or prosecute any alcohol or drug abuse patient.[facility] HospitalIn the event this information is protected by the Federal Confidentiality of Alcohol and Drug Abuse Patient Records regulations: The Federal rules restrict any use of the information to criminally investigate or prosecute any alcohol or drug abuse patient.[facility] HospitalIn the event this information is protected by the Federal Confidentiality of Alcohol and Drug Abuse Patient Records regulations: The Federal rules restrict any use of the information to criminally investigate or prosecute any alcohol or drug abuse patient.[facility] HospitalIn the event this information is protected by the Federal Confidentiality of Alcohol and Drug Abuse Patient Records regulations: The Federal rules restrict any use of the information to criminally investigate or prosecute any alcohol or drug abuse patient.[facility] HospitalIn the event this information is protected by the Federal Confidentiality of Alcohol and Drug Abuse Patient Records regulations: The Federal rules restrict any use of the information to criminally investigate or prosecute any alcohol or drug abuse patient.[facility] HospitalIn the event this information is protected by the Federal Confidentiality of Alcohol and Drug Abuse Patient Records regulations: The Federal rules restrict any use of the information to criminally investigate or prosecute any alcohol or drug abuse patient.[facility] HospitalIn the event this information is protected by the Federal Confidentiality of Alcohol and Drug Abuse Patient Records regulations: The Federal rules restrict any use of the information to criminally investigate or prosecute any alcohol or drug abuse patient.[facility] HospitalIn the event this information is protected by the Federal Confidentiality of Alcohol and Drug Abuse Patient Records regulations: The Federal rules restrict any use of the information to criminally investigate or prosecute any alcohol or drug abuse patient.[facility] HospitalIn the event this information is protected by the Federal Confidentiality of Alcohol and Drug Abuse Patient Records regulations: The Federal rules restrict any use of the information to criminally investigate or prosecute any alcohol or drug abuse patient.[facility] HospitalIn the event this information is protected by the Federal Confidentiality of Alcohol and Drug Abuse Patient Records regulations: The Federal rules restrict any use of the information to criminally investigate or prosecute any alcohol or drug abuse patient.[facility] HospitalIn the event this information is protected by the Federal Confidentiality of Alcohol and Drug Abuse Patient Records regulations: The Federal rules restrict any use of the information to criminally investigate or prosecute any alcohol or drug abuse patient.[facility] HospitalIn the event this information is protected by the Federal Confidentiality of Alcohol and Drug Abuse Patient Records regulations: The Federal rules restrict any use of the information to criminally investigate or prosecute any alcohol or drug abuse patient.[facility] HospitalIn the event this information is protected by the Federal Confidentiality of Alcohol and Drug Abuse Patient Records regulations: The Federal rules restrict any use of the information to criminally investigate or prosecute any alcohol or drug abuse patient.[facility] HospitalIn the event this information is protected by the Federal Confidentiality of Alcohol and Drug Abuse Patient Records regulations: The Federal rules restrict any use of the information to criminally investigate or prosecute any alcohol or drug abuse patient.[facility] HospitalIn the event this information is protected by the Federal Confidentiality of Alcohol and Drug Abuse Patient Records regulations: The Federal rules restrict any use of the information to criminally investigate or prosecute any alcohol or drug abuse patient.[facility] Care Teams (unrecognized sec tion and content) Inspector Clip On Sunglasses Relationship Specialty Start Date End Date Juan Diego Gaines, DO [address] [place] [address] PCP - General Family Practice 05/26/17 Inspector Clip On Sunglasses Relationship Specialty Start Date End Date Juan Diego Gaines, DO [address] [place] [address] PCP - General Family Practice 05/26/17 Inspector Clip On Sunglasses Relationship Specialty Start Date End Date Juan Diego Gaines, DO [address] [place] [address] PCP - General Family Practice 05/26/17 Inspector Clip On Sunglasses Relationship Specialty Start Date End Date Juan Diego Gaines, DO [address] [place] [address] PCP - General Family Practice 05/26/17 Inspector Clip On Sunglasses Relationship Specialty Start Date End Date Juan Diego Gaines, DO [address] [place] [address] PCP - General Family Practice 05/26/17 Inspector Clip On Sunglasses Relationship Specialty Start Date End Date Juan Diego Gaines, DO [address] [place] [address] PCP - General Family Practice 05/26/17 Inspector Clip On Sunglasses Relationship Specialty Start Date End Date Juan Diego Gaines, DO [address] [place] [address] PCP - General Family Practice 05/26/17 Inspector Clip On Sunglasses Relationship Specialty Start Date End Date Juan Diego Gaines, DO [address] [place] [address] PCP - General Family Practice 05/26/17 Inspector Clip On Sunglasses Relationship Specialty Start Date End Date Juan Diego Gaines, DO [address] [place] [address] PCP - General Family Practice 05/26/17 Inspector Clip On Sunglasses Relationship Specialty Start Date End Date Juan Diego Gaines, DO [address] [place] [address] PCP - General Family Practice 05/26/17 Inspector Clip On Sunglasses Relationship Specialty Start Date End Date Juan Diego Gaines, DO [address] [place] [address] PCP - General Family Practice 05/26/17 Inspector Clip On Sunglasses Relationship Specialty Start Date End Date Juan Diego Gaines, DO [address] [place] [address] PCP - General Family Practice 05/26/17 Inspector Clip On Sunglasses Relationship Specialty Start Date End Date Juan Diego Gaines, DO [address] [place] [address] PCP - General Family Practice 05/26/17 Inspector [employer] Relationship Specialty Start Date End Date Juan Diego Gaines, DO [address] [place] [address] PCP - General Family Practice 05/26/17 Inspector [employer] Relationship Specialty Start Date End Date Juan Diego Gaines, DO [address] [facility] [place] [address] PCP - General Family Practice 05/26/17 Inspector Cl[employer] S[employer]lasses Relationship Specialty Start Date End Date Juan Diego Gaines, DO [address] [facility] [place] [address] PCP - General Family Practice 05/26/17 Inspector Clip [employer] S[employer] Relationship Specialty Start Date End Date Juan Diego Gaines, DO [address] [facility] [place] [address] PCP - General Family Practice 05/26/17 Inspector [employer] S[employer] Relationship Specialty Start Date End Date Juan Diego Gaines, DO [address] [facility] [place] [address] PCP - General Family Practice 05/26/17 Inspector Cl[employer] S[employer] Relationship Specialty Start Date End Date Juan Diego Gaines, DO [address] [facility] [place] [address] PCP - General Family Practice 05/26/17 Inspector Clip [employer] S[employer] Relationship Specialty Start Date End Date Juan Diego Gaines, DO [address] [place] [address] PCP - General Family Medicine 05/26/17 Inspector [employer] S[employer] Relationship Specialty Start Date End Date Juan Diego Gaines, DO [address] [place] [address] PCP - General Family Medicine 05/26/17 Inspector [employer] S[employer] Relationship Specialty Start Date End Date Juan Diego Gaines, DO [address] [place] [address] PCP - General Family Medicine 05/26/17 Inspector [employer] S[employer] Relationship Specialty Start Date End Date Juan Diego Gaines, DO [address] [place] [address] PCP - General Family Medicine 05/26/17 Inspector [employer] Relationship Specialty Start Date End Date Juan Diego Gaines, DO [address] [place] [address] PCP - General Family Medicine 05/26/17 Inspector Cl[employer] Relationship Specialty Start Date End Date Juan Diego Gaines, DO [address] [place] [address] PCP - General Family Medicine 05/26/17 Inspector Cl[employer] Relationship Specialty Start Date End Date Juan Diego Gaines, DO [address] [place] [address] PCP - General Family Medicine 05/26/17 Inspector Cl[employer] S[employer] Relationship Specialty Start Date End Date Juan Diego Gaines DO [address] [place] [address] PCP - General Family Medicine 05/26/17 Inspector [employer] Relationship Specialty Start Date End Date Juan Diego Gaines DO [address] [place] [address] PCP - General Family Medicine 05/26/17 Inspector [employer] Relationship Specialty Start Date End Date Juan Diego Gaines DO [address] [place] [address] PCP - General Family Medicine 05/26/17 Team Status: Active Member Role Status Dates Dr. Juan Diego Gaines DO Family Provider Active Dr. Juan Diego Gaines DO Primary Care Provider Active Team Status: Inactive Member Role Status Dates Dr. Juan Diego Gaines , DO Primary Care Provider Active Dr. Kei Minaya MD Attending Provider, Emergency Provider Active Team Status: Inactive Member Role Status Dates Dr. Juan Diego Gaines , DO Primary Care Provider Active Dr. Terrance Haas , DO Emergency Provider Active Inspector [employer] Relationship Specialty Start Date End Date Juan Diego Gaines, DO [address] [place] [address] PCP - General Family Medicine 05/26/17 Inspector [employer] Relationship Specialty Start Date End Date Juan Diego Gaines, DO [address] [place] [address] PCP - General Family Medicine 05/26/17 Inspector Cl[employer] Relationship Specialty Start Date End Date Juan Diego Gaines, DO [address] [place] [address] PCP - General Family Medicine 05/26/17 Inspector [employer] Relationship Specialty Start Date End Date Juan Diego Gaines, DO [address] [facility] [place] [address] PCP - General Family Medicine 05/26/17 Inspector [employer] Relationship Specialty Start Date End Date Juan Diego Gaines DO [address] [place] [address] PCP - General Family Medicine 05/26/17 Team Status: Inactive Member Role Status Dates Dr. Juan Diego Gaines DO Primary Care Provider Active Dr. Terrance Haas , DO Attending Provider, Emergency P devi Active Team Status: Inactive Member Role Status Dates Dr. Juan Diego Gaines DO Primary Care Provider Active Mirta Moreland CNM Attending Provider, Referring Prov ider Active Inspector [employer] Relationship Specialty Start Date End Date Juan Diego Gaines DO [address] [place] [address] PCP - General Family Medicine 05/26/17 Inspector [employer] Relationship Specialty Start Date End Date Juan Diego Gaines DO [address] [place] [address] PCP - General Family Medicine 05/26/17 Team Status: Inactive Member Role Status Dates Dr. Juan Diego Gaines DO Primary Care Provider Active Dr. Gissel Alba DO Attending Provider, Referring Pr ovider Active [employer] Relationship Specialty Start Date End Date Juan Diego Gaines DO [address] [place] [address] PCP - General Family Medicine 05/26/17 Inspector [employer] Relationship Specialty Start Date End Date Juan Diego Gaines DO [address] [place] [address] PCP - General Family Medicine 05/26/17 Team Status: Inactive Member Role Status Dates Dr. Juan Diego Gaines DO Primary Care Provider Active Shayla Partida CNM Attending Provider, Referring Pr ovider Active [employer] Relationship Specialty Start Date End Date Juan Diego Gaines DO [address] [place] [address] PCP - General Family Medicine 05/26/17 Inspector [employer] Relationship Specialty Start Date End Date Juan Diego aGines DO [address] [place] [address] PCP - General Family Medicine 05/26/17 Inspector [employer] Relationship Specialty Start Date End Date Juan Diego Gaines DO [address] [place] [address] PCP - General Family Medicine 05/26/17 Inspector [employer] Relationship Specialty Start Date End Date Juan Diego Gaines DO [address] [place] [address] PCP - General Family Medicine 05/26/17 Inspector [employer] Relationship Specialty Start Date End Date Juan Diego Gaines DO [address] [place] [address] PCP - General Family Medicine 05/26/17 Inspector [employer] Relationship Specialty Start Date End Date Juan Diego Gaines DO [address] [place] [address] PCP - General Family Medicine 05/26/17 Inspector [employer] Relationship Specialty Start Date End Date Juan Diego Gaines DO [address] [place] [address] PCP - General Family Medicine 05/26/17 Inspector [employer] Relationship Specialty Start Date End Date Juan Diego Gaines DO [address] [place] [address] PCP - General Family Medicine 05/26/17 Team Status: Inactive Member Role Status Dates Dr. Juan Diego Gaines DO Primary Care Provider, Referr ing Provider Active Zack PATEL PA Attending Provider Active Team Status: Active Member Role Status Dates Dr. Juan Diego Gaines DO Primary Care Provider Active JORGE Gaytan Attending Provider, Referring Provi bhavna Active Team Status: Active Member Role Status Dates Dr. Juan Diego Gaiens DO Primary Care Provider Active Dr. Abdulaziz Ravi MD Attending Provider, Referrin g Provider Active Team Status: Inactive Member Role Status Dates Dr. Juan Diego Gaines DO Primary Care Provider Active Dr. Xiomy Peterson MD Emergency Provider Active Inspector [employer] Relationship Specialty Start Date End Date Juan Diego Gaines DO [address] [place] [address] PCP - General Family Medicine 05/26/17 Inspector [employer] Relationship Specialty Start Date End Date Juan Diego Gaines DO [address] [place] [address] PCP - General Family Medicine 05/26/17 Inspector [employer] Relationship Specialty Start Date End Date Juan Diego Gaines DO [address] [facility] [place] [address] PCP - General Family Medicine 05/26/17 Inspector Cl[employer] Relationship Specialty Start Date End Date Juan Diego Gaines DO [address] [facility] [place] [address] PCP - General Family Medicine 05/26/17 Inspector [employer] Relationship Specialty Start Date End Date Juan Diego Gaines DO [address] [facility] [place] [address] PCP - General Family Medicine 05/26/17 Inspector [employer] Relationship Specialty Start Date End Date Juan Diego Gaines DO [address] [place] [address] PCP - General Family Medicine 05/26/17 Inspector Cl[employer] Relationship Specialty Start Date End Date Juan Diego Gaines DO [address] [place] [address] PCP - General Family Medicine 05/26/17 Inspector Cl[employer] Relationship Specialty Start Date End Date Juan Diego Gaines DO [address] [place] [address] PCP - General Family Medicine 05/26/17 Concepcion Downey, LEASE PURCHASE DRIVER.SUPERINTENDENT PRESSURE [address] [place] [address] [employer] Hobber Set Up Operator Family Medicine 08/04/24 Lorrie Walton APRN.SUPERINTENDENT PRESSURE [address] [place] [address] Gear Hobber Set Up Operator Family Medicine 08/04/24 Inspector [employer] Relationship Specialty Start Date End Date Juan Diego Gaines DO [address] [place] [address] PCP - General Family Medicine 05/26/17 Concepcion Downey APRN.SUPERINTENDENT PRESSURE [address] [place], [place] [address] Gear Hobber Set Up Operator Family Medicine 08/04/24 Lorrie Walton APRN.SUPERINTENDENT PRESSURE [address] [place], [place] [address] Gear Hobber Set Up Operator [facility] 08/04/24 Team Status: Active Member Role Status Dates Dr. Juan Diego Gaines DO Primary Care Provider Active Team Status: Inactive Member Role Status Dates Dr. Juan Diego Gaines DO Primary Care Provider Active Start: October 03, 2024 End: October 03, 2024 Dr. Mari Pringle DO Attending Provider Active Start: October 03, 2024 End: October 03, 2024 Dr. Mari Pringle DO Emergency Provider Active Start: October 03, 2024 End: October 03, 2024 Team Status: Inactive Member Role Status Dates Dr. Juan Diego Gaines DO Primary Care Provider Active Start: December 06, 2024 End: December 06, 2024 Dr. Da Durham MD Emergency Provider Active Sta rt: December 06, 2024 End: December 06, 2024 Reason for Visit (unrecogniz ed section and content) Reason Comments US Specialty Diagnoses / Procedures Referred By Contac t Referred To Contact [facility] Diagnoses Maternal care for decelerations during Procedures BIOPHYSICAL PROFILE US [facility] BIOPHYSICAL PROFILE NON-STRESS TESTING Sabrina Sorensen MD [address] [place] [address] [facility] [address] [address] Referral ID Status Reason Start Date Expiration Date V isits Requested Visits Authorized [id number] Closed Auto-Generate d Referral 03/07/2023 03/06/2024 10 1 Specialty Diagnoses / Procedures Referred By Contac t Referred To Contact Diagnoses Non-reassuring heart rate or rhythm affecting management of mother Procedures NA Al [address] [place] [address] Referral ID Status Reason Start Date Expiration Date Visits Re quested Visits Authorized [id number] 1 1 Specialty Diagnoses / Procedures Referred By Contac t Referred To Contact Diagnoses Non-reassuring heart rate or rhythm affecting management of mother Procedures N/A [address] [place] [address] Referral ID Status Reason Start Date Expiration Date Visits Re quested Visits Authorized [id number] 1 1 Specialty Diagnoses / Procedures Referred By Contac t Referred To Contact Diagnoses Indication for care or intervention related to labor and delivery Procedures NA Al [address] [place] [address] Referral ID Status Reason Start Date Expiration Date Visits Re quested Visits Authorized [id number] 1 1 Reason Comments Abdominal Pain LLQ abd pain radiati ng to LL back, vomiting, ST, body aches, nausea x15 days Reason Comments Results Reason Comments Recheck from urgent care , c ramping, abdominal pain dull and stabbing goes into back, can not eat causes pain and nausea, been going on since November 28, no diarrhea, but vomiting Reason Comments Forms Unemployment paperwo rk Reason Onset Date Comments Refill Request 12/22/2021 Reason Comments Forms Reason Comments Short Term Disability Forms Reason Comments Prescreening Reason Comments LLQ abdominal pain Pelvic Pain Diarrhea Constipation Nausea & Vomiting Specialty Diagnoses / Procedures Referred By Contac t Referred To Contact Gastroenterology Diagnoses LLQ abdominal pain Pelvic pain Nausea and vomiting, unspecified vomiting type Flank pain Procedures CONSULT TO GASTROENTEROLOGY OFFICE/OUTPATIENT [facility] 60-74 MINUTES Concepcion Yoder, LEASE PURCHASE DRIVER.SUPERINTENDENT PRESSURE [address] [place] [address] Referral ID Status Reason Start Date Expiration Date V isits Requested Visits Authorized [id number] Closed PCP Requested Referral 12/15/2021 12/15/2022 1 1 Reason Comments Endo pre call Specialty Diagnoses / Procedures Referred By Contac t Referred To Contact CT IM[facility] Diagnoses Nausea Generalized abdominal pain Procedures CT ABD/PEL W IVCON CT ABD & PELVIS W/CONTRAST Christie Alvarado, SUPERINTENDENT PRESSURE [address] [place] [address] Ct Imaging Referral ID Status Reason Start Date Expiration Date V isits Requested Visits Authorized [id number] Closed Auto-Generate d Referral 02/11/2022 05/12/2022 1 1 Reason Comments Patient Update Reason Comments Patient Question Reason Comments ED Follow-up Pt states was seen f or covid symptoms , was dx with pnemonia and uti. All step and covid and flu tests were negative. Was back in er Monday because had hives from atb . 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 or new atb Reason Comments Headache Migraine since last Monday Reason Comments Nasal Congestion drainage, headache,v omiting, bodyaches, fever, chills and diarrhea x 2 days Reason Comments Referral Information ED follow up visit Reason Comments ED Follow-up Reason Comments Cough Asthma Reason Comments Initial OB Visit Reason Comments Resident Care Manager - Other PRAF Reason Comments Orders Specialty Diagnoses / Procedures Referred By Contac t Referred To Contact [facility] Diagnoses 8 weeks gestation of Procedures OBSTETRIC ULTRASOUND WHI US PREG UTERUS AFTER 1ST TRIMEST GESTATION Christy Spangler MD [address] [place] [address] [facility] [employer] [place] [address] Referral ID Status Reason Start Date Expiration Date V isits Requested Visits Authorized [id number] Closed Auto-Generate d Referral 09/28/2022 09/28/2023 1 1 Reason Comments Headache Pt reported x8 wk ge station, nasal congestion , x3 days. Reason Onset Date Comments Care 10/27/2022 Reason Comments Breast Pump Order Reason Onset Date Comments Care 11/24/2022 Specialty Diagnoses / Procedures Referred By Contac t Referred To Contact [facility] Diagnoses care in first trimester 12 weeks gestation of Procedures OBSTETRIC ULTRASOUND WHI US PREG UTERUS AFTER 1ST TRIMEST GESTATION Dayan Reed MD [address] [place] [address] [facility] [place] [address] Referral ID Status Reason Start Date Expiration Date V isits Requested Visits Authorized [id number] Closed Auto-Generate d Referral 10/27/2022 10/27/2023 1 1 Reason Onset Date Comments Care 12/22/2022 Reason Comments Ear Pain Right ear pain, sore throat, nasally, congestion x 2 days Reason Onset Date Comments Care 01/26/2023 Reason Onset Date Comments Care 02/08/2023 Reason Comments Orders Reason Onset Date Comments Care 03/14/2023 Reason Onset Date Comments Care 03/24/2023 Specialty Diagnoses / Procedures Referred By Contac t Referred To Contact [facility] Diagnoses Non-reassuring heart rate or rhythm affecting management of mother Procedures NON-STRESS TEST NON-STRESS TEST Sabrina Sorensen MD [address] [place] [address] [facility] [address] [place] [address] Referral ID Status Reason Start Date Expiration Date V isits Requested Visits Authorized [id number] Closed Auto-Generate d Referral 03/14/2023 03/13/2024 8 1 Reason Comments Early Reason Comments IV Removal Reason Comments Routine Reason Comments Sinus Problem Congestion, sore thr oat, runny nose, fever x 3 days Reason Comments Nipple Pain Reason Comments Pelvic Pain Reason Comments Trauma Left foot injury/cristopher n x 1 week Reason Comments Follow Up ER Reason Comments Rash Hands and upper arms x1 week Specialty Diagnoses / Procedures Referred By Contac t Referred To Contact [facility] Diagnoses Acute midline low back pain with left-sided sciatica Urinary incontinence, unspecified type Procedures MRI LUMBAR SPINE WO IVCON MRI SPINAL CANAL LUMBAR W/O CONTRAST MATERIAL Daisy Hall MD [address] [place] [address] [place] [address] Referral ID Status Reason Start Date Expiration Date V isits Requested Visits Authorized [id number] Closed Auto-Generate d Referral 05/15/2024 08/13/2024 1 1 Reason Comments Chest Congestion head congestion, cou gh, sob, fatigue, fever x 3 days Reason Comments Cough Runny nose, BURGOS, SERA ear pain, sore throat x 3 days Reason Comments pinched nerve in back X 1 day-cannot rec all an injury INFORMATION SOURCE (unrecogn ized section and content) DATE CREATED AUTHOR 12/25/2021 [facility] [place] DATE CREATED AUTHOR AUTHOR'S ORGANIZ ATION 02/14/2022 [facility] DATE CREATED AUTHOR AUTHOR'S ORGANIZ ATION 04/29/2023 [facility] DATE CREATED AUTHOR AUTHOR'S ORGANIZ ATION 06/11/2023 [facility] DATE CREATED AUTHOR AUTHOR'S ORGANIZ ATION 01/12/2024 [facility] DATE CREATED AUTHOR AUTHOR'S ORGANIZ ATION 04/29/2024 [facility] [place] DATE CREATED AUTHOR AUTHOR'S ORGANIZ ATION 11/08/2024 [facility] DATE CREATED AUTHOR AUTHOR'S ORGANIZ ATION 11/09/2024 [facility] DATE CREATED AUTHOR AUTHOR'S ORGANIZ ATION 11/09/2024 [facility] DATE CREATED AUTHOR AUTHOR'S ORGANIZ ATION 12/13/2024 [facility] Goals (unrecognized section and content) Goals may be documented in a n alternate section FOR RECORDS PERTAINING TO PATIENTS WHO ARE OR HAVE BEEN ENROLLED IN A CHEMICAL DEPENDENCY/SUBSTANCEABUSE PROGRAM, SOME INFORMATION MAY BE OMITTED. This clinical summary was aggregated from multiple sources. Caution should be exercised in using it in the provision of clinical care. This summary normalizes information from multiple sources, and as a consequence, information in this document may materially change the coding, format and clinical context of patient data. In addition, data may be omitted in some cases. CLINICAL DECISIONS SHOULD BE BASED ON THE PRIMARY CLINICAL RECORDS. [employer] provides no warranty or guarantee of the accuracy or completeness of information in this document.
== END 2025-02-14 00:36 | disposition home or self-care (01) ==
LOC: ED 02-14 00:30
PROVIDERS: Emergency Provider Emergency Medicine; PCP Student in an Organized Health Care Education/Training Program; Visit Provider Emergency Medicine
DX: S61.211A Laceration without foreign body of left index finger without damage to nail, initial encounter (principal); W26.0XXA Contact with knife, initial encounter; J45.909 Unspecified asthma, uncomplicated; Z79.899 Other long term (current) drug therapy; Z87.891 Personal history of nicotine dependence
CPT/HCPCS: 12001; 73130; 99282